=== PATIENT | male | born 1935 | race Caucasian/White ===

== ENCOUNTER 2019-11-21 13:16 | Outpatient (CLI) | payer MEDICARE, OTHER, SELFPAY ==
--- NOTE | 2019-11-21 13:23 | USCV_ITS ---
Yossi Vargas Age: 84 Gender: M : 1935 Exam Date: 11/21/2019 13:22 Ordering Phys: Jose Reza MD ([email or web address]) Technologist: Jonathan Reynoso Exam Location: [facility] [place] Indication: TIA BP: 132 / 72 HR: 56 Rhythm: Sinus Technical Quality: Fair MEASUREMENTS (Male / Female) Normal Values 2D ECHO LV Diastolic Diameter PLAX 3.4 cm 4.2 - 5.9 / 3.9 - 5.3 cm LV Systolic Diameter PLAX 2.3 cm IVS Diastolic Thickness 0.9 cm 0.6 - 1.0 / 0.6 - 0.9 cm IVS Systolic Thickness 1.2 cm LVPW Diastolic Thickness 0.8 cm 0.6 - 1.0 / 0.6 - 0.9 cm LVPW Systolic Thickness 1.4 cm LVOT Diameter 2.0 cm LV Ejection Fraction 2D Teich 65.0 % LV Ejection Fraction MOD 2C 58.7 % LV Ejection Fraction 2C AL 58.2 % LA Diameter 4.5 cm LA Width 4.7 cm LA Height 4.6 cm RA Width 4.7 cm RA Height 4.2 cm Aorta at Sinotubular Diameter 3.0 cm M-MODE LV Diastolic Diameter MM 3.6 cm 4.2 - 5.9 / 3.9 - 5.3 cm LV Systolic Diameter MM 2.0 cm LV Ejection Fraction MM Teich 76.8 % IVS Diastolic Thickness MM 0.7 cm 0.6 - 1.0 / 0.6 - 0.9 cm IVS Systolic Thickness MM 1.6 cm LVPW Diastolic Thickness MM 1.1 cm 0.6 - 1.0 / 0.6 - 0.9 cm LVPW Systolic Thickness MM 1.2 cm RV Diastolic Diameter MM 1.4 cm Aortic Annulus Diameter 3.7 cm LA Ao Ratio MM 1.2 MV E Point Septal Separation 1.1 cm DOPPLER AV Peak Velocity 227.0 cm/s LVOT Peak Velocity 84.0 cm/s AV Area Cont Eq vti 1.1 cm squared AV Area Cont Eq pk 1.2 cm squared MV Area PHT 5.0 cm squared Mitral E to A Ratio 0.9 MV E' Velocity 9.0 cm/s Mitral E to MV E' Ratio 10.6 Mitral E to LV E' Lateral Ratio 10.5 Mitral E to LV E' Septal Ratio 10.9 TR Peak Velocity 285.0 cm/s TR Peak Gradient 32.6 mmHg TV Peak E Velocity 72.0 cm/s Right Atrial Pressure 3.0 mmHg Pulmonary Artery Systolic Pressu 35.5 mmHg FINDINGS Left Ventricle Normal left ventricular size and systolic function, EF 63 %. No regional wall motion abnormalities. Grade I/IV diastolic dysfunction (abnormal relaxation filling pattern), normal to mildly elevated filling pressures.mild calcific left atrial hypertrophy . Right Ventricle Normal right ventricular size and systolic function. Right Atrium Prominent eustachian valve Mildly increased right atrial size. Left Atrium Mildly increased left atrial size. Mitral Valve Thickened mitral valve. Moderate mitral annular calcification. Mild mitral valve regurgitation. Aortic Valve Thickened aortic valve. Tricuspid Valve Thickened tricuspid valve. Mild tricuspid valve regurgitation. Pulmonic Valve Pulmonic valve not well visualized. Pericardium Normal pericardium without effusion. Aorta Normal aortic annulus size. CONCLUSIONS Normal left ventricular size and systolic function, EF 63 %. No regional wall motion abnormalities. Mild concentric left ventricular hypertrophy Grade I/IV diastolic dysfunction (abnormal relaxation filling pattern), normal to mildly elevated filling pressures. Thickened mitral valve. Prominent eustachian valve Moderate mitral annular calcification. Mild mitral valve regurgitation. Thickened aortic valve. Thickened tricuspid valve. Mild tricuspid valve regurgitation. There is no pericardial effusion. There are no intracardiac masses. No significant change from the study from 03/18/2018 Dr Jose Reza MD FAC (Electronically Signed) Final Date: 21 November 2019 19:00 S
--- NOTE | 2019-11-21 13:30 | USCV_ITS ---
Yossi Vargas Age: 84 Gender: M : 1935 Exam Date: 11/21/2019 13:37 Ordering Phys: Jose Reza MD ([email or web address]) Technologist: Jonathan Reynoso Exam Location: [facility] – [place] Indication: CCA STENOSIS Risk Factors: Previous Vascular Surgery: Right Brachial BP: / Left Brachial BP: / Right Left Velocity (cm/s) Spectral Plaque Velocity (cm/s) Spectral Plaque Syst/Diast Broadening Syst/Diast Broadening 66.70/ 14.80 Prox CCA 84.50 / 25.50 65.90/ 12.40 Mid CCA 91.40 / 27.50 67.60/ 17.30 Distal CCA 58.00 / 11.80 52.70/ 11.50 Prox ICA 94.30 / 16.70 102.20/20.90 Mid ICA 91.40 / 22.60 108.00/36.00 Distal ICA 105.10/ 28.50 80.70 ECA 114.90 1.60 ICA/CCA 1.15 Antegrade Vertebral Antegrade 38.90/ 5.70 cm/s 54.00/ 10.80 cm/s Tri Subclavian Tri 68.30 112.0 0 FINDINGS Mild to moderate heterogeneous plaques at the right bifurcation and internal carotid artery Mild to moderate heterogeneous plaquesat the left bifurcation and internal carotid artery Intimal thickening in the common carotid arteries bilaterally Antegrade flow in the vertebral arteries bilaterally Normal Doppler flow velocities in the subclavian and external carotid arteries bilaterally CONCLUSIONS Mild to moderate heterogeneous plaques at the right and left bifurcations and internal carotid arteries bilaterally, consistent with 16 to 49% gnosis Compared to the study from 04/27/2019, the stenosis on the left side appears to be less severe Dr Jose Reza MD [facility] (Electronically Signed) Final Date: 22 November 2019 08:53 S
== END 2019-11-21 13:17 | disposition home or self-care (01) ==
LOC: US 13:17
PROVIDERS: PCP Family Medicine; Visit Provider Internal Medicine Cardiovascular Disease
DX: I65.23 Occlusion and stenosis of bilateral carotid arteries (principal); I10 Essential (primary) hypertension; I08.3 Combined rheumatic disorders of mitral, aortic and tricuspid valves
CPT/HCPCS: 93306; 93880

== ENCOUNTER → 2020-01-15 08:31 | Outpatient (BNVA) | payer MEDICARE, OTHER, SELFPAY | PROVIDERS: PCP Family Medicine; Referring Provider Family Medicine; Visit Provider Specialist | DX: G20 Parkinson's disease (principal) | CPT/HCPCS: 99204 ==

== ENCOUNTER → 2020-02-18 13:12 | Outpatient (BNVA) | payer MEDICARE, OTHER, SELFPAY | PROVIDERS: PCP Family Medicine; Visit Provider Specialist | DX: G20 Parkinson's disease (principal) | CPT/HCPCS: 99213 ==

== ENCOUNTER → 2020-06-25 10:10 | Outpatient (BNVA) | payer MEDICARE, OTHER, SELFPAY | PROVIDERS: PCP Family Medicine; Visit Provider Specialist | DX: G20 Parkinson's disease (principal) | CPT/HCPCS: 99213 ==

== ENCOUNTER → 2020-07-18 13:42 | Outpatient (BNVA) | payer MEDICARE, OTHER, SELFPAY | PROVIDERS: PCP Family Medicine; Visit Provider Nurse Practitioner Family | DX: M25.512 Pain in left shoulder (principal) | CPT/HCPCS: 73030 ==

== ENCOUNTER → 2020-08-07 16:32 | Outpatient (BNVA) | payer MEDICARE, OTHER, SELFPAY | PROVIDERS: PCP Family Medicine; Visit Provider Family Medicine | DX: E78.5 Hyperlipidemia, unspecified (principal); I95.9 Hypotension, unspecified | CPT/HCPCS: 80053; 80061; 84443 ==

== ENCOUNTER 2020-08-14 11:42 | Outpatient (CLI) | payer MEDICARE, OTHER, SELFPAY ==
--- NOTE | 2020-08-14 11:45 | MR_ITS ---
WS: [id number] MRI LEFT SHOULDER NONCONTRAST TECHNIQUE: Sagittal T2, coronal T1, T2 and proton density imaging. Axial gradient PDE imaging. CLINICAL INFORMATION: M25.512 - Pain in left shoulder COMPARISON: None. FINDINGS: Moderate degenerative arthritis AC joint with mild edema and synovial thickening. Mild downsloping ac romion. Subacromial spurring. Slight impingement on the underlying supraspinatus. Normal bone marrow signal in the humerus and glenoid. No acute fractures. Normal supraspinatus and infraspinatus. Normal subscapularis. Normal biceps labral anchor. Normal teres minor. Glenoid labrum appears grossly normal. Normal biceps tendon in the bicipital groove. MR/MR shoulder LT wo con* [id number] IMPRESSION: 1. Moderate degenerative arthritis AC joint with mild edema and mild downslopi ng acromion with subacromial spurring. 2. No acute rotator cuff tears. 3. Normal bone marrow signal in the humerus and glenoid. No acute fractures. 4. Normal biceps tendon in the bicipital groove. 5. No other significant findings.
== END 2020-08-14 11:43 | disposition home or self-care (01) ==
LOC: RADSHAW 11:43
PROVIDERS: PCP Family Medicine; Visit Provider Nurse Practitioner Family
DX: M19.012 Primary osteoarthritis, left shoulder (principal); R60.0 Localized edema
CPT/HCPCS: 73221

== ENCOUNTER 2020-08-21 09:33 | Outpatient (CLI) | payer MEDICARE, OTHER, SELFPAY ==
[2020-08-21 10:36] LABS: Basophils % 0.7 %; Eosinophils # 0.2 10^3/uL (0.0-0.8); Eosinophils % 3.4 %; Hematocrit 27.4 % (42.0-52.0); Hemoglobin 8.3 g/dL (11.7-16.6); Lymphocytes # 1.3 10^3/uL (0.8-4.8); Lymphocytes % 23.3 %; Mean Corpuscular HGB Conc 30.3 g/dL (30.0-36.0); Mean Corpuscular Hemoglobin 26.4 pg (28.0-34.0); Mean Corpuscular Volume 87.3 fL (80-94); Mean Platelet Volume 8.9 fL (7.4-10.4); Monocytes # 0.5 10^3/uL (0.2-0.9); Monocytes % 8.9 %; Neutrophils # 3.54 10^3/uL (1.8-7.7); Neutrophils % 63.3 %; Nucleated Red Blood Cells % 0 %; Platelet Count 232 10^3/cmm (130-400); Red Blood Count 3.14 10^6/uL (4.1-5.3); Red Cell Distribution Width 15.5 % (12.1-15.1); White Blood Count 5.6 10^3/uL (4.0-10.0)
[2020-08-21 14:41] LABS: Ferritin 29 ng/mL (30-400); Iron 26 ug/dL (59-158); Percent Saturation 8.8 % (20-50); Total Iron Binding Capacity 293 mcg/dl; Unsaturated Iron Binding 267 ug/dL (112-347)
[2020-08-21 14:57] LABS: Vitamin B12 687 pg/mL (232-1245)
[2020-08-21 15:18] LABS: Folate Level 12.9 ng/mL (4.5-32.2)
[2020-08-21 15:28] LABS: Erythrocyte Sedimentation Rate 22 mm/hr (0-10)
--- NOTE | 2020-08-21 18:29 | ONC FU_ITS ---
Dr. William follow up note Patient: Yossi Vargas Unit #: [id number]: 1935 Dicatated By: Casi William M.D.Date of Visit:Aug 21, 2020 Onc Med Follow-up/Prog Note History of Present Illness: Mr. Yossi Vargas, is a 84-year-old gentleman with a history of anemia diagnosed 2 to 3 years prior to visit to clinic, as per patient at that time his iron was low, he was given oral iron which he took for some time but could not tolerate then stopped and his blood improved on his own until August 08, 2019 when his routine lab work-up showed white blood count 5 hemoglobin 8.2 g hematocrit 26.9 platelets 259,000, CMP was within normal range, TSH was 3.75 his repeat labs done on August 19, 2020 shows there is a further drop in his hemoglobin to 7.8 g, hematocrit 24, platelets 276,000 white blood count 6, MCV 83.5, as per patient he has been feeling weak and tired, at times dizzy, went to Dr. Reza his station master who informed him nothing to related to heart could be due to anemia. Also complaining of dyspnea on exertion and palpitation, patient is a very active person Patient denies any history of melena or hematochezia, denies any history of hemoptysis or hematemesis, denies any history of hematuria. Denies any history of jaundice. As per patient he underwent right knee replacement in 2019, at that time he received 1 unit of packed RBC during surgery. Last colonoscopy was done about 4 5 years ago, as per patient at that time EGD showed gastritis and acid reflux but colonoscopy was normal, it was done by Dr. Mckeon. Denies any night sweats denies any weight loss, denies any recurrence fever. Denies any lymphadenopathy. Medications: Apixaban 1 Tablet (of 2.5 mg) Oral b.i.d., Arnuity Ellipta 1 [place](s) (of 50 mcg/act) Aerosol Powder, Breath Activated Inhalation b.i.d., Astepro 2 [place](s) (of 0.15 %) Solution Nasal b.i.d., Carbidopa-Levodopa ER 1 Tablet (of 50-200 mg) Tablet, controlled release Oral b.i.d., Cetirizine HCl 1 Tablet (of 10 mg) Capsule Oral daily, Colace 1 Caplet (of 100 mg) Capsule Oral b.i.d., CVS Melatonin 1 Tablet (of 5 mg) Tablet, chewable Oral at bedtime, Dramamine Less Drowsy 1 Tablet (of 25 mg) Oral PRN, Dulcolax Milk of Magnesia 15 mL (of 400 mg/5mL) Suspension Oral b.i.d., Ensure Plus Liquid Oral daily, Multivitamin 1 Tablet Liquid Oral daily, Pantoprazole Sodium 1 Tablet (of 40 mg) Tablet, enteric coated Oral daily, Saw [place] (160 mg) Tablet Oral daily, Simvastatin 1 Tablet (of 20 mg) Oral daily, traZODone HCl 25 mg (of 50 mg) Tablet Oral at bedtime Allergies: Amoxicillin and Augmentin. Review of Systems: Review of Systems is not available for this patient. Vital Signs: Performed on Aug 21, 2020 11:14 Weight - 149.4 lbs (HIGH) BSA - 0.00 sq.m BMI - 0.00 Temperature - 97.6 F (LOW) Pulse - 66 /min Respiration - 18 /min BP - 106/59 mm(hg) O2 Sat - 99 % Pain - 0 Fatigue - 0 Performance Status: 2 - Ambulatory/capable of all self-care, unable to perform any work activities. Up and about more than 50% of waking hours. (ECOG) Physical Examination: ENMT - No mouth sores, no thrush, no jaundice, Respiratory - Lungs are clear to auscultation, Cardiovascular - Irregular rate and rhythm, Abdomen - Soft, bowel sounds present, Extremities - No visible edema. Lab/Imaging: Most recent lab results are not available for this patient. Impression: Normocytic normochromic anemia etiology unclear could be multifactorial including combined iron deficiency/B12 deficiency, as patient has history of iron deficiency in the past or considering his age underlying myelodysplasia cannot be ruled out. Chronic GI blood loss patient is on Eliquis, anemia of chronic disease Atrial fibrillation, on Eliquis hypertension, chronic lower back pain, sleep apnea Osteoarthritis Polymyalgia rheumatica Plan: Discussed with patient regarding his concern about symptoms like generalized weakness and fatigue, palpitation, off and on dizziness, headache progressive for the last few weeks, could be due to progressive anemia, As patient is symptomatic due to progressive anemia, will consider 1 unit of packed RBC, which might improve his symptoms In the meantime , we will proceed with anemia work-up including iron studies, B12, folate level, reticulocyte count, sed rate, SPEP And patient return to clinic in 2 weeks with CBC and above-mentioned work-up and will review and plan accordingly Signed By: Casi William M.D. <<Signature on File>>
[2020-08-22 08:40] VITALS: BP 150/84; PULSE 64; RESP 18; TEMP 36.6; O2SAT 100
[2020-08-22 08:55] VITALS: BP 157/84; PULSE 63; RESP 18; TEMP 36.5; O2SAT 100
[2020-08-22 09:08] LABS: PROTEIN, TOTAL 6.5 g/dL (6.1-8.1)
[2020-08-22 09:10] VITALS: BP 171/91; PULSE 65; RESP 18; TEMP 37; O2SAT 100
[2020-08-22 09:40] VITALS: BP 173/92; PULSE 67; RESP 18; TEMP 36.8; O2SAT 100
[2020-08-22 10:10] VITALS: BP 182/96; PULSE 65; RESP 18; TEMP 37; O2SAT 100
[2020-08-22 13:49] LABS: ALBUMIN 3.9 g/dL (3.8-4.8); ALPHA 1 GLOBULIN 0.4 g/dL (0.2-0.3); ALPHA 2 GLOBULIN 0.7 g/dL (0.5-0.9); BETA 1 GLOBULIN 0.4 g/dL (0.4-0.6); BETA 2 GLOBULIN 0.4 g/dL (0.2-0.5); GAMMA GLOBULIN 0.8 g/dL (0.8-1.7)
== END 2020-08-21 09:34 | disposition home or self-care (01) ==
LOC: ONCMED 09:36
PROVIDERS: PCP Family Medicine; Visit Provider Internal Medicine Hematology & Oncology
DX: D50.9 Iron deficiency anemia, unspecified (principal); I48.91 Unspecified atrial fibrillation; Z79.01 Long term (current) use of anticoagulants; I10 Essential (primary) hypertension; G89.29 Other chronic pain; M54.5 Low back pain; G47.33 Obstructive sleep apnea (adult) (pediatric); M47.9 Spondylosis, unspecified; M35.3 Polymyalgia rheumatica; Z79.899 Other long term (current) drug therapy
CPT/HCPCS: 36415; 82607; 82728; 82746; 83540; 83550; 84155; 84165; 85025; 85651; 86850; 86900; 86920; 99204

== ENCOUNTER 2020-08-22 08:05 | Outpatient (CLI) | payer MEDICARE, OTHER, SELFPAY ==
[2020-08-22] MEDS: diphenhydrAMINE 25 mg Capsule PO (08:40)
[2020-08-22] MEDS: sodium chloride 0.9% 250 ML 999 ML IV (08:40)
[2020-08-22] MEDS: acetaminophen 325 mg Tablet 650 MG PO (08:40)
== END 2020-08-22 08:06 | disposition home or self-care (01) ==
PROVIDERS: PCP Family Medicine; Visit Provider Internal Medicine Hematology & Oncology
DX: D50.9 Iron deficiency anemia, unspecified (principal); R53.83 Other fatigue
CPT/HCPCS: J7050; P9016

== ENCOUNTER 2020-08-22 08:09 | Outpatient (CLI) | payer MEDICARE, OTHER, SELFPAY ==
--- NOTE | 2020-08-22 11:45 | MR_ITS ---
WS: [id number] MRI CERVICAL SPINE NONCONTRAST TECHNIQUE: Sagittal T1, T2 and STIR imaging. Axial T2, gradient, and fiesta imaging. CLINICAL INFORMATION: left sided neck pain COMPARISON: None. FINDINGS: Mild cervical curve. Straightening of the normal cervical lordosis. Cord signal is normal. No high-gr shellie central canal stenosis. C2-C3: Mild facet arthropathy. Mild left foraminal narrowing. Spinal canal is patent. C3-C4: Disc osteophyte complex with endplate ridging. Moderate left foraminal narrowing. Moderate facet arthropathy. Mild right foraminal narrowing. C4-C5: Slight retrolisthesis. Moderate to severe bilateral bony foraminal narrowing left greater than right. Moderate to advanced facet arthropathy. Mild to moderate central canal stenosis. C5-C6: Mild disc osteophytic ridging. Moderate facet arthropathy. Moderate to severe left and mild ri ght bony foraminal narrowing. Central canal is patent. C6-C7: Disc osteophyte complex with endplate ridging. Mild bilateral bony foraminal narrowing. Spinal canal is patent. Mild facet arthropathy. C7-T1: Mild left and no significant right foraminal narrowing. Spinal canal is patent Overall no significant changes since 2016. MR/MR cervical spin wo con* [id number] IMPRESSION: 1. Mild cervical curve. Straightening of the normal cervical lordosis. Cord si gnal is normal. Alignment is unchanged since 2016 2. Mild to moderate central canal stenosis C5-C6 due to disc osteophyte comple x with endplate ridging. This is stable since 2016. 3. Moderate to severe bony foraminal narrowing worse at left C3-C4, bilateral C4-5 worse in the left, and left C5-C6. 4. Moderate to advanced facet arthropathy left C3-C4 and bilateral C4-5.
== END 2020-08-22 08:10 | disposition home or self-care (01) ==
LOC: RADSHAW 08:10
PROVIDERS: PCP Family Medicine; Visit Provider Family Medicine
DX: M47.812 Spondylosis without myelopathy or radiculopathy, cervical region (principal); M48.02 Spinal stenosis, cervical region; M25.78 Osteophyte, vertebrae
CPT/HCPCS: 72141

== ENCOUNTER 2020-08-25 05:56 | Outpatient (CLI) | payer MEDICARE, OTHER, SELFPAY ==
[2020-08-25 14:08] LABS: Basophils % 0.5 %; Eosinophils # 0.2 10^3/uL (0.0-0.8); Eosinophils % 2.8 %; Hematocrit 28.1 % (42.0-52.0); Hemoglobin 8.6 g/dL (11.7-16.6); Lymphocytes # 1.5 10^3/uL (0.8-4.8); Lymphocytes % 23.5 %; Mean Corpuscular HGB Conc 30.6 g/dL (30.0-36.0); Mean Corpuscular Hemoglobin 26.8 pg (28.0-34.0); Mean Corpuscular Volume 87.5 fL (80-94); Mean Platelet Volume 8.9 fL (7.4-10.4); Monocytes # 0.6 10^3/uL (0.2-0.9); Neutrophils # 4.13 10^3/uL (1.8-7.7); Neutrophils % 63.9 %; Nucleated Red Blood Cells % 0 %; Platelet Count 238 10^3/cmm (130-400); Red Blood Count 3.21 10^6/uL (4.1-5.3); Red Cell Distribution Width 15.8 % (12.1-15.1); White Blood Count 6.5 10^3/uL (4.0-10.0)
--- NOTE | 2020-08-25 23:25 | ONC FU_ITS ---
[facility]ie [facility] Patient Note Patient: Yossi Vargas Unit #: [id number]: 1935 Dictated By: Juan Francisco CurrieDate of Visit: Aug 25, 2020 Onc MED Follow-Up/Prog Note Chief Complaint: Anemia History of Present Illness: Mr. Vargas, is a 84-year-old gentleman with a history of anemia. He was diagnosed 2 to 3 years prior to visit to his first clinic visit with Dr William. Mr Vargas reports that at that time his iron was low. He was given oral iron which he took for some time but could not tolerate due to stomach upset despite trying different formulations of oral iron. He then stopped and his blood improved on his own until August 08, 2019. His routine lab work-up showed white blood count 5 hemoglobin 8.2 g hematocrit 26.9 platelets 259,000, CMP was within normal range, TSH was 3.75. Repeat labs done on August 19, 2020 shows there is a further drop in his hemoglobin to 7.8 g, hematocrit 24, platelets 276,000 white blood count 6, MCV 83.5. Mr Vargas reports that he has been feeling weak and tired, at times dizzy. He did have followup with Dr. Reza his gas leak tester who informed him nothing to related to heart but his symptoms could be due to anemia. Also complaining of dyspnea on exertion and palpitation, patient is normally a very active person. Patient denies any history of melena or hematochezia, denies any history of hemoptysis or hematemesis, denies any history of hematuria. Denies any history of jaundice. As per patient he underwent right knee replacement in 2019, at that time he received 1 unit of packed RBC during surgery. Last colonoscopy was done about 4-5 years ago, as per patient at that time EGD showed gastritis and acid reflux but colonoscopy was normal, it was done by Dr. Mckeon. Denies any night sweats denies any weight loss, denies any recurrence fever. Denies any lymphadenopathy. Mr Vargas has been following [facility] Dr William regarding the anemia. His iron studies were obtained on August 21, 2020 and reported an iron saturation of 8.8% ferritin of 29 iron level of 26 TIBC was 293. His vitamin B12 was normal at 687. Sed rate was 22. Mr. Vargas has done oral iron in the past and has tried different formulations. He states that all result in severe stomach pain and upset. He is unable to tolerate the oral iron. He did receive transfusion services on August 22, 2020 for hemoglobin of 8.3 with significant symptoms of significant weakness and shortness of breath. Mr. Vargas is here today for follow-up and reassessment of his hemoglobin following his transfusion services on August 22, 2020. His hemoglobin is 8.6 today. He states he is still tired and short of breath but somewhat better. He denies any other new concerns today. He denies any fever or chills. He has had no nausea or vomiting. He tolerated the transfusion services well without any reaction or rash. He states his appetite is fair. He denies any pain at this time. We discussed his iron levels at length and his inability to tolerate oral iron. His ECOG is 2. Past Medical History: Anxiety Arteriosclerotic vascular disease Atrial fibrillation Carotid stenosis Chronic constipation Chronic low back pain Degenerative disc disease Depression Diverticulosis Dyslipidemia Gastroesophageal reflux disease Heart murmur Hiatal hernia Hypertension Irregular heart rate Obstructive sleep apnea Osteoarthritis Paresthesis of both feet Polymyalgia rheumatica Spondylolisthesis Vitamin d deficiency Past Surgical History: Back surgery Hernia repair Penile implant Sinus surgery Total knee replacement Allergies: Amoxicillin and Augmentin. Medications: Apixaban 1 Tablet (of 2.5 mg) Oral b.i.d. Arnuity Ellipta 1 [place](s) (of 50 mcg/act) Aerosol Powder, Breath Activated Inhalation b.i.d. Astepro 2 [place](s) (of 0.15 %) Solution Nasal b.i.d. Carbidopa-Levodopa ER 1 Tablet (of 50-200 mg) Tablet, controlled release Oral b.i.d. Cetirizine HCl 1 Tablet (of 10 mg) Capsule Oral daily Colace 1 Caplet (of 100 mg) Capsule Oral b.i.d. CVS Melatonin 1 Tablet (of 5 mg) Tablet, chewable Oral at bedtime Dramamine Less Drowsy 1 Tablet (of 25 mg) Oral PRN Dulcolax Milk of Magnesia 15 mL (of 400 mg/5mL) Suspension Oral b.i.d. Ensure Plus Liquid Oral daily Multivitamin 1 Tablet Liquid Oral daily Pantoprazole Sodium 1 Tablet (of 40 mg) Tablet, enteric coated Oral daily Saw [place] (160 mg) Tablet Oral daily Simvastatin 1 Tablet (of 20 mg) Oral daily traZODone HCl 25 mg (of 50 mg) Tablet Oral at bedtime Family History: Mr. Vargas's mother at age 76: emphysema. Mr. Vargas's father at age 95: coronary artery disease. Social History: Mr. Vargas is . Mr. Vargas has never smoked. He has no history of drinking. Review Of Symptoms: Constitutional Denies fevers, chills, night sweats, excessive fatigue or weight loss. He states he is still tired after the transfusion but does feel better overall. Allergic/Immunologic No reactions. Eyes Denies significant visual changes. No diplopia. No amaurosis. ENMT Denies changes in hearing, sore throat, mouth sores, difficulty or changes in swallowing ability, and/or sinus drainage. Hematologic/Lymphatic Denies easy bruising or bleeding. The patient denies any tender or palpable lymph nodes. Respiratory Denies worsening dyspnea on exertion. He denies chest pain, cough or hemoptysis. Denies orthopnea. Cardiovascular Denies anginal chest pain, palpitations or orthopnea. Gastrointestinal Denies nausea, vomiting, diarrhea, GI bleeding, or constipation. Denies change in bowel habits and/or stool color, no heartburn or early satiety. Genitourinary (M) Denies hematuria, dysuria, increased frequency, urgency, hesitancy or incontinence. Musculoskeletal Denies joint pain, swelling or redness. No decreased range of motion. Integumentary Denies chronic rashes, inflammation, ulcerations or skin changes. Neurologic Denies headache, blurred vision, and no areas of focal weakness or numbness. Normal gait. No sensory problems. Psychiatric Denies insomnia, depression, jessy or mood swings. Vital Signs: Performed on Aug 25, 2020 15:50 Weight - 150 lbs (HIGH) BSA - sq.m BMI - 0.00 (LOW) Temperature - 97.6 F (LOW) Pulse - 70 /min Respiration - 18 /min BP - 114/64 mm(hg) O2 Sat - 98 % Pain - 0 Fatigue - 8,1 - No physically strenuous activity, but ambulatory and able to carry out light or sedentary work (e.g. office work, light house work). (ECOG) Physical Examination: Constitutional Alert, oriented, no acute distress. Skin pink, warm and dry. Head Normocephalic; atraumatic. Eyes Conjunctivae and sclerae are clear and without icterus. Pupils are reactive and equal. Respiratory Lungs are clear to auscultation without rhonchi or wheezing. Cardiovascular Regular rate and rhythm of heart without murmurs,clicks, gallops or rubs. Back/Spine Non-tender to palpation. Extremities No visible deformities, no cyanosis, clubbing or edema. Musculoskeletal No tenderness or swelling, normal range of motion without obvious weakness. Integumentary No rashes or lesions. Neurologic No sensory or motor deficits, normal cerebellar function, normal gait. Psychiatric Alert and oriented times three. Coherent speech. Verbalizes understanding of our discussions today. Laboratory:Test performed on Aug 25, 2020 13:47 WBC 6.5 10 3/uL RBC 3.21 10 6/uL HGB 8.6 g/dL HCT 28.1 % MCV 87.5 fL MCH 26.8 pg MCHC 30.6 g/dL RDW 15.8 % Platelet Count 238 10 3/cmm MPV 8.9 fL Neutrophils 4.13 10 3/uL Lymphocytes 1.5 10 3/uL Monocytes 0.6 10 3/uL Eosinophils 0.2 10 3/uL Basophils 0.0 10 3/uL Neutrophil % 63.9 % Lymphocyte % 23.5 % Monocyte % 9.0 % Eosinophil % 2.8 % Basophils % 0.5 % NRBC % 0 % Impression: Normocytic normochromic anemia etiology unclear could be multifactorial including combined iron deficiency/B12 deficiency, as patient has history of iron deficiency in the past or considering his age underlying myelodysplasia cannot be ruled out. Chronic GI blood loss patient is on Eliquis, anemia of chronic disease Atrial fibrillation, on Eliquis hypertension, chronic lower back pain, sleep apnea Osteoarthritis Polymyalgia rheumatica Plan: PROBLEMS ADDRESSED TODAY 1. Persistent anemia with recently diagnosed iron deficiency A. We will pursue prior authorization for Injectafer 750 mg x 2 doses with plans to start on Tuesday of this week. B. Today's labs were reviewed in detail discussed with . Mrs. Vargas and a copy was given to them. His white count is 6.5, hemoglobin 8.6 platelets 238,000. C. His iron saturation from 08/21/2020 is 8.8% ferritin is 29 iron level is 26 TIBC is 293. This confirms his iron deficiency anemia. D. We will plan to administer his first dose of Injectafer on Tuesday of this week. We did discuss potential side effects including allergic reaction, infusion reaction, nausea vomiting, rash, dizziness, headache taste changes and hypertension as well as flushing. A copy drug information from up-to-date was given to and Mrs. Vargas. 2. Follow-up plan A. He will continue with weekly CBC and typenex for possible transfusion services. B. He will return in 1 week for his second dose of Injectafer. C. We will plan to have him return back to see Dr. William in 5 weeks for post Injectafer follow-up and recheck of his labs to include iron studies, CBC, typenex and CMP. D. Mr. Vargas was instructed to contact us in interim should questions or problems arise. Signed By: Juan Francisco Currie-, AOCNP Casi William MD <<Signature on File>>
== END 2020-08-25 05:57 | disposition home or self-care (01) ==
LOC: ONCMED 05:59
PROVIDERS: PCP Family Medicine; Visit Provider Nurse Practitioner
DX: D50.9 Iron deficiency anemia, unspecified (principal); I48.91 Unspecified atrial fibrillation; M19.90 Unspecified osteoarthritis, unspecified site; M35.3 Polymyalgia rheumatica; Z79.01 Long term (current) use of anticoagulants; Z86.39 Personal history of other endocrine, nutritional and metabolic disease
CPT/HCPCS: 85025; 99214

== ENCOUNTER 2020-08-27 06:03 | Outpatient (CLI) | payer MEDICARE, OTHER, SELFPAY ==
[2020-08-27] MEDS: ferric carboxy (IVPB) 750 MG in sodium chloride 0.9% (100 ml) 100 ML 345 MG IV (11:15)
== END 2020-08-27 06:04 | disposition home or self-care (01) ==
LOC: ONCMED 06:10
PROVIDERS: PCP Family Medicine; Visit Provider Internal Medicine Hematology & Oncology
DX: D50.9 Iron deficiency anemia, unspecified (principal)
CPT/HCPCS: 96365; J1439

== ENCOUNTER 2020-09-03 06:30 | Outpatient (CLI) | payer MEDICARE, OTHER, SELFPAY ==
[2020-09-03] MEDS: ferric carboxy (IVPB) 750 MG in sodium chloride 0.9% (100 ml) 100 ML 460 MG IV (11:20)
== END 2020-09-03 06:31 | disposition home or self-care (01) ==
LOC: ONCMED 06:32
PROVIDERS: PCP Family Medicine; Visit Provider Nurse Practitioner
DX: D50.9 Iron deficiency anemia, unspecified (principal)
CPT/HCPCS: 96365; J1439

== ENCOUNTER 2020-09-10 06:18 | Outpatient (CLI) | payer MEDICARE, OTHER, SELFPAY ==
[2020-09-10 11:36] LABS: Basophils % 0.8 %; Eosinophils # 0.4 10^3/uL (0.0-0.8); Eosinophils % 6.8 %; Hemoglobin 9.7 g/dL (11.7-16.6); Lymphocytes # 1.4 10^3/uL (0.8-4.8); Lymphocytes % 26.3 %; Mean Corpuscular HGB Conc 31.3 g/dL (30.0-36.0); Mean Corpuscular Hemoglobin 28.9 pg (28.0-34.0); Mean Corpuscular Volume 92.3 fL (80-94); Mean Platelet Volume 9.4 fL (7.4-10.4); Monocytes # 0.5 10^3/uL (0.2-0.9); Monocytes % 9.7 %; Neutrophils # 2.88 10^3/uL (1.8-7.7); Neutrophils % 56.2 %; Nucleated Red Blood Cells % 0 %; Platelet Count 196 10^3/cmm (130-400); Red Blood Count 3.36 10^6/uL (4.1-5.3); Red Cell Distribution Width 19.8 % (12.1-15.1); White Blood Count 5.1 10^3/uL (4.0-10.0)
[2020-09-10 11:59] LABS: Alanine Aminotransferase 9 U/L (0-41); Albumin Level 4.3 g/dL (3.5-5.2); Alkaline Phosphatase 120 IU/L (40-130); Anion Gap 13.3 (5-19); Aspartate Amino Transferase 26 U/L (0-40); Blood Urea Nitrogen 18 mg/dL (8-23); Calcium 8.8 mg/dL (8.5-10.5); Carbon Dioxide 24 mmol/L (22-29); Chloride 102 mmol/L (98-107); Globulin 2.3 g/dL (1.3-4.6); Glucose 92 mg/dL (65-115); Osmolality Calculated 282 mOsm/kg (285-295); Potassium 4.3 mmol/L (3.5-5.1); Sodium 135 mmol/L (136-145); Total Bilirubin 0.5 mg/dL (0.15-1.2); Total Protein 6.6 g/dL (6.6-8.7)
== END 2020-09-10 06:19 | disposition home or self-care (01) ==
LOC: ONCMED 06:25
PROVIDERS: PCP Family Medicine; Visit Provider Internal Medicine Hematology & Oncology
DX: C50.929 Malignant neoplasm of unspecified site of unspecified male breast (principal); Z51.81 Encounter for therapeutic drug level monitoring; Z79.899 Other long term (current) drug therapy
CPT/HCPCS: 36415; 80053; 85025

== ENCOUNTER 2020-09-17 07:36 | Outpatient (CLI) | payer MEDICARE, OTHER, SELFPAY ==
[2020-09-17 11:41] LABS: Basophils % 0.9 %; Eosinophils # 0.3 10^3/uL (0.0-0.8); Eosinophils % 6.1 %; Hematocrit 33.9 % (42.0-52.0); Hemoglobin 10.7 g/dL (11.7-16.6); Lymphocytes # 1.2 10^3/uL (0.8-4.8); Lymphocytes % 25.5 %; Mean Corpuscular HGB Conc 31.6 g/dL (30.0-36.0); Mean Corpuscular Hemoglobin 29.5 pg (28.0-34.0); Mean Corpuscular Volume 93.4 fL (80-94); Mean Platelet Volume 9.3 fL (7.4-10.4); Monocytes # 0.4 10^3/uL (0.2-0.9); Monocytes % 8.5 %; Neutrophils # 2.69 10^3/uL (1.8-7.7); Neutrophils % 58.8 %; Nucleated Red Blood Cells % 0 %; Platelet Count 179 10^3/cmm (130-400); Red Blood Count 3.63 10^6/uL (4.1-5.3); Red Cell Distribution Width 19.9 % (12.1-15.1); White Blood Count 4.6 10^3/uL (4.0-10.0)
== END 2020-09-17 07:37 | disposition home or self-care (01) ==
LOC: ONCMED 07:41
PROVIDERS: PCP Family Medicine; Visit Provider Internal Medicine Hematology & Oncology
DX: D50.9 Iron deficiency anemia, unspecified (principal)
CPT/HCPCS: 85025

== ENCOUNTER → 2020-09-24 11:43 | Outpatient (BNVA) | payer MEDICARE, OTHER, SELFPAY | PROVIDERS: PCP Family Medicine; Visit Provider Nurse Practitioner | DX: D50.9 Iron deficiency anemia, unspecified (principal) | CPT/HCPCS: 85025 ==

== ENCOUNTER → 2020-10-01 10:29 | Outpatient (BNVA) | payer MEDICARE, OTHER, SELFPAY | PROVIDERS: PCP Family Medicine; Visit Provider Nurse Practitioner | DX: D64.9 Anemia, unspecified (principal) | CPT/HCPCS: 85025 ==

== ENCOUNTER 2020-10-08 10:57 | Outpatient (CLI) | payer MEDICARE, OTHER, SELFPAY ==
[2020-10-08 12:57] LABS: Alanine Aminotransferase 7 U/L (0-41); Albumin Level 3.8 g/dL (3.5-5.2); Alkaline Phosphatase 128 IU/L (40-130); Anion Gap 11.4 (5-19); Aspartate Amino Transferase 21 U/L (0-40); Blood Urea Nitrogen 13 mg/dL (8-23); Calcium 8.2 mg/dL (8.5-10.5); Carbon Dioxide 26 mmol/L (22-29); Chloride 102 mmol/L (98-107); Ferritin 215 ng/mL (30-400); Glucose 86 mg/dL (65-115); Iron 52 ug/dL (59-158); Osmolality Calculated 279 mOsm/kg (285-295); Percent Saturation 30.7 % (20-50); Potassium 4.4 mmol/L (3.5-5.1); Sodium 135 mmol/L (136-145); Total Bilirubin 0.3 mg/dL (0.15-1.2); Total Iron Binding Capacity 169 mcg/dl; Total Protein 5.8 g/dL (6.6-8.7); Unsaturated Iron Binding 117 ug/dL (112-347)
--- NOTE | 2020-10-08 13:26 | ONC FU_ITS ---
Dr. William follow up note Patient: Yossi Vargas Unit #: [id number]: 1935 Dicatated By: Casi William M.D.Date of Visit:October 08, 2020 Onc Med Follow-up/Prog Note History of Present Illness: Mr. Vargas, is a 84-year-old gentleman with a history of anemia. He was diagnosed 2 to 3 years prior to visit to his first clinic visit with us Mr Vargas reports that at that time his iron was low. He was given oral iron which he took for some time but could not tolerate due to stomach upset despite trying different formulations of oral iron. He then stopped and his blood improved on his own until August 08, 2019. His routine lab work-up showed white blood count 5 hemoglobin 8.2 g hematocrit 26.9 platelets 259,000, CMP was within normal range, TSH was 3.75. Repeat labs done on August 19, 2020 shows there is a further drop in his hemoglobin to 7.8 g, hematocrit 24, platelets 276,000 white blood count 6, MCV 83.5. Mr Vargas reports that he has been feeling weak and tired, at times dizzy. He did have followup with Dr. Reza his automotive heavy mechanic who informed him nothing to related to heart but his symptoms could be due to anemia. Also complaining of dyspnea on exertion and palpitation, patient is normally a very active person. Patient denies any history of melena or hematochezia, denies any history of hemoptysis or hematemesis, denies any history of hematuria. Denies any history of jaundice. As per patient he underwent right knee replacement in 2019, at that time he received 1 unit of packed RBC during surgery. Last colonoscopy was done about 4-5 years ago, as per patient at that time EGD showed gastritis and acid reflux but colonoscopy was normal, it was done by Dr. Mckeon. Denies any night sweats denies any weight loss, denies any recurrence fever. Denies any lymphadenopathy. . His iron studies were obtained on August 21, 2020 and reported an iron saturation of 8.8% ferritin of 29 iron level of 26 TIBC was 293. His vitamin B12 was normal at 687. Sed rate was 22. Mr. Vargas has done oral iron in the past and has tried different formulations. He states that all result in severe stomach pain and upset. He is unable to tolerate the oral iron. He did receive transfusion services on August 22, 2020 for hemoglobin of 8.3 with significant symptoms of significant weakness and shortness of breath. Because of intolerance to oral iron, patient was given Injectafer 750 mg IV weekly x2 on August 27 and September 03, 2020, tolerated well with that his hemoglobin improved to 10.7 g on September 17, 2020, compared to 8.6 g prior to the iron infusion. Came for follow-up, denies any specific complaints, no fever chills, no nausea or vomiting, no diarrhea constipation, no melena or hematochezia, no hemoptysis or hematemesis, no jaundice, no hematuria., No more lightheadedness or dizziness, No more falls since iron infusions Medications: Apixaban 1 Tablet (of 2.5 mg) Oral b.i.d., Arnuity Ellipta 1 Garrison(s) (of 50 mcg/act) Aerosol Powder, Breath Activated Inhalation b.i.d., Astepro 2 Garrison(s) (of 0.15 %) Solution Nasal b.i.d., Carbidopa-Levodopa ER 1 Tablet (of 50-200 mg) Tablet, controlled release Oral b.i.d., Cetirizine HCl 1 Tablet (of 10 mg) Capsule Oral daily, Colace 1 Caplet (of 100 mg) Capsule Oral b.i.d., CVS Melatonin 1 Tablet (of 5 mg) Tablet, chewable Oral at bedtime, Dramamine Less Drowsy 1 Tablet (of 25 mg) Oral PRN, Dulcolax Milk of Magnesia 15 mL (of 400 mg/5mL) Suspension Oral b.i.d., Ensure Plus Liquid Oral daily, Multivitamin 1 Tablet Liquid Oral daily, Pantoprazole Sodium 1 Tablet (of 40 mg) Tablet, enteric coated Oral daily, Saw [place] (160 mg) Tablet Oral daily, Simvastatin 1 Tablet (of 20 mg) Oral daily, traZODone HCl 25 mg (of 50 mg) Tablet Oral at bedtime Allergies: Amoxicillin and Augmentin. Review of Systems: Review of Systems is not available for this patient. Vital Signs: Performed on October 08, 2020 13:20 Weight - 147.8 lbs (LOW) BSA - 0.00 sq.m BMI - 0.00 Temperature - 98.1 F (LOW) Pulse - 73 /min Respiration - 18 /min BP - 106/68 mm(hg) O2 Sat - 99 % Pain - 0 Fatigue - 6 Performance Status: 1 - No physically strenuous activity, but ambulatory and able to carry out light or sedentary work (e.g. office work, light house work). (ECOG) Physical Examination: ENMT - No mouth sores, no thrush, no jaundice, Respiratory - Poor air entry otherwise clear, Cardiovascular - Regular rate and rhythm of heart, Abdomen - Soft, bowel sounds present, Extremities - No visible edema. Lab/Imaging: Test performed on Oct 01, 2020 10:29 WBC 4.2 10^9/L RBC 3.19 10^12/L HGB 9.8 g/dL HCT 29.3 % MCV 91.8 fl MCH 30.8 pg MCHC 33.6 g/dL RDW 22.4 % Platelet Count 196 10^9/L MPV 6.9 fL Neutrophils (Gran) 2.8 10^9/L Lymphocytes 1.1 10^9/L Monocytes 0.3 10^9/L Manual Lymphocytes 27.1 % Manual Monocytes 7.4 % Test performed on Aug 25, 2020 13:47 Eosinophils 0.2 10 3/uL Basophils 0.0 10 3/uL Neutrophil % 63.9 % Lymphocyte % 23.5 % Monocyte % 9.0 % Eosinophil % 2.8 % Basophils % 0.5 % NRBC % 0 % Impression: Normocytic normochromic anemia etiology unclear could be multifactorial including combined iron deficiency/B12 deficiency, as patient has history of iron deficiency in the past or considering his age underlying myelodysplasia cannot be ruled out. Chronic GI blood loss patient is on Eliquis, anemia of chronic disease Iron studies done on August 21, 2020 showed iron saturation 8.6%, ferritin 29, iron 26, B12 687, finding consistent with iron deficiency, patient has history of iron intolerance so patient was given Injectafer 750 mg weekly x2 on August 27, 2020 September 03, 2020, follow-up CBC done on September 17, 2020 showed hemoglobin improved to 10.7 g compared to 8.6 g prior to Injectafer infusion. Atrial fibrillation, on Eliquis hypertension, chronic lower back pain, sleep apnea Osteoarthritis Polymyalgia rheumatica Plan: Discussed with patient regarding his labs from October 01, 2020 which showed white blood count 4.2 hemoglobin 9.8 hematocrit 29.3 platelets 196,000 and CMP done on October 08, 2020 within normal range except sodium 135, serum protein electrophoresis was unremarkable Clinically, patient is doing well with no new signs symptoms, his follow-up CBC done last week shows persistent mild/moderate anemia, hemoglobin dropped to 9.8 g compared to 10.7 g on September 17, 2020, and his repeat iron studies done on October 08, 2020 showed iron saturation 30% iron 52, ferritin 215 otherwise CMP within normal limits , Patient has persistent mild/moderate anemia despite of normalization of iron stores, considering his age underlying myelodysplasia cannot be ruled out. At this point, we will consider bone marrow evaluation to rule out myelodysplasia or other bone marrow pathology causing persistent mild/moderate normocytic normochromic anemia And he will return to clinic 10 days after bone marrow evaluation with CBC and iron studies Signed By: Casi William M.D. <<Signature on File>>
== END 2020-10-08 10:58 | disposition home or self-care (01) ==
LOC: ONCMED 11:00
PROVIDERS: PCP Family Medicine; Visit Provider Internal Medicine Hematology & Oncology
DX: D50.0 Iron deficiency anemia secondary to blood loss (chronic) (principal); D51.9 Vitamin B12 deficiency anemia, unspecified; Z79.01 Long term (current) use of anticoagulants; I48.20 Chronic atrial fibrillation, unspecified; I10 Essential (primary) hypertension; M54.5 Low back pain; G47.33 Obstructive sleep apnea (adult) (pediatric); M19.90 Unspecified osteoarthritis, unspecified site; M35.3 Polymyalgia rheumatica; Z79.899 Other long term (current) drug therapy
CPT/HCPCS: 80053; 82728; 83540; 83550; 99214

== ENCOUNTER → 2020-10-22 16:10 | Outpatient (BNVA) | payer MEDICARE, OTHER, SELFPAY | PROVIDERS: PCP Family Medicine; Visit Provider Internal Medicine Hematology & Oncology | DX: Z01.812 Encounter for preprocedural laboratory examination (principal); Z20.822 Contact with and (suspected) exposure to COVID-19 | CPT/HCPCS: 87635 ==

== ENCOUNTER 2020-10-28 10:08 | Day surgery (SDC) | payer MEDICARE, OTHER, SELFPAY ==
[2020-10-24 13:33] VITALS: BMI 23.5
--- NOTE | 2020-10-28 10:27 | ANES.PREANE2 ---
Pre-Anesthetic Assessment Pre-Anesthetic Assessment: Height/Weight: Height 1.7 m Weight 68.039 kg Preop Diagnosis: Bone marrow Proposed Procedure: Operation Date: 10/28/20 11:30 Proposed Procedures p Bone Marrow Biospy With Aspiration(Not Applicable) - Casi William MD Familial anesthetic complications: None Was Beta Olivier taken within 24 hours: N/A Was Clonidine taken within 24 hours: N/A Last intake: > 8hrs Social: Social History: No alcohol and No tobacco Exam: Pre-Anes Outpt Exam: alert, oriented x 3, clear to auscultation bilaterally and regular rate & rhythm Airway: Cervical ROM: WNL MP: 3 Dentition: Full Pulmonary: Pulmonary: Sleep apnea CV/HEM: CV/HEM: Afib and HTN Comments: holdign blood thinner for procedure CONCLUSIONS echo 2020 Normal left ventricular size and systolic function, EF 63 %. No regional wall motion abnormalities. Mild concentric left ventricular hypertrophy Grade I/IV diastolic dysfunction (abnormal relaxation filling pattern), normal to mildly elevated filling pressures. Thickened mitral valve. Prominent eustachian valve Moderate mitral annular calcification. Mild mitral valve regurgitation. Thickened aortic valve. Thickened tricuspid valve. Mild tricuspid valve regurgitation. There is no pericardial effusion. There are no intracardiac masses. No significant change from the study from 03/18/2018 GI: GI: GERD Metabolic: Metabolic: Hyperlipidemia Neuropsych: Comments: parkinson's disease Anesthetic Plan: ASA status: 4 Anesthesia: MAC Risk of > 500 ml blood loss (7ml/kg in children): No PFSH Anesthesia PFSH: Medical History Anxiety and depression ASVD (arteriosclerotic vascular disease) Atrial fibrillation Benign essential HTN Carotid stenosis Chronic constipation Chronic GERD Chronic low back pain DDD (degenerative disc disease) Diverticulosis Drug intolerance flecainide Dyslipidemia Dyslipidemia Essential hypertension Heart murmur Hiatal hernia Hyponatremia Insomnia Irregular heart rate Neuropathy Normochromic normocytic anemia Obstructive sleep apnea Obstructive sleep apnea Has difficulty in using the CPAP Osteoarthritis of both knees Paresthesia of both feet Paroxysmal atrial fibrillation Polymyalgia rheumatica Poor compliance with medication Prostatism Small vessel disease, cerebrovascular Spondylolisthesis Squamous cell carcinoma Vitamin D deficiency Surgical History History of back surgery History of circumcision History of hernia repair History of penile implant History of sinus surgery History of total knee replacement Family History Grandmother CAD (coronary artery disease) Stroke Brother Suicide Denies family history of Diabetes Clotting disorder Dementia Chronic kidney disease (CKD) Anesthesia complication Bleeding disorder Lung disease Cancer Social History Smoking and tobacco status: never smoked Alcohol intake: never Lives independently: Yes Household members: spouse Marital status: service: Yes Current occupational status: retired History of recent travel: No Current gender identity: Male Data Anesthesia Cardiac Studies: No Data to Display
[2020-10-28 11:32] VITALS: BP 170/87; PULSE 62; RESP 18; TEMP 36.3; O2SAT 100
[2020-10-28] MEDS: sodium chloride 0.9% 1,000 ML 30 ML IV (11:40)
[2020-10-28 11:45] LABS: Basophils % 0.1 %; Eosinophils % 0.4 %; Hematocrit 34.2 % (42.0-52.0); Hemoglobin 11.4 g/dL (11.7-16.6); Lymphocytes # 0.8 10^3/uL (0.8-4.8); Lymphocytes % 11.1 %; Mean Corpuscular HGB Conc 33.3 g/dL (30.0-36.0); Mean Corpuscular Volume 96.1 fL (80-94); Mean Platelet Volume 9.3 fL (7.4-10.4); Monocytes # 0.6 10^3/uL (0.2-0.9); Monocytes % 7.7 %; Neutrophils # 6.09 10^3/uL (1.8-7.7); Neutrophils % 80.3 %; Nucleated Red Blood Cells % 0 %; Platelet Count 165 10^3/cmm (130-400); Red Blood Count 3.56 10^6/uL (4.1-5.3); Red Cell Distribution Width 17.7 % (12.1-15.1); White Blood Count 7.6 10^3/uL (4.0-10.0)
--- NOTE | 2020-10-28 16:42 | XR_ITS ---
WS: [id number] Exam: XR hip RT 2-3V wo/w pel* [id number] Date/Time of Exam: 10/28/2020 4:45 PM Reason For Exam: right hip pain There is a displaced subcapital fracture of the right hip. There is a superior displacement of the fe moral neck with coxa vera deformity. Moderate degenerative thinning of the joint compartment. Normal soft tissues. Penile prosthesis noted. XR/XR hip RT 2-3V wo/w pel* [id number] IMPRESSION: 1. Displaced subcapital fracture of the right hip.
--- NOTE | 2020-10-28 16:51 | SUR.OPER ---
CASE CANCELLED. PAtient with c/o right hip pain. x ray ordered. x ray revealed right hip fracture. bone marrow biopsy cancelled. plan of care explained to patient and family. IV pain medication given by anesthesia. fentanyl 50mcg. report given to er nurse. 16:55 pt transported to ER.
--- NOTE | 2020-10-28 17:25 | W.ED.GENADLT ---
HPI - General Adult General: Time Seen by Provider: 10/28/20 17:21 Source: patient, EMS and RN notes reviewed Limitations: no limitations History of Present Illness: HPI narrative: This patient is an 85-year-old male who presents to the emergency department complaint of right hip pain. Patient states he was walking at his home 2 days ago and just twisted and felt pain in his right hip. Patient did not fall patient had evaluation today was by his come to the ER with concerns of hip injury. X-rays were done prior to my arrival in the room with the patient appears to have a right hip fracture. Will do medical evaluation treat Onset (ago): day(s) Severity: moderate PFSH ED PFSH: Medical History Anxiety and depression ASVD (arteriosclerotic vascular disease) Atrial fibrillation Benign essential HTN Carotid stenosis Chronic constipation Chronic GERD Chronic low back pain DDD (degenerative disc disease) Diverticulosis Drug intolerance flecainide Dyslipidemia Dyslipidemia Essential hypertension Heart murmur Hiatal hernia Hyponatremia Insomnia Irregular heart rate Neuropathy Normochromic normocytic anemia Obstructive sleep apnea Obstructive sleep apnea Has difficulty in using the CPAP Osteoarthritis of both knees Paresthesia of both feet Paroxysmal atrial fibrillation Polymyalgia rheumatica Poor compliance with medication Prostatism Small vessel disease, cerebrovascular Spondylolisthesis Squamous cell carcinoma Vitamin D deficiency Surgical History History of back surgery History of circumcision History of hernia repair History of penile implant History of sinus surgery History of total knee replacement Family History Grandmother CAD (coronary artery disease) Stroke Brother Suicide Denies family history of Diabetes Clotting disorder Dementia Chronic kidney disease (CKD) Anesthesia complication Bleeding disorder Lung disease Cancer Social History Smoking and tobacco status: never smoked Alcohol intake: never Lives independently: Yes Household members: spouse Marital status: service: Yes Current occupational status: retired History of recent travel: No Current gender identity: Male Course Vital Signs: Vital signs: Vital Signs Temperature 97.4 F L 10/28/20 11:32 Pulse Rate 62 10/28/20 11:32 Respiratory Rate 18 10/28/20 11:32 Blood Pressure 170/87 05/25/21 11:32 Pulse Oximetry 100 10/28/20 11:32 [facility] - General Adult Lab Data: Labs: Lab Results 10/28/20 Range/Units 11:32 WBC 7.6 (4.0-10.0) 10^3/ uL RBC 3.56 L (4.1-5.3) 10^6/u L Hgb 11.4 L (11.7-16.6) g/dL Hct 34.2 L (42.0-52.0) % MCV 96.1 H (80-94) fL MCH 32.0 (28.0-34.0) pg MCHC 33.3 (30.0-36.0) g/dL RDW 17.7 H (12.1-15.1) % Plt Count 165 (130-400) 10^3/c mm MPV 9.3 (7.4-10.4) fL Neut % (Auto) 80.3 % Lymph % (Auto) 11.1 % Emanuel % (Auto) 7.7 % Eos % (Auto) 0.4 % Baso % (Auto) 0.1 % Neut # (Auto) 6.09 (1.8-7.7) 10^3/u L Lymph # (Auto) 0.8 (0.8-4.8) 10^3/u L Emanuel # (Auto) 0.6 (0.2-0.9) 10^3/u L Eos # (Auto) 0.0 (0.0-0.8) 10^3/u L Baso # (Auto) 0.0 (0.0-0.1) 10^3/u L Nucleated RBC % (a uto) 0 % Nucleated RBCs # 0.0 /100WBC Discharge Plan Discharge Prescriptions: No Action azelastine 0.15 % (205.5 mcg) spray,non-aerosol 2 spray INTRANASAL BID RF: 0 Ensure Plus 0.05-1.5 gram-kcal/mL liquid 1 each PO DAILY RF: 0 melatonin 5 mg capsule 5 mg PO .AT BEDTIME RF: 0 carbidopa-levodopa 50-200 mg tablet extended release 1 tab PO TID Qty: 270 RF: 1 Eliquis 2.5 mg tablet 2.5 mg PO BID Qty: 180 RF: 0 docusate sodium [Colace] 100 mg capsule 100 mg PO BID Qty: 60 RF: 5 multivitamin Tablet 1 tab PO DAILY Qty: 90 RF: 1 trazodone 50 mg tablet 25 mg PO .AT BEDTIME PRN (Reason: Sleep) RF: 0 fluticasone propionate 50 mcg/actuation spray,suspension 2 spray intranasal DAILY RF: 0 pantoprazole 40 mg tablet,delayed release (DR/EC) 40 mg PO DAILY RF: 0 simvastatin 20 mg tablet 20 mg PO DAILY RF: 0 Prostate Control 53-76-48-100 mg capsule 1 cap PO DAILY RF: 0 Coding Level of Care Code ED Sponge Diver for Lannyg Janey
== END 2020-10-28 18:00 | disposition home or self-care (01) ==
LOC: GILAB 10:14 → ER 17:21 → GILAB 17:21
PROVIDERS: PCP Family Medicine; Visit Provider Internal Medicine Hematology & Oncology
PROC: 07DT3ZX Extraction of Bone Marrow, Percutaneous Approach, Diagnostic (ICD-10-PCS; CPT 38222; principal; 2020-10-28 11:30)
DX: D50.9 Iron deficiency anemia, unspecified (principal); Z53.8 Procedure and treatment not carried out for other reasons
CPT/HCPCS: 36415; 73502; 85025; 96360; J3010; J7030

== ENCOUNTER 2020-10-28 17:23 | Inpatient (IN) | payer MEDICARE, OTHER, SELFPAY ==
[2020-10-28 17:27] VITALS: BP 197/97; PULSE 73; RESP 18; TEMP 37.1; O2SAT 97; BMI 23.5
--- NOTE | 2020-10-28 17:29 | W.ED.GENADLT ---
HPI - General Adult General: Chief complaint: Extremity Injury, Lower Stated complaint: HIP PAIN Time Seen by Provider: 10/28/20 17:29 Source: patient, EMS and RN notes reviewed Limitations: no limitations History of Present Illness: HPI narrative: This patient is an 85-year-old male who presents to the emergency department complaint of right hip pain. Patient states he was walking at his home 2 days ago and just twisted and felt pain in his right hip. Patient did not fall patient had evaluation today was by his come to the ER with concerns of hip injury. X-rays were done prior to my arrival in the room with the patient appears to have a right hip fracture. Will do medical evaluation treat Onset (ago): day(s) Location: right and lower extremity Associated symptoms: Deny chest pain, dyspnea, headache(s), nausea, rash, palpitations or vomiting Review of Systems General: Reports: 10 or more systems reviewed and unremarkable except in HPI and below Const: Denies: fever(s), chills, body aches or fatigue Eyes: Denies: change in vision or blurry vision ENMT: Denies: throat pain, hoarseness or mouth pain Card: Denies: chest pain, palpitations, irregular heart rhythm, edema, swelling of feet/ankles or lightheadedness Resp: Denies: dyspnea, productive cough, non-productive cough, wheezing or pain on inspiration GI: Denies: abdominal pain, nausea or vomiting : Denies: flank pain, dysuria, urinary frequency, urinary urgency or urinary hesitancy Musc: Reports: joint pain and limited range of motion; Denies: neck pain, back pain, extremity pain, extremity swelling, joint swelling, joint redness or joint warmth Skin/Breast: Denies: rash, pruritus, erythema or skin tenderness Neuro: Denies: headache(s), numbness in extremities or weakness in extremities Psych: Denies: anxiety or depression PFS ED PFSH: Medical History (Updated 10/28/20 @ 17:40 by Leon Chacon MD) Anxiety and depression ASVD (arteriosclerotic vascular disease) Atrial fibrillation Benign essential HTN Carotid stenosis Chronic constipation Chronic GERD Chronic low back pain DDD (degenerative disc disease) Diverticulosis Drug intolerance flecainide Dyslipidemia Dyslipidemia Essential hypertension Heart murmur Hiatal hernia Hyponatremia Insomnia Irregular heart rate Neuropathy Normochromic normocytic anemia Obstructive sleep apnea Obstructive sleep apnea Has difficulty in using the CPAP Osteoarthritis of both knees Paresthesia of both feet Paroxysmal atrial fibrillation Polymyalgia rheumatica Poor compliance with medication Prostatism Small vessel disease, cerebrovascular Spondylolisthesis Squamous cell carcinoma Vitamin D deficiency Surgical History History of back surgery History of circumcision History of hernia repair History of penile implant History of sinus surgery History of total knee replacement Family History Grandmother CAD (coronary artery disease) Stroke Brother Suicide Denies family history of Diabetes Clotting disorder Dementia Chronic kidney disease (CKD) Anesthesia complication Bleeding disorder Lung disease Cancer Social History Smoking and tobacco status: never smoked Alcohol intake: never Lives independently: Yes Household members: spouse Marital status: service: Yes Current occupational status: retired History of recent travel: No Current gender identity: Male Physical Exam Const: COMMON NORMALS: no acute distress, average body habitus, patient oriented x3, no limitations, healthy appearing, alert and well nourished HENMT: COMMON NORMALS: normocephalic, atraumatic, hearing grossly normal bilaterally, external ears normal, EAC's normal, TM's normal bilaterally, Normal external nose present, Normal nasal mucous membranes and turbinates present, moist oral mucous membranes, oropharynx normal, dentition normal and gingiva normal HEAD & SCALP: normocephalic and atraumatic NOSE: Normal external nose present and Normal nasal mucous membranes and turbinates present EXTERNAL EAR: Yes external ears normal EXTERNAL AUDITORY CANAL: EAC's normal TYMPANIC MEMBRANE: TM's normal bilaterally Neck/C-Spine: COMMON NORMALS: full ROM, no lymphadenopathy, supple, no meningeal signs, no JVD, Thyroid normal and No carotid bruits THYROID: Thyroid normal Chest: COMMONS NORMALS: normal inspection of the chest, normal palpation of entire chest wall, normal inspection of the breasts and normal palpation of the breasts Breast/axilla inspection: Yes normal inspection of the breasts BREAST/AXILLA PALPATION: Yes normal palpation of the breasts Resp: COMMON NORMALS: normal respiratory effort, No retractions, No use of accessory muscles, clear to auscultation bilaterally and percussion normal AUSCULTATION: clear to auscultation bilaterally PERCUSSION: percussion normal Cardio: COMMON NORMALS: no JVD, regular rate, regular rhythm, S1 normal heart sound present, S2 normal heart sound present, No gallops present (Cardio), No clicks present (Cardio), No murmurs present (Cardio), No rub (Cardio) and Peripheral pulses 2+ throughout RATE: regular rate RHYTHM: regular rhythm HEART SOUNDS: S1 normal heart sound present and S2 normal heart sound present PERIPHERAL PULSES: Peripheral pulses 2+ throughout GI: COMMON NORMALS: Normal to inspection, nondistended, normoactive bowel sounds present, Soft to palpation, non-tender, No hepatosplenomegaly present, no masses and no bruits PALPATION: Yes Soft to palpation and Yes No hepatosplenomegaly present : COMMON NORMALS: Yes no CVA tenderness BLADDER/KIDNEY EXAM: Yes no CVA tenderness Back/Pelvis: COMMON NORMALS: no CVA tenderness, thoracic and lumbar spine normal to inspection, no thoracic nor lumbar tenderness, thoraco-lumbar ROM normal and straight leg raise negative bilaterally Extremity: COMMON NORMALS: capillary refill normal, no joint enlargement, no clubbing, cyanosis or edema, no calf tenderness and no pedal edema RIGHT LOWER EXTREMITY: Yes hip joint (Shortened and externally rotated) Right hip: Yes inspection, Yes palpation and Yes ROM Neuro: COMMON NORMALS: patient oriented x3 SENSORIUM/ORIENTATION: Yes alert MENINGEAL SIGNS: Yes no meningeal signs Course Reevaluation(s): Reevaluation #1: I did discuss at length with patient about options. He is aware that he will be admitted to the hospital for surgical repair of right hip fracture Time: 17:32 Consultations: Consultation #1: I did discuss with Dr. Levin orthopedics and she is agreeable to see the patient as a architectural sales consultant for hip repair patient is on Eliquis Eliquis will need to be held. Patient will have hip repair surgery tomorrow. Patient readmitted to the hospitalist service Time: 17:32 Consultation #2: I discussed at length with Dr. Acosta who is accepted this patient for admission Time: 17:39 Vital Signs: Vital signs: Vital Signs Temperature 98.7 F 10/28/20 17:27 Pulse Rate 73 10/28/20 17:27 Respiratory Rate 18 10/28/20 17:27 Blood Pressure 197/97 10/28/20 17:27 Pulse Oximetry 97 10/28/20 17:27 MDM - General Adult MDM Narrative: Medical decision making narrative: This patient is an 85-year-old male who presents to the emergency department complaint of right hip pain. Patient states he was walking at his home 2 days ago and just twisted and felt pain in his right hip. Patient did not fall patient had evaluation today was by his come to the ER with concerns of hip injury. X-rays were done prior to my arrival in the room with the patient appears to have a right hip fracture. Will do medical evaluation treat Patient be admitted to the hospitalist service of Dr. Levin with consult to repair right hip tomorrow. Patient states understanding Differential Diagnosis: Differential Diagnosis: Hip fracture hip dose dislocation Medical Records: Attestation: I reviewed the patient's medical records. Lab Data: Attestation: I reviewed the patient's lab results. Imaging Data^: Right hip x-ray: Attestation: I personally reviewed and interpreted this imaging study as follows: My impression: Right hip fracture Discharge Plan Discharge Patient Disposition: Admitted As Inpatient Clinical Impression: Closed fracture of right hip, Atrial fibrillation Condition: Stable Prescriptions: No Action azelastine 0.15 % (205.5 mcg) spray,non-aerosol 2 spray INTRANASAL BID RF: 0 Ensure Plus 0.05-1.5 gram-kcal/mL liquid 1 each PO DAILY RF: 0 melatonin 5 mg capsule 5 mg PO .AT BEDTIME RF: 0 carbidopa-levodopa 50-200 mg tablet extended release 1 tab PO TID Qty: 270 RF: 1 Eliquis 2.5 mg tablet 2.5 mg PO BID Qty: 180 RF: 0 docusate sodium [Colace] 100 mg capsule 100 mg PO BID Qty: 60 RF: 5 multivitamin Tablet 1 tab PO DAILY Qty: 90 RF: 1 trazodone 50 mg tablet 25 mg PO .AT BEDTIME PRN (Reason: Sleep) RF: 0 fluticasone propionate 50 mcg/actuation spray,suspension 2 spray intranasal DAILY RF: 0 pantoprazole 40 mg tablet,delayed release (DR/EC) 40 mg PO DAILY RF: 0 simvastatin 20 mg tablet 20 mg PO DAILY RF: 0 Prostate Control 39-59-07-100 mg capsule 1 cap PO DAILY RF: 0 Referrals: Nika Parekh MD [Primary Care Provider] - Coding Level of Care Code ED Product Engineering Manager for Chg Fwd Exam Comprehensive
[2020-10-28 17:38] VITALS: BP 197/97; PULSE 71; RESP 18; TEMP 37.1; O2SAT 100
--- NOTE | 2020-10-28 17:38 | ECG_ITS ---
[facility] Test Date: 2020-10-28 Pat Name: Yossi Vargas Department: Room: Gender: Male Health Care Sanitary Technician: : 1935 Requested By: Leon Chacon Order Number: [id number] Tatum MD: Yolis Cotto M.D. Measurements Intervals [place] Rate: 70 P: 62 [place]: 182 QRS: 59 QRSD: 96 T: 58 QT: 394 QTc: 427 Interpretive Statements SINUS RHYTHM Compared to ECG 02/18/2015 11:21:49 No significant changes Electronically Signed On 10-28-2020 18:35:39 CDT by Yolis Cotto M.D. [id number]
--- NOTE | 2020-10-28 17:39 | ECG_ITS ---
[facility] Test Date: 2020-10-28 Pat Name: Yossi Vargas Department: Room: 269 Gender: Male Com Writer: : 1935 Requested By: Leon Chacon Order Number: [id number] Tatum MD: Yolis Cotto M.D. Measurements Intervals [place] Rate: 68 P: 25 [place]: 180 QRS: 6 QRSD: 94 T: 10 QT: 402 QTc: 430 Interpretive Statements SINUS RHYTHM Compared to ECG 10/28/2020 17:44:26 No significant changes Electronically Signed On 10-28-2020 22:53:50 CDT by Yolis Cotto M.D. [id number]
[2020-10-28 18:15] LABS: Basophils # 0.1 10^3/uL (0.0-0.1); Basophils % 0.7 %; Eosinophils # 0.1 10^3/uL (0.0-0.8); Eosinophils % 1.2 %; Hematocrit 36.2 % (42.0-52.0); Hemoglobin 11.6 g/dL (11.7-16.6); Lymphocytes # 1.1 10^3/uL (0.8-4.8); Lymphocytes % 14.5 %; Mean Corpuscular Hemoglobin 29.4 pg (28.0-34.0); Mean Corpuscular Volume 91.6 fL (80-94); Monocytes # 0.6 10^3/uL (0.2-0.9); Monocytes % 8.6 %; Neutrophils # 5.41 10^3/uL (1.8-7.7); Neutrophils % 74.6 %; Nucleated Red Blood Cells % 0 %; Platelet Count 205 10^3/cmm (130-400); Red Blood Count 3.95 10^6/uL (4.1-5.3); Red Cell Distribution Width 13.1 % (12.1-15.1); White Blood Count 7.3 10^3/uL (4.0-10.0)
[2020-10-28 18:26] VITALS: BP 188/71; PULSE 77; RESP 18; TEMP 37.1; O2SAT 97
[2020-10-28 18:31] LABS: INR 1.06 (0.8-1.2)
[2020-10-28 18:32] LABS: Partial Thromboplastin Time 34.8 SECONDS (23.9-36.7)
[2020-10-28 18:36] LABS: Alanine Aminotransferase 18 U/L (0-41); Albumin Level 3.9 g/dL (3.5-5.2); Alkaline Phosphatase 142 IU/L (40-130); Anion Gap 12.1 (5-19); Aspartate Amino Transferase 23 U/L (0-40); Blood Urea Nitrogen 14 mg/dL (8-23); Calcium 8.4 mg/dL (8.5-10.5); Carbon Dioxide 24 mmol/L (22-29); Chloride 101 mmol/L (98-107); Globulin 2.3 g/dL (1.3-4.6); Glucose 84 mg/dL (65-115); Osmolality Calculated 276 mOsm/kg (285-295); Potassium 4.1 mmol/L (3.5-5.1); Sodium 133 mmol/L (136-145); Total Bilirubin 0.8 mg/dL (0.15-1.2); Total Protein 6.2 g/dL (6.6-8.7)
--- NOTE | 2020-10-28 18:38 | P.HP_ITS ---
Providers/Chief Complaint Admitting Physician: Alek Acosta MD Primary Care Provider: Nika Parekh MD Chief Complaint: HIP PAIN History of Present Illness Yossi Vargas is a 85 year old male presented with right hip pain. He states that he had a fall about 2 weeks ago. He states he later twisted his hip 2 days ago. Was scheduled for a bone marrow biopsy this week. He is on Eliquis. He has held this for the last 5 days. In the ER he was diagnosed with a right hip fracture. Denies any headaches lightheadedness shortness of breath or vision changes. Review of Systems General: Reports: 10 or more systems reviewed and unremarkable except in HPI and below Const: Denies: fever(s) or chills Eyes: Denies: change in vision or blurry vision ENMT: Denies: throat pain or hoarseness Card: Denies: chest pain or palpitations Resp: Denies: dyspnea or productive cough GI: Denies: abdominal pain or nausea : Denies: flank pain Musc: Reports: extremity pain and joint pain Skin/Breast: Denies: rash or pruritus Medications/Allergies Home Medications Medication Instructions Recorded Confirmed Last Taken Type azelastine 205.5 mcg (0.15 %) 2 spray INTRANASAL BID 06/14/19 10/28/20 10/27/20 History nasal spray food supplemt, lactose-reduced 1 each PO DAILY ml 06/14/19 10/28/20 10/27/20 History 0.05 gram-1.5 kcal/mL oral liquid melatonin 5 mg capsule 5 mg PO BEDTIME cap 06/14/19 10/28/20 10/27/20 History multivitamin 1 tab PO DAILY #90 tab 06/23/20 10/28/20 10/27/20 Rx carbidopa ER 50 mg-levodopa 200 mg 1 tab PO TID #270 tab 06/25/20 10/28/20 10/28/20 Rx tablet,extended release apixaban [Eliquis] 2.5 mg PO BID 10/28/20 10/28/20 10/23/20 History diclofenac sodium 2 g TOPICAL QID PRN 10/28/20 10/28/20 Unknown History fluticasone propionate 2 spray INTRANASAL DAILY 10/28/20 10/28/20 10/27/20 History pantoprazole 40 mg PO DAILY 05/10/28/20 10/27/20 History jnt-Co-odd-ffpbg-dxfc-tf-Zn-Cu 1 cap PO DAILY 10/28/20 10/28/20 10/27/20 History [Prostate Control] simvastatin 20 mg PO DAILY 10/28/20 10/28/20 10/27/20 History trazodone 25 mg PO BEDTIME PRN 10/28/20 10/28/20 10/27/20 History Allergies Allergy/AdvReac Type Severity Reaction Status Date / Time No Known Allergies Allergy Verified 10/28/20 17:26 PFSH Acute PFSH: Medical History (Updated 10/28/20 @ 17:40 by Leon Chacon MD) Anxiety and depression ASVD (arteriosclerotic vascular disease) Atrial fibrillation Benign essential HTN Carotid stenosis Chronic constipation Chronic GERD Chronic low back pain DDD (degenerative disc disease) Diverticulosis Drug intolerance flecainide Dyslipidemia Dyslipidemia Essential hypertension Heart murmur Hiatal hernia Hyponatremia Insomnia Irregular heart rate Neuropathy Normochromic normocytic anemia Obstructive sleep apnea Obstructive sleep apnea Has difficulty in using the CPAP Osteoarthritis of both knees Paresthesia of both feet Paroxysmal atrial fibrillation Polymyalgia rheumatica Poor compliance with medication Prostatism Small vessel disease, cerebrovascular Spondylolisthesis Squamous cell carcinoma Vitamin D deficiency Surgical History History of back surgery History of circumcision History of hernia repair History of penile implant History of sinus surgery History of total knee replacement Family History Grandmother CAD (coronary artery disease) Stroke Brother Suicide Denies family history of Diabetes Clotting disorder Dementia Chronic kidney disease (CKD) Anesthesia complication Bleeding disorder Lung disease Cancer Social History Smoking and tobacco status: never smoked Alcohol intake: never Lives independently: Yes Household members: spouse Marital status: service: Yes Current occupational status: retired History of recent travel: No Current gender identity: Male Vitals/I&O/Wt Last Vital Signs Temp 98.7 F 10/28/20 18:26 Pulse 77 10/28/20 18:26 Resp 18 10/28/20 18:26 BP 188/71 10/28/20 18:26 Pulse Ox 97 10/28/20 18:26 Weight last 48 hrs Weight 150 lb Physical Exam Const: COMMON NORMALS: no acute distress Resp: COMMON NORMALS: normal respiratory effort and No retractions Cardio: COMMON NORMALS: no JVD and regular rate GI: COMMON NORMALS: Soft to palpation and non-tender INSPECTION: Yes normal to inspection and No abdominal distension Neuro: COMMON NORMALS: patient oriented x3 and CN's II-XII intact bilaterally Data : 10/28/20 18:05 10/28/20 18:05 A&P Assessment and plan (1) Closed fracture of right hip: Status: Acute (2) Parkinson disease: Status: Acute (3) Benign essential HTN: Status: Acute (4) Paroxysmal atrial fibrillation: Status: Acute (5) Atrial fibrillation: Status: Acute (6) Seasonal allergies: Status: Acute Additional A&P Information 85-year-old male with history of Parkinson's, atrial fibrillation, anticoagulation presents to ER with increased right hip pain. Diagnosed with right hip fracture. #hip fracture right #parox Afib #parkinsons #history of fall --MedSurg --n.p.o. after midnight --Hold anticoagulation --Restart home medication for chronic conditions after medication reconciliation completed including carbidopa levodopa Attestations Medical Necessity Statement*: Yossi Vargas's hospital stay will require greater than 2 midnights for hip fracture Coding Level of Care Code Acute Computer Graphic Artist for g Fwd Diagnoses Closed fracture of right hip S72.001A Parkinson disease G20 Benign essential HTN I10 Paroxysmal atrial fibrillation I48.0 Atrial fibrillation I48.91 Seasonal allergies J30.2
--- NOTE | 2020-10-28 18:42 | PC.NURSE ---
PATIENT STATED IF HE NEEDS A ESCOBAR CATHETER FOR SURGERY, IT WILL HAVE TO BE PLACED BY A UROLOGIST. PATIENT HAS HAD DIFFICULTY WITH CATHETERS IN THE PAST. THIS NURSE CONTACTED ROXI IN PACU TO PASS ALONG FOR SURGERY TOMORROW.
[2020-10-28 19:26] VITALS: BP 181/76; PULSE 78; RESP 18; TEMP 36.6; O2SAT 97
--- NOTE | 2020-10-28 19:30 | PC.NURSE ---
ADMIT NOTE Was received to floor at 1855. Is alert and oriented. c/o pain in right hip when moves but otherwise says is not too bad. Does not know how he broke the hip. Tells me it started hurting yesterday but didn't come to the hospital. Had appointment for procedure to be done today and says it took 4 hoursfor him to get in the car. Xray after here that showed fracture of right hip. Right leg is just a little shorter than the left. Doesn't look swollen. Reports significant pain with movement. PIID intact to right wrist. Is to have surgery tomorrow. Has order for Carlos. Was told with report that Dr Jauregui will have to place Carlos prior to surgery tomorrow. Pt c/o not eating all day and was given sandwich. Aware will be NPO after midnight for OR.
[2020-10-28 19:32] VITALS: BP 181/76; PULSE 78; RESP 18; TEMP 37.1; O2SAT 97
--- NOTE | 2020-10-28 20:40 | PC.NURSE ---
DT VISIT Dr Luis visited with pt and will be having surgery around tomorrow
--- NOTE | 2020-10-28 20:53 | P.CONIM_ITS ---
Providers/Reason For Consult Consulting Physican/Specialty*: Dr. Patsy Luis - Orthopedics Reason for Consult*: Right Subcapital Hip Fracture Attending Physician: Alek Acosta MD Primary Care Provider: Nika Parekh MD History of Present Illness History of Present Illness Yossi Vargas is a 85 year old male who presented today for a bone marrow biopsy. He was unable to move his leg today, and he was sent to the emergency department where he was found to have a right subcapital hip fracture which was displaced. He was admitted to the medical service for definitive treatment. The patient was seen this evening and discussion was undertaken with him regarding plans for surgical intervention tomorrow. Review of Systems General: Reports: 10 or more systems reviewed and unremarkable except in HPI and below Const: Denies: fever(s), chills, body aches or fatigue Eyes: Denies: change in vision, blurry vision or photophobia ENMT: Denies: throat pain, hoarseness or mouth pain Card: Denies: chest pain, palpitations, irregular heart rhythm, edema, swelling of feet/ankles or lightheadedness Resp: Denies: dyspnea, productive cough, non-productive cough, wheezing or pain on inspiration GI: Denies: abdominal pain, nausea or vomiting : Denies: flank pain, dysuria, urinary frequency, urinary urgency or urinary hesitancy Musc: Reports: extremity pain, joint pain and limited range of motion; Denies: neck pain, back pain, extremity swelling, joint swelling, joint redness or joint warmth Skin/Breast: Denies: rash, pruritus, erythema or skin tenderness Neuro: Denies: headache(s), numbness in extremities or weakness in extremities Psych: Denies: anxiety or depression Meds/Allergies Home Medications and Allergies Home Medications Medication Instructions Recorded Confirmed Last Taken Type azelastine 205.5 mcg (0.15 %) 2 spray INTRANASAL BID 06/14/19 10/28/20 10/27/20 History nasal spray food supplemt, lactose-reduced 1 each PO DAILY ml 06/14/19 10/28/20 10/27/20 History 0.05 gram-1.5 kcal/mL oral liquid melatonin 5 mg capsule 5 mg PO BEDTIME cap 06/14/19 10/28/20 10/27/20 History multivitamin 1 tab PO DAILY #90 tab 06/23/20 10/28/20 10/27/20 Rx carbidopa ER 50 mg-levodopa 200 mg 1 tab PO TID #270 tab 06/25/20 10/28/20 10/28/20 Rx tablet,extended release apixaban [Eliquis] 2.5 mg PO BID 10/28/20 10/28/20 10/23/20 History diclofenac sodium 2 g TOPICAL QID PRN 10/28/20 10/28/20 Unknown History fluticasone propionate 2 spray INTRANASAL DAILY 10/28/20 10/28/20 10/27/20 History pantoprazole 40 mg PO DAILY 10/28/20 10/28/20 10/27/20 History ggh-Mr-til-hrmil-fktd-kz-Zn-Cu 1 cap PO DAILY 10/28/20 10/28/20 10/27/20 History [Prostate Control] simvastatin 20 mg PO DAILY 10/28/20 10/28/20 10/27/20 History trazodone 25 mg PO BEDTIME PRN 10/28/20 10/28/20 10/27/20 History Allergies Allergy/AdvReac Type Severity Reaction Status Date / Time No Known Allergies Allergy Verified 10/28/20 17:26 PFSH Acute PFSH: Medical History (Updated 10/28/20 @ 20:57 by Patsy Luis MD) Anxiety and depression ASVD (arteriosclerotic vascular disease) Atrial fibrillation Benign essential HTN Carotid stenosis Chronic constipation Chronic GERD Chronic low back pain DDD (degenerative disc disease) Diverticulosis Drug intolerance flecainide Dyslipidemia Dyslipidemia Essential hypertension Heart murmur Hiatal hernia Hyponatremia Insomnia Irregular heart rate Neuropathy Normochromic normocytic anemia Obstructive sleep apnea Obstructive sleep apnea Has difficulty in using the CPAP Osteoarthritis of both knees Paresthesia of both feet Paroxysmal atrial fibrillation Polymyalgia rheumatica Poor compliance with medication Prostatism Small vessel disease, cerebrovascular Spondylolisthesis Squamous cell carcinoma Vitamin D deficiency Surgical History History of back surgery History of circumcision History of hernia repair History of penile implant History of sinus surgery History of total knee replacement Family History Grandmother CAD (coronary artery disease) Stroke Brother Suicide Denies family history of Diabetes Clotting disorder Dementia Chronic kidney disease (CKD) Anesthesia complication Bleeding disorder Lung disease Cancer Social History Smoking and tobacco status: never smoked Alcohol intake: never Lives independently: Yes Household members: spouse Marital status: service: Yes Current occupational status: retired History of recent travel: No Current gender identity: Male Dietary Habits: Current diet type/program: regular Caffeine: Yes During the past year weight has: remained stable Vitals/I&O/Wt Last Vital Signs Temp 98.8 F 10/28/20 19:32 Pulse 78 10/28/20 19:32 Resp 18 10/28/20 19:32 BP 181/76 10/28/20 19:32 Pulse Ox 97 10/28/20 19:32 Weight last 48 hrs Weight 150 lb Physical Exam Const: COMMON NORMALS: no acute distress, average body habitus, patient oriented x3 and alert GENERAL APPEARANCE: cooperative and comfortable ORIE NTATION/CONSCIOUSNESS: Yes awake HENMT: COMMON NORMALS: normocephalic and atraumatic HEAD & SCALP: normocephalic and atraumatic Eye: GENERAL EYE: appearance normal, both eyes and all related structures Chest: COMMONS NORMALS: normal inspection of the chest Resp: COMMON NORMALS: normal respiratory effort EFFORT & INSPECTION: Yes able to speak in complete sentences and Yes symmetric chest movement Extremity: RIGHT LOWER EXTREMITY: Yes hip joint (Leg is shortened and externally rotated) Right hip: Yes inspection (No significant ecchymosis), Yes palpation (Tender), Yes ROM (Not evaluated secondary to fracture) and Yes neurovascular exam (Intact distally) Neuro: COMMON NORMALS: patient oriented x3 SENSORIUM/ORIENTATION: Yes alert Psych: COMMON NORMALS: mental status grossly normal APPEARANCE: Yes grossly normal ATTITUDE: Yes calm and Yes engaged ATTENTION/CONCENTRATION: Yes attention grossly intact Skin: COMMON NORMALS: no rashes or lesions noted GENERAL SKIN EXAM: no rashes or lesions noted Data Imaging^: Xray Ortho: I personally reviewed and interpreted this imaging study as follows: My impression: Patient has a displaced subcapital right hip fracture. There is no evidence of other fracture or trauma in the pelvis that is visualized with AP and lateral hip imaging. A&P Assessment and plan (1) Subcapital fracture of right hip: Status: Acute Qualifiers: Encounter type: initial encounter Fracture type: closed Qualified Code(s): S72.011A - Unspecified intracapsular fracture of right femur, initial encounter for closed fracture Additional A&P Information Patient has a right subcapital hip fracture which is displaced. There is no evidence of other fracture. Discussion was undertaken with the gentleman regarding appropriate care in the form of a bipolar hip arthroplasty. This will be accomplished for him tomorrow. He has been off his Eliquis for 5 days because he was to have a bone marrow biopsy today. He also has a recent Covid test. Therefore, we will plan to proceed with operative intervention tomorrow. I have called Dr. William and we will attempt to coordinate bone marrow biopsy with the intraoperative procedure. Consult Attestations Medical Necessity Statement: Patient requires hospitalization for treatment of a closed right subcapital hip fracture. Coding Level of Care Code Acute Command Post Superintendent for [facility] Diagnoses Subcapital fracture of right hip S72.011A Encounter type: initial encounter Fracture type: closed
[2020-10-28] MEDS: carbidopa-levodopa ER 50-200mg Tablet 1 EACH PO (21:40)
[2020-10-28 23:32] LABS: Add Urine Microscopic? NO; Charge for UA Resulting for Rev
[2020-10-28 23:39] LABS: Bilirubin Urine Neg (Negative); Blood Urine Neg (Negative); Glucose Urine UA Norm (Normal); Ketones Urine 1+ (Negative); Leukocyte Esterase Urine Negative (Negative); Nitrate Urine Negative (Negative); Protein Urine Neg (Negative); Urine Appearance Clear (CLEAR); Urine Color Yellow (Yellow); Urobilinogen Urine Norm (Negative); pH Urine 5 (5-7)
[2020-10-28 23:58] VITALS: BP 154/71; PULSE 69; RESP 18; TEMP 36.8; O2SAT 98
[2020-10-29] VITALS (33 sets, daily range): BP systolic 106–190; BP diastolic 52–97; PULSE 56–87; RESP 10–21; TEMP 36.1–37; O2SAT 96–100
--- NOTE | 2020-10-29 05:13 | PC.NURSE ---
SHIFT SUMMARY Patient rested off and on throughout the night. Patient has been NPO since midnight for pending hip surgery. Patient has not complained of pain throughout the shift, stating As long as I keep my leg still it does not hurt.
[2020-10-29 06:34] LABS: Basophils % 0.3 %; Eosinophils # 0.1 10^3/uL (0.0-0.8); Eosinophils % 1.2 %; Hematocrit 33.3 % (42.0-52.0); Lymphocytes % 15.2 %; Mean Corpuscular Hemoglobin 31.5 pg (28.0-34.0); Mean Corpuscular Volume 95.4 fL (80-94); Mean Platelet Volume 9.2 fL (7.4-10.4); Monocytes # 0.5 10^3/uL (0.2-0.9); Monocytes % 7.6 %; Neutrophils # 5.07 10^3/uL (1.8-7.7); Neutrophils % 75.4 %; Nucleated Red Blood Cells % 0 %; Platelet Count 148 10^3/cmm (130-400); Red Blood Count 3.49 10^6/uL (4.1-5.3); Red Cell Distribution Width 17.8 % (12.1-15.1); White Blood Count 6.7 10^3/uL (4.0-10.0)
[2020-10-29 06:47] LABS: INR 1.15 (0.8-1.2)
[2020-10-29 06:49] LABS: Partial Thromboplastin Time 38.9 SECONDS (23.9-36.7)
[2020-10-29 06:55] LABS: Alanine Aminotransferase < 5 U/L (0-41); Albumin Level 3.6 g/dL (3.5-5.2); Alkaline Phosphatase 137 IU/L (40-130); Anion Gap 13.9 (5-19); Aspartate Amino Transferase 20 U/L (0-40); Blood Urea Nitrogen 13 mg/dL (8-23); Calcium 8.4 mg/dL (8.5-10.5); Carbon Dioxide 21 mmol/L (22-29); Chloride 103 mmol/L (98-107); Globulin 2.1 g/dL (1.3-4.6); Glucose 92 mg/dL (65-115); Osmolality Calculated 278 mOsm/kg (285-295); Potassium 3.9 mmol/L (3.5-5.1); Sodium 134 mmol/L (136-145); Total Bilirubin 0.7 mg/dL (0.15-1.2); Total Protein 5.7 g/dL (6.6-8.7)
--- NOTE | 2020-10-29 10:06 | PC.CHAP ---
Pastoral Care Encounter/Spiritual Assessment Type of Contact [] Declined casino operations supervisor visit [] Patient/Family/Request visit [] Outpatient visit [] Follow-up visit [] Physician referral [] Code/Alert [x] Routine visit [] Staff referral [] Actively dying [] Patient sleeping [] Family support [] [x] Out of room [] Palliative care [] [] Receiving care in room [] Pre-surgical visit [] Trauma [] Long length of stay [] ICU visit [] Other: Relational/Emotional Strength [] Patient feels connected with others/family/visitors/staff [] Distress [] Loneliness/isolation [] Abandonment Spirituality of Patient [] Person of Virginie [] Attends Religion of their Virginie [] Believes in Prayer [] Reads Bible or Jainism materials [] There are Spiritual issues to be addressed Entertainment Musician Interventions [] Prayer [] Active listening [] Non-anxious presence [] Spiritual/emotional support [] Crisis/trauma care [] Spiritual counseling [] Bereavement support [] Provided bereavement packet [] Provided Bible/devotional materials [] Provided toy/stuffed animal, coloring book to patient or family member [] Provided Communion [] Anointing/[place] [] Salvation [] Completed spiritual assessment [] Other: Impact on Illness or Injury [] Angry [] Fearful [] Anxious [] Often cries [] Exhaustion [] Unable to work [] Unable to attend protestant [] Unable to walk/stand [] Unable to read [] Unable to drive [] Unable to eat/drink [] Unable to sleep [] Unable to be with family [] Patient intubated [] Other: Summary Time spent with patient
[2020-10-29] MEDS: hyDRALAzine 20 mg/mL INJ 1 mL 10 MG IVP (13:36)
--- NOTE | 2020-10-29 14:16 | P.ANESUD_ITS ---
Pre-Anesthetic Update Pre-Anesthetic Assessment: Date of Surgery/Procedure: 10/29/20 Preop Lacie gnosis: Subcapital right hip fracture Proposed Procedure: Operation Date: 10/29/20 15:00 Proposed Procedures p Right Bipolar Hip Arthroplasty(Right) - Patsy Luis MD Any changes to Pre-Anesthetic Assessment?: Yes Changes from Pre-Anesthetic Assessment: Patient has trochanteric fracture Last Intake: > 8 hrs Labs Last 48hrs: Laboratory Results - last 48 hr 10/28/20 10/28/20 10/28/20 18:05 18:05 18:05 WBC 7.3 RBC 3.95 L Hgb 11.6 L Hct 36.2 L MCV 91.6 MCH 29.4 MCHC 32.0 RDW 13.1 Plt Count 205 MPV 10.0 Neut % (Auto) 74.6 Lymph % (Auto) 14.5 [place] % (Auto) 8.6 Eos % (Auto) 1.2 Baso % (Auto) 0.7 Neut # (Auto) 5.41 Lymph # (Auto) 1.1 [place] # (Auto) 0.6 Eos # (Auto) 0.1 Baso # (Auto) 0.1 Nucleated RBC % (a uto) 0 Nucleated RBCs # 0.0 PT 14.20 INR 1.06 APTT 34.8 Sodium 133 L Potassium 4.1 Chloride 101 Carbon Dioxide 24 Anion Gap 12.1 BUN 14 Creatinine 0.6 L GFR Calculation Not Reportable Glucose 84 Calculated Osmolal ity 276 L Calcium 8.4 L Total Bilirubin 0.8 AST 23 ALT 18 Alkaline Phosphata se 142 H Total Protein 6.2 L Albumin 3.9 Globulin 2.3 Urine Color Urine Appearance Urine pH Ur Specific Gravit y Urine Protein Urine Glucose (UA) Urine Ketones Urine Blood Urine Nitrate Urine Bilirubin Urine Urobilinogen Ur Leukocyte Janki ase 10/28/20 10/29/20 10/29/20 Unknown 05:34 05:34 WBC 6.7 RBC 3.49 L Hgb 11.0 L Hct 33.3 L MCV 95.4 H MCH 31.5 MCHC 33.0 RDW 17.8 H Plt Count 148 MPV 9.2 Neut % (Auto) 75.4 Lymph % (Auto) 15.2 [place] % (Auto) 7.6 Eos % (Auto) 1.2 Baso % (Auto) 0.3 Neut # (Auto) 5.07 Lymph # (Auto) 1.0 [place] # (Auto) 0.5 Eos # (Auto) 0.1 Baso # (Auto) 0.0 Nucleated RBC % (a uto) 0 Nucleated RBCs # 0.0 PT 15.00 H INR 1.15 APTT 38.9 H Sodium Potassium Chloride Carbon Dioxide Anion Gap BUN Creatinine GFR Calculation Glucose Calculated Osmolal ity Calcium Total Bilirubin AST ALT Alkaline Phosphata se Total Protein Albumin Globulin Urine Color Yellow Urine Appearance Clear Urine pH 5 Ur Specific Gravit y 1.010 Urine Protein Neg Urine Glucose (UA) Norm Urine Ketones 1+ H Urine Blood Neg Urine Nitrate Negative Urine Bilirubin Neg Urine Urobilinogen Norm Ur Leukocyte Janki ase Negative 10/29/20 05:34 WBC RBC Hgb Hct MCV MCH MCHC RDW Plt Count MPV Neut % (Auto) Lymph % (Auto) [place] % (Auto) Eos % (Auto) Baso % (Auto) Neut # (Auto) Lymph # (Auto) [place] # (Auto) Eos # (Auto) Baso # (Auto) Nucleated RBC % (a uto) Nucleated RBCs # PT INR APTT Sodium 134 L Potassium 3.9 Chloride 103 Carbon Dioxide 21 L Anion Gap 13.9 BUN 13 Creatinine 0.5 L GFR Calculation Not Reportable Glucose 92 Calculated Osmolal ity 278 L Calcium 8.4 L Total Bilirubin 0.7 AST 20 ALT < 5 Alkaline Phosphata se 137 H Total Protein 5.7 L Albumin 3.6 Globulin 2.1 Urine Color Urine Appearance Urine pH Ur Specific Gravit y Urine Protein Urine Glucose (UA) Urine Ketones Urine Blood Urine Nitrate Urine Bilirubin Urine Urobilinogen Ur Leukocyte Janki ase Vitals: Temperature 98.3 F 10/29/20 11:18 Temperature Source Temporal Artery S can 10/29/20 11:18 Pulse Rate 71 10/29/20 11:18 Pulse Rhythm 10/28/20 20:01 Pulse Strength 3+ Normal 10/28/20 20:01 Respiratory Rate 18 10/29/20 11:18 Respiratory Effort Non-Labored 10/28/20 20:01 Respiratory Depth Normal 10/28/20 20:01 Respiratory Patter n 10/28/20 20:01 Blood Pressure 187/97 10/29/20 13:41 Blood Pressure Melia n 127 10/29/20 13:41 Blood Pressure Pos ition Semi Fowlers 10/29/20 13:41 Pulse Oximetry 98 10/29/20 11:18 Oxygen Delivery Me thod 10/29/20 04:18 Sepsis Recent Feve r Within 48 Hours No 10/28/20 17:27 Exam: Pre-Anes Outpt Exam: alert, oriented x 3, clear to auscultation bilaterally and regular rate & rhythm Cardiac Studies: No Data to Display
--- NOTE | 2020-10-29 14:39 | PM.MISC ---
Miscellaneous Note Purpose of Documentation: Preop documentation Note: The patient was seen on the floor in his room with his prior to surgical intervention. They were again visited in the preoperative holding area. The patient's consent was signed and his leg was marked. Questions were answered. There are no changes since documentation from last evening.
[2020-10-29] MEDS: acetaminophen 1,000 MG/100 ML PIGGYBACK 400 MG IV ×2 (14:40→21:57)
[2020-10-29] MEDS: sodium chloride 0.9% 1,000 ML 30 ML IV (14:55)
[2020-10-29] MEDS: ceFAZolin 1,000 mg SDV 1000 MG IRRIGATION (15:56)
--- NOTE | 2020-10-29 16:01 | PM.PN ---
Subjective Subjective: Interval history: Seen with family at bedside. Pain controlled. Blood pressure elevated this morning. Wants to eat. Medications: Reviewed: Yes Vitals/I&O/Wt Last Vital Signs Temp 98 F 10/29/20 14:24 Pulse 73 10/29/20 14:24 Resp 18 10/29/20 14:24 BP 170/74 10/29/20 14:24 Pulse Ox 99 10/29/20 14:24 10/29/20 10/29/20 10/29/20 06:59 14:59 22:59 Intake Total 160 / 160 Output Total 250 / 470 Balance -250 / -230 160 / 160 Weight last 48 hrs Weight 150 lb Physical Exam Const: COMMON NORMALS: no acute distress and patient oriented x3 ORIENTATION/CONSCIOUSNESS: Yes awake, Yes oriented to person and Yes oriented to place Chest: COMMONS NORMALS: normal inspection of the chest Resp: COMMON NORMALS: normal respiratory effort and No retractions Cardio: COMMON NORMALS: regular rate and regular rhythm RATE: regular rate RHYTHM: regular rhythm GI: COMMON NORMALS: Soft to palpation and non-tender PALPATION: Yes Soft to palpation Neuro: COMMON NORMALS: patient oriented x3 and CN's II-XII intact bilaterally SENSORIUM/ORIENTATION: Yes oriented to person and Yes oriented to place Psych: COMMON NORMALS: mental status grossly normal and Normal thought process present THOUGHT PROCESS: Normal thought process present Data : 10/29/20 05:34 10/29/20 05:34 A&P Assessment and plan (1) Closed fracture of right hip: N.p.o., as needed analgesics plan for surgery later today Status: Acute (2) Parkinson disease: Will resume carbidopa levodopa after surgery Status: Acute (3) Benign essential HTN: Blood pressure elevated add as needed hydralazine Status: Acute (4) Atrial fibrillation: Rate controlled off Eliquis for now Status: Acute Attestations Medical Necessity Statement*: Yossi Vargas's hospital stay will require greater than 2 midnights for hip fracture Coding Level of Care Code Acute Director Business Development for [facility] Fwd Diagnoses Closed fracture of right hip S72.001A Parkinson disease G20 Benign essential HTN I10 Atrial fibrillation I48.91
[2020-10-29] MEDS: vancomycin 1,000 MG SDV 1000 MG XX (16:39)
--- NOTE | 2020-10-29 16:55 | XR_ITS ---
WS: [id number] Exam: XR pelvis 1-2V* [id number] Date/Time of Exam: 10/29/2020 5:15 PM Reason For Exam: Status post bipolar hip arthroplasty right AP view of the pelvis shows a right hip prosthesis in place. Postoperative changes in the adjacent so ft tissues. XR/XR pelvis 1-2V* [id number] IMPRESSION: 1. Right hip prosthesis placement.
--- NOTE | 2020-10-29 16:58 | SUR.OPER ---
[address] Jauregui via cell phone per Dr. Luis's request about buck catheter insertion. received no response and left message.
--- NOTE | 2020-10-29 17:00 | PM.OP ---
Operative Report Date of procedure: October 29, 2020 Pre-op Diagnosis: Subcapital right hip fracture Post-op diagnosis: same Post-op Findings: Subcapital right hip fracture, displaced Procedure Done: Right bipolar hip arthroplasty Implants: Vivian Accolade II 127 degree neck angle hip stem size 7 with a 37 mm neck length, 28 mm x -4 mm V40 LFIT femoral head with a universal bipolar head component size 52 mm outer diameter by 28 mm inner diameter Specimens removed/disposition: Femoral head sent to pathology Pathology: none sent Pathology: Femoral head Surgeon: Patsy Luis [employer] [employer] Anesthesia: General (Intubated, ASA 4) Estimated blood loss (mL): 200 IV fluids (mL): 1,000 Urine output: No Carlos Complications: None Findings: Very limited right hip range of motion. Condition: stable Disposition: PACU (Then return to floor.) Brief History: Yossi Vargas is a 85 year old male who presented for a bone marrow biopsy. He was unable to move his leg prior to the procedure, and he was sent to the emergency department where he was found to have a right subcapital hip fracture which was displaced. He was admitted to the medical service for definitive treatment. The patient was seen and discussion was undertaken with him regarding plans for surgical intervention. Discussion was also had preoperatively with the patient's both up in the room and in the preop holding area. Both consented to the surgical procedure. Procedure: The patient was brought to the operating theater, and after undergoing adequate general anesthesia, intubated, ASA 4, he was transferred to the operating room table. The patient was placed in the full lateral position and held in place with the pegboard. Patient's right lower extremity was draped free and was subsequently prepped and further draped free. A surgical pause was performed prior to commencement of the surgical procedure. During the surgical pause, we confirmed the site and side of surgery as well as availability of equipment. Additionally, we confirmed preoperative surgical markings as well as the ministration of preoperative prophylactic antibiotic, 2 g of Ancef. X-rays are also reviewed during this time. Following the surgical pause, an incision was made centering over the greater trochanter continuing proximally and distally as necessary to allow access to the hip joint. Dissection continued through skin and soft tissue using a scalpel. Hemostasis was obtained using electrocautery. Tensor fascia letty was identified and incised longitudinally. Sciatic nerve was identified and protected throughout the surgical procedure. A Charnley U retractor was placed with care being taken to protect the sciatic nerve during placement. The hip was internally rotated. Piriformis muscle was then identified, tagged, and subsequently incised from the posterior aspect of the hip joint. The remaining short external rotators were also incised. These were then elevated off the capsule and the capsule was entered in a T-type fashion. Each side of the capsule was then tagged. The proximal femur was brought into an appropriate position of the femoral neck osteotomy was accomplished. This was in appropriate position for placement of the prosthetic component. Femoral head was then removed from the acetabulum utilizing a corkscrew. It was subsequently measured. There was noted to be significant limitation in range of motion of the hip secondary to chronic contracture. The appropriate size trial was chosen after the head was measured. This was a size 52 mm. A 53 mm head was also trialed but seemed to large. Therefore size 52 mm universal bipolar head was the chosen size for final implantation. Femoral tank furnace operator was then placed and attention was directed to the proximal femur. Initially, the proximal femur was addressed with a box chisel, and this was followed by a canal finder and subsequently broaches. The hip was broached to a size 7. Size 7 broach was noted to fit nicely and have good fit and fill. Therefore this was to be the chosen component. It was felt that a larger component would be too long as the trial will be accomplished used a -4 mm femoral head. Trial reduction was accomplished with a 52 mm bipolar universal head component and a -4 offset femoral head. With this, at 90 degrees of flexion with 20 degrees of adduction and 60 degrees of internal rotation, the hip was noted to be stable. This was felt to be appropriate and therefore trial components were removed and the hip was irrigated. Acetabulum was evaluated for any loose bodies or other soft tissues requiring resection. We then prepared for implantation. The size 7 x 37 mm neck length and 127 degree neck angle hip femoral stem was impacted into position. This was placed without difficulty. Onto this was placed the construct of the 52 mm universal head bipolar component with a 28 mm inner diameter, and the 28 mm diameter -4 mm neck length femoral head. This was placed onto the trunnion of the femoral component. It was impacted into position and pulled upon to assure that there was no dissociation. Once again the hip was irrigated and suctioned dry and was reduced. We then irrigated the hip further with 20 mL of Betadine mixed into 500 mL of normal saline. This was allowed to remain in the wound for approximately 3 minutes. It was then suctioned dry and irrigated with normal saline. This was suctioned dry again and closure was accomplished with 0 Vicryl in the capsular tissues followed by reattachment of the piriformis with 0 Vicryl. Additionally, the tensor was closed with 0 Vicryl in an interrupted fashion. Subcutaneous tissues were closed with 2-0 Monocryl. Skin was closed with 3-0 Monocryl. This was followed by Dermabond and Steri-Strips. A sterile dressing was placed consisting of OpSite. The patient was returned the Recovery Room in satisfactory condition. There were no complications. The patient will be discharged to the floor for postoperative rehabilitation and pain management. While in the recovery room, he did require the services of Dr. Jauregui from urology to place a Carlos catheter. The patient had had a history of difficult Carlos catheter placement in the past requiring the services of urologist. Associated Problem List Diagnoses (1) Subcapital fracture of right hip: Qualifiers: Encounter type: initial encounter Fracture type: closed Qualified Code(s): S72.011A - Unspecified intracapsular fracture of right femur, initial encounter for closed fracture
[2020-10-29] MEDS: fentaNYL 50 mcg/mL INJ 2mL IVP ×2 (17:43→18:14)
[2020-10-29] MEDS: sodium chloride 0.9% 1,000 ML 100 ML IV (17:53)
[2020-10-29] MEDS: fentaNYL 50 mcg/mL INJ 2mL 100 MCG IVP (18:25)
--- NOTE | 2020-10-29 18:47 | P.CONIM_ITS ---
Providers/Reason For Consult Consulting Physician/Specialty*: Jauregui/urology Reason for Consult*: Urinary retention, inability to place Carlos catheter post hip repair Attending Physician: Alek Acosta MD Primary Care Provider: Nika Parekh MD History of Present Illness History of Present Illness Yossi Vargas is a 85 year old male who I evaluated tonight at the request of Dr. Luis. Patient was found to have a right hip fracture. It was discovered at time of a planned bone marrow biopsy for anemia. A biopsy was postponed orthopedics was consulted, and patient was scheduled for hip fracture repair today. Apparently the patient gave a history of difficult catheter placements in the past. Attempts intraoperatively to get a catheter were unsuccessful and I was consulted for further evaluation and treatment. The patient is not able to provide much in the way of history but his was present in the PACU postop with him and was able to give the required history. Apparently many years ago before they met he was in the at [facility] and had some sort of procedure requiring silver nitrate and it was passed into the urethra and caused extensive destruction of the urethra. Ultimately he required complete reconstruction of the urethra done in phases at [facility]. Apparently he is done pretty well but there is been at least one of the procedure done several years ago where he had an orthopedic procedure I believe a knee replacement and required urology intervention for catheter placement. For about the last year the patient has had incontinence. Prior to that he did not have any reported problems with leakage. His states that he struggles to void at times and his stream is at best very weak and dribbling. Further complicating issues is the fact that he had of an inflatable penile prosthesis placed remotely. I performed a bladder scan in the PACU and it showed over 600 cc in the bladder. Bladder did not feel to be distended though but the patient's position is rather awkward due to his surgical braces. PROCEDURE: URETHRAL DILATION (filiforms and followers) and DIFFICULT CATHETER PLACEMENT. He was prepped and draped in the usual sterile fashion in the PACU. 2% lidocaine jelly was used for urethral anesthesia. A 10 Burmese straight catheter was attempted to be passed but was unsuccessful. It only made it in about 4 inches before it hit impassable obstruction. Procedure was then converted to dilation with filiforms and followers. A 4 Burmese straight tipped filiform was able to be manipulated beyond the stricture in the pedunculate urethra. It passed easily beyond that point into the bladder. Sequential dilation with followers from 8 Burmese up to 18 Burmese were utilized with tight passage but easily manageable. Good return of urine with passage of each follower. After the 18 Burmese was passed and remained in place for several minutes it was removed along with the filiform and a 14 Burmese Carlos catheter was passed through the dilated area with 10 cc placed in the balloon. The catheter was placed to dependent drainage and a StatLock was applied. I reviewed the findings with the who was present during the procedure. Discussed more long-term appropriate management of recurrent urethral stricture. For now my recommendation would be to maintain the 14 Burmese catheter for least a couple weeks and then consider sequential passive dilation in the clinic and possibly train her for CIC for patency maintenance of the stricture. All of this is still up in the air pending his recovery from this event and her willingness to consider that. For now the primary task has been achieved with indwelling Carlos catheter. Review of Systems General: Reports: ROS unobtainable due to mental status (Information below was obtained from his ) Narrative: Confusion at baseline. Decreased mobility Parkinson's tremor No active chest pain or shortness of breath. Chronic bladder low obstructive type symptoms. Meds/Allergies Home Medications and Allergies Home Medications Medication Instructions Recorded Confirmed Last Taken Type azelastine 205.5 mcg (0.15 %) 2 spray INTRANASAL BID 06/14/19 10/28/20 10/27/20 History nasal spray food supplemt, lactose-reduced 1 each PO DAILY ml 06/14/19 10/28/20 10/27/20 History 0.05 gram-1.5 kcal/mL oral liquid melatonin 5 mg capsule 5 mg PO BEDTIME cap 06/14/19 10/28/20 10/27/20 History multivitamin 1 tab PO DAILY #90 tab 06/23/20 10/28/20 10/27/20 Rx carbidopa ER 50 mg-levodopa 200 mg 1 tab PO TID #270 tab 06/25/20 10/28/20 10/28/20 Rx tablet,extended release apixaban [Eliquis] 2.5 mg PO BID 10/28/20 10/28/20 10/23/20 History diclofenac sodium 2 g TOPICAL QID PRN 10/28/20 10/28/20 Unknown History fluticasone propionate 2 spray INTRANASAL DAILY 10/28/20 10/28/20 10/27/20 History pantoprazole 40 mg PO DAILY 10/28/20 10/28/20 10/27/20 History ile-Zb-jjb-ciluw-tire-cy-Zn-Cu 1 cap PO DAILY 10/28/20 10/28/20 10/27/20 History [Prostate Control] simvastatin 20 mg PO DAILY 10/28/20 10/28/20 10/27/20 History trazodone 25 mg PO BEDTIME PRN 10/28/20 10/28/20 10/27/20 History Allergies Allergy/AdvReac Type Severity Reaction Status Date / Time No Known Allergies Allergy Verified 10/28/20 17:26 Current Medications Current Medications Generic Name Dose Route Start Last Admin Trade Name Freq PRN Reason Stop Dose Admin Carbidopa/Levodopa 1 each 10/28/20 21:00 10/29/20 08:57 Carbidopa-Levodopa Er 50-200mg Tablet PO Not Given TID EVARISTO Hydralazine HCl 10 mg 10/29/20 12:51 10/29/20 13:36 Hydralazine 20 Mg/Ml Inj 1 Ml IVP 10 mg Q4H PRN Administration HOLD FOR BP <110/70 Sodium Chloride 1,000 mls @ 30 mls/hr 10/29/20 14:45 10/29/20 17:53 Sodium Chloride 0.9% IV 10/30/20 14:44 100 mls/hr .Q24H EVARISTO Administration PFSH Acute PFSH: Medical History (Updated 10/29/20 @ 19:05 by Eliceo Jauregui MD) Anxiety and depression ASVD (arteriosclerotic vascular disease) Atrial fibrillation Benign essential HTN Carotid stenosis Chronic constipation Chronic GERD Chronic low back pain DDD (degenerative disc disease) Diverticulosis Drug intolerance flecainide Dyslipidemia Dyslipidemia Essential hypertension Heart murmur Hiatal hernia Hyponatremia Insomnia Irregular heart rate Neuropathy Normochromic normocytic anemia Obstructive sleep apnea Obstructive sleep apnea Has difficulty in using the CPAP Osteoarthritis of both knees Other urethral stricture, male, 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 Complete urethral reconstruction with subsequent urethral stricture disease. As required multiple dilations over the years. Overflow incontinence Paresthesia of both feet Paroxysmal atrial fibrillation Polymyalgia rheumatica Poor compliance with medication Prostatism Small vessel disease, cerebrovascular Spondylolisthesis Squamous cell carcinoma Urinary retention Vitamin D deficiency Surgical History History of back surgery History of circumcision History of hernia repair History of penile implant Inflatable penile prosthesis History of sinus surgery History of total knee replacement Family History Grandmother CAD (coronary artery disease) Stroke Brother Suicide Denies family history of Diabetes Clotting disorder Dementia Chronic kidney disease (CKD) Anesthesia complication Bleeding disorder Lung disease Cancer Social History Smoking and tobacco status: never smoked Alcohol intake: never Lives independently: Yes Household members: spouse Marital status: service: Yes Current occupational status: retired History of recent travel: No Current gender identity: Male Vitals/I&O/Wt Last Vital Signs Temp 98 F 10/29/20 17:09 Pulse 59 L 10/29/20 17:50 Resp 18 10/29/20 18:25 BP 137/67 10/29/20 17:50 Pulse Ox 100 10/29/20 18:25 10/29/20 10/29/20 10/29/20 06:59 14:59 22:59 Intake Total 1160 / 1160 Output Total 250 / 470 200 / 200 Balance -250 / -230 960 / 960 Weight last 48 hrs Weight 150 lb Physical Exam Const: COMMON NORMALS: no acute distress, alert and well nourished GENERAL APPEARANCE: well kempt and well developed HENMT: COMMON NORMALS: normocephalic and atraumatic HEAD & SCALP: normocephalic and atraumatic Eye: COMMON NORMALS: conjunctivae normal and no scleral icterus CONJUNCTIVA: Yes conjunctivae normal Neck/C-Spine: COMMON NORMALS: full ROM GENERAL: Yes normal visual inspection Lymph: LYMPHATIC: no lymphadenopathy noted Resp: COMMON NORMALS: normal respiratory effort EFFORT & INSPECTION: No labored and No Actively coughing Cardio: COMMON NORMALS: regular rate and regular rhythm RATE: regular rate RHYTHM: regular rhythm GI: COMMON NORMALS: Normal to inspection, nondistended, normoactive bowel sounds present, Soft to palpation, non-tender and no masses PALPATION: Yes Soft to palpation : COMMON NORMALS: Yes no CVA tenderness BLADDER/KIDNEY EXAM: Yes no CVA tenderness MALE GROIN/PERINEUM EXAM: No ecchymosis and No edema PENIS: other (Status post inflatable penile prosthesis. Completely deflated. No skin le) MEATUS: meatus normal SCROTUM: Yes testes descended bilaterally Back/Pelvis: COMMON NORMALS: no CVA tenderness Extremity: NARRATIVE EXTREMITY EXAM: He has a brace between both legs securing his position post hip repair. Neuro: SENSORIUM/ORIENTATION: Yes alert Psych: APPEARANCE: Yes grossly normal and Yes well kempt ATTITUDE: Yes calm Skin: COMMON NORMALS: no rashes or lesions noted and no jaundice GENERAL SKIN EXAM: no rashes or lesions noted A&P Assessment and plan (1) Other urethral stricture, male, overlapping sites: Required filiform and follower dilation tonight with catheter placement. Status: Acute (2) Urinary retention: Greater than 600 cc in his bladder. Status: Acute (3) Overflow incontinence: Progressive over the last year. Bladder scan confirmed markedly elevated PVR today. Status: Acute Consult Attestations Medical Necessity Statement: See attending Time Spent in Patient Care: Approximately 90 minutes [id number]. Coding Level of Care Code Acute Offset Lithographic Press Setter for Chg Fwd Exam Comprehensive Diagnoses Other urethral stricture, male, overlapping sites N35.816 Urinary retention R33.9 Overflow incontinence N39.490
--- NOTE | 2020-10-29 18:56 | SUR.PHASEI ---
1813 DR IQBAL HERE, PT AT BEDSIDE PT PREPPED FOR ESCOBAR INSERTION WITH DILITATION AT BEDSIDE BY DR IQBAL FENTANYL 50MCG GIVEN AND WASTED 50 MCG WITH OPS NURSE BRENNAN.
--- NOTE | 2020-10-29 19:04 | SUR.PHASEII ---
wasted 50mcg with gato pickard rn,stated in pyxis that 25mcg to be given but 50mcg given 50mcg wasted with gato pickard rn
--- NOTE | 2020-10-29 19:06 | P.PCN_ITS ---
Other Information: See consult dictated 10/28/2020 Coding Level of Care Code Acute Print Color Operator for Ángel Toth
--- NOTE | 2020-10-29 19:06 | PM.PROC ---
Other Information: See consult dictated 10/28/2020 Coding Level of Care Code Acute Owner/Operator for Ángel Toth
--- NOTE | 2020-10-29 19:22 | SUR.PHASEI ---
1743 PT AWAKE ALERT MOVING FIRST ICE OFF HIP , PT CONFUSED TO ALL BUT NAME, X RAYS DONE, PT TO BEDSIDE TALKING WITH PT PT C/O OF BURNING TORT HIP, UNABLE TO GIVE NUMBER FACE SCALE USED SEE PAIN MED GIVEN, PT THEN RESTING MORE QUIETLY 18
--- NOTE | 2020-10-29 19:24 | SUR.PHASEI ---
1824 DR IQBAL STILL TRYING TO PLACE ESCOBAR PT CRYING OUT WITH PAIN, UROJET GIVEN BY DR IQBAL BLOCK FOR PROCEDURE AND DR IQBAL ORDERED FENTANYL TO BE GIVEN UP TO 100MCG. 75 MCG IVP GIVEN SLOWLY, PT CALMING DURING PROCEDURE, CONTINOUS O2 SAT AND VSS PT MONITOR SR NO ECTOPY, VSS 1839 14 KYRGYZ ESCOBAR WITH 10 ML BALLOON PLACED BY DR IQBAL , STATLOCK TO RT THIGH PLACED FOLEYDRAINING CLEAR YELLOW URINE APPROX 100ML NOTED PT AT BEDSIDE DURING PROCEDURE PT IS CONFUSED , SHE TALKED WITH DR IQBAL AND THE NEEDED TO RETURN HOME, ESCORTED TO ER DOORS BY OPS RN. 1849 REPORT CALLED TO FLOOR. PT TO FLOOR PER BED AWAKE ALERT AND TALKATIVE APPROX 200ML YELLOW URINE NOW IN ESCOBAR BAG , NOT EMPTIED.
[2020-10-29] MEDS: sennosides-docusate Tablet 2 TAB PO (21:55)
[2020-10-29] MEDS: carbidopa-levodopa ER 50-200mg Tablet 1 EACH PO (21:56)
[2020-10-29] MEDS: chlorhexidine gluconate 0.12% Btl 473 mL 30 ML MUCOUS MEM (21:56)
[2020-10-29] MEDS: calcium carbonate 500 mg Chew Tablet 1000 MG PO (21:56)
[2020-10-29] MEDS: iron polysaccharide complex 150 mg Capsule PO (21:56)
--- NOTE | 2020-10-29 22:26 | PC.NURSE ---
BUCK CATHETER Patient's buck catheter was placed in surgery, by Dr Jauregui. See Dr. Uribe note.
[2020-10-29] MEDS: mupirocin oint 22 gm 1 APPLIC NASAL (22:27)
[2020-10-30] VITALS (11 sets, daily range): BP systolic 92–165; BP diastolic 51–81; PULSE 62–72; RESP 16–17; TEMP 35.6–36.7; O2SAT 97–100
[2020-10-30 02:48] LABS: Basophils % 0.1 %; Hematocrit 31.8 % (42.0-52.0); Hemoglobin 10.6 g/dL (11.7-16.6); Lymphocytes # 0.6 10^3/uL (0.8-4.8); Lymphocytes % 8.9 %; Mean Corpuscular HGB Conc 33.3 g/dL (30.0-36.0); Mean Corpuscular Hemoglobin 31.5 pg (28.0-34.0); Mean Corpuscular Volume 94.6 fL (80-94); Mean Platelet Volume 9.6 fL (7.4-10.4); Monocytes # 0.6 10^3/uL (0.2-0.9); Monocytes % 8.3 %; Neutrophils # 5.63 10^3/uL (1.8-7.7); Neutrophils % 82.3 %; Nucleated Red Blood Cells % 0 %; Platelet Count 174 10^3/cmm (130-400); Red Blood Count 3.36 10^6/uL (4.1-5.3); Red Cell Distribution Width 17.1 % (12.1-15.1); White Blood Count 6.9 10^3/uL (4.0-10.0)
[2020-10-30 03:12] LABS: Blood Urea Nitrogen 17 mg/dL (8-23); Calcium 8.3 mg/dL (8.5-10.5); Carbon Dioxide 22 mmol/L (22-29); Chloride 102 mmol/L (98-107); Glucose 149 mg/dL (65-115); Osmolality Calculated 280 mOsm/kg (285-295); Sodium 133 mmol/L (136-145)
[2020-10-30] MEDS: acetaminophen 1,000 MG/100 ML PIGGYBACK 400 MG IV ×2 (04:01→11:05)
--- NOTE | 2020-10-30 05:03 | PC.NURSE ---
SHIFT SUMMARY Patient was confused and disoriented when he return to [facility] floor from PACU after surgery. As the night went on patient became alert and oriented. Patient denied any pain throughout the night and did not require any pain medications. Patient rested well for most of the night.
[2020-10-30] MEDS: cholecalciferol (vitamin D3) 1,000 unit Tablet 1000 UNIT PO (08:48)
[2020-10-30] MEDS: multivitamin therapeutic Tablet 1 TAB PO (08:48)
[2020-10-30] MEDS: calcium carbonate 500 mg Chew Tablet 1000 MG PO ×2 (08:48→18:29)
[2020-10-30] MEDS: aspirin 325 mg EC Tablet PO (08:49)
[2020-10-30] MEDS: sennosides-docusate Tablet 2 TAB PO ×2 (08:49→18:29)
[2020-10-30] MEDS: iron polysaccharide complex 150 mg Capsule PO ×2 (08:49→18:29)
[2020-10-30] MEDS: carbidopa-levodopa ER 50-200mg Tablet 1 EACH PO ×3 (08:49→22:15)
[2020-10-30] MEDS: CELEcoxib 200 mg Capsule PO (08:49)
[2020-10-30] MEDS: chlorhexidine gluconate 0.12% Btl 473 mL 30 ML MUCOUS MEM ×3 (08:51→22:15)
[2020-10-30] MEDS: mupirocin oint 22 gm 1 APPLIC NASAL ×2 (08:51→18:30)
[2020-10-30] MEDS: oxyCODONE 5 mg IR Tab/Cap PO (09:06)
--- NOTE | 2020-10-30 10:08 | PM.PN ---
Subjective Subjective: Interval history: Patient is seen in his room. He is doing well. He has minimal to no complaints of pain. He is postop day 1 following right bipolar hip arthroplasty. He is to be weightbearing as tolerated and working with physical therapy. Medications: Reviewed: Yes Vitals/I&O/Wt Last Vital Signs Temp 96.7 F L 10/30/20 08:00 Pulse 62 10/30/20 09:17 Resp 17 10/30/20 09:11 BP 165/76 10/30/20 08:00 Pulse Ox 97 10/30/20 09:11 10/29/20 10/30/20 10/30/20 22:59 06:59 14:59 Intake Total 2660 / 2660 400 / 3060 520 / 520 Output Total 200 / 200 400 / 600 200 / 200 Balance 2460 / 2460 0 / 2460 320 / 320 Weight last 48 hrs Weight 150 lb Physical Exam Const: COMMON NORMALS: no acute distress, average body habitus, patient oriented x3 and alert GENERAL APPEARANCE: cooperative and comfortable ORIENTATION/CONSCIOUSNESS: Yes awake HENMT: COMMON NORMALS: normocephalic and atraumatic HEAD & SCALP: normocephalic and atraumatic Eye: GENERAL EYE: appearance normal, both eyes and all related structures Chest: COMMONS NORMALS: normal inspection of the chest Resp: COMMON NORMALS: normal respiratory effort EFFORT & INSPECTION: Yes able to speak in complete sentences and Yes symmetric chest movement Extremity: RIGHT LOWER EXTREMITY: Yes hip joint (Incision is benign. There is minimal to no swelling.) Right hip: Yes inspection (No ecchymosis.), Yes palpation (Minimal tenderness.), Yes ROM (Not evaluated.) and Yes neurovascular exam (Intact distal to the fracture site) Neuro: COMMON NORMALS: patient oriented x3 SENSORIUM/ORIENTATION: Yes alert Psych: COMMON NORMALS: mental status grossly normal APPEARANCE: Yes grossly normal ATTITUDE: Yes calm and Yes engaged ATTENTION/CONCENTRATION: Yes attention grossly intact Skin: COMMON NORMALS: no rashes or lesions noted GENERAL SKIN EXAM: no rashes or lesions noted Urinary Catheter Management^: Carlos: Cath Placed During This Visit: yes Reason for Continuing Indwelling Catheter: Perioperative Use in Selected Surgeries Urinary Catheter Date of Insertion: 10/29/20 Urinary Catheter Time of Insertion: 18:40 Data : 10/30/20 02:20 10/30/20 02:20 A&P Assessment and plan (1) Subcapital fracture of right hip: Patient had a right subcapital hip fracture which is displaced. He underwent bipolar hip arthroplasty, and femoral head was sent to pathology. The patient is doing well today. He is working with physical therapy, but he is seen in his room early. He is neurologically intact distally with no evidence of DVT. He will require long-term at the time of discharge and plans are being made for this. Status: Acute Qualifiers: Encounter type: initial encounter Fracture type: closed Qualified Code(s): S72.011A - Unspecified intracapsular fracture of right femur, initial encounter for closed fracture Attestations Medical Necessity Statement*: Patient requires ongoing medical care following bipolar hip arthroplasty for displaced subcapital hip fracture. Coding Level of Care Code Acute Patient Scheduling Coordinator for [facility] Janey Diagnoses Subcapital fracture of right hip S72.011A Encounter type: initial encounter Fracture type: closed
[2020-10-30] MEDS: apixaban 5 mg Tablet 2.5 MG PO ×2 (11:06→22:12)
[2020-10-30] MEDS: amlodipine 10 mg Tablet PO (11:06)
--- NOTE | 2020-10-30 13:22 | P.PN_ITS ---
Subjective Subjective: Interval history: Patient was seen this morning, he sitting up in a chair, patient's family is at bedside, he tells me that he is doing well, physical therapy is working well with him, his Carlos catheter is still in place, has has not had a bowel movement, he is a bit disappointed that his bone marrow biopsy could not be performed yesterday during the surgery, but overall is doing well, he is excited to go to [facility], he tells me that they have a good physical therapy department there, when he broke his knee they worked him well Vitals/I&O/Wt Last Vital Signs Temp 97.5 F L 10/30/20 13:00 Pulse 64 10/30/20 13:00 Resp 17 10/30/20 13:00 BP 108/68 10/30/20 13:00 Pulse Ox 100 10/30/20 13:00 10/29/20 10/30/20 10/30/20 22:59 06:59 14:59 Intake Total 2660 / 2660 400 / 3060 910 / 910 Output Total 200 / 200 400 / 600 200 / 200 Balance 2460 / 2460 0 / 2460 710 / 710 Weight last 48 hrs Weight 68.039 kg Physical Exam Const: COMMON NORMALS: no acute distress and patient oriented x3 Neck/C-Spine: COMMON NORMALS: no JVD Resp: COMMON NORMALS: normal respiratory effort, No retractions, No use of accessory muscles and clear to auscultation bilaterally AUSCULTATION: clear to auscultation bilaterally Cardio: COMMON NORMALS: no JVD, regular rate, regular rhythm, S1 normal heart sound present and S2 normal heart sound present RATE: regular rate RHYTHM: regular rhythm HEART SOUNDS: S1 normal heart sound present and S2 normal heart sound present GI: COMMON NORMALS: Normal to inspection, nondistended, normoactive bowel soun ds present, Soft to palpation and non-tender PALPATION: Yes Soft to palpation Neuro: COMMON NORMALS: patient oriented x3 Psych: COMMON NORMALS: mental status grossly normal Urinary Catheter Management^: Carlos: Cath Placed During This Visit: yes Reason for Continuing Indwelling Catheter: Perioperative Use in Selected Surgeries Urinary Catheter Date of Insertion: 10/29/20 Urinary Catheter Time of Insertion: 18:40 Data : 10/30/20 02:20 10/30/20 02:20 A&P Assessment and plan (1) Closed fracture of right hip: -Status post fall -Status post surgical invtervention by Dr. Luis -Pain control as per orthopedic team -Dr. Janelle villa with resuming Eliquis -Initially there was plans on performing patient's bone marrow biopsy during hip surgery, however this was canceled, bone marrow biopsy will be done as outpatient in 2 weeks, Eliquis has to be held 5 days before -PT OT -Full code -Eliquis for DVT prophylaxis -Anticipate discharge to [facility] custodial Status: Acute (2) Parkinson disease: Will resume carbidopa levodopa after surgery Status: Acute (3) Benign essential HTN: Add Norvasc 10 mg daily, hydralazine as needed Status: Acute (4) Atrial fibrillation: Rate, continue Eliquis 2.5 mg twice daily Status: Acute Additional A&P Information 85-year-old male with history of Parkinson's, atrial fibrillation, anticoagulation presents to ER with increased right hip pain. Diagnosed with right hip fracture. Attestations Medical Necessity Statement*: Patient requires hospitalization for closed right hip fracture, status post surgical intervention, atrial fibrillation, hy pertension, requires inpatient admission for PT OT, blood pressure monitoring, anemia monitoring, Coding Level of Care Code Acute First Aid Officer for [facility] Fwd Diagnoses Closed fracture of right hip S72.001A Parkinson disease G20 Benign essential HTN I10 Atrial fibrillation I48.91
[2020-10-30] MEDS: TRAMadol 50 mg Tablet PO (22:10)
[2020-10-31] MEDS: trazodone 50 mg Tablet PO (01:54)
[2020-10-31] MEDS: acetaminophen 500 mg Tablet 1000 MG PO ×2 (01:54→08:58)
[2020-10-31 02:42] LABS: Basophils % 0.2 %; Eosinophils % 0.5 %; Hematocrit 31.5 % (42.0-52.0); Hemoglobin 10.5 g/dL (11.7-16.6); Lymphocytes # 1.4 10^3/uL (0.8-4.8); Lymphocytes % 21.2 %; Mean Corpuscular HGB Conc 33.3 g/dL (30.0-36.0); Mean Corpuscular Hemoglobin 31.9 pg (28.0-34.0); Mean Corpuscular Volume 95.7 fL (80-94); Mean Platelet Volume 9.8 fL (7.4-10.4); Monocytes # 0.5 10^3/uL (0.2-0.9); Monocytes % 7.2 %; Neutrophils # 4.61 10^3/uL (1.8-7.7); Neutrophils % 70.6 %; Nucleated Red Blood Cells % 0 %; Platelet Count 174 10^3/cmm (130-400); Red Blood Count 3.29 10^6/uL (4.1-5.3); Red Cell Distribution Width 17.3 % (12.1-15.1); White Blood Count 6.5 10^3/uL (4.0-10.0)
[2020-10-31 03:00] LABS: Alanine Aminotransferase < 5 U/L (0-41); Albumin Level 3.4 g/dL (3.5-5.2); Alkaline Phosphatase 124 IU/L (40-130); Anion Gap 12.9 (5-19); Aspartate Amino Transferase 23 U/L (0-40); Blood Urea Nitrogen 18 mg/dL (8-23); Calcium 8.6 mg/dL (8.5-10.5); Carbon Dioxide 24 mmol/L (22-29); Chloride 101 mmol/L (98-107); Globulin 2.3 g/dL (1.3-4.6); Glucose 95 mg/dL (65-115); Osmolality Calculated 280 mOsm/kg (285-295); Phosphorus 1.6 mg/dL (2.5-4.5); Potassium 3.9 mmol/L (3.5-5.1); Sodium 134 mmol/L (136-145); Total Bilirubin 0.3 mg/dL (0.15-1.2); Total Protein 5.7 g/dL (6.6-8.7)
[2020-10-31 04:00] VITALS: BP 111/69; PULSE 93; RESP 14; TEMP 36.1; O2SAT 96
[2020-10-31] MEDS: TRAMadol 50 mg Tablet PO (07:00)
[2020-10-31 08:00] VITALS: BP 103/74; PULSE 93; RESP 18; TEMP 36.6; O2SAT 98
[2020-10-31] MEDS: sennosides-docusate Tablet 2 TAB PO (08:57)
[2020-10-31] MEDS: calcium carbonate 500 mg Chew Tablet 1000 MG PO (08:57)
[2020-10-31] MEDS: cholecalciferol (vitamin D3) 1,000 unit Tablet 1000 UNIT PO (08:58)
[2020-10-31] MEDS: multivitamin therapeutic Tablet 1 TAB PO (08:58)
[2020-10-31] MEDS: amlodipine 10 mg Tablet PO (08:58)
[2020-10-31] MEDS: chlorhexidine gluconate 0.12% Btl 473 mL 30 ML MUCOUS MEM (08:58)
[2020-10-31] MEDS: CELEcoxib 200 mg Capsule PO (08:58)
[2020-10-31] MEDS: iron polysaccharide complex 150 mg Capsule PO (08:58)
[2020-10-31] MEDS: carbidopa-levodopa ER 50-200mg Tablet 1 EACH PO (08:58)
[2020-10-31] MEDS: mupirocin oint 22 gm 1 APPLIC NASAL (08:59)
[2020-10-31] MEDS: apixaban 5 mg Tablet 2.5 MG PO (09:30)
--- NOTE | 2020-10-31 10:08 | PC.SOCIAL ---
*IMM UPDATE* Gave patient IMM update, provided him copy of page 2 of IMM. Verbalized understanding. 10/31/20 @ 0910 Initialed, dated, timed and placed in chart.
--- NOTE | 2020-10-31 10:12 | P.DS_ITS ---
Discharge Providers Date of Admission: 10/28/20 18:23 Date of Discharge: October 31, 2020 Attending Provider at Admission: Alek Acosta MD Attending Provider at Discharge: Jason Granados MD Primary Care Provider: Nika Parekh MD Diagnoses at Discharge Discharge Diagnosis (1) Subcapital fracture of right hip: Status: Acute Qualifiers: Encounter type: initial encounter Fracture type: closed Qualified Code(s): S72.011A - Unspecified intracapsular fracture of right femur, initial encounter for closed fracture Reason for Visit Reason for Visit: HIP PAIN Hospital Course Hospital Course This is a 85-year-old male with a past medical history of atrial fibrillation on Eliquis, not on any rate control or rhythm control medications, Parkinson's disease, who presents to [facility] for a fall and a right hip fracture. Patient sustained a subcapital fracture of the right hip, underwent a bipolar hip arthroplasty, tolerated procedure well. Femoral head was sent to pathology, pathology pending. Discharge [facility] for PT OT. Discharged on Eliquis for DVT prophylaxis, oxycodone for pain control, follow up with Dr. Luis. There was concerns for hypertension initially during his hospitalization, blood pressures improved, but still required antihypertensive medications, he unfortunately is unable to tolerate blood pressure medications due to concerns for hypotension, Norvasc was tried as inpatient, but his blood pressures got as low as 99/50. Blood pressure medications were stopped on discharge, [facility] was advised to monitor blood pressure as outpatient. Patient also developed acute urinary retention during his hospitalization, requiring Buck catheter placement by Dr. Jauregui, he will be discharged with Buck catheter, with close follow-up with Dr. Jauregui as outpatient He will also follow-up with Dr. William as outpatient for consideration for bone marrow biopsy. Physical Exam Const: COMMON NORMALS: no acute distress and patient oriented x3 Resp: COMMON NORMALS: normal respiratory effort, No retractions, No use of accessory muscles and clear to auscultation bilaterally AUSCULTATION: clear to auscultation bilaterally Cardio: COMMON NORMALS: regular rate, regular rhythm, S1 normal heart sound present and S2 normal heart sound present RATE: regular rate RHYTHM: regular rhythm HEART SOUNDS: S1 normal heart sound present and S2 normal heart sound present GI: COMMON NORMALS: Normal to inspection, nondistended, normoactive bowel sounds present, Soft to palpation and non-tender PALPATION: Yes Soft to palpation Extremity: COMMON NORMALS: no pedal edema Neuro: COMMON NORMALS: patient oriented x3 Psych: COMMON NORMALS: mental status grossly normal Urinary Catheter Management^: Buck: Cath Placed During This Visit: yes Reason for Continuing Indwelling Catheter: Acute Urinary Retention or Obstruction Urinary Catheter Date of Insertion: 10/29/20 Urinary Catheter Time of Insertion: 18:40 Discharge Data Data Completed and Pending: Completed Studies During Hospitalization Category Date Time Status XR pelvis 1-2V* 7 2170 Routine Exams 10/29/20 16:55 Completed Pending at discharge Category Date Time Status Complete Blood Co unt w/Auto AM LABS Lab 11/01/20 04:00 Ordered Complete Blood Co unt w/Auto AM LABS Lab 11/01/20 04:00 Ordered Complete Blood Co unt w/Auto AM LABS Lab 11/02/20 04:00 Ordered Comprehensive Met abolic Panel AM LA BS Lab 11/01/20 04:00 Ordered Comprehensive Met abolic Panel AM LA BS Lab 11/02/20 04:00 Ordered Magnesium AM LABS Lab 11/01/20 04:00 Ordered Magnesium AM LABS Lab 11/02/20 04:00 Ordered Phosphorus AM LAB S Lab 11/01/20 04:00 Ordered Phosphorus AM LAB S Lab 11/02/20 04:00 Ordered Pathology: Surgic al [PTH] Routine Pth 10/29/20 17:14 Received Labs from last 24 hours 10/31/20 10/31/20 02:12 02:12 WBC 6.5 RBC 3.29 L Hgb 10.5 L Hct 31.5 L MCV 95.7 H MCH 31.9 MCHC 33.3 RDW 17.3 H Plt Count 174 MPV 9.8 Neut % (Auto) 70.6 Lymph % (Auto) 21.2 [place] % (Auto) 7.2 Eos % (Auto) 0.5 Baso % (Auto) 0.2 Neut # (Auto) 4.61 Lymph # (Auto) 1.4 [place] # (Auto) 0.5 Eos # (Auto) 0.0 Baso # (Auto) 0.0 Nucleated RBC % (a uto) 0 Nucleated RBCs # 0.0 Sodium 134 L Potassium 3.9 Chloride 101 Carbon Dioxide 24 Anion Gap 12.9 BUN 18 Creatinine 0.8 GFR Calculation Not Reportable Glucose 95 Calculated Osmolal ity 280 L Calcium 8.6 Phosphorus 1.6 L Magnesium 2.0 Total Bilirubin 0.3 AST 23 ALT < 5 Alkaline Phosphata se 124 Total Protein 5.7 L Albumin 3.4 L Globulin 2.3 Vitals: Last Vital Signs Temp 97.8 F 10/31/20 08:00 Pulse 93 10/31/20 08:00 Resp 18 10/31/20 08:00 BP 103/74 10/31/20 08:00 Pulse Ox 98 10/31/20 08:00 Discharge Plan Discharge Patient Disposition: Xfer SNF Condition: Stable Prescriptions: New oxycodone 5 mg Tablet 5 mg PO Q4H PRN (Reason: Moderate Pain) 7 Days Qty: 30 RF: 0 celecoxib 200 mg Capsule 200 mg PO DAILY 30 Days Qty: 30 RF: 0 acetaminophen 500 mg Tablet 1,000 mg PO Q8H PRN (Reason: pain) 15 Days Qty: 0 RF: 0 Ferrex 150 150 mg iron Capsule 150 mg PO BIDWM 30 Days Qty: 30 RF: 0 cholecalciferol (vitamin D3) 25 mcg (1,000 unit) Tablet 1,000 unit PO DAILY 30 Days Qty: 30 RF: 0 Continued azelastine 0.15 % (205.5 mcg) spray,non-aerosol 2 spray INTRANASAL BID RF: 0 Ensure Plus 0.05-1.5 gram-kcal/mL liquid 1 each PO DAILY RF: 0 melatonin 5 mg capsule 5 mg PO BEDTIME RF: 0 carbidopa-levodopa 50-200 mg tablet extended release 1 tab PO TID Qty: 270 RF: 1 multivitamin Tablet 1 tab PO DAILY Qty: 90 RF: 1 diclofenac sodium 1 % gel 2 g TOPICAL QID PRN (Reason: Pain) RF: 0 Eliquis 2.5 mg tablet 2.5 mg PO BID RF: 0 trazodone 50 mg tablet 25 mg PO BEDTIME PRN (Reason: Sleep) RF: 0 fluticasone propionate 50 mcg/actuation spray,suspension 2 spray intranasal DAILY RF: 0 pantoprazole 40 mg tablet,delayed release (DR/EC) 40 mg PO DAILY RF: 0 simvastatin 20 mg tablet 20 mg PO DAILY RF: 0 Prostate Control 47-80-62-100 mg capsule 1 cap PO DAILY RF: 0 Discharge Orders: Discharge Order (Routine); Ordered 05/28/21 Ordered By: Jason Granados Referrals: [facility] [Outside] Eliceo Jauregui MD [Physician] - 2 weeks (buck, urinary retention ) Patsy Luis MD [Physician] - 2 weeks (Patient to follow-up in 2 to 3 weeks.) Casi William MD [Staff Physician] - 1 month Nika Parekh MD [Primary Care Provider] - Discharge Diet: Usual diet Discharge Activity: Increase activity as tolerated, Limit activity as instructed, Use walker/crutches as instructed and As per PT/OT instructions Patient Instructions: Opioid Safety Activity Restrictions/Additional Instructions: Weightbearing as tolerated with posterior hip precautions. Ice and elevation to right hip as needed. Dressing may be removed and/or changed as needed. Discharge Attestations Time Spent in Discharge Care*: less than 30 min Quality Metrics Clinical Quality Measures During this hospital stay, did patient experience: None Coding Level of Care Code Acute [facility] FW DC note Diagnoses Subcapital fracture of right hip S72.011A Encounter type: initial encounter Fracture type: closed
[2020-10-31] MEDS: phosphorus 250 mg Tablet 500 MG PO (10:57)
[2020-10-31 11:03] VITALS: BP 100/62
[2020-10-31 11:23] VITALS: BP 107/67; PULSE 66; RESP 18; TEMP 35.6; O2SAT 99
--- NOTE | 2020-10-31 12:50 | P.PN_ITS ---
Subjective Subjective: Interval history: Patient is seen in his room with his . He is doing well. He has minimal to no complaints of pain. Today, he is postop day 2 and ready for discharge to long-term. He is to be weightbearing as tolerated and working with physical therapy. Medications: Reviewed: Yes Vitals/I&O/Wt Last Vital Signs Temp 96.0 F L 10/31/20 11:23 Pulse 66 10/31/20 11:23 Resp 18 10/31/20 11:23 BP 107/67 10/31/20 11:23 Pulse Ox 99 10/31/20 11:23 10/30/20 10/31/20 10/31/20 22:59 06:59 14:59 Intake Total 700 / 1610 600 / 600 Output Total 1875 / 2075 1350 / 3425 Balance -1175 / -465 -1350 / -1815 600 / 600 Physical Exam Const: COMMON NORMALS: no acute distress, average body habitus, patient oriented x3 and alert GENERAL APPEARANCE: cooperative and comfortable ORIENTATION/CONSCIOUSNESS: Yes awake HENMT: COMMON NORMALS: normocephalic and atraumatic HEAD & SCALP: normocephalic and atraumatic Eye: GENERAL EYE: appearance normal, both eyes and all related structures Chest: COMMONS NORMALS: normal inspection of the chest Resp: COMMON NORMALS: normal respiratory effort EFFORT & INSPECTION: Yes able to speak in complete sentences and Yes symmetric chest movement Extremity: RIGHT LOWER EXTREMITY: Yes hip joint (Dressing is removed. There is no drainage. Wound is benign.) Right hip: Yes inspection (No swelling.), Yes palpation (Minimal to no tenderness.), Yes ROM (Not evaluated.) and Yes neurovascular exam (Intact.) Neuro: COMMON NORMALS: patient oriented x3 SENSORIUM/ORIENTATION: Yes alert Psych: COMMON NORMALS: mental status grossly normal APPEARANCE: Yes grossly normal ATTITUDE: Yes calm and Yes engaged ATTENTION/CONCENTRATION: Yes attention grossly intact Skin: COMMON NORMALS: no rashes or lesions noted GENERAL SKIN EXAM: no barak hes or lesions noted Urinary Catheter Management^: Carlos: Cath Placed During This Visit: yes Reason for Continuing Indwelling Catheter: Acute Urinary Retention or Obstruction Urinary Catheter Date of Insertion: 10/29/20 Urinary Catheter Time of Insertion: 18:40 Data : 10/31/20 02:12 05/28/21 02:12 A&P Assessment and plan (1) Subcapital fracture of right hip: The patient had a displaced right subcapital hip fracture. He underwent right bipolar hip arthroplasty uneventfully. This is the second postoperative day, and he is doing well. He has been working with physical therapy, and he is weightbearing as tolerated. He is in the room with his , and all agree that he would benefit from long-term. Therefore, he will be discharged to long-term today. He will retain his Carlos catheter which was placed by Dr. Jauregui. Status: Acute Qualifiers: Encounter type: initial encounter Fracture type: closed Qualified Code(s): S72.011A - Unspecified intracapsular fracture of right femur, initial encounter for closed fracture Attestations Medical Necessity Statement*: Patient is ready for discharge to long-term. Coding Level of Care Code Acute [employer] Mechanical Specialist for [facility] Diagnoses Subcapital fracture of right hip S72.011A Encounter type: initial encounter Fracture type: closed
--- NOTE | 2020-10-31 13:05 | PC.CHAP ---
Pastoral Care Encounter/Spiritual Assessment Type of Contact [] Declined pool coordinator visit [] Patient/Family/Request visit [] Outpatient visit [xx] Follow-up visit [] Physician referral [] Code/Alert [] Routine visit [] Staff referral [] Actively dying [] Patient sleeping [] Family support [] [] Out of room [] Palliative care [] [] Receiving care in room [] Pre-surgical visit [] Trauma [xx] Long length of stay [] ICU visit [] Other: Relational/Emotional Strength [] Patient feels connected with others/family/visitors/staff [] Distress [] Loneliness/isolation [] Abandonment Spirituality of Patient [] Person of Virginie [] Attends Faith of their Virginie [] Believes in Prayer [] Reads Bible or Congregational materials [] There are Spiritual issues to be addressed Paperboard Machine Operator Interventions [] Prayer [] Active listening [] Non-anxious presence [] Spiritual/emotional support [] Crisis/trauma care [] Spiritual counseling [] Bereavement support [] Provided bereavement packet [] Provided Bible/devotional materials [] Provided toy/stuffed animal, coloring book to patient or family member [] Provided Communion [] Anointing/[place] [] Salvation [] Completed spiritual assessment [] Other: Impact on Illness or Injury [] Angry [] Fearful [] Anxious [] Often cries [] Exhaustion [] Unable to work [] Unable to attend methodist [] Unable to walk/stand [] Unable to read [] Unable to drive [] Unable to eat/drink [] Unable to sleep [] Unable to be with family [] Patient intubated [] Other: Summary Patient stated he is being discharged and is awaiting ride. No further visit wanted. Time spent with patient 2 minutes
[2020-10-31 13:18] VITALS: BP 107/67; PULSE 66; RESP 18; TEMP 35.6; O2SAT 99
== END 2020-10-31 13:00 | disposition skilled nursing facility (03) | DRG 522 ==
LOC: ER 17:47 → MEDSURG 18:47
PROVIDERS: Specialist; Admitting Provider Internal Medicine; Emergency Provider Emergency Medicine; PCP Family Medicine; Visit Provider Family Medicine
PROC: 0SRR0JZ Replacement of Right Hip Joint, Femoral Surface with Synthetic Substitute, Open Approach (ICD-10-PCS; CPT 27125; principal; 2020-10-29 15:00)
DX: S72.011A Unspecified intracapsular fracture of right femur, initial encounter for closed fracture (principal); E87.1 Hypo-osmolality and hyponatremia; W19.XXXA Unspecified fall, initial encounter; F41.8 Other specified anxiety disorders; I48.0 Paroxysmal atrial fibrillation; I10 Essential (primary) hypertension; I65.29 Occlusion and stenosis of unspecified carotid artery; K59.09 Other constipation; K21.9 Gastro-esophageal reflux disease without esophagitis; G89.29 Other chronic pain; M54.5 Low back pain; K57.90 Diverticulosis of intestine, part unspecified, without perforation or abscess without bleeding; E78.5 Hyperlipidemia, unspecified; K44.9 Diaphragmatic hernia without obstruction or gangrene; G47.00 Insomnia, unspecified; G62.9 Polyneuropathy, unspecified; D64.9 Anemia, unspecified; G47.33 Obstructive sleep apnea (adult) (pediatric); M17.0 Bilateral primary osteoarthritis of knee; R33.9 Retention of urine, unspecified; N35.916 Unspecified urethral stricture, male, overlapping sites; N39.490 Overflow incontinence; G20 Parkinson's disease; Z96.659 Presence of unspecified artificial knee joint; E55.9 Vitamin D deficiency, unspecified; Z91.14 Patient's other noncompliance with medication regimen; M35.3 Polymyalgia rheumatica
CPT/HCPCS: 36415; 72170; 73502; 80048; 80053; 81003; 83735; 84100; 85025; 85610; 85730; 88305; 93005; 96360; 97110; 97116; 97161; 97166; 97530; 99285; C1713; C1776; J0360; J0690; J1100; J2250; J2405; J2704; J2710; J3010; J3370; J3490; J7030

== ENCOUNTER → 2020-11-17 11:46 | Outpatient (BNVA) | payer MEDICARE, OTHER, SELFPAY | PROVIDERS: PCP Family Medicine; Visit Provider Specialist | DX: Z47.89 Encounter for other orthopedic aftercare (principal) | CPT/HCPCS: 73502 ==

== ENCOUNTER 2020-12-01 10:34 | Outpatient (CLI) | payer MEDICARE, OTHER, SELFPAY ==
--- NOTE | 2020-12-01 11:56 | XRR_ITS ---
PROCEDURE INFORMATION: Exam: XR Thoracic Spine Exam date and time: 12/01/2020 11:56 AM Age: 85 years old Clinical indication: Pain in thoracic spine; Additional info: Back pain/ivds/djd/ddd TECHNIQUE: Imaging protocol: XR of the thoracic spine. Views: 3 views. COMPARISON: No relevant prior studies available. FINDINGS: Bones/joints: The vertebral bodies maintain alignment. Multilevel disc degeneration is present, basically affecting all levels in the thoracic spine. No acute fracture identified. Soft tissues: No acute soft tissue abnormality. XR/XR thoracic spine 2V [id number] IMPRESSION: Extensive multilevel disc degeneration.
--- NOTE | 2020-12-01 11:56 | XRR_ITS ---
PROCEDURE INFORMATION: Exam: XR Thoracolumbar Spine Exam date and time: 12/01/2020 11:56 AM Age: 85 years old Clinical indication: Low back pain; Prior surgery; Additional info: Back pain/djd/ddd/ivds TECHNIQUE: Imaging protocol: XR of the thoracolumbar spine. Views: 2 views. COMPARISON: CR XR thoracic spine 2V [id number] 12/01/2020 12:11 PM FINDINGS: Bones/joints: The vertebral bodies maintain alignment. Multilevel disc degeneration is present, basically affecting all levels in the imaged area of the thoracolumbar junction. No acute fracture identified. Prior posterior richardson fusion in the lower lumbar spine. Soft tissues: No acute soft tissue abnormality. XR/XR thoracolumbar junct [id number] IMPRESSION: Extensive multilevel disc degeneration.
== END 2020-12-01 10:35 | disposition home or self-care (01) ==
PROVIDERS: PCP Family Medicine; Visit Provider Nurse Practitioner Family
DX: M54.9 Dorsalgia, unspecified (principal); M51.34 Other intervertebral disc degeneration, thoracic region
CPT/HCPCS: 72070; 72080

== ENCOUNTER → 2020-12-15 09:41 | Outpatient (BNVA) | payer MEDICARE, OTHER, SELFPAY | PROVIDERS: PCP Family Medicine; Visit Provider Specialist | DX: S72.011A Unspecified intracapsular fracture of right femur, initial encounter for closed fracture (principal); Z48.89 Encounter for other specified surgical aftercare; Z96.641 Presence of right artificial hip joint; X58.XXXA Exposure to other specified factors, initial encounter | CPT/HCPCS: 73502 ==

== ENCOUNTER 2020-12-16 06:00 | Outpatient (RCR) | payer MEDICARE, OTHER, SELFPAY | END 2021-01-03 23:59 | disposition home or self-care (01) | LOC: TPT 06:00 | PROVIDERS: PCP Family Medicine; Referring Provider Specialist; Visit Provider Specialist | DX: S72.001D Fracture of unspecified part of neck of right femur, subsequent encounter for closed fracture with routine healing (principal); X58.XXXD Exposure to other specified factors, subsequent encounter; F31.9 Bipolar disorder, unspecified | CPT/HCPCS: 97110; 97162 ==

== ENCOUNTER → 2020-12-31 10:50 | Outpatient (BNVA) | payer MEDICARE, OTHER, SELFPAY | PROVIDERS: PCP Family Medicine; Visit Provider Specialist | DX: G20 Parkinson's disease (principal); G31.84 Mild cognitive impairment of uncertain or unknown etiology; Z87.891 Personal history of nicotine dependence | CPT/HCPCS: 99215 ==

== ENCOUNTER 2021-01-04 06:00 | Outpatient (RCR) | payer MEDICARE, OTHER, SELFPAY | END 2021-02-03 23:59 | disposition home or self-care (01) | LOC: TPT 06:00 | PROVIDERS: PCP Family Medicine; Referring Provider Specialist; Visit Provider Specialist | DX: S72.001D Fracture of unspecified part of neck of right femur, subsequent encounter for closed fracture with routine healing (principal); X58.XXXD Exposure to other specified factors, subsequent encounter; F31.9 Bipolar disorder, unspecified | CPT/HCPCS: 97110; 97164 ==

== ENCOUNTER 2021-01-05 12:06 | Outpatient (CLI) | payer MEDICARE, OTHER, SELFPAY ==
[2021-01-05 13:22] LABS: Basophils % 0.6 %; Eosinophils # 0.1 10^3/uL (0.0-0.8); Eosinophils % 1.6 %; Hematocrit 34.9 % (42.0-52.0); Hemoglobin 11.5 g/dL (11.7-16.6); Lymphocytes # 1.2 10^3/uL (0.8-4.8); Lymphocytes % 24.7 %; Mean Corpuscular Volume 97.2 fL (80-94); Mean Platelet Volume 9.6 fL (7.4-10.4); Monocytes # 0.3 10^3/uL (0.2-0.9); Monocytes % 6.9 %; Neutrophils # 3.25 10^3/uL (1.8-7.7); Nucleated Red Blood Cells % 0 %; Platelet Count 193 10^3/cmm (130-400); Red Blood Count 3.59 10^6/uL (4.1-5.3); Red Cell Distribution Width 13.1 % (12.1-15.1); White Blood Count 4.9 10^3/uL (4.0-10.0)
--- NOTE | 2021-01-05 16:42 | ONC FU_ITS ---
Dr. William follow up note Patient: Yossi Vargas Unit #: [id number]: 1935 Dicatated By: Casi William M.D.Date of Visit:Jan 05, 2021 Onc Med Follow-up/Prog Note History of Present Illness: Mr. Vargas, is a 85-year-old gentleman with a history of anemia. He was diagnosed 2 to 3 years prior to visit to his first clinic visit with us Mr Vargas reports that at that time his iron was low. He was given oral iron which he took for some time but could not tolerate due to stomach upset despite trying different formulations of oral iron. He then stopped and his blood improved on his own until August 08, 2019. His routine lab work-up showed white blood count 5 hemoglobin 8.2 g hematocrit 26.9 platelets 259,000, CMP was within normal range, TSH was 3.75. Repeat labs done on August 19, 2020 shows there is a further drop in his hemoglobin to 7.8 g, hematocrit 24, platelets 276,000 white blood count 6, MCV 83.5. Mr Vargas reports that he has been feeling weak and tired, at times dizzy. 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 Also complaining of dyspnea on exertion and palpitation, patient is normally a very active person. Patient denies any history of melena or hematochezia, denies any history of hemoptysis or hematemesis, denies any history of hematuria. Denies any history of jaundice. As per patient he underwent right knee replacement in 2019, at that time he received 1 unit of packed RBC during surgery. Last colonoscopy was done about 4-5 years ago, as per patient at that time EGD showed gastritis and acid reflux but colonoscopy was normal, it was done by Dr. Mckeon. Denies any night sweats denies any weight loss, denies any recurrence fever. Denies any lymphadenopathy. . His iron studies were obtained on August 21, 2020 and reported an iron saturation of 8.8% ferritin of 29 iron level of 26 TIBC was 293. His vitamin B12 was normal at 687. Sed rate was 22. Mr. Vargas has done oral iron in the past and has tried different formulations. He states that all result in severe stomach pain and upset. He is unable to tolerate the oral iron. He did receive transfusion services on August 22, 2020 for hemoglobin of 8.3 with significant symptoms of significant weakness and shortness of breath. Because of intolerance to oral iron, patient was given Injectafer 750 mg IV weekly x2 on August 27 and September 03, 2020, tolerated well with that his hemoglobin improved to 10.7 g on September 17, 2020, compared to 8.6 g prior to the iron infusion.Because of persistent anemia despite of normalization of her iron stores, considering his age he was decided to proceed with bone marrow to rule out underlying myelodysplasia which was scheduled but canceled because patient was found to have acute lower extremity fracture for which he underwent internal fixation Came for follow-up, denies any specific complaints except some time feeling dizzy after eating but no melena or hematochezia, no hemoptysis or hematemesis, no diarrhea or constipation, no shortness of breath, patient has well-controlled A. fib and for which he is on Eliquis and he is also taking oral iron. Medications: Apixaban 1 Tablet (of 2.5 mg) Oral b.i.d., Arnuity Ellipta 1 Angwin(s) (of 50 mcg/act) Aerosol Powder, Breath Activated Inhalation b.i.d., Astepro 2 Angwin(s) (of 0.15 %) Solution Nasal b.i.d., Carbidopa-Levodopa ER 1 Tablet (of 50-200 mg) Tablet, controlled release Oral b.i.d., Cetirizine HCl 1 Tablet (of 10 mg) Capsule Oral daily, Colace 1 Caplet (of 100 mg) Capsule Oral b.i.d., [facility] Melatonin 1 Tablet (of 5 mg) Tablet, chewable Oral at bedtime, Dramamine Less Drowsy 1 Tablet (of 25 mg) Oral PRN, Dulcolax Milk of Magnesia 15 mL (of 400 mg/5mL) Suspension Oral b.i.d., Ensure Plus Liquid Oral daily, Multivitamin 1 Tablet Liquid Oral daily, Pantoprazole Sodium 1 Tablet (of 40 mg) Tablet, enteric coated Oral daily, [place] (160 mg) Tablet Oral daily, Simvastatin 1 Tablet (of 20 mg) Oral daily, traZODone HCl 25 mg (of 50 mg) Tablet Oral at bedtime Allergies: Amoxicillin and Augmentin. Review of Systems: Review of Systems is not available for this patient. Vital Signs: Performed on Jan 05, 2021 16:31 Temperature - 97.5 F (LOW) Pulse - 79 /min Respiration - 18 /min BP - 128/84 mm(hg) O2 Sat - 99 % Pain - 0 Fatigue - 8 Performance Status: 1 - No physically strenuous activity, but ambulatory and able to carry out light or sedentary work (e.g. office work, light house work). (ECOG) Physical Examination: ENMT - No mouth sores, no thrush, no jaundice, Respiratory - Lungs are clear to auscultation, Cardiovascular - Irregular rate and rhythm, Abdomen - Soft, bowel sounds present, Extremities - No visible edema or rash. Lab/Imaging: Test performed on Oct 01, 2020 10:29 WBC 4.2 10^9/L RBC 3.19 10^12/L HGB 9.8 g/dL HCT 29.3 % MCV 91.8 fl MCH 30.8 pg MCHC 33.6 g/dL RDW 22.4 % Platelet Count 196 10^9/L MPV 6.9 fL Neutrophils (Gran) 2.8 10^9/L Lymphocytes 1.1 10^9/L Monocytes 0.3 10^9/L Manual Lymphocytes 27.1 % Manual Monocytes 7.4 % Test performed on Aug 25, 2020 13:47 Eosinophils 0.2 10 3/uL Basophils 0.0 10 3/uL Neutrophil % 63.9 % Lymphocyte % 23.5 % Monocyte % 9.0 % Eosinophil % 2.8 % Basophils % 0.5 % NRBC % 0 % Impression: Normocytic normochromic anemia etiology unclear could be multifactorial including combined iron deficiency/B12 deficiency, as patient has history of iron deficiency in the past or considering his age underlying myelodysplasia cannot be ruled out. Chronic GI blood loss patient is on Eliquis, anemia of chronic disease Iron studies done on August 21, 2020 showed iron saturation 8.6%, ferritin 29, iron 26, B12 687, finding consistent with iron deficiency, patient has history of iron intolerance so patient was given Injectafer 750 mg weekly x2 on August 27, 2020 September 03, 2020, follow-up CBC done on September 17, 2020 showed hemoglobin improved to 10.7 g compared to 8.6 g prior to Injectafer infusion. Atrial fibrillation, on Eliquis hypertension, chronic lower back pain, sleep apnea Osteoarthritis Polymyalgia rheumatica Plan: Discussed with patient regarding his labs white blood count 4.9 hemoglobin 11.5 g compared to 9.8 g on October 01, 2020 hematocrit 34.9, platelets 193,000 Clinically, patient is doing well with no new signs symptom, his follow-up lab work-up shows significant improvement in his hemoglobin, patient is on oral iron, will continue same and Also on Eliquis for chronic A. fib, as far as feeling dizzy after eating etiology is unclear could be due to dumping syndrome but less likely other possibility could be postprandial hypotension, patient was advised to eat small amounts and if symptoms persist, need to contact PMD or cardiology for further evaluation.then return to clinic in 2 months with CBC and iron studies Signed By: Casi William M.D. <<Signature on File>>
== END 2021-01-05 12:07 | disposition home or self-care (01) ==
LOC: ONCMED 12:10
PROVIDERS: PCP Family Medicine; Visit Provider Internal Medicine Hematology & Oncology
DX: D50.9 Iron deficiency anemia, unspecified (principal); D51.9 Vitamin B12 deficiency anemia, unspecified; I48.91 Unspecified atrial fibrillation; Z79.01 Long term (current) use of anticoagulants; M54.5 Low back pain; G89.29 Other chronic pain; G47.30 Sleep apnea, unspecified; M19.90 Unspecified osteoarthritis, unspecified site; M35.3 Polymyalgia rheumatica; Z79.899 Other long term (current) drug therapy
CPT/HCPCS: 36415; 85025; 99214

== ENCOUNTER → 2021-02-03 10:53 | Outpatient (BNVA) | payer MEDICARE, OTHER, SELFPAY | PROVIDERS: PCP Family Medicine; Visit Provider Urology | DX: R33.9 Retention of urine, unspecified (principal); N35.816 Other urethral stricture, male, overlapping sites; T83.490A Other mechanical complication of implanted penile prosthesis, initial encounter | CPT/HCPCS: 81003 ==

== ENCOUNTER → 2021-02-18 11:40 | Outpatient (BNVA) | payer MEDICARE, OTHER, SELFPAY | PROVIDERS: PCP Family Medicine; Visit Provider Nurse Practitioner Family | DX: R35.0 Frequency of micturition (principal); N39.0 Urinary tract infection, site not specified; R30.0 Dysuria; Z11.52 Encounter for screening for COVID-19 | CPT/HCPCS: 81000; 87635 ==

== ENCOUNTER 2021-02-20 11:20 | Outpatient (CLI) | payer MEDICARE, OTHER, SELFPAY ==
--- NOTE | 2021-02-20 11:32 | XR_ITS ---
WS: [id number] XR thoracic spine 3V* [id number] REASON FOR EXAM: M54.9 - Dorsalgia, unspecified FINDINGS: Dorsal kyphosis with elongation of the vertebral bodies in the mid and lower spine. There is a mild s coliotic curve in the midthoracic spine convex right. There is no significant compression deformity in the thoracic spine. There is moderate narrowing of t he intervertebral disc spaces in the mid and lower thoracic spine. Vacuum disc phenomenon at T11-T12 and T12-L1. XR/XR thoracic spine 3V* [id number] IMPRESSION: Thoracic spine alignment and degenerative change as above.
--- NOTE | 2021-02-20 11:32 | XR_ITS ---
WS: [id number] XR lumbar spine 2-3V* [id number] REASON FOR EXAM: M54.9 - Dorsalgia, unspecified FINDINGS: Mild to moderately decreased bone density. No significant vertebral body compression deformity or focal vertebral body lesion. Moderate narrowing of the intervertebral disc spaces L1-L5. Severe narrowing of the disc space at L5- S1 with large bridging osteophyte anteriorly. Pedicle screws at L4 and L5. There is 17 mm of anterolisthesis of L4 on L5. This listhesis is essentially the same as noted in 12/04. XR/XR lumbar spine 2-3V* [id number] IMPRESSION: Degenerative spondylosis and postoperative lumbar spine as above.
== END 2021-02-20 11:21 | disposition home or self-care (01) ==
LOC: RAD 11:27
PROVIDERS: PCP Family Medicine; Visit Provider Nurse Practitioner Family
DX: M54.5 Low back pain (principal); M54.6 Pain in thoracic spine
CPT/HCPCS: 72072; 72100

== ENCOUNTER 2021-02-25 10:09 | Day surgery (SDC) | payer MEDICARE, OTHER, SELFPAY ==
[2021-02-24 12:32] VITALS: BMI 21.6
[2021-02-25] VITALS (13 sets, daily range): BP systolic 126–179; BP diastolic 84–126; PULSE 87–104; RESP 10–18; TEMP 36.1–36.6; O2SAT 95–100
--- NOTE | 2021-02-25 10:44 | W.PM.OPSFHP ---
Same Day Surgery H&P Indication for Procedure/HPI DATE OF PROCEDURE: February 25, 2021 CHIEF COMPLAINT/INDICATIONFOR SURGICAL PROCEDURE: right inguinal hernia repair PREOP DIAGNOSIS: Right inguinal hernia PLANNED PROCEDRUE: Operation Date: 02/25/21 11:30 Proposed Procedures p Inguinal Hernia Repair [id number] R40.90(Right) - Tobias Cherry MD Medications/Allergies* Home Medications Medication Instructions Recorded Confirmed Type azelastine 205.5 mcg (0.15 %) 2 spray INTRANASAL BID 06/14/19 02/24/21 History nasal spray food supplemt, lactose-reduced 1 each PO DAILY ml 06/14/19 02/24/21 History 0.05 gram-1.5 kcal/mL oral liquid melatonin 5 mg capsule 5 mg PO BEDTIME cap 06/14/19 02/24/21 History Prostate Control 1 cap PO DAILY 10/28/20 02/24/21 History fluticasone propionate 2 spray INTRANASAL DAILY 10/28/20 02/24/21 History simvastatin 20 mg PO DAILY 10/28/20 02/24/21 History trazodone 25 mg PO BEDTIME PRN 10/28/20 02/24/21 History iron-vitamin B complex with C 1 tab PO DAILY 11/18/20 02/24/21 History tablet Allergies/Adverse Reactions Allergy/AdvReac Type Severity Reaction Status Date / Time No Known Allergies Allergy Verified 02/18/21 11:28 Pertinent History/Comorbid Conditions* Medical History (Updated 02/19/21 @ 13:55 by Esha Alvarez NP) Anxiety and depression ASVD (arteriosclerotic vascular disease) Atrial fibrillation Benign essential HTN Carotid stenosis Chronic constipation Chronic GERD Chronic low back pain DDD (degenerative disc disease) Diverticulosis Drug intolerance flecainide Dyslipidemia Essential hypertension Hiatal hernia Hyponatremia Insomnia Neuropathy Normochromic normocytic anemia Obstructive sleep apnea Has difficulty in using the CPAP Osteoarthritis of both knees Other urethral stricture, male, 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 Complete urethral reconstruction with subsequent urethral stricture disease. As required multiple dilations over the years. Overflow incontinence Polymyalgia rheumatica Prostatism Small vessel disease, cerebrovascular Spondylolisthesis Squamous cell carcinoma Vitamin D deficiency Surgical History (Updated 01/23/21 @ 11:23 by Tobias Cherry MD) History of back surgery History of circumcision History of hernia repair History of penile implant Inflatable penile prosthesis History of right hip replacement History of sinus surgery History of total knee replacement Family History (Updated 07/31/20 @ 13:34 by Macey Singer RN) CAD (coronary artery disease) Grandmother Suicide Brother Stroke Grandmother Social History Second hand smoke exposure: No Alcohol intake: never Caregiver/support person: Yes Lives independently: Yes Household members: spouse Marital status: service: Yes Current occupational status: retired History of recent travel: No Current gender identity: Male Special massimo needs: No Agree to transfusion: Yes Pertinent Exam Findings alert, oriented x 3 and regular rate & rhythm Recommendations Surgery/Procedure today Coding Level of Care Code Acute 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
[2021-02-25] MEDS: sodium chloride 0.9% 1,000 ML 30 ML IV (10:50)
--- NOTE | 2021-02-25 10:57 | ANES.PREANE2 ---
Pre-Anesthetic Assessment Pre-Anesthetic Assessment: Height/Weight: Height 1.7 m Weight 62.596 kg Temp Pulse Resp BP Pulse Ox 97.8 F 102 H 16 126/84 99 02/25/21 10:44 02/25/21 10:44 02/25/21 10:44 02/25/21 10:44 02/25/21 10:44 Preop Diagnosis: Right inguinal hernia Proposed Procedure: Operation Date: 02/25/21 11:30 Proposed Procedures p Inguinal Hernia Repair [id number] R40.90(Right) - Tobias Cherry MD Was Beta Olivier taken within 24 hours: N/A Was Clonidine taken within 24 hours: N/A Last intake: Intake Last Liquid Date 02/24/21 Last Solid Date 02/24/21 Social: Social History: No alcohol and No tobacco Exam: Pre-Anes Outpt Exam: alert, oriented x 3 and clear to auscultation bilaterally Airway: Submandibular: WNL Cervical ROM: WNL MP: 2 Pulmonary: Pulmonary: Sleep apnea CV/HEM: CV/HEM: Afib, Anemia, CAD, HTN and PVD Comments: anticoagulated GI: GI: GERD Metabolic: Metabolic: Hyperlipidemia Musc/skel: Musc/skel: Lower Back Pain and OA/DJD Comments: Parkinson's Anesthetic Plan: ASA status: 3 Anesthesia: Choice Risk of > 500 ml blood loss (7ml/kg in children): No PFSH Anesthesia PFSH: Medical History Anxiety and depression ASVD (arteriosclerotic vascular disease) Atrial fibrillation Benign essential HTN Carotid stenosis Chronic constipation Chronic GERD Chronic low back pain DDD (degenerative disc disease) Diverticulosis Drug intolerance flecainide Dyslipidemia Essential hypertension Hiatal hernia Hyponatremia Insomnia Neuropathy Normochromic normocytic anemia Obstructive sleep apnea Has difficulty in using the CPAP Osteoarthritis of both knees Other urethral stricture, male, 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 Complete urethral reconstruction with subsequent urethral stricture disease. As required multiple dilations over the years. Overflow incontinence Polymyalgia rheumatica Prostatism Small vessel disease, cerebrovascular Spondylolisthesis Squamous cell carcinoma Vitamin D deficiency Surgical History History of back surgery History of circumcision History of hernia repair History of penile implant Inflatable penile prosthesis History of right hip replacement History of sinus surgery History of total knee replacement Family History Grandmother CAD (coronary artery disease) Stroke Brother Suicide Social History Second hand smoke exposure: No Alcohol intake: never Caregiver/support person: Yes Lives independently: Yes Household members: spouse Marital status: service: Yes Current occupational status: retired History of recent travel: No Current gender identity: Male Special massimo needs: No Agree to transfusion: Yes Data Anesthesia Cardiac Studies: No Data to Display
[2021-02-25] MEDS: lidocaine 1% INJ 20 mL INJECTION (12:08)
--- NOTE | 2021-02-25 13:09 | P.OP_ITS ---
Operative Report Date of procedure: February 25, 2021 Pre-op Diagnosis: Right inguinal hernia Post-op Findings: Direct hernia from migration of the penile implant reservoir into the inguinal canal through the posterior wall Procedure Done: Open repair of direct right inguinal hernia with Bard plug and mesh Explantation of penile implant reservoir Surgeon: Tobias Cherry Communication Specialist: Eliceo Jauregui Anesthesia: General Condition: stable Disposition: PACU Procedure: A 5 cm incision was made over the right inguinal canal using 15 blade, the subcutaneous tissue, Sarah's fascia divided using electrocautery until the external oblique aponeurosis was identified. Using a 15 blade, a small opening was made in the external oblique aponeurosis along the length of the fibers, this was grasped with hemostats and opened using Metzenbaum scissors medially to the external ring and laterally beyond the internal ring. The contents of inguinal canal were dissected free from the wall revealing spermatic cord which was adherent to the wall as well this there is aware of the penile implant within the canal. It appeared that the implant reservoir which had been placed retroperitoneally had slowly moved into the inguinal canal floor defect in the posterior wall. Dr. Jauregui joined dc and the reservoir was dissected free as far as possible into the scrotum, cut and tied off with 2-0 Prolene suture. The sac around the reservoir was excised. A small plug was placed in the internal ring and sutured using 2-0 Prolene [id number] suture. A Proloop mesh was introduced and using 2-0 Prolene suture the medial edge of the mesh were sutured to the fascia overlying the pubic tubercle, and the suture was run to approximate the inferior edge of the mesh to the shelving edge of inguinal ligament to a point beyond the internal ring. Interrupted 2-0 Prolene suture was used to approximate the superior edge of the mesh to the internal oblique muscles and the 2 limbs of the mesh was sutured lateral to the internal ring and approximated to the internal oblique muscle. The wound was copiously irrigated with saline, good hemostasis noted and the external oblique aponeurosis was closed with running 2-0 Vicryl suture, Sarah's fascia approxima beth using running 3-0 Vicryl suture, and skin was closed using running subcuticular 4-0 Monocryl suture and Dermabond. 20 mL of 0.5% Marcaine was infiltrated around the incision. The patient was extubated and transferred recovery room in stable condition.
[2021-02-25] MEDS: fentaNYL 50 mcg/mL INJ 2mL IVP ×2 (13:28→14:06)
[2021-02-25] MEDS: hyDRALAzine 20 mg/mL INJ 1 mL 10 MG IVP (13:47)
[2021-02-25] MEDS: metoprolol tartrate 1 mg/1 mL SDV 5 mL 5 MG IVP (13:54)
--- NOTE | 2021-02-25 14:02 | ANE.PACU2 ---
Inpatient post-anesthesia follow up: Airway intact: Yes Vital signs: Temperature 97.6 F Pulse Rate 104 Respiratory Rate 14 Blood Pressure 163/105 Pulse Oximetry 98 Oxygen Delivery Me thod Room Air Oxygen Flow Rate 10 Fraction of Inspir ed Oxygen Hydration adequate: Yes Nausea and vomiting: No Pain level: 2 Mental status: Baseline
--- NOTE | 2021-02-25 14:17 | PC.NURSE ---
pt arrived with pressure dressing in place no drainage evident pt had prior issues with post anesthesia hypertension. anesthesia was notified verbal order for 5mg lopressor and 10mg hydralazine were given after monitoring pt bp went to a more manageable level.
[2021-02-25] MEDS: HYDROcodone-acetaminophen 5-325 mg Tablet 1 TAB PO (14:53)
== END 2021-02-25 15:22 | disposition home or self-care (01) ==
PROVIDERS: PCP Family Medicine; Visit Provider Surgery
PROC: (CPT 49505; principal; 2021-02-25 11:30)
DX: K40.90 Unilateral inguinal hernia, without obstruction or gangrene, not specified as recurrent (principal); T83.420A Displacement of implanted penile prosthesis, initial encounter; X58.XXXA Exposure to other specified factors, initial encounter; G47.30 Sleep apnea, unspecified; I48.91 Unspecified atrial fibrillation; I25.10 Atherosclerotic heart disease of native coronary artery without angina pectoris; I10 Essential (primary) hypertension; E78.5 Hyperlipidemia, unspecified; M19.90 Unspecified osteoarthritis, unspecified site; G20 Parkinson's disease; Z82.49 Family history of ischemic heart disease and other diseases of the circulatory system; Z82.3 Family history of stroke
CPT/HCPCS: 49505; 54115; J0360; J0690; J1100; J2405; J2704; J2710; J3010; J3490; J7030

== ENCOUNTER 2021-03-03 15:04 | Outpatient (CLI) | payer MEDICARE, OTHER, SELFPAY ==
--- NOTE | 2021-03-03 15:14 | XR_ITS ---
WS: [id number] ABDOMEN SERIES ACUTE Supine and upright views of the abdomen with AP or PA chest CLINICAL INFORMATION: K59.00 - Constipation, unspecified COMPARISON: None. FINDINGS: Heart: Cardiomegaly. Lungs: Lungs are clear. No consolidation or pleural fluid. Hyperinflation. Advanced chronic emphysema tous changes. Bowel gas pattern: Air distended loops of large and small bowel suspicious for small bowel obstructio n. This can be further evaluated with CT abdomen pelvis. Right colon constipation. Free air: None. Abnormal calcifications: None. Bones: Pedicle screw fixation L5-S1. Right SUSHILA. XR/XR acute abdomen series [id number] IMPRESSION: 1. Hyperinflation with advanced chronic emphysematous changes. No acute pulmon [place] infiltrates. 2. Air distended loops of large and small bowel suspicious for small bowel obs truction. This can be further evaluated with CT abdomen pelvis. 3. Right colon constipation.
== END 2021-03-03 15:05 | disposition home or self-care (01) ==
PROVIDERS: PCP Family Medicine; Visit Provider Surgery
DX: K59.00 Constipation, unspecified (principal)
CPT/HCPCS: 74022

== ENCOUNTER 2021-03-13 08:33 | Outpatient (CLI) | payer MEDICARE, OTHER, SELFPAY ==
[2021-03-13 09:20] LABS: Basophils % 0.3 %; Eosinophils # 0.1 10^3/uL (0.0-0.8); Eosinophils % 1.8 %; Hematocrit 35.7 % (42.0-52.0); Hemoglobin 11.7 g/dL (11.7-16.6); Lymphocytes # 1.1 10^3/uL (0.8-4.8); Lymphocytes % 18.8 %; Mean Corpuscular HGB Conc 32.8 g/dL (30.0-36.0); Mean Corpuscular Hemoglobin 32.8 pg (28.0-34.0); Mean Platelet Volume 9.3 fL (7.4-10.4); Monocytes # 0.6 10^3/uL (0.2-0.9); Monocytes % 9.6 %; Neutrophils # 4.16 10^3/uL (1.8-7.7); Neutrophils % 69.2 %; Nucleated Red Blood Cells % 0 %; Platelet Count 209 10^3/cmm (130-400); Red Blood Count 3.57 10^6/uL (4.1-5.3); Red Cell Distribution Width 14.3 % (12.1-15.1)
[2021-03-13 09:46] LABS: Ferritin 90 ng/mL (30-400); Iron 62 ug/dL (59-158); Percent Saturation 31.9 % (20-50); Total Iron Binding Capacity 194 mcg/dl; Unsaturated Iron Binding 132 ug/dL (112-347)
--- NOTE | 2021-03-13 12:35 | ONC FU_ITS ---
Dr. William follow up note Patient: Yossi Vargas Unit #: [id number]: 1935 Dicatated By: Casi William M.D.Date of Visit:Mar 13, 2021 Onc Med Follow-up/Prog Note History of Present Illness: Mr. Vargas, is a 85-year-old gentleman with a history of anemia. He was diagnosed 2 to 3 years prior to visit to his first clinic visit with us Mr Vargas reports that at that time his iron was low. He was given oral iron which he took for some time but could not tolerate due to stomach upset despite trying different formulations of oral iron. He then stopped and his blood improved on his own until August 08, 2019. His routine lab work-up showed white blood count 5 hemoglobin 8.2 g hematocrit 26.9 platelets 259,000, CMP was within normal range, TSH was 3.75. Repeat labs done on August 19, 2020 shows there is a further drop in his hemoglobin to 7.8 g, hematocrit 24, platelets 276,000 white blood count 6, MCV 83.5. Mr Vargas reports that he has been feeling weak and tired, at times dizzy. He did have followup with Dr. Reza his butt maker who informed him nothing to related to heart but his symptoms could be due to anemia. Also complaining of dyspnea on exertion and palpitation, patient is normally a very active person. Patient denies any history of melena or hematochezia, denies any history of hemoptysis or hematemesis, denies any history of hematuria. Denies any history of jaundice. As per patient he underwent right knee replacement in 2019, at that time he received 1 unit of packed RBC during surgery. Last colonoscopy was done about 4-5 years ago, as per patient at that time EGD showed gastritis and acid reflux but colonoscopy was normal, it was done by Dr. Mckeon. Denies any night sweats denies any weight loss, denies any recurrence fever. Denies any lymphadenopathy. . His iron studies were obtained on August 21, 2020 and reported an iron saturation of 8.8% ferritin of 29 iron level of 26 TIBC was 293. His vitamin B12 was normal at 687. Sed rate was 22. Mr. Vargas has done oral iron in the past and has tried different formulations. He states that all result in severe stomach pain and upset. He is unable to tolerate the oral iron. He did receive transfusion services on August 22, 2020 for hemoglobin of 8.3 with significant symptoms of significant weakness and shortness of breath. Because of intolerance to oral iron, patient was given Injectafer 750 mg IV weekly x2 on August 27 and September 03, 2020, tolerated well with that his hemoglobin improved to 10.7 g on September 17, 2020, compared to 8.6 g prior to the iron infusion.Because of persistent anemia despite of normalization of her iron stores, considering his age he was decided to proceed with bone marrow to rule out underlying myelodysplasia which was scheduled but canceled because patient was found to have acute lower extremity fracture for which he underwent internal fixation Came for follow-up, denies any specific complaint except recent episode of chronic constipation which eventually resolved, as per patient prior to that he underwent hernia repair, now being followed by Dr. Cherry. Patient said he also sometimes feel dizzy lightheaded after meals and as per his discussion with Dr. Reza, he was advised to take small meals and more often. Patient was on oral iron which he discontinued couple of weeks ago because of concern but oral iron causing constipation. He is on Eliquis for atrial fibrillation. But denies any melena hematochezia, hemoptysis or hematemesis, denies any nosebleed or gum bleed denies any dysuria or hematuria. Medications: Apixaban 1 Tablet (of 2.5 mg) Oral b.i.d., Arnuity Ellipta 1 [place](s) (of 50 mcg/act) Aerosol Powder, Breath Activated Inhalation b.i.d., Astepro 2 [place](s) (of 0.15 %) Solution Nasal b.i.d., Carbidopa-Levodopa ER 1 Tablet (of 50-200 mg) Tablet, controlled release Oral b.i.d., Cetirizine HCl 1 Tablet (of 10 mg) Capsule Oral daily, Colace 1 Caplet (of 100 mg) Capsule Oral b.i.d., CVS Melatonin 1 Tablet (of 5 mg) Tablet, chewable Oral at bedtime, Dramamine Less Drowsy 1 Tablet (of 25 mg) Oral PRN, Dulcolax Milk of Magnesia 15 mL (of 400 mg/5mL) Suspension Oral b.i.d., Ensure Plus Liquid Oral daily, Multivitamin 1 Tablet Liquid Oral daily, Pantoprazole Sodium 1 Tablet (of 40 mg) Tablet, enteric coated Oral daily, Saw [place] (160 mg) Tablet Oral daily, Simvastatin 1 Tablet (of 20 mg) Oral daily, traZODone HCl 25 mg (of 50 mg) Tablet Oral at bedtime Allergies: Amoxicillin and Augmentin. Review of Systems: Review of Systems is not available for this patient. Vital Signs: Performed on Mar 13, 2021 09:01 Weight - 138.4 lbs (LOW) BSA - sq.m BMI - 0.00 (LOW) Temperature - 97.3 F (LOW) Pulse - 92 /min Respiration - 20 /min BP - 101/67 mm(hg) O2 Sat - 99 % Pain - 0 Fatigue - 8 Performance Status: 2 - Ambulatory/capable of all self-care, unable to perform any work activities. Up and about more than 50% of waking hours. (ECOG) Physical Examination: ENMT - No mouth sores, no thrush, no jaundice, Respiratory - Lungs are clear to auscultation, Cardiovascular - Irregular rate and rhythm, Abdomen - Soft, bowel sounds present, Extremities - Trace edema bilaterally. Lab/Imaging: Test performed on Oct 01, 2020 10:29 WBC 4.2 10^9/L RBC 3.19 10^12/L HGB 9.8 g/dL HCT 29.3 % MCV 91.8 fl MCH 30.8 pg MCHC 33.6 g/dL RDW 22.4 % Platelet Count 196 10^9/L MPV 6.9 fL Neutrophils (Gran) 2.8 10^9/L Lymphocytes 1.1 10^9/L Monocytes 0.3 10^9/L Manual Lymphocytes 27.1 % Manual Monocytes 7.4 % Impression: Normocytic normochromic anemia etiology unclear could be multifactorial including combined iron deficiency/B12 deficiency, as patient has history of iron deficiency in the past or considering his age underlying myelodysplasia cannot be ruled out. Chronic GI blood loss patient is on Eliquis, anemia of chronic disease Iron studies done on August 21, 2020 showed iron saturation 8.6%, ferritin 29, iron 26, B12 687, finding consistent with iron deficiency, patient has history of iron intolerance so patient was given Injectafer 750 mg weekly x2 on August 27, 2020 September 03, 2020, follow-up CBC done on September 17, 2020 showed hemoglobin improved to 10.7 g compared to 8.6 g prior to Injectafer infusion. Atrial fibrillation, on Eliquis hypertension, chronic lower back pain, sleep apnea Osteoarthritis Polymyalgia rheumatica Plan: Discussed with patient regarding his labs white blood count 6 hemoglobin 11.7 hematocrit 35.7 platelets 209,000 iron studies shows iron saturation 31.9%, ferritin 90 compared to 215 previously and iron 62 compared to 52 previously, Clinically, patient doing decently well with no signs symptom suggestive of gross bleeding, his lab work-up shows hemoglobin normal range and iron studies shows drop in ferritin but still in normal range, will continue to monitor, patient was advised to take oral iron every other day and return to clinic in 3 months with CBC and iron studies. Signed By: Casi William M.D. <<Signature on File>>
== END 2021-03-13 08:34 | disposition home or self-care (01) ==
LOC: ONCMED 08:36
PROVIDERS: PCP Family Medicine; Visit Provider Internal Medicine Hematology & Oncology
DX: D50.9 Iron deficiency anemia, unspecified (principal); I10 Essential (primary) hypertension; I48.91 Unspecified atrial fibrillation; M35.3 Polymyalgia rheumatica; M19.90 Unspecified osteoarthritis, unspecified site; Z79.01 Long term (current) use of anticoagulants; Z79.899 Other long term (current) drug therapy
CPT/HCPCS: 36415; 82728; 83540; 83550; 85025; 99214

== ENCOUNTER → 2021-04-29 10:15 | Outpatient (BNVA) | payer MEDICARE, OTHER, SELFPAY | PROVIDERS: PCP Family Medicine; Visit Provider Nurse Practitioner Family | DX: R07.81 Pleurodynia (principal) | CPT/HCPCS: 71046 ==

== ENCOUNTER → 2021-05-05 09:52 | Outpatient (BNVA) | payer MEDICARE, OTHER, SELFPAY | PROVIDERS: PCP Family Medicine; Visit Provider Family Medicine | DX: E78.5 Hyperlipidemia, unspecified (principal); I48.0 Paroxysmal atrial fibrillation; I10 Essential (primary) hypertension; Z01.812 Encounter for preprocedural laboratory examination; Z20.822 Contact with and (suspected) exposure to COVID-19 | CPT/HCPCS: 80053; 80061; 85025; 87635 ==

== ENCOUNTER → 2021-06-18 14:01 | Outpatient (BNVA) | payer MEDICARE, OTHER, SELFPAY | PROVIDERS: PCP Family Medicine; Visit Provider Nurse Practitioner Family | DX: N39.0 Urinary tract infection, site not specified (principal) | CPT/HCPCS: 81003; 87077; 87086; 87184 ==

== ENCOUNTER → 2021-07-06 11:13 | Outpatient (BNVA) | payer MEDICARE, OTHER, SELFPAY | PROVIDERS: PCP Family Medicine | DX: N39.0 Urinary tract infection, site not specified (principal) | CPT/HCPCS: 81003 ==

== ENCOUNTER → 2021-07-16 14:32 | Outpatient (BNVA) | payer MEDICARE, OTHER, SELFPAY | PROVIDERS: PCP Family Medicine; Visit Provider Family Medicine | DX: N39.0 Urinary tract infection, site not specified (principal) | CPT/HCPCS: 81003; 87077; 87086; 87184 ==

== ENCOUNTER → 2021-08-05 15:04 | Outpatient (BNVA) | payer MEDICARE, OTHER, SELFPAY | PROVIDERS: PCP Family Medicine; Visit Provider Family Medicine | DX: R30.0 Dysuria (principal) | CPT/HCPCS: 81000 ==

== ENCOUNTER → 2021-09-07 09:54 | Outpatient (BNVA) | payer MEDICARE, OTHER, SELFPAY | PROVIDERS: PCP Family Medicine; Visit Provider Internal Medicine Cardiovascular Disease | DX: I48.0 Paroxysmal atrial fibrillation (principal); I95.1 Orthostatic hypotension; G47.33 Obstructive sleep apnea (adult) (pediatric); E78.5 Hyperlipidemia, unspecified; I65.22 Occlusion and stenosis of left carotid artery; I10 Essential (primary) hypertension; I77.9 Disorder of arteries and arterioles, unspecified | CPT/HCPCS: 99214 ==

== ENCOUNTER 2021-09-30 09:06 | Outpatient (CLI) | payer MEDICARE, OTHER, SELFPAY ==
--- NOTE | 2021-09-30 09:15 | USCV_ITS ---
Yossi Vargas Age: 86 Gender: M : 1935 Exam Date: 09/30/2021 09:53 Ordering Phys: Jose Reza MD ([email or web address] [place]) Technologist: DIPAK [place] [facility] [place]: Risk Factors: Previous Vascular Surgery: Right Brachial BP: / Left Brachial BP: / Right Left Velocity (cm/s) Spectral Plaque Velocity (cm/s) Spectral Plaque Syst/Diast Broadening Syst/Diast Broadening 80.50/ 22.10 Prox CCA 92.60 / 26.50 56.70/ 16.30 Mid CCA 58.40 / 15.40 45.10/ 11.70 Distal CCA 43.80 / 11.70 67.60/ 24.10 Prox ICA 73.00 / 28.00 69.90/ 17.10 Mid ICA 45.80 / 12.40 45.10/ 21.80 Distal ICA 50.50 / 23.30 61.40 ECA 57.70 0.87 ICA/CCA 0.79 Antegrade Vertebral Antegrade / cm/s / cm/s Tri Subclavian Tri FINDINGS Mild to moderate heterogeneous plaques at the bifurcations and proximal internal carotid arteries bilaterally Antegrade flow in the vertebral arteries bilaterally. Normal Doppler flow velocities in the external carotid, vertebral and subclavian arteries bilaterally CONCLUSIONS Mild to moderate heterogeneous plaques at the bifurcations and proximal internal carotid arteries bilaterally, suggesting less than 50% stenosis. No significant stenosis in the external carotid, vertebral or subclavian arteries. Compared to the study from 11/21/2019, there may not be a significant change Dr Jose Reza MD [facility] (Electronically Signed) Final Date: 05 Oct 2021 09:40 S
--- NOTE | 2021-09-30 09:34 | USCV_ITS ---
Yossi Vargas Age: 86 Gender: M : 1935 Exam Date: 09/30/2021 10:34 Ordering Phys: Jose Reza MD ([email or web address]) Technologist: DIPAK Exam [facility]: [facility] [place] Indication: history of atrial fibrillation. r/o aortic stenosis BP: / HR: 95 Rhythm: Atrial fibrillation Technical Quality: Adequate MEASUREMENTS (Male / Female) Normal Values 2D ECHO LV Diastolic Diameter PLAX 3.0 cm 4.2 - 5.9 / 3.9 - 5.3 cm LV Systolic Diameter PLAX 1.8 cm IVS Diastolic Thickness 1.7 cm 0.6 - 1.0 / 0.6 - 0.9 cm IVS Systolic Thickness 2.0 cm LVPW Diastolic Thickness 1.5 cm 0.6 - 1.0 / 0.6 - 0.9 cm LVPW Systolic Thickness 2.0 cm LVOT Diameter 2.0 cm LV Ejection Fraction 2D Teich 72.3 % LV Ejection Fraction MOD 2C 68.4 % LV Ejection Fraction 2C AL 67.4 % LA Diameter 4.7 cm LA Width 5.4 cm LA Height 5.9 cm RA Width 5.1 cm RA Height 4.9 cm Aorta at Sinotubular Diameter 2.8 cm M-MODE Aortic Annulus Diameter 3.1 cm LA Ao Ratio MM 1.6 MV E Point Septal Separation 0.4 cm DOPPLER AV Peak Velocity 151.0 cm/s LVOT Peak Velocity 68.0 cm/s AV Area Cont Eq vti 1.7 cm squared AV Area Cont Eq pk 1.4 cm squared MV Peak Velocity 156.0 cm/s MV Area PHT 3.6 cm squared Mitral E to A Ratio 201.0 MV E' Velocity 73.0 cm/s Mitral E to MV E' Ratio 28.7 Mitral E to LV E' Lateral Ratio 30.6 Mitral E to LV E' Septal Ratio 27.1 TR Peak Velocity 310.5 cm/s TR Peak Gradient 38.6 mmHg TV Peak E Velocity 76.0 cm/s PV Peak Velocity 103.0 cm/s FINDINGS Left Ventricle Normal left ventricular size. LV systolic function is normal with EF of 55 to 60%. No regional wall motion abnormalities. Diastolic function is indeterminate because of atrial fibrillation. Right Ventricle The right ventricle is normal in size and function. Right Atrium The right atrium is dilated Left Atrium The left atrium is severely enlarged Mitral Valve Mitral valve is thickened. There is moderate mitral regurgitation. Aortic Valve Aortic valve is thickened and calcified. No significant aortic stenosis noted. There is mild to moderate aortic regurgitation. Tricuspid Valve Tricuspid valve is thickened. Moderate tricuspid regurgitation. RVSP is 40 to 45 mmHg. This is consistent with mild to moderate pulmonary hypertension. Pulmonic Valve Not well-visualized Pericardium Normal pericardium without effusion. Aorta Normal ascending aorta dimension. CONCLUSIONS LV systolic function is normal with EF of 55 to 60%. Diastolic function is indeterminate because of atrial fibrillation. Biatrial enlargement is noted. Mitral valve is thickened. Moderate mitral regurgitation is seen. Aortic valve is thickened and calcified. Mild to moderate aortic regurgitation is seen. Moderate tricuspid regurgitation. Mild to moderate pulmonary hypertension. Compared to prior echocardiogram from 11/21/2019, patient has progression of mitral regurgitation to moderate and also has mild to moderate pulmonary hypertension now. Otherwise no significant changes Roland Thrasher MD (Electronically Signed) Final Date: 07 Oct 2021 11:37 S
== END 2021-09-30 09:07 | disposition home or self-care (01) ==
LOC: RAD 09:16
PROVIDERS: PCP Family Medicine; Visit Provider Internal Medicine Cardiovascular Disease
DX: I35.0 Nonrheumatic aortic (valve) stenosis (principal); I10 Essential (primary) hypertension
CPT/HCPCS: 93306; 93880

== ENCOUNTER → 2021-10-27 13:27 | Outpatient (BNVA) | payer MEDICARE, OTHER, SELFPAY | PROVIDERS: PCP Family Medicine; Visit Provider Family Medicine | DX: N39.0 Urinary tract infection, site not specified (principal) | CPT/HCPCS: 81000 ==

== ENCOUNTER → 2021-10-28 08:04 | Outpatient (BNVA) | payer MEDICARE, OTHER, SELFPAY | PROVIDERS: PCP Family Medicine; Referring Provider Family Medicine; Visit Provider Podiatrist Foot & Ankle Surgery | DX: I73.9 Peripheral vascular disease, unspecified (principal); L84 Corns and callosities; L60.3 Nail dystrophy | CPT/HCPCS: 11056; 11721 ==

== ENCOUNTER 2021-11-08 15:57 | Emergency (ER) | payer MEDICARE, OTHER, SELFPAY ==
--- NOTE | 2021-11-08 15:59 | XRR_ITS ---
PROCEDURE INFORMATION: Exam: XR Left Ribs with PA Chest Exam date and time: 11/08/2021 4:38 PM Age: 86 years old Clinical indication: Injury or trauma; Fall; Rib area, left side; Blunt trauma TECHNIQUE: Imaging protocol: XR Left ribs with PA chest. Views: 3 views COMPARISON: CR XR chest 2V* [id number] 04/29/2021 10:23 AM FINDINGS: Lungs: Unremarkable. No consolidation. Pleural spaces: Unremarkable. No pleural effusion. No pneumothorax. Heart/Mediastinum: Unremarkable. No cardiomegaly. Bones/joints: Mildly displaced posterolateral left 3rd rib fracture. Mildly displaced left lateral 7th, 8th, and 9th rib fractures. Mildly displaced anterior left 10th rib fracture. Soft tissues: Small amount of soft tissue gas along the lower left lateral ribs. XR/XR ribs LT mn 3V w CXR1V [id number] IMPRESSION: 1. Multiple acute appearing left rib fractures. 2. No pneumothorax visualized. 3. Small amount of soft tissue gas in the lower left chest wall.
[2021-11-08 16:24] VITALS: PULSE 78; RESP 18; TEMP 36.9; O2SAT 99; BMI 22.0
--- NOTE | 2021-11-08 16:44 | W.ED.GENADLT ---
HPI - General Adult General: Chief complaint: Fall Stated complaint: Fall, L side pain, Hurts to breath Time Seen by Provider: 11/08/21 16:31 History of Present Illness: Patient is a 86-year-old male with history of atrial fibrillation on Eliquis presenting to the emergency room after an episode of fall and complaints of left upper back pain. Patient was sitting next to a table when she he felt and hit his left back against a table. Patient denies injuring his head. Patient fell onto a soft basket. Denies any back pain or other pain. Patient reports that left upper back pain is worse when takes a deep breath. Patient denies any other injuries or pain. Onset:1 hr ago Duration:1 hr Location:ongoing Severity:home Associated symptoms: Deny chest pain, dyspnea, nausea, rash, palpitations or vomiting Review of Systems Const: Denies: fever(s) or chills Eyes: Denies: change in vision ENMT: Denies: mouth pain Card: Denies: chest pain or palpitations Resp: Denies: dyspnea or non-productive cough GI: Denies: abdominal pain, nausea, vomiting or diarrhea : Denies: dysuria Musc: Reports: other (+L upper back pain); Denies: extremity pain Skin/Breast: Denies: rash or new lesions Neuro: Denies: weakness in extremities Psych: Reports: other (Normal mood) Usama/Lymph: Denies: easy bruising PFSH ED PFSH: Medical History Anxiety and depression ASVD (arteriosclerotic vascular disease) Atrial fibrillation Benign essential HTN Carotid stenosis Chronic constipation Chronic GERD Chronic low back pain DDD (degenerative disc disease) Diverticulosis Drug intolerance flecainide Dyslipidemia Essential hypertension Hiatal hernia Hyponatremia Insomnia Neuropathy Normochromic normocytic anemia Obstructive sleep apnea Has difficulty in using the CPAP Osteoarthritis of both knees Other urethral stricture, male, 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 Complete urethral reconstruction with subsequent urethral stricture disease. As required multiple dilations over the years. Overflow incontinence Polymyalgia rheumatica Prostatism Small vessel disease, cerebrovascular Spondylolisthesis Squamous cell carcinoma Vitamin D deficiency Surgical History History of back surgery History of circumcision History of hernia repair History of penile implant Inflatable penile prosthesis History of right hip replacement History of sinus surgery History of total knee replacement Status post right inguinal hernia repair (02/25/21) Family History Grandmother CAD (coronary artery disease) Stroke Brother Suicide Mother Lung disease Denies family history of Diabetes Clotting disorder Dementia Chronic kidney disease (CKD) Anesthesia complication Bleeding disorder Cancer Social History Smoking and tobacco status: never smoked Second hand smoke exposure: No Alcohol intake: never Caregiver/support person: Yes Lives independently: Yes Household members: spouse Marital status: service: Yes Current occupational status: retired History of recent travel: No Current gender identity: Male Special massimo needs: No Agree to transfusion: Yes Physical Exam Const: COMMON NORMALS: alert HENMT: COMMON NORMALS: atraumatic HEAD & SCALP: atraumatic MOUTH: moist mucous membranes not abnormal Eye: COMMON NORMALS: EOMs intact bilaterally and conjunctivae normal CONJUNCTIVA: Yes conjunctivae normal Neck/C-Spine: COMMON NORMALS: full ROM and supple Resp: COMMON NORMALS: normal respiratory effort and clear to auscultation bilaterally AUSCULTATION: clear to auscultation bilaterally Cardio: COMMON NORMALS: regular rate RATE: regular rate GI: COMMON NORMALS: Soft to palpation and non-tender PALPATION: Yes Soft to palpation Back/Pelvis: OTHER: +L thoracic paraspinal tendernes to palpation, no midline bony prominence tenderness to palpation Extremity: COMMON NORMALS: full ROM Neuro: SENSORIUM/ORIENTATION: Yes alert MOTOR EXAM: No Abnormal motor strength present and Other motor observations present (no focal motor deficits) Psych: COMMON NORMALS: speech normal SPEECH: Yes normal speech MOOD & AFFECT: Yes euthymic mood Course Vital Signs: Vital signs: Vital Signs Temperature 98.4 F 11/08/21 16:24 Pulse Rate 84 11/08/21 18:06 Respiratory Rate 18 11/08/21 18:06 Blood Pressure 127/98 11/08/21 18:06 Pulse Oximetry 96 11/08/21 18:06 [facility] - General Adult Medical Decision Making 86-year-old male with history of Eliquis use for atrial fibrillation presenting to the emergency room with upper back pain. X-ray showed ribs 7/8/9 posterior fracture and rib 10 anterior fracture. No increased work of breathing or respiratory distress. Satting well. No signs of other injuries in thoracic cavity. S/p T3 reports pain is improved. I have given patient follow up with our case repairer to be seen by our outpatient by Dr. Luis for rib fractures per patient erquest. Patient aware of a call from our case repairer to schedule for appointment(s) and verbalizes understanding of the importance of following up. Rx: Percocet, lidocaine patch, and menthol PRN pain Disposition: Discharge. Patient counseled regarding diagnostic impression, treatment plan. Patient given ED strict return precautions to return for continuation, worsening, or development of new symptoms. Instructed to f/u w/ PCP regarding symptoms today. Patient verbalized understanding. Lab Data Radiology Impressions Ribs X-Ray 11/08/21 15:59 IMPRESSION: 1. Multiple acute appearing left rib fractures. 2. No pneumothorax visualized. 3. Small amount of soft tissue gas in the lower left chest wall. Imaging Data Other Imaging: Radiologist's impression: [address] [place] [address] XRay Report Signed Patient: Yossi Vargas Unit #: [id number] : 1935 Age/Sex: 86 / M ADM Date: 11/08/21 Loc: ER Room/Bed: Attending Dr: Ordering Provider/Ordering MD: Nancy Arellano MD Date of Service: 11/08/21 Procedure(s): XR ribs LT mn 3V w [id number] Accession Number(s): [id number] Report Number: [id number] PROCEDURE INFORMATION: Exam: XR Left Ribs with PA Chest Exam date and time: 11/08/2021 4:38 PM Age: 86 years old Clinical indication: Injury or trauma; Fall; Rib area, left side; Blunt trauma TECHNIQUE: Imaging protocol: XR Left ribs with PA chest. Views: 3 views COMPARISON: CR XR chest 2V* [id number] 04/29/2021 10:23 AM FINDINGS: Lungs: Unremarkable. No consolidation. Pleural spaces: Unremarkable. No pleural effusion. No pneumothorax. Heart/Mediastinum: Unremarkable. No cardiomegaly. Bones/joints: Mildly displaced posterolateral left 3rd rib fracture. Mildly displaced left lateral 7th, 8th, and 9th rib fractures. Mildly displaced anterior left 10th rib fracture. Soft tissues: Small amount of soft tissue gas along the lower left lateral ribs. XR/XR ribs LT mn 3V w CXR1V [id number] IMPRESSION: 1. Multiple acute appearing left rib fractures. 2. No pneumothorax visualized. 3. Small amount of soft tissue gas in the lower left chest wall. ? Dictated By: Andrew Tucker Signed By: Andrew Tucker Signed Date/Time: 11/08/211801 DD/ 163 Discharge Plan Discharge Patient Disposition: Home Clinical Impression: Closed rib fracture Condition: Stable Prescriptions: New Percocet 5-325 mg tablet 1 tab PO Q8H PRN (Reason: pain) Qty: 9 0RF lidocaine 5 % adhesive patch,medicated 1 patch topical DAILY PRN (Reason: pain) 30 Days Qty: 30 0RF Rx Instructions: leave on most painful area for up to 12 hrs Biofreeze (menthol) 5 % gel 1 ea topical BID PRN (Reason: pain) 10 Days Qty: 1 0RF No Action azelastine 0.15 % (205.5 mcg) spray,non-aerosol 2 spray INTRANASAL BID 0RF Ensure Plus 0.05-1.5 gram-kcal/mL liquid 1 each PO DAILY 0RF melatonin 5 mg capsule 5 mg PO BEDTIME 0RF iron-vitamin B complex with C Tablet 1 tab PO DAILY 0RF phenazopyridine [Pyridium] 200 mg tablet 200 mg PO TID PRN (Reason: pain) Qty: 6 0RF trazodone 50 mg tablet 50 mg PO DAILY Qty: 90 1RF mupirocin 2 % ointment 1 applic topical BID Qty: 22 5RF multivitamin Tablet 1 tab PO DAILY Qty: 90 1RF carbidopa-levodopa 50-200 mg tablet extended release See Rx Instructions .ROUTE .COMPLEX Qty: 270 0RF Dose Instruction: TAKE 1 TABLET THREE TIMES A DAY. TAKE 1 AT 0700, 1 AT 1100 AND 1 AT 1600 Rx Instructions: TAKE 1 TABLET THREE TIMES A DAY. TAKE 1 AT 0700, 1 AT 1100 AND 1 AT 1600 nitrofurantoin monohyd/m-cryst [Macrobid] 100 mg capsule 100 mg PO BID Qty: 20 0RF Rx Instructions: must administer with a meal/food. Discontinue Cipro Eliquis 2.5 mg tablet See Rx Instructions .ROUTE .COMPLEX Qty: 180 3RF Hold Instructions: Resume on 02/28/21. Dose Instruction: TAKE 1 TABLET TWICE A DAY Rx Instructions: TAKE 1 TABLET TWICE A DAY pantoprazole 40 mg tablet,delayed release (DR/EC) See Rx Instructions .ROUTE .COMPLEX Qty: 90 3RF Dose Instruction: TAKE 1 TABLET DAILY Rx Instructions: TAKE 1 TABLET DAILY Colace 100 mg capsule 100 mg PO BID Qty: 30 0RF fluticasone propionate 50 mcg/actuation spray,suspension 2 spray intranasal DAILY 0RF Rx Instructions: USE 2 SPRAYS TO EACH NOSTRIL DAILY simvastatin 20 mg tablet 20 mg PO DAILY 0RF Discharge Orders: Discharge ED (Routine); Ordered 11/08/21 Ordered By: Marcia Addison Referrals: Nika Parekh MD [Primary Care Provider] - Discharge Diet: Advance as tolerated Discharge Activity: Increase activity as tolerated Patient Instructions: Rib Fracture (ED) Activity Restrictions/Additional Instructions: Come back if you have any new or concerning issues. Our case repairer will have you follow-up with Dr. Luis in the next few days for broken ribs. You would be expected to have a phone call with our case repairer who will put you on the schedule. You can expect a call from us in the next 2-3 days. If you don't hear from us, call us back in the emergency room at [phone]. Please use your incentive inspirometer and practice breathing for 5 minutes 5 times a day Please follow up with your primary care provider to refill your medications for pain. Coding Level of Care Code ED Assistant Elementary Teacher for Ángel Fwd Exam Comprehensive
[2021-11-08] MEDS: lidocaine 5% Patch 1 PATCH TOPICAL (17:43)
[2021-11-08] MEDS: acetaminophen-codeine 300-30mg Tablet 1 TAB PO (17:43)
[2021-11-08 18:06] VITALS: BP 127/98; PULSE 84; RESP 18; O2SAT 96
[2021-11-08 18:19] VITALS: BP 110/71; PULSE 81; RESP 18; TEMP 36.3; O2SAT 99
[2021-11-08 18:29] VITALS: RESP 18
[2021-11-08] MEDS: oxyCODONE-APAP 5-325 mg Tablet 1 TAB PO (18:29)
[2021-11-08 18:48] VITALS: PULSE 95; RESP 15; O2SAT 98
--- NOTE | 2021-11-08 19:40 | PC.NURSE ---
abdominal binder placed on chest to stabilize posterior rib fractures. patient tolerated well.
--- NOTE | 2021-11-09 13:58 | DCPLANNER ---
Addendum entered by Magdalena Samayoa 11/13/21 13:32: aviation manager was told that ortho does not see rib fractures - continuous pillowcase cutter called patient and informed patient that he would need to follow up with primary care physician. Original Note: aviation manager had message to schedule a follow up appointment for patient with ortho. aviation manager sent patients information to the front office staff at ortho. Patients information will be printed and reviewed. Clinic will call patient with appointment information.
== END 2021-11-08 19:41 | disposition home or self-care (01) ==
PROVIDERS: Emergency Provider Emergency Medicine; PCP Family Medicine
DX: S22.42XA Multiple fractures of ribs, left side, initial encounter for closed fracture (principal); W19.XXXA Unspecified fall, initial encounter; I48.91 Unspecified atrial fibrillation; Z79.01 Long term (current) use of anticoagulants
CPT/HCPCS: 71101; 99283

== ENCOUNTER 2021-11-30 04:24 | Inpatient (IN) | payer MEDICARE, OTHER, SELFPAY ==
[2021-11-30] VITALS (9 sets, daily range): BP systolic 136–179; BP diastolic 76–125; PULSE 78–114; RESP 15–18; TEMP 36.4–36.8; O2SAT 95–98; BMI 21.2
--- NOTE | 2021-11-30 04:37 | CTR_ITS ---
PROCEDURE INFORMATION: Exam: CT Abdomen And Pelvis Without Contrast Exam date and time: 11/30/2021 5:00 AM Age: 86 years old Clinical indication: Constipation; Abdominal pain; Localized; Prior surgery; Surgery type: RT inguinal hernia repair. RT hip. Penile implant; Patient HX: C/O lower abd pain with no bm x 3 days. TECHNIQUE: Imaging protocol: Computed tomography of the abdomen and pelvis without contrast. Radiation optimization: All CT scans at this facility use at least one of these dose optimization techniques: automated exposure control; mA and/or kV adjustment per patient size (includes targeted exams where dose is matched to clinical indication); or iterative reconstruction. COMPARISON: CR XR acute abdomen series [id number] 03/03/2021 3:26 PM RADIATION DOSE METRICS: Total DLP (mGy-cm): 1259.92 FINDINGS: Pleural spaces: There are bilateral pleural effusions, left much larger than right. Heart: Calcifications are present within coronary arteries. Liver: Calcifications are seen within the liver compatible with calcified granulomas. Gallbladder and bile ducts: Normal. No calcified stones. No ductal dilation. Pancreas: Normal. No ductal dilation. Spleen: Calcifications are seen within the spleen compatible with calcified granulomas. Adrenal glands: Normal. No mass. Kidneys and ureters: There are bilateral benign appearing renal cysts present the largest cysts seen on the lower pole of the right kidney measuring 8 cm. Stomach and bowel: Transverse, descending and sigmoid colon containing moderate stool. There is bowel wall thickening seen within the ascending colon measuring up to 10 mm in thickness. Appendix: No evidence of appendicitis. Intraperitoneal space: Unremarkable. No free air. No significant fluid collection. Vasculature: Calcifications are seen in the thoracic and abdominal aorta, iliac arteries and femoral arteries bilaterally and branches of the celiac and superior mesenteric arteries. Lymph nodes: Unremarkable. No enlarged lymph nodes. Urinary bladder: Unremarkable as visualized. Reproductive: Unremarkable as visualized. Bones/joints: Status post bipolar right hip replacement. There is a 14.4 mm anterior spondylolisthesis of L4-L5 transfixed by posterior pedicle screws and rods. Soft tissues: Unremarkable. CT/CT abdomen pelvis wo con [id number] IMPRESSION: 1. Transverse, descending and sigmoid colon are moderately filled with particulate stool. 2. The proximal colon is decompressed. There is bowel wall thickening seen within the ascending colon. 3. Bilateral benign renal cysts, the largest is seen in the lower pole of the right kidney measuring 8 cm. 4. Bilateral pleural effusions, left much larger than right. COMMENTS: Consistent with the [employer]'s Incidental Findings Committee white paper (J Am Yadira Radiol 2018): Any incidental renal lesion less than 1 cm or classified as too small to characterize, or any incidental cystic renal lesion characterized as simple-appearing, is likely benign. No follow-up imaging is recommended for these lesions per consensus recommendations based on imaging criteria.
[2021-11-30 04:44] LABS: Basophils % 0.4 %; Eosinophils # 0.1 10^3/uL (0.0-0.8); Eosinophils % 0.9 %; Hematocrit 32.6 % (42.0-52.0); Hemoglobin 11.4 g/dL (11.7-16.6); Lymphocytes # 0.8 10^3/uL (0.8-4.8); Lymphocytes % 7.4 %; Mean Corpuscular Hemoglobin 31.2 pg (28.0-34.0); Mean Corpuscular Volume 89.3 fl (80-94); Mean Platelet Volume 9.1 fL (7.4-10.4); Monocytes # 0.8 10^3/uL (0.2-0.9); Monocytes % 7.9 %; Neutrophils # 8.77 10^3/uL (1.8-7.7); Neutrophils % 83.1 %; Nucleated Red Blood Cells % 0 %; Platelet Count 274 10^3/cmm (130-400); Red Blood Count 3.65 10^6/uL (4.1-5.3); Red Cell Distribution Width 13.7 % (12.1-15.1); White Blood Count 10.6 10^3/uL (4.0-10.0)
--- NOTE | 2021-11-30 04:54 | ED_ITS ---
Documented by User: Juan David Marlow DO 12/02/21 01:37 HPI - Abdominal Pain General: Chief Complaint: Abdominal Pain Stated Complaint: ABD PAIN Time Seen by Provider: 11/30/21 04:28 Source: patient History of Present Illness: 86-year-old gentleman presenting by ambulance for lower abdominal pain. He notes that he had fell a couple of weeks ago and was placed on pain medication after rib fractures. Since that time he has had a bit of trouble going to the bathroom. His pain worsens this morning. No vomiting. No diarrhea, no blood in the stool. He took stool softeners at home without relief. MD elicited complaint: abdominal pain Pertinent past history: other Onset (ago): hour(s) Pain Consistency: constant Location: Suprapubic Severity: severe Quality: cramping and stabbing Radiation: back Migration to: no migration Relieving factors: nothing Associated Symptoms: Reports bloating, change in stool character, chills and nausea; Denies coffee ground emesis, fever(s), hematochezia and vomiting Review of Systems Const: Reports: chills; Denies: fever(s) Card: Denies: chest pain Resp: Denies: dyspnea, productive cough or non-productive cough GI: Reports: nausea, bloating and change in stool character; Denies: vomiting, coffee ground emesis or hematochezia : Denies: flank pain PFSH ED PFSH: Medical History Anxiety and depression ASVD (arteriosclerotic vascular disease) Atrial fibrillation Benign essential HTN Carotid stenosis Chronic constipation Chronic GERD Chronic low back pain DDD (degenerative disc disease) Diverticulosis Drug intolerance flecainide Dyslipidemia Essential hypertension Hiatal hernia Hyponatremia Insomnia Neuropathy Normochromic normocytic anemia Obstructive sleep apnea Has difficulty in using the CPAP Osteoarthritis of both knees Other urethral stricture, male, 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 Complete urethral reconstruction with subsequent urethral stricture disease. As required multiple dilations over the years. Overflow incontinence Polymyalgia rheumatica Prostatism Rib fracture Small vessel disease, cerebrovascular Spondylolisthesis Squamous cell carcinoma Vitamin D deficiency Surgical History History of back surgery History of circumcision History of hernia repair History of penile implant Inflatable penile prosthesis History of right hip replacement History of sinus surgery History of total knee replacement Status post right inguinal hernia repair (02/25/21) Family History Grandmother CAD (coronary artery disease) Stroke Brother Suicide Mother Lung disease Denies family history of Diabetes Clotting disorder Dementia Chronic kidney disease (CKD) Anesthesia complication Bleeding disorder Cancer Social History Smoking and tobacco status: never smoked Second hand smoke exposure: No Alcohol intake: never Caregiver/support person: Yes Lives independently: Yes Household members: spouse Marital status: service: Yes Current occupational status: retired History of recent travel: No Current gender identity: Male Special massimo needs: No Agree to transfusion: Yes Physical Exam Const: COMMON NORMALS: patient oriented x3 and alert GENERAL APPEARANCE: cooperative and frail appearing HENMT: COMMON NORMALS: normocephalic and atraumatic HEAD & SCALP: normoc ephalic and atraumatic FACE & SINUS: normal facial exam Eye: COMMON NORMALS: Equal, round and reactive pupils present and EOMs intact bilaterally PUPIL: Yes Equal, round and reactive pupils present Neck/C-Spine: GENERAL: Yes trachea midline Chest: CHEST: Yes Symmetrical chest wall rise Resp: COMMON NORMALS: normal respiratory effort, No use of accessory muscles and clear to auscultation bilaterally AUSCULTATION: clear to auscultation bilaterally Cardio: COMMON NORMALS: regular rate and regular rhythm RATE: regular rate RHYTHM: regular rhythm GI: INSPECTION: Yes abdominal distension PALPATION: Yes Tenderness to palpation present (GI) (lower) Neuro: COMMON NORMALS: patient oriented x3 SENSORIUM/ORIENTATION: Yes alert Course Vital Signs: Vital signs: Vital Signs Temperature 98.0 F 12/01/21 20:00 Pulse Rate 74 12/01/21 20:00 Respiratory Rate 16 12/01/21 20:00 Blood Pressure 100/61 12/01/21 20:00 Pulse Oximetry 94 12/01/21 20:00 MDM - Abdominal Pain Medical Decision Making Patient has a very distended bladder on CT scan. On repeat interview, he notes that he sometimes self caths. He has not been as diligent lately about this. He also has fecal impaction by CT. Attempted to place urinary catheter without success. We will try different cudet catheter. Milk and molasses enema for fecal impaction following catheter placement. The patient has a stage II decubitus ulcer as well which is treated. Will admit for enema for fecal impaction, urinary catheter placement for urinary retention by urology, and managmeent of pleural effusion. CT reviewed care assumed at change of shift patient has a pleural effusion and multiple rib fractures small pneumothorax however he is tolerated well is been present for about 3 weeks. Said problems with urinating and passed because of previous urethral reconstruction. Organ to admit him discussed with Kervin to Dr. Horan and Dr. Jaureugi. While waiting for room he had a brief episode of A. fib with RVR his blood pressure is elevated 150/102 and he gets from the discomfort from urinary retention discussed Dr. Galeana. We will give him a single dose of metoprolol Dr. Galeana will address this further on the floor as needed. Lab Data : 12/01/21 04:40 12/01/21 04:40 Labs/Radiology: Radiology Impressions Abdomen/Pelvis CT 11/30/21 04:37 IMPRESSION: 1. Transverse, descending and sigmoid colon are moderately filled with particulate stool. 2. The proximal colon is decompressed. There is bowel wall thickening seen within the ascending colon. 3. Bilateral benign renal cysts, the largest is seen in the lower pole of the right kidney measuring 8 cm. 4. Bilateral pleural effusions, left much larger than right. COMMENTS: Consistent with the [employer]'s Incidental Findings Committee white paper (J Am Yadira Radiol 2018): Any incidental renal lesion less than 1 cm or classified as too small to characterize, or any incidental cystic renal lesion characterized as simple-appearing, is likely benign. No follow-up imaging is recommended for these lesions per consensus recommendations based on imaging criteria. Chest CT 11/30/21 07:27 IMPRESSION: 1. Small LEFT pneumothorax. 2. Small to moderate LEFT and small RIGHT pleural effusions. Hounsfield units are low suggesting these are simple effusions or a very dilute hemothorax. 3. Numerous left-sided rib fractures. Some of these rib fractures are in 2 separate locations and comminuted consistent with flail chest. 4. Bilateral upper lobe groundglass attenuations. Pulmonary contusions versus pneumonitis or aspiration pneumonia. 5. Diffuse fluid distention of the esophagus. 6. Extensive atherosclerosis aorta, coronary arteries and mesenteric arteries. Chest X-Ray 12/01/21 09:35 IMPRESSION: Post left thoracentesis as above. Laboratory Results WBC 10.6 10^3/uL (4.0-10.0) H 11/30/21 04:33 RBC 3.65 10^6/uL (4.1-5.3) L 11/30/21 04:33 Hgb 11.4 g/dL (11.7-16.6) L 11/30/21 04:33 Hct 32.6 % (42.0-52.0) L 11/30/21 04:33 MCV 89.3 fl (80-94) 11/30/21 04:33 MCH 31.2 pg (28.0-34.0) 11/30/21 04:33 MCHC 35.0 g/dL (30.0-36.0) 11/30/21 04:33 RDW 13.7 % (12.1-15.1) 11/30/21 04:33 Plt Count 274 10^3/cmm (130-400) 11/30/21 04:33 MPV 9.1 fL (7.4-10.4) 11/30/21 04:33 Neut % (Auto) 83.1 % 11/30/21 04:33 Lymph % (Auto) 7.4 % 11/30/21 04:33 [place] % (Auto) 7.9 % 11/30/21 04:33 Eos % (Auto) 0.9 % 11/30/21 04:33 Baso % (Auto) 0.4 % 11/30/21 04:33 Neut # (Auto) 8.77 10^3/uL (1.8-7.7) H 11/30/21 04:33 Lymph # (Auto) 0.8 10^3/uL (0.8-4.8) 11/30/21 04:33 [place] # (Auto) 0.8 10^3/uL (0.2-0.9) 11/30/21 04:33 Eos # (Auto) 0.1 10^3/uL (0.0-0.8) 11/30/21 04:33 Baso # (Auto) 0.0 10^3/uL (0.0-0.1) 11/30/21 04:33 Nucleated RBC % (auto) 0 % 11/30/21 04:33 Nucleated RBCs # 0.0 /100WBC 11/30/21 04:33 Sodium 127 mmol/L (136-145) L 11/30/21 04:33 Potassium 3.9 mmol/L (3.5-5.1) 11/30/21 04:33 Chloride 93 mmol/L (98-107) L 11/30/21 04:33 Carbon Dioxide 21 mmol/L (22-29) L 11/30/21 04:33 Anion Gap 16.9 (5-19) 11/30/21 04:33 BUN 16 mg/dL (8-23) 11/30/21 04:33 Creatinine 0.7 mg/dL (0.7-1.2) 11/30/21 04:33 GFR Calculation Not Reportable 11/30/21 04:33 Glucose 106 mg/dL (65-115) 11/30/21 04:33 Calculated Osmolality 266 mOsm/kg (285-295) L 11/30/21 04:33 Calcium 9.1 mg/dL (8.5-10.5) 11/30/21 04:33 Total Bilirubin 1.1 mg/dL (0.15-1.2) 11/30/21 04:33 AST 20 U/L (0-40) 11/30/21 04:33 ALT < 5 U/L (0-41) 11/30/21 04:33 Alkaline Phosphatase 180 IU/L (40-130) H 11/30/21 04:33 C-Reactive Protein 62.5 mg/L (0.0-4.9) H 11/30/21 04:33 Total Protein 6.9 g/dL (6.6-8.7) 11/30/21 04:33 Albumin 3.8 g/dL (3.5-5.2) 11/30/21 04:33 Globulin 3.1 g/dL (1.3-4.6) 11/30/21 04:33 Lipase 13 U/L (13-60) 11/30/21 04:33 Urine Color Hannah (Yellow) 11/30/21 05:44 Urine Appearance Clear (CLEAR) 11/30/21 05:44 Urine pH 6 (5-7) 11/30/21 05:44 Ur Specific [place] 1.010 (1.005-1.030) 11/30/21 05:44 Urine Protein Neg (Negative) 11/30/21 05:44 Urine Glucose (UA) Norm (Normal) 11/30/21 05:44 Urine Ketones Negative (Negative) 11/30/21 05:44 Urine Blood Neg (Negative) 11/30/21 05:44 Urine Nitrate Negative (Negative) 11/30/21 05:44 Urine Bilirubin Neg (Negative) 11/30/21 05:44 Urine Urobilinogen 1 mg/dL (Negative) H 11/30/21 05:44 Ur Leukocyte Esterase Negative (Negative) 11/30/21 05:44 Discharge Plan Discharge Patient Disposition: Admitted As Inpatient Admit Provider: Percy Galeana Clinical Impression: Fecal impaction, Acute on chronic urinary retention, Pleural effusion on left, Fracture of rib Condition: Stable Sign Out Sign Out Data: Patient Sign Out occurred on 11/30/21 at 08:25. Patient's care was discussed, and care was transferred from to Manuel Mandel DO. Coding Level of Care Code ED Supervisor [employer] for Chg Fwd Exam Comprehensive Documented by User: Manuel Mandel DO 11/30/21 11:47 HPI - Abdominal Pain General: Chief Complaint: Abdominal Pain Stated Complaint: ABD PAIN Time Seen by Provider: 11/30/21 04:28 PFS ED PFSH: Medical History Anxiety and depression ASVD (arteriosclerotic vascular disease) Atrial fibrillation Benign essential HTN Carotid stenosis Chronic constipation Chronic GERD Chronic low back pain DDD (degenerative disc disease) Diverticulosis Drug intolerance flecainide Dyslipidemia Essential hypertension Hiatal hernia Hyponatremia Insomnia Neuropathy Normochromic normocytic anemia Obstructive sleep apnea Has difficulty in using the CPAP Osteoarthritis of both knees Other urethral stricture, male, 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 Complete urethral reconstruction with subsequent urethral stricture disease. As required multiple dilations over the years. Overflow incontinence Polymyalgia rheumatica Prostatism Rib fracture Small vessel disease, cerebrovascular Spondylolisthesis Squamous cell carcinoma Vitamin D deficiency Surgical History History of back surgery History of circumcision History of hernia repair History of penile implant Inflatable penile prosthesis History of right hip replacement History of sinus surgery History of total knee replacement Status post right inguinal hernia repair (02/25/21) Family History Grandmother CAD (coronary artery disease) Stroke Brother Suicide Mother Lung disease Denies family history of Diabetes Clotting disorder Dementia Chronic kidney disease (CKD) Anesthesia complication Bleeding disorder Cancer Social History Smoking and tobacco status: never smoked Second hand smoke exposure: No Alcohol intake: never Caregiver/support person: Yes Lives independently: Yes Household members: spouse Marital status: service: Yes Current occupational status: retired History of recent travel: No Current gender identity: Male Special massimo needs: No Agree to transfusion: Yes Course Vital Signs: Vital signs: Vital Signs Temperature 98.0 F 12/01/21 20:00 Pulse Rate 74 12/01/21 20:00 Respiratory Rate 16 12/01/21 20:00 Blood Pressure 100/61 12/01/21 20:00 Pulse Oximetry 94 12/01/21 20:00 MDM - Abdominal Pain Medical Decision Making Patient has a very distended bladder on CT scan. On repeat interview, he notes that he sometimes self caths. He has not been as diligent lately about this. He also has fecal impaction by CT. Attempted to place urinary catheter without success. We will try different cudet catheter. Milk and molasses enema for fecal impaction following catheter placement. The patient has a stage II decubitus ulcer as well which is treated no follow-up with his primary care doctor. He will also follow-up with urology later in the week for catheter removal. CT reviewed care assumed at change of shift patient has a pleural effusion and multiple rib fractures small pneumothorax however he is tolerated well is been p resent for about 3 weeks. Said problems with urinating and passed because of previous urethral reconstruction. Organ to admit him discussed with Kervin to Dr. Horan and Dr. Jauregui. While waiting for room he had a brief episode of A. fib with RVR his blood pressure is elevated 150/102 and he gets from the discomfort from urinary retention discussed Dr. Galeana. We will give him a single dose of metoprolol Dr. Galeana will address this further on the floor as needed. Lab Data : 12/01/21 04:40 12/01/21 04:40 Labs/Radiology: Radiology Impressions Abdomen/Pelvis CT 11/30/21 04:37 IMPRESSION: 1. Transverse, descending and sigmoid colon are moderately filled with particulate stool. 2. The proximal colon is decompressed. There is bowel wall thickening seen within the ascending colon. 3. Bilateral benign renal cysts, the largest is seen in the lower pole of the right kidney measuring 8 cm. 4. Bilateral pleural effusions, left much larger than right. COMMENTS: Consistent with the [employer]'s Incidental Findings Committee white paper (J Am Yadira Radiol 2018): Any incidental renal lesion less than 1 cm or classified as too small to characterize, or any incidental cystic renal lesion characterized as simple-appearing, is likely benign. No follow-up imaging is recommended for these lesions per consensus recommendations based on imaging criteria. Chest CT 11/30/21 07:27 IMPRESSION: 1. Small LEFT pneumothorax. 2. Small to moderate LEFT and small RIGHT pleural effusions. Hounsfield units are low suggesting these are simple effusions or a very dilute hemothorax. 3. Numerous left-sided rib fractures. Some of these rib fractures are in 2 separate locations and comminuted consistent with flail chest. 4. Bilateral upper lobe groundglass attenuations. Pulmonary contusions versus pneumonitis or aspiration pneumonia. 5. Diffuse fluid distention of the esophagus. 6. Extensive atherosclerosis aorta, coronary arteries and mesenteric arteries. Chest X-Ray 12/01/21 09:35 IMPRESSION: Post left thoracentesis as above. Laboratory Results WBC 10.6 10^3/uL (4.0-10.0) H 11/30/21 04:33 RBC 3.65 10^6/uL (4.1-5.3) L 11/30/21 04:33 Hgb 11.4 g/dL (11.7-16.6) L 11/30/21 04:33 Hct 32.6 % (42.0-52.0) L 11/30/21 04:33 MCV 89.3 fl (80-94) 11/30/21 04:33 MCH 31.2 pg (28.0-34.0) 11/30/21 04:33 MCHC 35.0 g/dL (30.0-36.0) 11/30/21 04:33 RDW 13.7 % (12.1-15.1) 11/30/21 04:33 Plt Count 274 10^3/cmm (130-400) 11/30/21 04:33 MPV 9.1 fL (7.4-10.4) 11/30/21 04:33 Neut % (Auto) 83.1 % 11/30/21 04:33 Lymph % (Auto) 7.4 % 11/30/21 04:33 [place] % (Auto) 7.9 % 11/30/21 04:33 Eos % (Auto) 0.9 % 11/30/21 04:33 Baso % (Auto) 0.4 % 11/30/21 04:33 Neut # (Auto) 8.77 10^3/uL (1.8-7.7) H 11/30/21 04:33 Lymph # (Auto) 0.8 10^3/uL (0.8-4.8) 11/30/21 04:33 [place] # (Auto) 0.8 10^3/uL (0.2-0.9) 11/30/21 04:33 Eos # (Auto) 0.1 10^3/uL (0.0-0.8) 11/30/21 04:33 Baso # (Auto) 0.0 10^3/uL (0.0-0.1) 11/30/21 04:33 Nucleated RBC % (auto) 0 % 11/30/21 04:33 Nucleated RBCs # 0.0 /100WBC 11/30/21 04:33 Sodium 127 mmol/L (136-145) L 11/30/21 04:33 Potassium 3.9 mmol/L (3.5-5.1) 11/30/21 04:33 Chloride 93 mmol/L (98-107) L 11/30/21 04:33 Carbon Dioxide 21 mmol/L (22-29) L 11/30/21 04:33 Anion Gap 16.9 (5-19) 11/30/21 04:33 BUN 16 mg/dL (8-23) 11/30/21 04:33 Creatinine 0.7 mg/dL (0.7-1.2) 11/30/21 04:33 GFR Calculation Not Reportable 11/30/21 04:33 Glucose 106 mg/dL (65-115) 11/30/21 04:33 Calculated Osmolality 266 mOsm/kg (285-295) L 11/30/21 04:33 Calcium 9.1 mg/dL (8.5-10.5) 11/30/21 04:33 Total Bilirubin 1.1 mg/dL (0.15-1.2) 11/30/21 04:33 AST 20 U/L (0-40) 11/30/21 04:33 ALT < 5 U/L (0-41) 11/30/21 04:33 Alkaline Phosphatase 180 IU/L (40-130) H 11/30/21 04:33 C-Reactive Protein 62.5 mg/L (0.0-4.9) H 11/30/21 04:33 Total Protein 6.9 g/dL (6.6-8.7) 11/30/21 04:33 Albumin 3.8 g/dL (3.5-5.2) 11/30/21 04:33 Globulin 3.1 g/dL (1.3-4.6) 11/30/21 04:33 Lipase 13 U/L (13-60) 11/30/21 04:33 Urine Color [place] (Yellow) 11/30/21 05:44 Urine Appearance Clear (CLEAR) 11/30/21 05:44 Urine pH 6 (5-7) 11/30/21 05:44 Ur Specific [place] 1.010 (1.005-1.030) 11/30/21 05:44 Urine Protein Neg (Negative) 11/30/21 05:44 Urine Glucose (UA) Norm (Normal) 11/30/21 05:44 Urine Ketones Negative (Negative) 11/30/21 05:44 Urine Blood Neg (Negative) 11/30/21 05:44 Urine Nitrate Negative (Negative) 11/30/21 05:44 Urine Bilirubin Neg (Negative) 11/30/21 05:44 Urine Urobilinogen 1 mg/dL (Negative) H 06/27/22 05:44 Ur Leukocyte Esterase Negative (Negative) 11/30/21 05:44 Discharge Plan Discharge Patient Disposition: Admitted As Inpatient Admit Provider: Percy Galeana Clinical Impression: Fecal impaction, Acute on chronic urinary retention, Pleural effusion on left, Fracture of rib Condition: Stable Sign Out Sign Out Data: Patient Sign Out occurred on 11/30/21 at 08:25. Patient's care was discussed, and care was transferred from to Manuel Mandel DO. Coding Level of Care Code ED Supervisor [employer] for Chg Fwd Exam Comprehensive
[2021-11-30 04:57] LABS: Alanine Aminotransferase < 5 U/L (0-41); Albumin Level 3.8 g/dL (3.5-5.2); Alkaline Phosphatase 180 IU/L (40-130); Anion Gap 16.9 (5-19); Aspartate Amino Transferase 20 U/L (0-40); Blood Urea Nitrogen 16 mg/dL (8-23); C Reactive Protein 62.5 mg/L (0.0-4.9); Calcium 9.1 mg/dL (8.5-10.5); Carbon Dioxide 21 mmol/L (22-29); Chloride 93 mmol/L (98-107); Globulin 3.1 g/dL (1.3-4.6); Glucose 106 mg/dL (65-115); Lipase 13 U/L (13-60); Osmolality Calculated 266 mOsm/kg (285-295); Potassium 3.9 mmol/L (3.5-5.1); Sodium 127 mmol/L (136-145); Total Bilirubin 1.1 mg/dL (0.15-1.2); Total Protein 6.9 g/dL (6.6-8.7)
[2021-11-30] MEDS: morphine 4 mg/mL SDV 1 mL IVP (05:03)
[2021-11-30] MEDS: sodium chloride 0.9% 1,000 ML 999 ML IV (05:03)
[2021-11-30] MEDS: ondansetron 2 mg/ML SDV 2 mL 4 MG IVP (05:04)
--- NOTE | 2021-11-30 06:37 | XRR_ITS ---
PROCEDURE INFORMATION: Exam: XR Chest Exam date and time: 11/30/2021 6:41 AM Age: 86 years old Clinical indication: Other: No chest compolaints; Patient HX: No chest complaints; Additional info: Pleural effusion TECHNIQUE: Imaging protocol: Radiologic exam of the chest. Views: 1 view. COMPARISON: CR (CHEST, ) 11/08/2021 4:38 PM FINDINGS: Lungs: See Pleural spaces finding. Pleural spaces: There is a moderate left pleural effusion. Hazy opacities are seen superimposed over the pleural effusion likely representing atelectasis although left basilar pneumonia cannot be excluded. Heart/Mediastinum: Unremarkable. No cardiomegaly. Bones/joints: Unremarkable. XR/XR chest 1V portable [id number] IMPRESSION: 1. Moderate left pleural effusion 2. Hazy opacities superimposed over the pleural effusion likely representing atelectasis although left basilar pneumonia cannot be excluded.
[2021-11-30 07:01] LABS: Add Urine Microscopic? NO; Charge for UA Resulting for Rev
--- NOTE | 2021-11-30 07:04 | PC.NURSE ---
Multiple attempts made to place buck catheter. Physician at bedside. Unable to attain at this time.
[2021-11-30 07:07] LABS: Bilirubin Urine Neg (Negative); Blood Urine Neg (Negative); Glucose Urine UA Norm (Normal); Ketones Urine Negative (Negative); Leukocyte Esterase Urine Negative (Negative); Nitrate Urine Negative (Negative); Protein Urine Neg (Negative); Urine Appearance Clear (CLEAR); Urine Color Amber (Yellow); Urobilinogen Urine 1 mg/dL (Negative); pH Urine 6 (5-7)
--- NOTE | 2021-11-30 07:27 | CT_ITS ---
WS: [id number] CT CHEST WITHOUT INTRAVENOUS CONTRAST HISTORY: L pleural effusion. blood? TECHNIQUE: Contiguous 5 mm axial imaging performed on the thorax. Coronal and sagittal reformats are submitted. All CT scans at [facility] use at least one of these dose optimization techniques: automated exposure control; mA and/or kV adjustment per patient size (includes targeted exams where dose is matched to clinical indication); or iterative reconstruction. CONTRAST: None DLP: 583.58 mGy.cm COMPARISON: None available. Lungs and central airway: Bilateral upper lobe areas of groundglass attenuation. Slightly greater RIG HT upper lobe. Compressive atelectasis LEFT lower lobe and atelectasis along the lingula from the eff usion. No mass. Small pneumothorax on the LEFT. Pleura: Small layering RIGHT pleural effusion. Small to moderate LEFT pleural effusion. Hounsfield un its are in the 10-14 range. Heart and pericardium: Mild cardiomegaly. Calcification along the mitral annular valve plane. Extensi ve coronary artery atherosclerosis. Mediastinum and richard: No adenopathy appreciated. There is mild motion artifact in a few small lymph n odes. Marked fluid distention of nearly the entire esophagus. Large hiatal hernia. Vessels: Moderate atherosclerosis aorta. No aneurysm. No pulmonary enlargement. Chest wall and lower neck: No soft tissue masses. Upper abdomen: Hepatic granulomata. Spleen is normal size with granulomata. No laceration is identifi ed on this unenhanced study. Bilateral upper pole low-attenuation renal masses. No adrenal mass. Heav y calcification in the splenic artery and suprarenal aorta involving the mesenteric arteries. Osseous structures: Increase in thoracic kyphosis. No thoracic vertebral body fracture. T4, T5, T6, T7, T8, T9, T10, T11 and T12 rib fractures are identified. Several of these ribs are frac tured in multiple places including, T6, T7, T8, T9, T10, T11. Comminuted mildly displaced fractures. Consistent with flail chest. CT/CT chest wo con [id number] IMPRESSION: 1. Small LEFT pneumothorax. 2. Small to moderate LEFT and small RIGHT pleural effusions. Hounsfield units are low suggesting these are simple effusions or a very dilute hemothorax. 3. Numerous left-sided rib fractures. Some of these rib fractures are in 2 sep arate locations and comminuted consistent with flail chest. 4. Bilateral upper lobe groundglass attenuations. Pulmonary contusions versus pneumonitis or aspiration pneumonia. 5. Diffuse fluid distention of the esophagus. 6. Extensive atherosclerosis aorta, coronary arteries and mesenteric arteries.
--- NOTE | 2021-11-30 08:32 | PC.NURSE ---
Attempting to perform an enema on the patient. Only mildly successful.
--- NOTE | 2021-11-30 09:55 | PM.HP ---
Providers/Chief Complaint Admitting Physician: Percy Galeana MD Primary Care Provider: Nika Parekh MD Chief Complaint: ABD PAIN History of Present Illness Yossi Vargas is a 86 year old male presenting to the ED this morning with abdominal pain. He states he has had intermittent lower quadrant abdominal pain for approximately 2 weeks, however, yesterday it was unbearable and he decided to come to the hospital. He states it is a 10/10, sharp/squeezing pain, that does not radiate. Patient states normally his abdominal pain is relative to constipation and drinking prune juice or taking OTC laxatives and stool softener resolves the condition. Patient states changing position helps slightly. Patient also complains of urinary retention onset 1 day ago with pain as described above. In the emergency department, he relates that he cannot urinate. He reports that he stopped self cathing, which he usually does for urinary retention approximately 1 month ago. He had been having some urine output despite doing this. Today he relates no significant chest discomfort or shortness of breath. He states his suprapubic discomfort is the most severe. Secondary to his Parkinson's disease he has had multiple falls in the past. He last presented for a fall on November 08, where he was found to have multiple rib fractures on the left, and some air in his left chest. No pneumothorax was identified at that time. Since that time he had quite a bit of left chest discomfort, and had escalating doses of narcotics in the interim. In the emergency department he received some pain medicine, they tried to place a urinary catheter but were unsuccessful and have called urology. Pulmonary has been consulted as a pleural effusion had been found that may be related to lung contusion, rib fractures, hemothorax. Review of Systems General: Reports: 10 or more systems reviewed and unremarkable except in HPI and below Narrative: Constitutional: Patient denies headache, fever, chills HEENT/NEURO: Patient denies headache, dizziness or lightheadedness related to this event, patient does report chronic loss of balance relative to his Parkinsons. Patient denies any loss of consciousness/syncope, blurry vision. Patient reports chronic diplopia. CV: Denies chest pain Pulm: Denies shortness of breath or discomfort breathing GI: Intermittent, sharp/squeezing abdominal pain, 10/10 on pain scale. - Acute on chronic constipation, denies nausea or vomitting : Reports urinary retention onset 1 day ago with lower abdominal pain. Const: Denies: fever(s) or chills Eyes: Reports: other (reports chronic diplopia); Denies: change in vision, blurry vision or eye discomfort ENMT: Denies: throat pain or odynophagia Card: Denies: chest pain, palpitations, edema, swelling of feet/ankles, lightheadedness or syncope Resp: Denies: dyspnea, productive cough or pain on inspiration GI: Reports: abdominal pain, heartburn, constipation and GI cramping; Denies: nausea or vomiting : Reports: difficulty urinating and difficulty starting urination Musc: Denies: neck pain, back pain, extremity pain or joint swelling Skin/Breast: Denies: rash, pruritus or erythema Neuro: Reports: lack of coordination, difficulty walking, frequent falls and involuntary movements; Denies: headache(s), numbness in extremities or dizziness Psych: Reports: sleeping less; Denies: anxiety or depression Endo: Denies: polyuria Usama/Lymph: Denies: easy bruising All/Imm: Reports: urticaria Medications/Allergies Home Medications Medication Instructions Recorded Confirmed Last Taken Type azelastine 205.5 mcg (0.15 %) 2 spray INTRANASAL BID 06/14/19 11/30/21 10/27/20 History nasal spray food supplemt, lactose-reduced 1 each PO DAILY ml 06/14/19 11/30/21 11/29/21 History 0.05 gram-1.5 kcal/mL oral liquid (Ensure Plus) melatonin 5 mg capsule 5 mg PO BEDTIME cap 06/14/19 11/30/21 11/29/21 History multivitamin 1 tab PO DAILY #90 tab 06/23/20 11/30/21 11/29/21 Rx fluticasone propionate 50 2 spray INTRANASAL DAILY 10/28/20 11/30/21 02/24/21 History mcg/actuation nasal spray,suspension simvastatin 20 mg tablet 20 mg PO DAILY 10/28/20 11/30/21 11/29/21 History iron-vitamin B complex with C 1 tab PO DAILY 11/18/20 11/30/21 11/29/21 History tablet docusate sodium 100 mg capsule 100 mg PO BID #30 cap 02/25/21 11/30/21 11/29/21 Rx (Colace) carbidopa ER 50 mg-levodopa 200 mg See Rx Instructions .ROUTE 06/08/21 11/30/21 11/29/21 Rx tablet,extended release .COMPLEX #270 tab trazodone 50 mg tablet 50 mg PO DAILY #90 tab 10/19/21 11/30/21 11/29/21 Rx mupirocin 2 % topical ointment 1 applic TOPICAL BID #22 g 10/28/21 11/30/21 Unknown Rx lidocaine 5 % topical patch 1 patch TOPICAL DAILY PRN 30 Days 11/08/21 11/30/21 11/29/21 Rx #30 ea oxycodone-acetaminophen 7.5 mg-325 1 tab PO Q8H PRN 14 Days #42 tab 11/25/21 11/30/21 11/29/21 Rx mg tablet apixaban 2.5 mg tablet (Eliquis) 2.5 mg PO BID 11/30/21 11/30/21 11/29/21 History pantoprazole 40 mg tablet,delayed 40 mg PO DAILY 11/30/21 11/30/21 11/29/21 History release Allergies Allergy/AdvReac Type Severity Reaction Status Date / Time No Known Allergies Allergy Verified 11/30/21 10:25 Additional Medication Information Patient reports taking OTC laxative, stool softener, and gas relief medication. Patient report taking daily multivitamin. PFSH Acute PFSH: Medical History Anxiety and depression ASVD (arteriosclerotic vascular disease) Atrial fibrillation Benign essential HTN Carotid stenosis Chronic constipation Chronic GERD Chronic low back pain DDD (degenerative disc disease) Diverticulosis Drug intolerance flecainide Dyslipidemia Essential hypertension Hiatal hernia Hyponatremia Insomnia Neuropathy Normochromic normocytic anemia Obstructive sleep apnea Has difficulty in using the CPAP Osteoarthritis of both knees Other urethral stricture, male, 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 Complete urethral reconstruction with subsequent urethral stricture disease. As required multiple dilations over the years. Overflow incontinence Polymyalgia rheumatica Prostatism Rib fracture Small vessel disease, cerebrovascular Spondylolisthesis Squamous cell carcinoma Vitamin D deficiency Surgical History History of back surgery History of circumcision History of hernia repair History of penile implant Inflatable penile prosthesis History of right hip replacement History of sinus surgery History of total knee replacement Status post right inguinal hernia repair (02/25/21) Family History Grandmother CAD (coronary artery disease) Stroke Brother Suicide Mother Lung disease Denies family history of Diabetes Clotting disorder Dementia Chronic kidney disease (CKD) Anesthesia complication Bleeding disorder Cancer Social History Smoking and tobacco status: never smoked Second hand smoke exposure: No Alcohol intake: never Caregiver/support person: Yes Lives independently: Yes Household members: spouse Marital status: service: Yes Current occupational status: retired History of recent travel: No Current gender identity: Male Special massimo needs: No Agree to transfusion: Yes Vitals/I&O/Wt Last Vital Signs Temp 97.6 F 11/30/21 04:25 Pulse 105 H 11/30/21 06:35 Resp 18 11/30/21 06:35 BP 154/104 11/30/21 06:35 Pulse Ox 95 11/30/21 06:35 11/29/21 11/30/21 11/30/21 22:59 06:59 14:59 Intake Total 1000 / 1000 Balance 1000 / 1000 Weight last 48 hrs Weight 63.503 kg Physical Exam Narrative: 86 year old, white male, lying uncomfortably in bed. HEENT: Head atraumatic, normocephalic, normal conjunctiva, no scleral icterus or injection. Neck supple, no thyromegaly noted. NEURO: Alert and oriented, conversing appropriately CV: irregular, irregular without murmur PULM/RESP: symmetric chest rise, no shortness of breath, right lung clear to auscultation, left upper lobe clear, lower lobe no sounds. GI: Suprapubic discomfort to palpation with distention. Bowel sounds noted. No obvious organomegaly. : Penile implant noted. Catheter not yet placed. Extremities: No trauma or edema noted. No cyanosis or clubbing Skin: Warm, dry, pink, oral mucosa intact, no wounds or trauma noted. Const: COMMON NORMALS: patient oriented x3 and alert; apparent distress GENERAL APPEARANCE: cooperative and in distress; not comfortable HENMT: COMMON NORMALS: normocephalic, atraumatic, external ears normal, Normal external nose present and moist oral mucous membranes Eye: COMMON NORMALS: conjunctivae normal and no scleral icterus CONJUNCTIVA: Yes conjunctivae normal Neck/C-Spine: COMMON NORMALS: supple and Thyroid normal Chest: COMMONS NORMALS: normal inspection of the chest Resp: COMMON NORMALS: normal respiratory effort and No use of accessory muscles Cardio: COMMON NORMALS: negative for regular rate and negative for regular rhythm GI: AUSCULTATION: Yes Hypoactive bowel sounds present PALPATION: Yes Guarding due to palpation present (GI) : OTHER: Urinary retention with pain Back/Pelvis: OTHER: Back normal to inspection Extremity: COMMON NORMALS: normal to inspection and no clubbing, cyanosis or edema Neuro: COMMON NORMALS: patient oriented x3 Psych: COMMON NORMALS: mental status grossly normal, cooperative, normal affect and speech normal Skin: COMMON NORMALS: no rashes or lesions noted, no wounds, no jaundice, no petechiae and no mottling Data : 11/30/21 04:33 11/30/21 04:33 Other Labs: Elevated Alk Phos: 180 Normal LFT and T-Bili Elecated CRP: 62.5 Urinalysis negative CXR: My impression: Moderate left pleural effusion with possible lung trapping. Mild/Moderate right plerual effusion. CT Chest: My impression: Small left pneumothroax Mild/Moderate right pleural effusion Moderate left pleural effusion - mild/dilute hemothorax Left costal angle not visible Left sided rib fractures in 2 separate locations - possible flail chest A&P Assessment and plan (1) Fecal impaction: Patient reports chronic constipation for which he self treated with prune juice and OTC mediation at home. Patient reports recent fall with rib fractures. He was given pain medication which I suspect has worsened his constipation. CT shows significant stool in his rectum and descending colon. Molasses enema was attempted in the ER with little to no output. Will continue stool softeners and laxatives inpatient and will reattempt molasses enema. Constipation could have partially contributed to his urinary retention. Status: Acute (2) Acute on chronic urinary retention: Patient reports chronic urinary retention. Recent rib fractures with narcotic medication may have exacerbated his urinary retention. Patient reports stopping self-catheterization at home approximately 1 month ago. Patient reports having trouble with urination for approximately 1 day. Currently the patient has urinary retention with severe bladder pain and spasms. Urinary catheterization was attempted in the ER but was not successful. Urology has been consulted to place urinary catheter. Plan to initiate Flomax. Likely will leave catheter in upon discharge, and have follow-up with urology as an outpatient. Await their formal recommendations. Status: Acute (3) Pleural effusion on left: Patient has had a recent fall leading to left-sided chest trauma and multiple rib fractures. Patient is also been on Eliquis for atrial fibrillation. Combined trauma with Eliquis may have led to a possible hemothorax on the left side with possible lung trapping. Will discontinue Eliquis. Depending upon any procedures planned by pulmonary will initiate Lovenox for DVT prophylaxis Await pulmonary consultation with Dr. Horan who was called by the emergency department. Status: Acute (4) Insomnia: Patient reports chronic insomnia that he takes trazodone and melatonin at home for. Continue patient trazodone 50 mg p.o. daily. Status: Acute (5) Chronic anemia: Patient shows history of chronic anemia, but is asymptomatic at this time. We will continue to monitor in hospital with daily CBCs. Status: Acute (6) Parkinson disease: Patient has previous diagnosis of Parkinson disease. Patient reports mild memory loss and gait change, but is able to ambulate. Continue patient Carbidopa-Levodopa 50mg/200mg extended release tablet. Status: Acute (7) Atrial fibrillation: Patient has previous diagnosed atrial fibrillation. Telemetry shows atrial fibrillation. Continue telemetry monitoring. Discontinue eliquis in hospital, in case thoracentesis is performed Status: Acute (8) Hyponatremia: Patient with significant hyponatremia. Initiate normal saline at 50 cc an hour. I suspect this will self-correct, after urethral obstruction resolved with Carlos. Status: Acute (9) Sacral decubitus ulcer: Reported stage II decubitus. Keep pressure off area Will visualize as soon as possible, when convenient for nursing. Status: Acute Plan Other medical problems as noted in past medical history Full code currently Will initiate Lovenox for DVT prophylaxis when appropriate. SCDs currently. Attestations Medical Necessity Statement*: Patient will need to be admitted for pleural effusion, urinary retention, and constipation. Will need greater than 2 midnight stay to address concerns. 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
--- NOTE | 2021-11-30 11:06 | PM.CONSULT ---
Providers/Reason For Consult Consulting Physician/Specialty*: Urology/[place] Reason for Consult*: Urethral stricture, inability to pass catheter Requesting Physician: Dr. Ceja Primary Care Provider: Nika Parekh MD History of Present Illness History of Present Illness Yossi Vargas is a 86 year old male well-known to me for history of chronic urethral stricture following major urethral reconstruction many many years ago when he was in the service. I have seen him at least twice historically with inability to pass a catheter during other procedures and have had to do dilations. Last was with filiforms and followers and was effective in being able to get a reasonable sized catheter in for the purposes of bladder drainage short-term. He was then followed up in clinic in November 2020 and the catheter was removed and he was scoped which showed good healing of the urethra, easily patent for the cystoscope and no other gross abnormality including no evidence of urethral erosion etc. He is known to have significant decreased cognitive function but even with that he had been trained to do self-catheterization and actually had done pretty well. At follow-up visit in January 2020 when he was cathing about 2-3 times per week without increasing difficulty getting a 14 [place] catheter in. This whole situation is complicated by the fact that he has a penile prosthesis. So far there has not been any issues related to the prosthesis or erosion or infection etc. Has been known to have chronic urinary incontinence. He was in the emergency today for abdominal pain and a CT scan demonstrated a large pleural effusion with multiple rib fractures following a fall. From a urologic perspective he was complaining of constant dribbling of urine and attempts at passing a catheter unsuccessful and I was consulted for further evaluation and treatment. Apparently there will be some plans for drainage of his pleural effusion while hospitalized as well. Has not been able to empty his bladder. Attempts at catheterization by the nursing staff were unsuccessful. PROCEDURE: CYSTOSCOPY, URETHRAL DILATION Prepped and draped in usual sterile fashion. 2% lidocaine jelly used in the urethra. 3 [place] filiform was advanced but could not be advanced all the way into the bladder easily. Same location of obstruction with a 4 [place] filiform. A flexible cystoscopy was then performed. The scope was passed into the mid urethra and a flexible tip guidewire was then easily advanced into the bladder without difficulty. Amplatz renal dilator set was then utilized from 8 [place] to 10 [place] but I could not get a 12 [place] in. A 10 [place] straight catheter converted to a [place] tip catheter was then well lubricated and passed over the guidewire into the bladder. There was no balloon to inflate and for that reason it was secured with tape with wings and mesentery. A cystoscopy tubing was the only connector that would fit into the straight catheter drainage port and the irrigation system was converted to drainage by reversal. Flow was good. Additional supplies are being pursued to find more conventional drainage system. PLANS: Maintain 10 [place] Carlos catheter for least a couple days. At that point I think enough passive dilation will recurred to try a slightly larger 12 or 14 [place] which may allow a Carlos catheter with retaining balloon. Review of Systems Const: Denies: fever(s) or chills Eyes: Denies: eye discharge ENMT: Denies: hoarseness Card: Denies: chest pain or palpitations Resp: Denies: dyspnea or wheezing : Reports: difficulty urinating and change in urine stream Skin/Breast: Denies: rash Neuro: Reports: difficulty communicating thoughts; Denies: Slurred speech present or seizure-like activity Psych: Reports: memory loss Endo: Reports: flushing Usama/Lymph: Denies: easy bruising All/Imm: Denies: acute wheezing Medications/Allergies Home Medications Medication Instructions Recorded Confirmed Last Taken Type azelastine 205.5 mcg (0.15 %) 2 spray INTRANASAL BID 06/14/19 11/30/21 10/27/20 History nasal spray food supplemt, lactose-reduced 1 each PO DAILY ml 06/14/19 11/30/21 11/29/21 History 0.05 gram-1.5 kcal/mL oral liquid (Ensure Plus) melatonin 5 mg capsule 5 mg PO BEDTIME cap 06/14/19 11/30/21 11/29/21 History multivitamin 1 tab PO DAILY #90 tab 06/23/20 11/30/21 11/29/21 Rx fluticasone propionate 50 2 spray INTRANASAL DAILY 10/28/20 11/30/21 02/24/21 History mcg/actuation nasal spray,suspension simvastatin 20 mg tablet 20 mg PO DAILY 10/28/20 11/30/21 11/29/21 History iron-vitamin B complex with C 1 tab PO DAILY 11/18/20 11/30/21 11/29/21 History tablet docusate sodium 100 mg capsule 100 mg PO BID #30 cap 02/25/21 11/30/21 11/29/21 Rx (Colace) trazodone 50 mg tablet 50 mg PO DAILY #90 tab 10/19/21 11/30/21 11/29/21 Rx mupirocin 2 % topical ointment 1 applic TOPICAL BID #22 g 10/28/21 11/30/21 Unknown Rx lidocaine 5 % topical patch 1 patch TOPICAL DAILY PRN 30 Days 11/08/21 11/30/21 11/29/21 Rx #30 ea oxycodone-acetaminophen 7.5 mg-325 1 tab PO Q8H PRN 14 Days #42 tab 11/25/21 11/30/21 11/29/21 Rx mg tablet apixaban 2.5 mg tablet (Eliquis) 2.5 mg PO BID 11/30/21 11/30/21 11/29/21 History carbidopa ER 50 mg-levodopa 200 mg See Rx Instructions .ROUTE 11/30/21 Unknown Rx tablet,extended release .COMPLEX #270 tab pantoprazole 40 mg tablet,delayed 40 mg PO DAILY 11/30/21 11/30/21 11/29/21 History release Allergies Allergy/AdvReac Type Severity Reaction Status Date / Time No Known Allergies Allergy Verified 11/30/21 10:25 PFSH Acute PFSH: Medical History Anxiety and depression ASVD (arteriosclerotic vascular disease) Atrial fibrillation Benign essential HTN Carotid stenosis Chronic constipation Chronic GERD Chronic low back pain DDD (degenerative disc disease) Diverticulosis Drug intolerance flecainide Dyslipidemia Essential hypertension Hiatal hernia Hyponatremia Insomnia Neuropathy Normochromic normocytic anemia Obstructive sleep apnea Has difficulty in using the CPAP Osteoarthritis of both knees Other urethral stricture, male, 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 Complete urethral reconstruction with subsequent urethral stricture disease. As required multiple dilations over the years. Overflow incontinence Polymyalgia rheumatica Prostatism Rib fracture Small vessel disease, cerebrovascular Spondylolisthesis Squamous cell carcinoma Vitamin D deficiency Surgical History History of back surgery History of circumcision History of hernia repair History of penile implant Inflatable penile prosthesis History of right hip replacement History of sinus surgery History of total knee replacement Status post right inguinal hernia repair (02/25/21) Family History Grandmother CAD (coronary artery disease) Stroke Brother Suicide Mother Lung disease Denies family history of Diabetes Clotting disorder Dementia Chronic kidney disease (CKD) Anesthesia complication Bleeding disorder Cancer Social History Smoking and tobacco status: never smoked Second hand smoke exposure: No Alcohol intake: never Caregiver/support person: Yes Lives independently: Yes Household members: spouse Marital status: service: Yes Current occupational status: retired History of recent travel: No Current gender identity: Male Special massimo needs: No Agree to transfusion: Yes Dietary Habits: Current diet type/program: regular Caffeine: Yes Vitals/I&O/Wt Last Vital Signs Temp 97.6 F 11/30/21 04:25 Pulse 105 H 11/30/21 06:35 Resp 18 11/30/21 06:35 BP 154/104 11/30/21 06:35 Pulse Ox 95 11/30/21 06:35 11/29/21 11/30/21 11/30/21 22:59 06:59 14:59 Intake Total 1000 / 1000 Balance 1000 / 1000 Weight last 48 hrs Weight 140 lb Physical Exam Const: COMMON NORMALS: no acute distress, alert and well nourished GENERAL APPEARANCE: well kempt and well developed HENMT: COMMON NORMALS: normocephalic and atraumatic HEAD & SCALP: normocephalic and atraumatic Eye: COMMON NORMALS: conjunctivae normal and no scleral icterus CONJUNCTIVA: Yes conjunctivae normal Neck/C-Spine: COMMON NORMALS: full ROM Lymph: LYMPHATIC: No no lymphadenopathy noted Resp: COMMON NORMALS: normal respiratory effort EFFORT & INSPECTION: No labored and No Actively coughing Cardio: OTHER: Intermittent tachycardia with irregular rhythm : OTHER: Circumcised phallus with normal meatus. Has a deflated IPP. No scrotal mass. No blood at the meatus. Back/Pelvis: OTHER: No CVA tenderness Extremity: COMMON NORMALS: no clubbing, cyanosis or edema Neuro: SENSORIUM/ORIENTATION: Yes alert Psych: APPEARANCE: Yes grossly normal and Yes well kempt ATTITUDE: Yes calm Skin: COMMON NORMALS: no rashes or lesions noted and no jaundice GENERAL SKIN EXAM: no rashes or lesions noted Data : 12/01/21 04:40 12/01/21 04:40 A&P Assessment and plan (1) Other urethral stricture, male, overlapping sites: Status: Acute (2) Urinary tract infection: Status: Acute (3) Acute on chronic urinary retention: Status: Acute (4) Atrial fibrillation: Status: Acute Plan 1. Maintain indwelling straight catheter via taping until passive dilation has allowed him placement of a larger catheter hopefully 12 or 14 [place] to continue passive dilation 2. Adapt drainage system to allow containment of urine production 3. Reviewed with his who had been doing the self-catheterization importance of maintaining it. Seems obvious now but they were doing well enough before quitting it seemed like it was no longer necessary. He is demonstrated propensity for recurrent stricturing to the point of inability to pass catheter and even acute urinary retention. Long-term strategy to manage this is good to be very important. He is not a good candidate for long-term indwelling Carlos catheter. Coding Level of Care Code Acute Service Agent for [facility] Fwd Exam Comprehensive Diagnoses Urinary tract infection N39.0 Other urethral stricture, male, overlapping sites N35.816 Acute on chronic urinary retention R33.9 Atrial fibrillation I48.91
--- NOTE | 2021-11-30 11:16 | ECG_ITS ---
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 Measurements Intervals [place] Rate: 114 P: RI: QRS: 60 QRSD: 77 T: 19 QT: 303 QTc: 417 Interpretive Statements ATRIAL FIBRILLATION WITH RAPID VENTRICULAR RESPONSE SEPTAL MYOCARDIAL INFARCTION , PROBABLY OLD [40+ ms Q WAVE IN V1/V2] Compared to ECG 10/28/2020 20:33:52 Myocardial infarct finding now present Sinus rhythm no longer present Electronically Signed On 11-30-2021 17:32:17 CDT by Roland Thrasher M.D. [id number]
[2021-11-30] MEDS: morphine 4 mg/mL SDV 1 mL 2 MG IVP (11:31)
[2021-11-30] MEDS: sodium chloride 0.9% 1,000 ML 50 ML IV (11:54)
[2021-11-30] MEDS: metoprolol tartrate 1 mg/1 mL SDV 5 mL 5 MG IVP (11:55)
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
[2021-11-30] MEDS: docusate sodium 100 mg Capsule PO (17:15)
[2021-11-30] MEDS: sennosides 8.6 mg Tablet 17.2 MG PO (17:15)
[2021-11-30] MEDS: carbidopa-levodopa ER 50-200mg Tablet 1 EACH PO (17:15)
[2021-11-30] MEDS: metoprolol tartrate 25 mg Tablet 12.5 MG PO (21:43)
[2021-12-01] VITALS (8 sets, daily range): BP systolic 98–156; BP diastolic 59–95; PULSE 71–101; RESP 16–18; TEMP 36.6–37; O2SAT 93–98
[2021-12-01 04:53] LABS: Basophils % 0.3 %; Eosinophils # 0.3 10^3/uL (0.0-0.8); Hematocrit 31.1 % (42.0-52.0); Hemoglobin 10.7 g/dL (11.7-16.6); Lymphocytes # 1.4 10^3/uL (0.8-4.8); Lymphocytes % 13.7 %; Mean Corpuscular HGB Conc 34.4 g/dL (30.0-36.0); Mean Corpuscular Hemoglobin 31.5 pg (28.0-34.0); Mean Corpuscular Volume 91.5 fl (80-94); Monocytes # 0.7 10^3/uL (0.2-0.9); Neutrophils # 7.49 10^3/uL (1.8-7.7); Neutrophils % 75.5 %; Nucleated Red Blood Cells % 0 %; Platelet Count 236 10^3/cmm (130-400); White Blood Count 9.9 10^3/uL (4.0-10.0)
[2021-12-01 05:17] LABS: Anion Gap 12.6 (5-19); Blood Urea Nitrogen 17 mg/dL (8-23); Calcium 8.7 mg/dL (8.5-10.5); Carbon Dioxide 25 mmol/L (22-29); Chloride 99 mmol/L (98-107); Glucose 91 mg/dL (65-115); Osmolality Calculated 275 mOsm/kg (285-295); Potassium 4.6 mmol/L (3.5-5.1); Sodium 132 mmol/L (136-145)
--- NOTE | 2021-12-01 06:56 | PM.PN ---
Subjective Subjective: Hospital day #2 Status post urethral dilation and cystoscopy with difficult catheter placement in the emergency department. Only catheter that I could get in was a 10 [place] straight catheter converted to [place] pass tip catheter over wire. Catheter secured by taping. Double Khadra tree connection utilized to drain into Carlos bag. Urine has remained clear overnight. Seems to be tolerating the catheter well without trying to pull it out. Plan has been to leave the small catheter in and convert to slightly larger catheter after some passive dilation and hopefully get to a Carlos catheter that can be maintained for further passive dilation. Ultimately will require SCIC for stricture patency maintenance again. That has been going well until it was stopped because of other medical problems. This morning patient denies any significant urologic complaints. He is confused. Does have baseline dementia. Does not really remember any of the events of yesterday Denies chest pain or shortness of breath. He is scheduled for a thoracentesis today. Medications: Reviewed: Yes Vitals/I&O/Wt Last Vital Signs Temp 98.6 F 12/01/21 04:00 Pulse 86 12/01/21 04:00 Resp 18 12/01/21 04:00 BP 132/95 12/01/21 04:00 Pulse Ox 95 12/01/21 04:00 11/30/21 11/30/21 12/01/21 14:59 22:59 06:59 Intake Total 1000 / 1000 595 / 1595 Output Total 400 / 400 550 / 950 Balance 1000 / 1000 195 / 1195 -550 / 645 Weight last 48 hrs Weight 140 lb Physical Exam Const: COMMON NORMALS: no acute distress and alert; negative for patient oriented x3 and limitations HENMT: COMMON NORMALS: atraumatic HEAD & SCALP: atraumatic Neck/C-Spine: OTHER: Good range of motion Chest: OTHER: Normal respiratory movements Resp: OTHER: No audible wheezing GI: OTHER: Soft, non tender, no palpable masses : OTHER: Catheter securely taped. Apparatus for drainage into the Carlos bag is working well. Extremity: NARRATIVE EXTREMITY EXAM: Good range of motion Neuro: COMMON NORMALS: negative for patient oriented x3 SENSORIUM/ORIENTATION: Yes alert Psych: MEMORY/COGNITION: Yes memory grossly impaired and Yes cognition grossly impaired Urinary Catheter Management: Straight: Cath Placed During This Visit: yes Reason for Continuing Indwelling Catheter: Acute Urinary Retention or Obstruction Urinary Catheter Date of Insertion: 11/30/21 Urinary Catheter Time of Insertion: 14:04 Data : 12/01/21 04:40 12/01/21 04:40 A&P Assessment and plan (1) Other urethral stricture, male, overlapping sites: We will maintain his 10 [place]ger catheter and then try to switch out to a 12 or 14 Luxembourger after a day or 2 While not ideal the current apparatus seems to be working well. Status: Acute (2) Acute on chronic urinary retention: Maintain currentcatheter Status: Acute Attestations Medical Necessity Statement*: See attending Coding Level of Care Code Acute Process Controls Technician for Ángel Toth Diagnoses Other urethral stricture, male, overlapping sites N35.816 Acute on chronic urinary retention R33.9
[2021-12-01] MEDS: carbidopa-levodopa ER 50-200mg Tablet 1 EACH PO ×3 (07:02→16:37)
--- NOTE | 2021-12-01 07:40 | P.PN_ITS ---
Subjective Subjective: Patient awake and lying comfortably in the bed. He states he feels better this morning, however, he didn't recall he was in the hospital or why he was here. He states he feels like he was in a comatose state and is confused. He doesn't recall why he was in the hospital. He does not complain of any abdominal pain this morning and his urinary urge has resolved. He denies any dizziness or headache, chest pain or discomfort, any difficulty breathing or shortness of breath, and denies having nausea. He wanted to get up and walk around and felt comfortable enough to eat something. He does recall his fall with broken ribs at the beginning of November, and upon reorientation he began to recall his visit in the ED. Medications: Reviewed: Yes Vitals/I&O/Wt Last Vital Signs Temp 98.6 F 12/01/21 04:00 Pulse 86 12/01/21 04:00 Resp 18 12/01/21 04:00 BP 132/95 12/01/21 04:00 Pulse Ox 95 12/01/21 04:00 11/30/21 12/01/21 12/01/21 22:59 06:59 14:59 Intake Total 595 / 1595 Output Total 400 / 400 550 / 950 Balance 195 / 1195 -550 / 645 Weight last 48 hrs Weight 63.503 kg Physical Exam Narrative: Mr. Vargas was lying comfortably in the bed this morning. No apparent distress. HEENT: Head atraumatic, normocephalic, normal conjunctiva, no sclera icterus or injection. Neck supple, no thyromegaly noted. NEURO: awake and alert, with mild confusion/delirium. Speech appropriate, no slurring noted. PERRL CV: irregular, irregular, no murmur noted. PULM/RESP: Right lung clear to auscultation, left upper lobe clear, left lobe sound absent. Symmetric chest rise, no accessory muscle use, O2 saturation >90% RA. GI: Abdomen soft, nontender, with normal bowel sounds. : Straight catheter in place with Extremities no cyanosis clubbing. No edema. Skin no rash. Sacral decub noted. Urinary Catheter Management: Straight: Cath Placed During This Visit: yes Reason for Continuing Indwelling Catheter: Acute Urinary Retention or Obstruction Urinary Catheter Date of Insertion: 11/30/21 Urinary Catheter Time of Insertion: 14:04 Data : 12/01/21 04:40 12/01/21 04:40 A&P Assessment and plan (1) Fecal impaction: Patient reports chronic constipation for which he self treated with prune juice and OTC mediation at home. Patient reports recent fall with rib fractures. He was given pain medication which I suspect has worsened his constipation. CT shows significant stool in his rectum and descending colon. Molasses enema was attempted in the ER. He has since had a significant amount of stool output and this is resolved. Continue bowel regimen. Impaction has resolved. Status: Acute (2) Acute on chronic urinary retention: Patient reports chronic urinary retention. Recent rib fractures with narcotic medication may have exacerbated his urinary retention. Patient reports stopping self-catheterization at home approximately 1 month ago. Patient reports having trouble with urination for approximately 1 day. Currently the patient has urinary retention with severe bladder pain and spasms. Urinary catheterization was attempted in the ER but was not successful. Urology has been consulted to place urinary catheter, Plan to initiate Flomax. Likely will leave catheter in upon discharge, and have follow-up with urology as an outpatient. Await their formal recommendations. Current catheter and is a straight catheter without balloon. This will need to be changed out when appropriate. Hopefully this can be done tomorrow. It is too early today to attempt. Discussed with urology. Status: Acute (3) Pleural effusion on left: Patient has had a recent fall leading to left-sided chest trauma and multiple rib fractures. Patient is also been on Eliquis for atrial fibrillation. Combined trauma with Eliquis may have led to a possible hemothorax on the left side with possible lung trapping. Holding Eliquis currently. Appreciate pulmonary consultation. Thoracentesis planned today. Status: Acute (4) Insomnia: Patient reports chronic insomnia that he takes trazodone and melatonin at home for. Continue patient trazodone 50 mg p.o. daily. Status: Acute (5) Chronic anemia: Patient shows history of chronic anemia, but is asymptomatic at this time. Continue to follow Status: Acute (6) Parkinson disease: Patient has previous diagnosis of Parkinson disease. Patient reports mild memory loss and gait change, but is able to ambulate. Continue patient Carbidopa-Levodopa 50mg/200mg extended release tablet. Status: Acute (7) Atrial fibrillation: Patient has previous diagnosed atrial fibrillation. Telemetry shows atrial fibrillation. Telemetry. Metoprolol 12.5 mg twice daily Reinitiate anticoagulation following procedures Status: Acute (8) Hyponatremia: Patient with significant hyponatremia. This is improving Status: Acute (9) Sacral decubitus ulcer: Reported stage II decubitus. Keep pressure off area Status: Acute Plan Weakness. Initiate physical therapy Delirium. Patient may have underlying dementia as well. Reorient. Hold sedating medication. Full code currently Will initiate Lovenox for DVT prophylaxis when appropriate. SCDs currently. Attestations Medical Necessity Statement*: Needs continued hospitalization for thoracentesis. We will also need urinary catheter with balloon placed prior to discharge. Hopefully can be lie dilated tomorrow by urology. Also needs close follow-up of sodium, initiation of physical therapy to determine no home evaluations are needed. Coding Level of Care Code Acute Bell Spinner Sousaphones for Chg Fwd Diagnoses Fecal impaction K56.41 Acute on chronic urinary retention R33.9 Pleural effusion on left J90 Insomnia G47.00 Chronic anemia D64.9 Parkinson disease G20 Atrial fibrillation I48.91 Hyponatremia E87.1 Sacral decubitus ulcer L89.159
--- NOTE | 2021-12-01 08:11 | PC.NURSE ---
reported penile implant
[2021-12-01] MEDS: lidocaine 1% INJ 50 mL INJECTION (09:18)
[2021-12-01] MEDS: lidocaine 1% INJ 20 mL 8 ML INJECTION (09:20)
--- NOTE | 2021-12-01 09:35 | XR_ITS ---
WS: [id number] XR chest 1V portable [id number] REASON FOR EXAM: post thoracentesis FINDINGS: Compared to the examination of 11/30/2021. There is a reduction in the opacity in the left lower chest presumably representing the removal of pleural fluid. Residual fluid persists. There is atelectasis in the left lower lobe. There is no left pneumothorax. There is a right pleural effusion as previously noted. No other interval change or new finding. XR/XR chest 1V portable [id number] IMPRESSION: Post left thoracentesis as above.
--- NOTE | 2021-12-01 09:42 | PM.ACPR ---
Procedure/Consent Consent: Consent for Procedure: Consent obtained from patient Procedure Narrative: Name of the procedure: Left thoracentesis under ultrasound guidance Indication: Suspicion for hemothorax Anesthetics: Local anesthesia with 1% lidocaine, 10 mL IV pain medication: None. Description of the procedure: The procedure was explained to the patient in detail including the risks and a consent was obtained. The left hemithorax was scanned with ultrasound to find a safe fluid pocket. Moderate free-flowing fluid was noted. There was positive plankton sign. Following identification of the fluid pocket the site was marked. The site was cleaned using sterile technique. Lidocaine 1% was injected into the skin and the subcutaneous tissue. Subsequently, the periosteum in the parietal pleural was also anesthetized using lidocaine. The pleural space was entered in the posterior axillary line in the left seventh intercostal space. Serosanguineous fluid was aspirated. About 850 cc of fluid was aspirated. Sample: The pleural fluid was sent for cell count and differential, pH, protein, LDH, albumin, Gram stain and culture, creatinine and cytology. Postprocedure chest x-ray is pending.
[2021-12-01 09:57] LABS: Body Fluid Polynuclear #Cells 1.278; Body Fluid WBC 2773 /uL; Monocytes # Body Fluid 1.495
[2021-12-01 10:00] LABS: Apprearance, Body Fluid BLOODY; Color, Body Fluid RED
[2021-12-01] MEDS: docusate sodium 100 mg Capsule PO (10:02)
[2021-12-01] MEDS: atorvastatin 40 mg Tablet 20 MG PO (10:02)
[2021-12-01] MEDS: tamsulosin 0.4 mg Capsule PO (10:04)
[2021-12-01] MEDS: metoprolol tartrate 25 mg Tablet 12.5 MG PO ×2 (10:04→20:39)
[2021-12-01] MEDS: sennosides 8.6 mg Tablet 17.2 MG PO ×2 (10:05→17:38)
[2021-12-01] MEDS: trazodone 50 mg Tablet PO (10:05)
[2021-12-01] MEDS: pantoprazole DR 40 mg Tablet PO (10:05)
--- NOTE | 2021-12-01 10:10 | PC.NURSE ---
0930- Pt tolerated the thoracentesis well. O2 sats remained in the upper 90s throughout the procedure and no distress was noted.
[2021-12-01 10:31] LABS: Creatinine Body Fluid 0.67 (0.7-1.2); LDH Pleural Fluid 225 U/L; Total Protein Pleural Fluid 3.7 g/dL
[2021-12-01 11:26] LABS: Cyto Order Verification Order Verified
--- NOTE | 2021-12-01 11:53 | PC.CHAP ---
Pastoral Care Encounter/Spiritual Assessment Type of Contact [] Declined manufacturing plant technician visit [] Patient/Family/Request visit [] Outpatient visit [] Follow-up visit [] Physician referral [] Code/Alert [] Routine visit [] Staff referral [] Actively dying [] Patient sleeping [] Family support [] [] Out of room x Palliative care [] [] Receiving care in room [] Pre-surgical visit [] Trauma [] Long length of stay [] ICU visit [] Other: Relational/Emotional Strength [x] Patient feels connected with others/family/visitors/staff [] Distress [] Loneliness/isolation [] Abandonment Spirituality of Patient [x] Person of Virginie [x] Attends Latter-Day of their Virginie [x] Believes in Prayer [x] Reads Bible or Gnosticist materials [] There are Spiritual issues to be addressed Partition Assembler Interventions [x] Prayer x[] Active listening [x] Non-anxious presence [x] Spiritual/emotional support [] Crisis/trauma care [] Spiritual counseling [] Bereavement support [] Provided bereavement packet [] Provided Bible/devotional materials [] Provided toy/stuffed animal, coloring book to patient or family member [] Provided Communion [] Anointing/[place] [] Salvation [x]x Completed spiritual assessment [] Other: Impact on Illness or Injury [] Angry [] Fearful [] Anxious [] Often cries [] Exhaustion [] Unable to work [] Unable to attend jain [] Unable to walk/stand [] Unable to read [] Unable to drive [] Unable to eat/drink [] Unable to sleep [] Unable to be with family [] Patient intubated [] Other: Summary Time spent with patient 10 min
[2021-12-01] MEDS: glycerin adult supp 1 EACH PR (13:05)
--- NOTE | 2021-12-01 17:11 | PC.NURSE ---
Dr. Jauregui at bedside. Catheter unable to be advanced by physician or replaced. No new orders given at this time. Physician discussed taking patient to OR in the morning to try and place a catheter. Physician encouraged patient to pass what urine he is able to until OR procedure.
--- NOTE | 2021-12-01 17:23 | PC.NURSE ---
Dr. Jauregui removed cath at bedside.
[2021-12-01] MEDS: lidocaine 2% Urojet 20 mL TOPICAL (17:37)
--- NOTE | 2021-12-01 17:54 | P.PN_ITS ---
Subjective Subjective: Since this morning the patient while trying to have a bowel movement was pushing and the catheter dislodged. Reattempt by nursing staff to advance it back into the bladder unsuccessful. I tried with a well-lubricated 10 and 12 Hong Konger catheter but unsuccessfully. No excessive pressure was applied. Patient has been having some drainage and bladder scan showed that he was not full. Less than 65 cc in his bladder. Given the findings seen on flexible bedside cystoscopy yesterday I have recommen ded cystoscopy under anesthesia with dilation. Given the status of the urethra we will also be prepared for suprapubic tube placement. Vitals/I&O/Wt Last Vital Signs Temp 97.9 F 12/01/21 16:00 Pulse 78 12/01/21 16:00 Resp 16 12/01/21 16:00 BP 99/59 12/01/21 16:00 Pulse Ox 93 12/01/21 16:00 12/01/21 12/01/21 12/01/21 06:59 14:59 22:59 Output Total 550 / 950 800 / 800 Balance -550 / 645 -800 / -800 Weight last 48 hrs Weight 140 lb Physical Exam Urinary Catheter Management: Straight: Cath Placed During This Visit: yes, but has since been removed by the nurse Reason for Continuing Indwelling Catheter: Not indwelling catheter Urinary Catheter Date of Insertion: 11/30/21 Urinary Catheter Time of Insertion: 14:04 Date Urinary Catheter Removed: 12/01/21 Time Urinary Catheter Discontinued: 17:22 Data : 12/01/21 04:40 12/01/21 04:40 Micro: Microbiology 12/01/21 09:25 Gram Stain - Final Pleural Fluid A&P Assessment and plan (1) Other urethral stricture, male, overlapping sites: Complex panurethral stricture with difficult intubation. Was able to get a 10 Hong [place]er catheter in yesterday with flexible bedside cystoscopy, wire advancement but could not get anything larger than that. That catheter did not have a balloon. It was aggressively taped to the penis but he pushed it out today. Recommend attempt at reestablishing access through the urethra into the bladder tomorrow morning. He is not fully in retention. He has been able to get some urine out. Status: Acute (2) Urinary tract infection: Status: Acute (3) Acute on chronic urinary retention: Status: Acute Plan 1. I have recommended cystoscopy under anesthesia tomorrow morning. We will put him at the beginning of the schedule. 2. Anticipate difficult access. We will have opportunity to use smaller scopes like ureteroscope was which hopefully will improve success rate. 3. We will make plans for open suprapubic tube placement if necessary. 4. I tried to reach his jun but so far have not been successful. We will continue trying Attestations Medical Necessity Statement*: Requiring ongoing intervention for continuous urethral access. Coding Level of Care Code Acute Gas Combustion Engineer for Chg Fwd Diagnoses Other urethral stricture, male, overlapping sites N35.816 Urinary tract infection N39.0 Acute on chronic urinary retention R33.9
[2021-12-02] VITALS (19 sets, daily range): BP systolic 92–144; BP diastolic 59–93; PULSE 69–97; RESP 14–21; TEMP 36.2–36.7; O2SAT 90–100
--- NOTE | 2021-12-02 | SCC_ITS ---
Procedure done: 1. Cystoscopy with urethral dilation 38.9 seconds of fluoroscopic guidance, for a cumulative dose of 6.39 mGy, was provided to Dr. Jauregui by the radiology department. C-arm images of the abdomen were saved for the patient's permanent record. [facility]
[2021-12-02 04:28] LABS: Basophils % 0.2 %; Eosinophils # 0.5 10^3/uL (0.0-0.8); Eosinophils % 4.4 %; Hematocrit 30.1 % (42.0-52.0); Hemoglobin 10.5 g/dL (11.7-16.6); Lymphocytes # 1.5 10^3/uL (0.8-4.8); Mean Corpuscular HGB Conc 34.9 g/dL (30.0-36.0); Mean Corpuscular Hemoglobin 31.4 pg (28.0-34.0); Mean Corpuscular Volume 90.1 fl (80-94); Mean Platelet Volume 9.2 fL (7.4-10.4); Monocytes # 0.8 10^3/uL (0.2-0.9); Monocytes % 7.1 %; Neutrophils # 8.35 10^3/uL (1.8-7.7); Neutrophils % 74.9 %; Nucleated Red Blood Cells % 0 %; Platelet Count 227 10^3/cmm (130-400); Red Blood Count 3.34 10^6/uL (4.1-5.3); Red Cell Distribution Width 13.7 % (12.1-15.1); White Blood Count 11.1 10^3/uL (4.0-10.0)
--- NOTE | 2021-12-02 04:28 | PC.NURSE ---
This RN attempted to contact pt , Makeda, by phone three times this shift to make aware of scheduled procedure and to get consent. Unable to leave voice mail. Pt [id number] with confusion noted. Stating he is not sure about this procedure.
[2021-12-02 04:53] LABS: Anion Gap 13.8 (5-19); Blood Urea Nitrogen 18 mg/dL (8-23); Calcium 8.3 mg/dL (8.5-10.5); Carbon Dioxide 22 mmol/L (22-29); Chloride 92 mmol/L (98-107); Glucose 103 mg/dL (65-115); Magnesium 1.9 mg/dL (1.7-2.3); Osmolality Calculated 260 mOsm/kg (285-295); Potassium 3.8 mmol/L (3.5-5.1); Sodium 124 mmol/L (136-145)
--- NOTE | 2021-12-02 06:08 | PC.NURSE ---
Call placed to Makeda, spouse, and received consent over the phone for cystoscopy, urethral dilation, possible suprapubic tube. JUSTIN Pena witnessed Makdea giving telephone consent for procedures. Pt adamant that he is not going to have procedure until he speaks with his . Call transferred into pt room. Makeda stated she would be in as soon as she could this morning.
[2021-12-02] MEDS: carbidopa-levodopa ER 50-200mg Tablet 1 EACH PO ×2 (06:16→15:17)
--- NOTE | 2021-12-02 07:07 | PC.NURSE ---
Pt agreeable to OR this am but stating he will not go until his is present.
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
[2021-12-02] MEDS: tamsulosin 0.4 mg Capsule PO (08:29)
[2021-12-02] MEDS: pantoprazole DR 40 mg Tablet PO (08:29)
[2021-12-02] MEDS: atorvastatin 40 mg Tablet 20 MG PO (08:29)
[2021-12-02] MEDS: docusate sodium 100 mg Capsule PO ×2 (08:30→17:18)
[2021-12-02] MEDS: sennosides 8.6 mg Tablet 17.2 MG PO ×2 (08:30→17:18)
[2021-12-02] MEDS: sodium chloride 0.9% 250 ML IV (08:30)
[2021-12-02] MEDS: metoprolol tartrate 25 mg Tablet 12.5 MG PO ×2 (08:30→21:41)
--- NOTE | 2021-12-02 10:18 | PM.PN ---
Subjective Subjective: Urology follow-up: Had an opportunity this morning to talk to his about the findings. Explained the catheter falling out and her inability to replace the catheter based on the stricture disease. We discussed options which would include approach under anesthesia via cystoscopy possibly with very small scopes to try to bridge into the bladder and then dilate in a more tolerable way than what was provided in the ED. I explained the procedure in detail. Also discussed the possibility of a suprapubic tube although that would not be our first choice. She has good questions and was content with my answers and gave informed consent to proceed. It was also explained to the patient and he seemed to understand as best as he could. DECISION FOR SURGERY today Vitals/I&O/Wt Last Vital Signs Temp 97.6 F 12/02/21 04:00 Pulse 96 12/02/21 07:58 Resp 18 12/02/21 07:58 BP 132/73 12/02/21 07:58 Pulse Ox 92 12/02/21 07:58 12/01/21 12/02/21 12/02/21 22:59 06:59 14:59 Intake Total 60 / 60 Output Total 160 / 960 Balance 60 / -740 -160 / -900 Physical Exam Narrative: Alert, appropriate, confused, at baseline Atraumatic normocephalic Neck good range of motion Respiration: No wheezing or labored Abdomen soft. Nontender. Genitourinary exam unchanged. Phallus with deflated penile implant. Normal meatus. Scrotum normal. No new rash or lesion. Urinary Catheter Management: Straight: Cath Placed During This Visit: yes, but has since been removed by the nurse Reason for Continuing Indwelling Catheter: Not indwelling catheter Urinary Catheter Date of Insertion: 11/30/21 Urinary Catheter Time of Insertion: 14:04 Date Urinary Catheter Removed: 12/01/21 Time Urinary Catheter Discontinued: 17:22 Data : 12/02/21 03:44 12/02/21 03:44 Micro: Microbiology 12/01/21 09:25 Gram Stain - Final Pleural Fluid A&P Assessment and plan (1) Other urethral stricture, male, overlapping sites: Status: Acute (2) Acute on chronic urinary retention: Status: Acute Attestations Medical Necessity Statement*: Requiring surgery today Coding Level of Care Code Acute Power Cleaner Operator for [facility] Diagnoses Other urethral stricture, male, overlapping sites N35.816 Acute on chronic urinary retention R33.9
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
[2021-12-02] MEDS: sodium chloride 0.9% 1,000 ML 30 ML IV (11:13)
--- NOTE | 2021-12-02 11:17 | P.OP_ITS ---
Operative Report Date of procedure: December 02, 2021 Pre-op diagnosis: Panurethral stricture, urinary retention Post-op diagnosis: Panurethral stricture, urinary retention Procedure done: 1. Cystoscopy with urethral dilation Specimens removed/disposition: None Pathology: None Surgeon: Juventino Anesthesia: General Estimated blood loss: Minimal Urine output: Not measured Complications: None Findings: Panurethral stricture disease with the narrowest portion being in the bulbar urethra membranous urethra area. Small false passage on the posterior floor the prostate with a distinct posterior lip of the prostate that I think was making it difficult to get the catheter all the way and even over a guidewire previously. Brief History: Mr. Vargas is a very pleasant 86-year-old white male with a complex history of urethral stricture disease secondary to urethral loss from caustic agent. Has had a urethral reconstruction and penile implant placed years ago. Has had problems intermittently with urethral stricture for decades. Previously had to place a catheter after dilation when a catheter could not be placed at time of surgery. He was then converted to self-catheterization for stricture patency maintenance and did very well with that but once he stopped doing so became impossible to recatheterized. This hospitalization occurred because of multiple reasons but he was found to be impacted with a distended bladder and inability get a cath eter in place. I performed a flexible cystoscopy in the emergency department found valadez urethral stricture disease. Could not dilate with filiforms and followers but was able to get a guidewire in and over the guidewire the largest catheter I could get in place was a 10 [place]ese straight catheter without a balloon. It had been converted to a [place] tip catheter. Unfortunately catheter only stayed in for a day before he pushed it out while trying to have a bowel movement. Reattempt at passing the catheter were unsuccessful. Based on the initial difficulty it was decided to perform reevaluation under anesthesia and if access to the bladder could be obtained urethral dilation larger catheter placement for passive dilation and later conversion to SCIC as before. If not then suprapubic tube placement. Procedure: After routine preoperative evaluation examination and obtaining of informed consent he was taken to the operating suite on 12/02/2021 where general anesthesia was administered without difficulty after appropriate timeout was performed, SCDs confirmed to be functioning, preoperative antibiotics administered, beta-yessenia protocol confirmed. Prepped and draped in the usual sterile fashion in dorsolithotomy position paying careful attention to avoiding pressure points. A 7 Marshallese offset semirigid ureteroscope was then advanced into the urethra and then into the bladder under videoscopic monitoring. There appeared to be a small false passage on the posterior floor the prostate with a anteriorly extending lip of tissue which probably was what was creating difficulty repassing the catheter. A guidewire was passed through the ureteroscope and curled into the bladder. The urethra was then dilated with a 15 Marshallese 10 cm balloon across the bladder neck and the bulbar urethra. A 21 Marshallese by 10 cm balloon was then utilized for further dilation. The scope was repassed this time next to the guidewire and it was felt that there was enough dilation to go ahead and pass a catheter. A 16 Marshallese coud? catheter was converted to a [place] tip catheter. It was then well lubricated and 2% lidocaine jelly was instilled into the urethra. With some difficulty the catheter was able to be manipulated through the distal urethra and then in the more proximal urethra with a primary balloon dilation had been conducted it went easily over the guidewire into the bladder. The balloon was inflated. Catheter was confirmed to be functioning well and then the wire was removed. Catheter was placed to dependent drainage and the procedure was completed. Tolerated the procedure well without complications and was awakened in the operating room and returned to the recovery room in stable condition. PLANS: 1. Return to the floor 2. Maintain Carlos catheter for least a week and then conduct voiding trial and SCIC instruction again in my office
--- NOTE | 2021-12-02 11:31 | SC_ITS ---
WS: [id number] INTRAOPERATIVE TECHNIQUE: 3 Spot fluoroscopic images for intraoperative purposes. FLUOROSCOPY TIME: 38.9 seconds CLINICAL INFORMATION: intra-op COMPARISON: None. FINDINGS: Glidewire projected along the midline urethra and RIGHT lower pelvis likely within the bladder with a ssociated balloon angioplasty. Penile prosthesis. SC/C-arm FL for Urology IMPRESSION: Images obtained for intraoperative purposes.
[2021-12-02] MEDS: levofloxacin-dextrose 5 % 500 MG/100 ML PREMIX 100 MG IV (11:35)
[2021-12-02] MEDS: iohexol 300 mg/mL 50 mL Btl (OR ONLY) XX (12:20)
[2021-12-02] MEDS: lidocaine 2% Urojet 20 mL TOPICAL (12:40)
--- NOTE | 2021-12-02 16:06 | PC.NURSE ---
Pt got up to commode and was sitting when the automatic vital machine went off for a post op vital and it was low, placed patient back in bed and BP yvon to 116/72. Nurse was notified of the BP drop.
--- NOTE | 2021-12-02 16:18 | ANE.PACU2 ---
Inpatient post-anesthesia follow up: Airway intact: Yes Vital signs: Temperature 97.9 F Pulse Rate 83 Respiratory Rate 16 Blood Pressure 116/72 Pulse Oximetry 97 Oxygen Delivery Me thod [ Room Air Current Rate & Del dash] Oxygen Delivery Me thod Room Air Oxygen Flow Rate 6 Fraction of Inspir ed Oxygen Hydration adequate: Yes Nausea and vomiting: No Pain level: 1 Mental status: Baseline
[2021-12-02 17:55] LABS: Anion Gap 14.3 (5-19); Blood Urea Nitrogen 14 mg/dL (8-23); Carbon Dioxide 22 mmol/L (22-29); Chloride 92 mmol/L (98-107); Glucose 90 mg/dL (65-115); Osmolality Calculated 258 mOsm/kg (285-295); Potassium 4.3 mmol/L (3.5-5.1); Sodium 124 mmol/L (136-145)
[2021-12-02] MEDS: sodium chloride 1 gm Tablet PO (19:27)
[2021-12-03] VITALS: BP 122/76; PULSE 86; RESP 17; TEMP 36.6; O2SAT 96
[2021-12-03 03:42] LABS: Basophils % 0.3 %; Eosinophils # 0.3 10^3/uL (0.0-0.8); Eosinophils % 4.3 %; Hematocrit 28.3 % (42.0-52.0); Hemoglobin 10.1 g/dL (11.7-16.6); Lymphocytes % 14.9 %; Mean Corpuscular HGB Conc 35.7 g/dL (30.0-36.0); Mean Corpuscular Hemoglobin 31.8 pg (28.0-34.0); Mean Platelet Volume 9.1 fL (7.4-10.4); Monocytes # 0.5 10^3/uL (0.2-0.9); Monocytes % 7.1 %; Neutrophils # 5.06 10^3/uL (1.8-7.7); Nucleated Red Blood Cells % 0 %; Platelet Count 223 10^3/cmm (130-400); Red Blood Count 3.18 10^6/uL (4.1-5.3); Red Cell Distribution Width 13.6 % (12.1-15.1); White Blood Count 6.9 10^3/uL (4.0-10.0)
[2021-12-03 03:59] LABS: Anion Gap 13.6 (5-19); Blood Urea Nitrogen 14 mg/dL (8-23); Calcium 8.1 mg/dL (8.5-10.5); Carbon Dioxide 21 mmol/L (22-29); Chloride 97 mmol/L (98-107); Glucose 88 mg/dL (65-115); Magnesium 1.7 mg/dL (1.7-2.3); Osmolality Calculated 266 mOsm/kg (285-295); Potassium 3.6 mmol/L (3.5-5.1); Sodium 128 mmol/L (136-145)
[2021-12-03] MEDS: sodium chloride 0.9% 1,000 ML 100 ML IV (05:17)
[2021-12-03] MEDS: carbidopa-levodopa ER 50-200mg Tablet 1 EACH PO (06:25)
[2021-12-03 07:46] VITALS: BP 156/99; PULSE 95; RESP 17; TEMP 36.8; O2SAT 94
--- NOTE | 2021-12-03 08:52 | PM.DCS ---
Discharge Providers Date of Admission: 11/30/21 10:14 Date of Discharge: December 03, 2021 Attending Provider at Admission: Percy Galeana MD Attending Provider at Discharge: Percy Galeana MD Primary Care Provider: Nika Parekh MD Diagnoses at Discharge Discharge Diagnosis (1) Other urethral stricture, male, overlapping sites: Status: Acute Permanent problem details: 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 Complete urethral reconstruction with subsequent urethral stricture disease. As required multiple dilations over the years. (2) Acute on chronic urinary retention: Status: Acute Reason for Visit Reason for Visit: ABD PAIN Hospital Course Hospital Course Yossi is an 86-year-old white male who presented to the emergency department with abdominal pain. He was significantly constipated, and unable to urinate. He was also found to have a left pleural effusion, which has been identified previously and was likely the result of a fall with pulmonary contusion, rib fracture on November 08. Fecal impaction was addressed with treatment of constipation with medications as well as enema and resolved. There was significant difficulty in placing a catheter, and finally a straight cath was placed by urology only to fall out in the subsequent day. He eventually went to the OR and with dilation of his urethra had successful placement of Carlos catheter. In regards to the pleural effusion on the left pulmonary was consulted, and performed thoracentesis. This yielded an exudate, bloody, consistent with bleeding from rib fractures/hemothorax/pulmonary contusion approximately 4 weeks prior. In regards to his pleural effusion at time of admission he did not have shortness of breath or chest discomfort. Sodium was also low during his hospitalization, and he was treated with IV fluids, isotonic, as he appeared to have hypovolemic hyponatremia. He was monitored in the hospital for improvement and by the time of December 03 with all of these problems addressed it was thought he could be discharged home. Sodium on discharge was 128. This will be rechecked in 3 to 4 days with his primary care provider. He will discharge with his Carlos catheter to be followed up with urology in a week. Pulmonary will see him in approximately 2 weeks for recheck, and likely repeat x-ray. We will resume his Eliquis. Fall prevention, counseling regarding Eliquis, home physical therapy was ordered at discharge. Physical Exam Narrative: General exam no distress Neck is supple no lymphadenopathy or thyromegaly Cardiovascular irregular, irregular rhythm without murmur Lungs clear to auscultation bilaterally Abdomen is soft with positive bowel sounds demonstrates Carlos Extremities no cyanosis clubbing or edema Urinary Catheter Management: Straight: Cath Placed During This Visit: yes, but has since been removed by the nurse Reason for Continuing Indwelling Catheter: Acute Urinary Retention or Obstruction Urinary Catheter Date of Insertion: 11/30/21 Urinary Catheter Time of Insertion: 14:04 Date Urinary Catheter Removed: 12/01/21 Time Urinary Catheter Discontinued: 17:22 Coude Latex: Cath Placed During This Visit: yes Reason for Continuing Indwelling Catheter: Acute Urinary Retention or Obstruction Urinary Catheter Date of Insertion: 12/02/21 Urinary Catheter Time of Insertion: 12:38 Discharge Data Studies Completed and Pending Completed Studies During Hospitalization Category Date Time Status CT abdomen pelvis wo con [id number] Urgent Cat Scan 11/30/21 04:[address] chest wo con [id number] Urgent Cat Scan 11/30/21 07:27 Completed CXRP [XR chest 1V portable [id number]] Routine Exams 12/01/21 09:35 Completed XR chest 1V portable [id number] Stat Exams 11/30/21 06:37 Completed Pending at discharge Category Date Time Status Body Fluid Culture & GS Routine Lab 12/01/21 09:25 Results Cytology [PTH] Routine Pth 12/01/21 09:41 Received Radiology Impressions Abdomen/Pelvis CT 11/30/21 04:37 IMPRESSION: 1. Transverse, descending and sigmoid colon are moderately filled with particulate stool. 2. The proximal colon is decompressed. There is bowel wall thickening seen within the ascending colon. 3. Bilateral benign renal cysts, the largest is seen in the lower pole of the right kidney measuring 8 cm. 4. Bilateral pleural effusions, left much larger than right. COMMENTS: Consistent with the [employer]'s Incidental Findings Committee white paper (J Am Yadira Radiol 2018): Any incidental renal lesion less than 1 cm or classified as too small to characterize, or any incidental cystic renal lesion characterized as simple-appearing, is likely benign. No follow-up imaging is recommended for these lesions per consensus recommendations based on imaging criteria. Chest CT 11/30/21 07:27 IMPRESSION: 1. Small LEFT pneumothorax. 2. Small to moderate LEFT and small RIGHT pleural effusions. Hounsfield units are low suggesting these are simple effusions or a very dilute hemothorax. 3. Numerous left-sided rib fractures. Some of these rib fractures are in 2 separate locations and comminuted consistent with flail chest. 4. Bilateral upper lobe groundglass attenuations. Pulmonary contusions versus pneumonitis or aspiration pneumonia. 5. Diffuse fluid distention of the esophagus. 6. Extensive atherosclerosis aorta, coronary arteries and mesenteric arteries. Chest X-Ray 12/01/21 09:35 IMPRESSION: Post left thoracentesis as above. C-Arm Fluoroscopy 12/02/21 11:31 IMPRESSION: Images obtained for intraoperative purposes. Laboratory Results WBC 6.9 10^3/uL (4.0-10.0) 12/03/21 03:03 RBC 3.18 10^6/uL (4.1-5.3) L 12/03/21 03:03 Hgb 10.1 g/dL (11.7-16.6) L 12/03/21 03:03 Hct 28.3 % (42.0-52.0) L 12/03/21 03:03 MCV 89.0 fl (80-94) 12/03/21 03:03 MCH 31.8 pg (28.0-34.0) 12/03/21 03:03 MCHC 35.7 g/dL (30.0-36.0) 12/03/21 03:03 RDW 13.6 % (12.1-15.1) 12/03/21 03:03 Plt Count 223 10^3/cmm (130-400) 12/03/21 03:03 MPV 9.1 fL (7.4-10.4) 12/03/21 03:03 Neut % (Auto) 73.0 % 12/03/21 03:03 Lymph % (Auto) 14.9 % 12/03/21 03:03 Long % (Auto) 7.1 % 12/03/21 03:03 Eos % (Auto) 4.3 % 12/03/21 03:03 Baso % (Auto) 0.3 % 12/03/21 03:03 Neut # (Auto) 5.06 10^3/uL (1.8-7.7) 12/03/21 03:03 Lymph # (Auto) 1.0 10^3/uL (0.8-4.8) 12/03/21 03:03 Long # (Auto) 0.5 10^3/uL (0.2-0.9) 12/03/21 03:03 Eos # (Auto) 0.3 10^3/uL (0.0-0.8) 12/03/21 03:03 Baso # (Auto) 0.0 10^3/uL (0.0-0.1) 12/03/21 03:03 Nucleated RBC % (auto) 0 % 12/03/21 03:03 Nucleated RBCs # 0.0 /100WBC 12/03/21 03:03 Sodium 128 mmol/L (136-145) L 12/03/21 03:03 Potassium 3.6 mmol/L (3.5-5.1) 12/03/21 03:03 Chloride 97 mmol/L (98-107) L 12/03/21 03:03 Carbon Dioxide 21 mmol/L (22-29) L 12/03/21 03:03 Anion Gap 13.6 (5-19) 12/03/21 03:03 BUN 14 mg/dL (8-23) 12/03/21 03:03 Creatinine 0.6 mg/dL (0.7-1.2) L 12/03/21 03:03 GFR Calculation Not Reportable 12/03/21 03:03 Glucose 88 mg/dL (65-115) 12/03/21 03:03 Calculated Osmolality 266 mOsm/kg (285-295) L 12/03/21 03:03 Calcium 8.1 mg/dL (8.5-10.5) L 12/03/21 03:03 Magnesium 1.7 mg/dL (1.7-2.3) 12/03/21 03:03 Total Bilirubin 1.1 mg/dL (0.15-1.2) 11/30/21 04:33 AST 20 U/L (0-40) 11/30/21 04:33 ALT < 5 U/L (0-41) 11/30/21 04:33 Alkaline Phosphatase 180 IU/L (40-130) H 11/30/21 04:33 C-Reactive Protein 62.5 mg/L (0.0-4.9) H 11/30/21 04:33 Total Protein 6.9 g/dL (6.6-8.7) 11/30/21 04:33 Albumin 3.8 g/dL (3.5-5.2) 11/30/21 04:33 Globulin 3.1 g/dL (1.3-4.6) 11/30/21 04:33 Lipase 13 U/L (13-60) 11/30/21 04:33 Urine Color Hannah (Yellow) 11/30/21 05:44 Urine Appearance Clear (CLEAR) 11/30/21 05:44 Urine pH 6 (5-7) 11/30/21 05:44 Ur Specific [place] 1.010 (1.005-1.030) 11/30/21 05:44 Urine Protein Neg (Negative) 11/30/21 05:44 Urine Glucose (UA) Norm (Normal) 11/30/21 05:44 Urine Ketones Negative (Negative) 11/30/21 05:44 Urine Blood Neg (Negative) 11/30/21 05:44 Urine Nitrate Negative (Negative) 11/30/21 05:44 Urine Bilirubin Neg (Negative) 11/30/21 05:44 Urine Urobilinogen 1 mg/dL (Negative) H 11/30/21 05:44 Ur Leukocyte Esterase Negative (Negative) 11/30/21 05:44 Fluid Color Red 12/01/21 09:25 Fluid Appearance Bloody 12/01/21 09:25 Fluid WBC 2773 /uL 12/01/21 09:25 Fluid RBC 145.000 10^3/uL 12/01/21 09:25 Fld Polynuclear WBCs # 1.278 12/01/21 09:25 Fld Polynuclear WBCs % 46.100 % 12/01/21 09:25 Fl Mononucl WBCs #(Auto) 1.495 12/01/21 09:25 Fl Mononuclear % Auto 53.900 % 12/01/21 09:25 Fluid Creatinine 0.67 (0.7-1.2) L 12/01/21 09:25 Pleural pH 8.00 (6.5-7.5) H 12/01/21 09:25 Pleural Total Protein 3.7 g/dL 12/01/21 09:25 Pleural LDH 225 U/L 12/01/21 09:25 Pleural Glucose 86.0 mg/dL 12/01/21 09:25 Vitals Last Vital Signs Temp 98.3 F 12/03/21 07:46 Pulse 95 12/03/21 07:46 Resp 17 12/03/21 07:46 BP 156/99 12/03/21 07:46 Pulse Ox 94 12/03/21 07:46 Discharge Plan Discharge Patient Disposition: Home Condition: Stable Prescriptions: New Senna Lax 8.6 mg Tablet 17.2 mg PO BID Qty: 60 0RF tamsulosin 0.4 mg Capsule 0.4 mg PO DAILY Qty: 30 0RF docusate sodium 100 mg Capsule 100 mg PO BID Qty: 60 0RF metoprolol tartrate 25 mg Tablet 12.5 mg PO BID@0900,2100 Qty: 30 0RF Miralax 17 gram powder in packet 17 g PO BID Qty: 60 0RF Continued azelastine 0.15 % (205.5 mcg) spray,non-aerosol 2 spray INTRANASAL BID 0RF Ensure Plus 0.05-1.5 gram-kcal/mL liquid 1 each PO DAILY 0RF melatonin 5 mg capsule 5 mg PO BEDTIME 0RF iron-vitamin B complex with C Tablet 1 tab PO DAILY 0RF trazodone 50 mg tablet 50 mg PO DAILY Qty: 90 1RF mupirocin 2 % ointment 1 applic topical BID Qty: 22 5RF multivitamin Tablet 1 tab PO DAILY Qty: 90 1RF oxycodone-acetaminophen 7.5-325 mg tablet 1 tab PO Q8H PRN (Reason: pain) 14 Days Qty: 42 0RF carbidopa-levodopa 50-200 mg tablet extended release 1 tab PO DAILY Qty: 270 3RF Rx Instructions: TAKE 1 TABLET THREE TIMES A DAY. TAKE 1 AT 0700, 1 AT 1100 AND 1 AT 1600 docusate sodium [Colace] 100 mg capsule 100 mg PO BID Qty: 30 0RF fluticasone propionate 50 mcg/actuation spray,suspension 2 spray intranasal DAILY 0RF simvastatin 20 mg tablet 20 mg PO DAILY 0RF lidocaine 5 % adhesive patch,medicated 1 patch topical DAILY PRN (Reason: pain) 30 Days Qty: 30 0RF Rx Instructions: leave on most painful area for up to 12 hrs pantoprazole 40 mg tablet,delayed release (DR/EC) 40 mg PO DAILY 0RF Eliquis 2.5 mg tablet 2.5 mg PO BID 0RF Discharge Orders: Discharge Order (Routine); Ordered 12/03/21 Ordered By: Percy Galeana Other Ambulatory Orders: Physical Therapy Eval and Treat Outpatient (Order) Timeframe: 3 Days Facility: [facility] - Location: Physical Therapy Ordered By: Percy Galeana Referrals: Eliceo Jauregui MD [Physician] - 7-10 days Lynn Horan MD [Physician] - 2 weeks (follow up pleural effusion) Nika Parekh MD [Primary Care Provider] - 1-3 days (BMP on follow up) Discharge Diet: Cardiac Discharge Activity: Increase activity as tolerated Patient Instructions: Urinary Retention in Men (ED), Fecal Impaction (ED), Opioid Safety Activity Restrictions/Additional Instructions: Keep catheter in at discharge. Continue to take stool softeners. Take the medication you were dispensed in the ER for constipation when you get home. Return for fever, vomiting, blood in the stool, any other concerning symptoms. Fall prevention Have ongoing evaluation by primary care provider of your sacral decub. Consider wound care referral if advised by your primary. Discharge Attestations Time Spent in Discharge Care*: greater than 30 min Quality Metrics Clinical Quality Measures [ No reported AMI, CVA or VTE this stay] Coding Level of Care Code Acute Chg [facility] note Diagnoses Other urethral stricture, male, overlapping sites N35.816 Acute on chronic urinary retention R33.9
[2021-12-03] MEDS: atorvastatin 40 mg Tablet 20 MG PO (09:30)
[2021-12-03] MEDS: metoprolol tartrate 25 mg Tablet 12.5 MG PO (09:30)
[2021-12-03] MEDS: tamsulosin 0.4 mg Capsule PO (09:34)
[2021-12-03] MEDS: sodium chloride 1 gm Tablet PO (09:34)
[2021-12-03] MEDS: pantoprazole DR 40 mg Tablet PO (09:34)
[2021-12-03 11:41] VITALS: BP 98/60; PULSE 93; RESP 18; TEMP 36.6; O2SAT 95
[2021-12-03 14:01] VITALS: BP 98/60; PULSE 93; RESP 18; TEMP 36.6; O2SAT 95
== END 2021-12-03 13:26 | disposition home or self-care (01) | DRG 187 ==
LOC: ER 09:21 → MEDSURG 11:31
PROVIDERS: Emergency Medicine; Internal Medicine Critical Care Medicine; Urology; Admitting Provider Internal Medicine; Emergency Provider Family Medicine; PCP Family Medicine; Visit Provider Internal Medicine
PROC: 0W9B3ZX Drainage of Left Pleural Cavity, Percutaneous Approach, Diagnostic (ICD-10-PCS; CPT 32554; principal; 2021-12-01 08:50)
PROC: 0TJB8ZZ Inspection of Bladder, Via Natural or Artificial Opening Endoscopic (ICD-10-PCS; CPT 52000; principal; 2021-12-02 11:50)
PROC: 0T7D8ZZ Dilation of Urethra, Via Natural or Artificial Opening Endoscopic (ICD-10-PCS; 2021-12-02 11:50)
DX: J94.2 Hemothorax (principal); E87.1 Hypo-osmolality and hyponatremia; F41.8 Other specified anxiety disorders; I25.10 Atherosclerotic heart disease of native coronary artery without angina pectoris; I48.91 Unspecified atrial fibrillation; I10 Essential (primary) hypertension; K59.09 Other constipation; K21.9 Gastro-esophageal reflux disease without esophagitis; G89.29 Other chronic pain; M54.50 Low back pain, unspecified; E78.5 Hyperlipidemia, unspecified; G62.9 Polyneuropathy, unspecified; G47.33 Obstructive sleep apnea (adult) (pediatric); M35.3 Polymyalgia rheumatica; L89.152 Pressure ulcer of sacral region, stage 2; N35.016 Post-traumatic urethral stricture, male, overlapping sites; R33.8 Other retention of urine; J90 Pleural effusion, not elsewhere classified; Z79.891 Long term (current) use of opiate analgesic; Z79.01 Long term (current) use of anticoagulants; T83.021A Displacement of indwelling urethral catheter, initial encounter; Y73.8 Miscellaneous gastroenterology and urology devices associated with adverse incidents, not elsewhere classified; S22.42XD Multiple fractures of ribs, left side, subsequent encounter for fracture with routine healing; W19.XXXD Unspecified fall, subsequent encounter; Z96.0 Presence of urogenital implants; D64.9 Anemia, unspecified; F51.04 Psychophysiologic insomnia; G20 Parkinson's disease; F02.80 Dementia in other diseases classified elsewhere, unspecified severity, without behavioral disturbance, psychotic disturbance, mood disturbance, and anxiety
CPT/HCPCS: 32554; 36415; 45915; 51702; 51798; 71045; 71250; 74176; 76000; 80048; 80053; 80503; 81003; 82570; 82945; 83615; 83690; 83735; 83986; 84157; 85025; 86140; 87070; 87075; 87205; 88108; 88305; 89050; 93005; 96361; 96374; 96375; 97110; 97116; 97161; 99285; J1956; J2270; J2405; J2704; J3010; J3490; J7030; J7050

== ENCOUNTER → 2021-12-10 15:22 | Outpatient (BNVA) | payer MEDICARE, OTHER, SELFPAY | PROVIDERS: PCP Family Medicine; Visit Provider Urology | DX: N35.816 Other urethral stricture, male, overlapping sites (principal) | CPT/HCPCS: 52000; 99213 ==

== ENCOUNTER → 2021-12-15 18:24 | Outpatient (BNVA) | payer MEDICARE, OTHER, SELFPAY | PROVIDERS: PCP Family Medicine; Visit Provider Family Medicine | DX: R29.6 Repeated falls (principal); S22.49XA Multiple fractures of ribs, unspecified side, initial encounter for closed fracture; D64.9 Anemia, unspecified; E87.1 Hypo-osmolality and hyponatremia; Z09 Encounter for follow-up examination after completed treatment for conditions other than malignant neoplasm | CPT/HCPCS: 80053; 85025 ==

== ENCOUNTER 2021-12-21 06:00 | Outpatient (CLI) | payer MEDICARE, OTHER, SELFPAY | END 2021-12-21 06:01 | disposition home or self-care (01) | LOC: LAB 01-01 08:19 | PROVIDERS: PCP Family Medicine; Visit Provider Internal Medicine Critical Care Medicine | DX: J90 Pleural effusion, not elsewhere classified (principal); E87.1 Hypo-osmolality and hyponatremia | CPT/HCPCS: 36415; 80048; 85025 ==

== ENCOUNTER → 2021-12-21 11:09 | Outpatient (BNVA) | payer MEDICARE, OTHER, SELFPAY | PROVIDERS: PCP Family Medicine; Visit Provider Internal Medicine Critical Care Medicine | DX: G31.83 Neurocognitive disorder with Lewy bodies (principal); F02.80 Dementia in other diseases classified elsewhere, unspecified severity, without behavioral disturbance, psychotic disturbance, mood disturbance, and anxiety; E87.1 Hypo-osmolality and hyponatremia; I48.91 Unspecified atrial fibrillation; I50.30 Unspecified diastolic (congestive) heart failure; J90 Pleural effusion, not elsewhere classified; S22.42XA Multiple fractures of ribs, left side, initial encounter for closed fracture; Z09 Encounter for follow-up examination after completed treatment for conditions other than malignant neoplasm; X58.XXXA Exposure to other specified factors, initial encounter | CPT/HCPCS: 71046; 99214 ==

== ENCOUNTER 2021-12-29 06:00 | Outpatient (RCR) | payer MEDICARE, OTHER, SELFPAY ==
[2021-12-21 13:03] LABS: Basophils % 0.8 %; Eosinophils # 0.1 10^3/uL (0.0-0.8); Eosinophils % 2.8 %; Hematocrit 30.3 % (42.0-52.0); Hemoglobin 10.2 g/dL (11.7-16.6); Lymphocytes # 1.4 10^3/uL (0.8-4.8); Lymphocytes % 26.8 %; Mean Corpuscular HGB Conc 33.7 g/dL (30.0-36.0); Mean Corpuscular Hemoglobin 30.8 pg (28.0-34.0); Mean Corpuscular Volume 91.5 fl (80-94); Mean Platelet Volume 9.5 fL (7.4-10.4); Monocytes # 0.4 10^3/uL (0.2-0.9); Neutrophils # 3.09 10^3/uL (1.8-7.7); Neutrophils % 61.4 %; Nucleated Red Blood Cells % 0 %; Platelet Count 202 10^3/cmm (130-400); Red Blood Count 3.31 10^6/uL (4.1-5.3); Red Cell Distribution Width 14.4 % (12.1-15.1)
[2021-12-21 13:28] LABS: Anion Gap 11.7 (5-19); Blood Urea Nitrogen 16 mg/dL (8-23); Calcium 8.9 mg/dL (8.5-10.5); Carbon Dioxide 26 mmol/L (22-29); Chloride 96 mmol/L (98-107); Glucose 124 mg/dL (65-115); Osmolality Calculated 271 mOsm/kg (285-295); Potassium 4.7 mmol/L (3.5-5.1); Sodium 129 mmol/L (136-145)
== END 2022-01-03 23:59 | disposition home or self-care (01) ==
LOC: TPT 06:00
PROVIDERS: Internal Medicine Critical Care Medicine; PCP Family Medicine; Referring Provider Family Medicine; Visit Provider Family Medicine
DX: R29.6 Repeated falls (principal); S22.49XD Multiple fractures of ribs, unspecified side, subsequent encounter for fracture with routine healing; X58.XXXD Exposure to other specified factors, subsequent encounter
CPT/HCPCS: 84439; 84443; 84481; 97110; 97163

== ENCOUNTER → 2021-12-29 13:36 | Outpatient (BNVA) | payer MEDICARE, OTHER, SELFPAY | PROVIDERS: PCP Family Medicine; Visit Provider Family Medicine | DX: R79.89 Other specified abnormal findings of blood chemistry (principal) | CPT/HCPCS: 84439; 84443; 84481; 97163 ==

== ENCOUNTER 2022-01-04 06:00 | Outpatient (RCR) | payer MEDICARE, OTHER, SELFPAY | END 2022-02-03 23:59 | disposition home or self-care (01) | LOC: TPT 06:00 | PROVIDERS: PCP Family Medicine; Referring Provider Family Medicine; Visit Provider Family Medicine | DX: R29.6 Repeated falls (principal); S22.49XD Multiple fractures of ribs, unspecified side, subsequent encounter for fracture with routine healing; X58.XXXD Exposure to other specified factors, subsequent encounter | CPT/HCPCS: 97110 ==

== ENCOUNTER → 2022-01-26 13:50 | Outpatient (BNVA) | payer MEDICARE, OTHER, SELFPAY | PROVIDERS: PCP Family Medicine; Visit Provider Nurse Practitioner Family | DX: I48.91 Unspecified atrial fibrillation (principal); I11.0 Hypertensive heart disease with heart failure; I50.30 Unspecified diastolic (congestive) heart failure | CPT/HCPCS: 99214 ==

== ENCOUNTER → 2022-02-03 10:20 | Outpatient (BNVA) | payer MEDICARE, OTHER, SELFPAY | PROVIDERS: PCP Family Medicine; Visit Provider Podiatrist Foot & Ankle Surgery | DX: I73.9 Peripheral vascular disease, unspecified (principal); L84 Corns and callosities; L60.3 Nail dystrophy | CPT/HCPCS: 11056; 11721 ==

== ENCOUNTER 2022-02-04 06:00 | Outpatient (RCR) | payer MEDICARE, OTHER, SELFPAY | END 2022-02-05 23:59 | disposition home or self-care (01) | LOC: TPT 06:00 | PROVIDERS: PCP Family Medicine; Visit Provider Family Medicine | DX: E87.1 Hypo-osmolality and hyponatremia (principal); J90 Pleural effusion, not elsewhere classified | CPT/HCPCS: 51798; 81003; 97110; 99213 ==

== ENCOUNTER → 2022-02-04 09:15 | Outpatient (BNVA) | payer MEDICARE, OTHER, SELFPAY | PROVIDERS: PCP Family Medicine; Visit Provider Urology | DX: N35.816 Other urethral stricture, male, overlapping sites (principal) | CPT/HCPCS: 51798; 99213 ==

== ENCOUNTER → 2022-03-05 14:30 | Outpatient (BNVA) | payer MEDICARE, OTHER, SELFPAY | PROVIDERS: PCP Family Medicine; Visit Provider Nurse Practitioner Family | DX: R30.0 Dysuria (principal); N39.0 Urinary tract infection, site not specified | CPT/HCPCS: 81000 ==

== ENCOUNTER 2022-03-16 10:39 | Inpatient (IN) | payer MEDICARE, OTHER, SELFPAY ==
[2022-03-16] VITALS (10 sets, daily range): BP systolic 109–138; BP diastolic 71–88; PULSE 99–124; RESP 16–31; TEMP 36.6–37.1; O2SAT 73–97; BMI 21.2
--- NOTE | 2022-03-16 10:53 | W.ED.WEAKNES ---
HPI - Weakness General: Chief complaint: Weakness Stated complaint: Can't walk, had a UTI recently Time Seen by Provider: 03/16/22 10:43 Source: patient History of Present Illness: 86-year-old male presents emergency room complaining of weakness generally not feeling well. He has a history of Parkinson's Sinemet was last adjusted over a month ago. Couple weeks ago he had a UTI and was on amoxicillin for a time. He has a known, history of afib was on eliquis, Is not on anything for rate control. MD Complaint: generalized weakness Onset (ago): day(s) Duration: constant Location: generalized Severity: moderate Relieving factors: none Exacerbating factors: none Associated symptoms: Denies chest pain, chills, confusion, melena, decreased appetite, diaphoresis, dysuria, easy bruising, fever(s), headache(s), myalgias, nausea, rash, short of breath, syncope or vomiting Review of Systems Const: Denies: fever(s), chills, fatigue, malaise or diaphoresis Card: Reports: palpitations and irregular heart rhythm; Denies: chest pain, edema or syncope Resp: Denies: dyspnea, productive cough or non-productive cough GI: Denies: abdominal pain, nausea, vomiting or melena : Denies: flank pain, difficulty urinating, dysuria, urinary frequency or urinary urgency Neuro: Denies: headache(s) or confusion Usama/Lymph: Denies: easy bruising PFS ED PFSH: Medical History Anxiety and depression ASVD (arteriosclerotic vascular disease) Atrial fibrillation Benign essential HTN Carotid stenosis Chronic constipation Chronic GERD Chronic low back pain DDD (degenerative disc disease) Diverticulosis Drug intolerance flecainide Dyslipidemia Essential hypertension Hiatal hernia Hyponatremia Insomnia Neuropathy Normochromic normocytic anemia Obstructive sleep apnea Has difficulty in using the CPAP Osteoarthritis of both knees Other urethral stricture, male, 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 Complete urethral reconstruction with subsequent urethral stricture disease. As required multiple dilations over the years. Overflow incontinence Polymyalgia rheumatica Prostatism Rib fracture Small vessel disease, cerebrovascular Spondylolisthesis Squamous cell carcinoma Vitamin D deficiency Surgical History History of back surgery History of circumcision History of hernia repair History of penile implant Inflatable penile prosthesis History of right hip replacement History of sinus surgery History of total knee replacement Status post right inguinal hernia repair (02/25/21) Family History Grandmother CAD (coronary artery disease) Stroke Brother Suicide Mother Lung disease Denies family history of Diabetes Clotting disorder Dementia Chronic kidney disease (CKD) Anesthesia complication Bleeding disorder Cancer Social History Smoking and tobacco status: never smoked Second hand smoke exposure: No Alcohol intake: never Caregiver/support person: Yes Lives independently: Yes Household members: spouse Marital status: service: Yes Current occupational status: retired History of recent travel: No Current gender identity: Male Special massimo needs: No Agree to transfusion: Yes Physical Exam Const: GENERAL APPEARANCE: cooperative and comfortable ORIENTATION/CONSCIOUSNESS: Yes awake, Yes oriented to person, Yes oriented to place and Yes oriented to time HENMT: COMMON NORMALS: normocephalic, atraumatic and hearing grossly normal bilaterally HEAD & SCALP: normocephalic and atraumatic Resp: COMMON NORMALS: normal respiratory effort, No retractions and No use of accessory muscles AUSCULTATION: rales on the left at the base Cardio: RATE: tachycardic RHYTHM: abnormal rhythm irregularly irregular GI: COMMON NORMALS: Soft to palpation and No hepatosplenomegaly present AUSCULTATION: Yes normoactive bowel sounds PALPATION: Yes Soft to palpation, No Tenderness to palpation present (GI), No Guarding due to palpation present (GI) and Yes No hepatosplenomegaly present Extremity: COMMON NORMALS: normal to inspection, capillary refill normal, no clubbing, cyanosis or edema, no calf tenderness and no pedal edema Neuro: SENSORIUM/ORIENTATION: Yes oriented to person, Yes oriented to place and Yes oriented to time Skin: COMMON NORMALS: no rashes or lesions noted GENERAL SKIN EXAM: no rashes or lesions noted Course Vital Signs: Vital signs: Vital Signs Temperature 98.7 F 03/16/22 10:46 Pulse Rate 124 H 03/16/22 10:46 Respiratory Rate 18 03/16/22 10:46 Blood Pressure 138/88 03/16/22 10:46 Pulse Oximetry 97 03/16/22 10:46 Oxygen Delivery Me thod 03/16/22 10:46 MDM - Weakness Medical Decision Making Patient has A. fib with RVR. He was previously on Eliquis. Presumably due to fall risk. Additionally looks like an old x-rays he had a chronic left pleural effusion he now has a new pneumonia overlying this. He has a new acute kidney injury which is moderate. His anemia is chronic and actually slightly better probably due to hemoconcentration. Start him on Levaquin. Discussed with hospitalist orders written. Urine is still pending. He is on esmolol for rate control his rate is improved at this point. Medical Records I reviewed the patient's medical records. Lab Data I reviewed the patient's lab results. : 03/16/22 11:13 03/16/22 11:13 Laboratory Results WBC 28.0 10^3/uL (4.0-10.0) H 03/16/22 11:13 RBC 3.30 10^6/uL (4.1-5.3) L 03/16/22 11:13 Hgb 10.9 g/dL (11.7-16.6) L 03/16/22 11:13 Hct 31.5 % (42.0-52.0) L 03/16/22 11:13 MCV 95.5 fl (80-94) H 03/16/22 11:13 MCH 33.0 pg (28.0-34.0) 03/16/22 11:13 MCHC 34.6 g/dL (30.0-36.0) 03/16/22 11:13 RDW 14.2 % (12.1-15.1) 03/16/22 11:13 Plt Count 225 10^3/cmm (130-400) 03/16/22 11:13 MPV 9.4 fL (7.4-10.4) 03/16/22 11:13 Neut % (Auto) 91.7 % 03/16/22 11:13 Lymph % (Auto) 2.7 % 03/16/22 11:13 [place] % (Auto) 3.2 % 03/16/22 11:13 Eos % (Auto) 0.1 % 03/16/22 11:13 Baso % (Auto) 0.4 % 03/16/22 11:13 Neut # (Auto) 25.66 10^3/uL (1.8-7.7) H 03/16/22 11:13 Lymph # (Auto) 0.8 10^3/uL (0.8-4.8) 03/16/22 11:13 [place] # (Auto) 0.9 10^3/uL (0.2-0.9) 03/16/22 11:13 Eos # (Auto) 0.0 10^3/uL (0.0-0.8) 03/16/22 11:13 Baso # (Auto) 0.1 10^3/uL (0.0-0.1) 03/16/22 11:13 Nucleated RBC % (auto) 0 % 03/16/22 11:13 Nucleated RBCs # 0.0 /100WBC 03/16/22 11:13 Sodium 130 mmol/L (136-145) L 03/16/22 11:13 Potassium 4.0 mmol/L (3.5-5.1) 03/16/22 11:13 Chloride 96 mmol/L (98-107) L 03/16/22 11:13 Carbon Dioxide 20 mmol/L (22-29) L 03/16/22 11:13 Anion Gap 18.0 (5-19) 03/16/22 11:13 BUN 49 mg/dL (8-23) H 03/16/22 11:13 Creatinine 1.8 mg/dL (0.7-1.2) H 03/16/22 11:13 GFR Calculation Not Reportable 03/16/22 11:13 Glucose 99 mg/dL (65-115) 03/16/22 11:13 Calculated Osmolality 283 mOsm/kg (285-295) L 03/16/22 11:13 Calcium 8.9 mg/dL (8.5-10.5) 03/16/22 11:13 Total Bilirubin 0.8 mg/dL (0.15-1.2) 03/16/22 11:13 AST 95 U/L (0-40) H 03/16/22 11:13 ALT 17 U/L (0-41) 03/16/22 11:13 Alkaline Phosphatase 122 U/L (40-130) 03/16/22 11:13 Total Protein 6.2 g/dL (6.6-8.7) L 03/16/22 11:13 Albumin 2.9 g/dL (3.5-5.2) L 03/16/22 11:13 Globulin 3.3 g/dL (1.3-4.6) 03/16/22 11:13 Discharge Plan Discharge Patient Disposition: Admitted As Inpatient Clinical Impression: Atrial fibrillation with RVR, Pneumonia, Parkinson disease, Lewy body dementia, TINO (acute kidney injury) Condition: Stable Prescriptions: No Action melatonin 5 mg capsule 10 mg PO BEDTIME PRN (Reason: Sleep) mupirocin 2 % ointment 1 applic topical BID PRN (Reason: unknown) multivitamin Tablet 1 tab PO DAILY Qty: 90 1RF fluticasone propionate 50 mcg/actuation spray,suspension 2 spray intranasal DAILY PRN (Reason: Allergy Symptoms) pantoprazole 40 mg tablet,delayed release (DR/EC) 40 mg PO DAILY Senna-S 8.6-50 mg Tablet 1 tab-cap PO DAILY Aspir-81 81 mg Tablet,Delayed Release (Dr/Ec) 81 mg PO QAM Iron with C 200 mg (66 mg iron)-125 mg Tablet 1 tab PO DAILY Boost Plus Liquid 1 ea PO DAILY Systane (propylene glycol) 0.4-0.3 % Drops 1 drp OPHTHALMIC (EYE) DAILY PRN (Reason: Dry Eye(S)) Miralax 17 gram powder in packet 17 g PO QAM citalopram 10 mg tablet 10 mg PO DAILY PRN (Reason: Anxiety) carbidopa-levodopa 50-200 mg tablet extended release 1 tab PO TID@,,16 amoxicillin 500 mg tablet 500 mg PO DAILY trazodone 100 mg tablet 100 mg PO BEDTIME PRN (Reason: Sleep) docusate sodium 100 mg capsule 100 mg PO BID PRN (Reason: Constipation) Referrals: Nika Parekh MD [Primary Care Provider] - Coding Level of Care Code ED Intellectual Property Counsel for Chg Fwd Exam Detailed
[2022-03-16 11:24] LABS: Basophils # 0.1 10^3/uL (0.0-0.1); Basophils % 0.4 %; Eosinophils % 0.1 %; Hematocrit 31.5 % (42.0-52.0); Hemoglobin 10.9 g/dL (11.7-16.6); Lymphocytes # 0.8 10^3/uL (0.8-4.8); Lymphocytes % 2.7 %; Mean Corpuscular HGB Conc 34.6 g/dL (30.0-36.0); Mean Corpuscular Volume 95.5 fl (80-94); Mean Platelet Volume 9.4 fL (7.4-10.4); Monocytes # 0.9 10^3/uL (0.2-0.9); Monocytes % 3.2 %; Neutrophils # 25.66 10^3/uL (1.8-7.7); Neutrophils % 91.7 %; Nucleated Red Blood Cells % 0 %; Platelet Count 225 10^3/cmm (130-400); Red Cell Distribution Width 14.2 % (12.1-15.1)
--- NOTE | 2022-03-16 11:31 | XRR_ITS ---
PROCEDURE INFORMATION: Exam: XR Chest Exam date and time: 03/16/2022 11:37 AM Age: 86 years old Clinical indication: Dyspnea TECHNIQUE: Imaging protocol: Radiologic exam of the chest. Views: 1 view. COMPARISON: CR XR chest 2V* [id number] 12/21/2021 1:05 PM FINDINGS: Lungs: The lungs are somewhat hyperinflated with increased interstitial markings, likely representing COPD. Pleural spaces: Interval increase in size of small left pleural effusion with adjacent atelectasis. Pneumonia should be excluded clinically. No pneumothorax. Heart/Mediastinum: Stable cardiomediastinal silhouette. Bones/joints: Unfused fractures are re-identified in the left lateral ribcage. XR/XR chest 1V portable [id number] IMPRESSION: Interval increase in size of small left pleural effusion with adjacent atelectasis. Pneumonia should be excluded clinically. Pulmonary congestion is suspected. COPD changes.
--- NOTE | 2022-03-16 11:42 | PC.PHAR ---
pts verified pts medications-rx filled 03/09/22 for amoxicillin 500mg tid pts states since fri the pt has just been taking one cap daily-pts states the pt hasnt been on eliquis 2.5mg bid last filled 10/01/21 90d/s for a month states the dr changed to 81mg aspirin daily for now- states the pt is no longer taking zocor 20mg daily last filled 05/03/21 90d/s states pt not taken in months-pts states the pt is no longer taking flomax or metoprolol tartrate 25mg -notes are made in the pharmacy comments
[2022-03-16] MEDS: dilTIAZem 5 mg/mL SDV 5 mL 10 MG IVP (11:43)
[2022-03-16] MEDS: sodium chloride 0.9% 500 ML 999 ML IV (11:47)
[2022-03-16 11:48] LABS: Alanine Aminotransferase 17 U/L (0-41); Albumin Level 2.9 g/dL (3.5-5.2); Alkaline Phosphatase 122 U/L (40-130); Aspartate Amino Transferase 95 U/L (0-40); Blood Urea Nitrogen 49 mg/dL (8-23); Calcium 8.9 mg/dL (8.5-10.5); Carbon Dioxide 20 mmol/L (22-29); Chloride 96 mmol/L (98-107); Globulin 3.3 g/dL (1.3-4.6); Glucose 99 mg/dL (65-115); Osmolality Calculated 283 mOsm/kg (285-295); Sodium 130 mmol/L (136-145); Total Bilirubin 0.8 mg/dL (0.15-1.2); Total Protein 6.2 g/dL (6.6-8.7)
[2022-03-16] MEDS: piperacillin-tazobactam 3.375 GM in sodium chloride 0.9% (plus) 50 ML IV (12:25)
--- NOTE | 2022-03-16 12:54 | ECG_ITS ---
[facility] Test Date: 2022-03-16 Pat Name: Yossi Varags Department: Room: Gender: Male Health Program Analyst: : 1935 Requested By: Manuel Cole Order Number: [id number] Tatum MD: Roland Thrasher M.D. Measurements Intervals [place] Rate: 108 P: ID: QRS: 19 QRSD: 97 T: 29 QT: 343 QTc: 461 Interpretive Statements ATRIAL FIBRILLATION WITH RAPID VENTRICULAR RESPONSE Compared to ECG 11/30/2021 11:36:58 Myocardial infarct finding no longer present Electronically Signed On 03-17-2022 8:26:40 CDT by Roland Thrasher M.D. [id number]
[2022-03-16] MEDS: levofloxacin-dextrose 5 % 750 MG/150 ML PREMIX 100 MG IV (12:58)
[2022-03-16 13:43] LABS: Add Urine Microscopic? YES; Bilirubin Urine Neg (Negative); Blood Urine 2+ (Negative); Glucose Urine UA Norm (Normal); Ketones Urine 1+ (Negative); Leukocyte Esterase Urine 2+ (Negative); Nitrate Urine Negative (Negative); Protein Urine 1+ (Negative); Urine Appearance Turbid (CLEAR); Urine Color Yellow (Yellow); Urobilinogen Urine 1 mg/dL (Negative); pH Urine 7 (5-7)
[2022-03-16 13:44] LABS: Add Urine Culture? Yes; Bacteria Urine 4+ /hpf; RBC Urine 0-4 /hpf (0-2); Squamous Epithelial Cell Urine 0-4 /hpf (0-5); WBC Urine TOO NUMEROUS TO CNT /hpf (0-5)
--- NOTE | 2022-03-16 13:55 | PM.HP ---
Providers/Chief Complaint Admitting Physician: Marian Giron MD Primary Care Provider: Nika Parekh MD Chief Complaint: Can't walk, had a UTI recently History of Present Illness Yossi Vargas is a 86 year old male who presented to the emergency room with progressive weakness and loss of appetite. Symptoms have been progressing over the last few days to a week or so. He began having urinary symptoms about a week and a half ago. He was initially treated with Macrobid. He was not getting any better and this was changed to amoxicillin 500 mg p.o. 3 times a day. He has been very tired, at times almost lethargic according to his . She cut his amoxicillin down to 500 mg once a day. He has been trying to get boost a couple of times a day and been drinking some water and Gatorade. He has had no solid intake for several days. He denies any nausea. There have been no episodes of vomiting. He has had some chills or been cold at times according to his but he does not really recall this. He has had a little bit of a runny nose. Denies any sore throat. He has had a little bit more dyspnea on exertion lately which his is noticed when he goes from the living room to the bedroom. Work of breathing is increased during this distance. No report of any cough. He is weak enough that he cannot really get around well. He does use a walker. Subjective weight loss with his close being looser than usual. He has had a regular bowel movement the last 2 days. He had bivalent COVID booster and flu shot 2 weeks ago. No known sick contacts. In the emergency room, he was afebrile but noted to have heart rate into the 120s. Blood pressure and pulse ox were normal. He has a history of atrial fibrillation, paroxysmal. Not on any rate controlling medications due to postural hypotension of longstanding duration. He is not on any anticoagulation secondary to history of falls associated with his parkinsonism. He had a fall with multiple rib fractures this past summer. He was found to have increased left-sided pleural effusion at that time. It was exudative in nature and felt to be combination of blood from that and heart failure with preserved ejection fraction. Imaging studies showed increasing left-sided pleural effusion and adjacent atelectasis concerning for possibility of pneumonia. White count was 28,000. Clinically patient was felt to possibly have pneumonia and was given Levaquin and Zosyn. Request was made for admission. Urinalysis is also abnormal. Patient does do self-catheterization weekly on Wednesdays usually. His urinary symptoms began a couple of days after self-catheterization 2 weeks ago. Review of Systems Const: Reports: chills, change in appetite (Absolutely no appetite), change in weight (Loss), fatigue, malaise and daytime sleepiness; Denies: fever(s) Eyes: Reports: other (Essentially blind) ENMT: Denies: throat pain or nasal congestion Card: Denies: chest pain, palpitations or edema Resp: Denies: dyspnea, productive cough or non-productive cough GI: Denies: abdominal pain, nausea, vomiting, diarrhea, constipation, hematochezia or melena : Denies: hematuria Musc: Reports: other Skin/Breast: Denies: rash, pruritus or sores Neuro: Denies: headache(s), numbness in extremities, weakness in extremities or difficulty walking Psych: Reports: sleeping more and memory loss (Short term memory loss slowly worsening); Denies: mood swings Usama/Lymph: Denies: easy bruising or easy bleeding Medications/Allergies Home Medications Medication Instructions Recorded Confirmed Last Taken Type multivitamin 1 tab PO DAILY #90 tabs 06/23/20 03/16/22 11/29/21 Rx fluticasone propionate 50 2 spray intranasal DAILY PRN 10/28/20 03/16/22 02/24/21 History mcg/actuation nasal Allergy Symptoms spray,suspension pantoprazole 40 mg tablet,delayed 40 mg PO DAILY 11/30/21 03/16/22 11/29/21 History release melatonin 5 mg capsule 10 mg PO BEDTIME PRN Sleep 01/26/22 03/16/22 Unknown History mupirocin 2 % topical ointment 1 applic topical BID PRN unknown 01/26/22 03/16/22 Unknown History amoxicillin 500 mg tablet 500 mg PO DAILY 03/16/22 03/16/22 03/15/22 History aspirin 81 mg tablet,delayed 81 mg PO QAM 03/16/22 03/16/22 03/16/22 History release carbidopa ER 50 mg-levodopa 200 mg 1 tab PO TID@07,11,16 03/16/22 03/16/22 03/16/22 History tablet,extended release citalopram 10 mg tablet 10 mg PO DAILY PRN Anxiety 03/16/22 03/16/22 Unknown History docusate sodium 100 mg capsule 100 mg PO BID PRN Constipation 03/16/22 03/16/22 Unknown History ferrous fumarate-vitamin C 200 mg 1 tab PO DAILY 03/16/22 03/16/22 Unknown History (66 mg iron)-125 mg tablet food supplemt, lactose-reduced 1 ea PO DAILY 03/16/22 03/16/22 Unknown History peg 400-propylene glycol 0.4 %-0.3 1 drp ophthalmic (eye) DAILY PRN 03/16/22 03/16/22 Unknown History % eye drops (Systane (propylene Dry Eye(S) glycol)) polyethylene glycol 3350 17 gram 17 g PO QAM 03/16/22 03/16/22 03/15/22 History oral powder packet (Miralax) sennosides 8.6 mg-docusate sodium 1 tab-cap PO DAILY 03/16/22 03/16/22 Unknown History 50 mg tablet (Senna-S) trazodone 100 mg tablet 100 mg PO BEDTIME PRN Sleep 03/16/22 03/16/22 Unknown History Allergies Allergy/AdvReac Type Severity Reaction Status Date / Time No Known Allergies Allergy Verified 03/16/22 11:31 PFSH Acute PFSH: Medical History (Updated 03/16/22 @ 19:58 by Marian Giron MD) Anxiety and depression ASVD (arteriosclerotic vascular disease) Carotid stenosis Chronic constipation Chronic GERD Chronic low back pain DDD (degenerative disc disease) Diverticulosis Drug intolerance flecainide Dyslipidemia Essential hypertension Heart failure with preserved ejection fraction Hiatal hernia Hyponatremia Insomnia Lewy body dementia Neuropathy Normochromic normocytic anemia Obstructive sleep apnea Has difficulty in using the CPAP Osteoarthritis of both knees Other urethral stricture, male, 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 Complete urethral reconstruction with subsequent urethral stricture disease. As required multiple dilations over the years. Overflow incontinence Parkinson disease Paroxysmal atrial fibrillation Polymyalgia rheumatica Prostatism Rib fracture History of multiple left sided fractures 11/2021 after fall with associated left sided exudative effusion; also with right 6th rib fracture Small vessel disease, cerebrovascular Spondylolisthesis Squamous cell carcinoma Vitamin D deficiency Surgical History (Updated 03/16/22 @ 14:26 by Marian Giron MD) History of back surgery History of circumcision History of dilation of urethra History of hemiarthroplasty of right hip History of hernia repair History of penile implant Inflatable penile prosthesis History of sinus surgery History of total knee replacement Status post cystourethroscopy with dilation of urethral stricture Status post right inguinal hernia repair (02/25/21) Family History (Updated 03/16/22 @ 14:50 by Marian Giron MD) Grandmother CAD (coronary artery disease) Stroke Brother Suicide Mother Lung disease Father , age 94, only took Tylenol Old age Denies family history of Diabetes Clotting disorder Dementia Chronic kidney disease (CKD) Anesthesia complication Bleeding disorder Cancer Social History Smoking and tobacco status: never smoked Second hand smoke exposure: No Alcohol intake: never Caregiver/support person: Yes Lives independently: Yes Household members: spouse Marital status: service: Yes Current occupational status: retired History of recent travel: No Current gender identity: Male Special massimo needs: No Agree to transfusion: Yes Vitals/I&O/Wt Last Vital Signs Temp 98.7 F 03/16/22 10:46 Pulse 99 03/16/22 13:34 Resp 16 03/16/22 13:34 BP 122/78 03/16/22 13:34 Pulse Ox 97 03/16/22 13:34 O2 Del Method 03/16/22 13:34 03/15/22 03/16/22 03/16/22 22:59 06:59 14:59 Intake Total 553.5 / 553.5 Balance 553.5 / 553.5 Weight last 48 hrs Weight 63.503 kg Physical Exam Narrative: Constitutional: Awake and alert, rigid posture, answers questions himself though speaks softly, cooperative HEENT: Bitemporal wasting noted otherwise normal cephalic, pupils are equally reactive, extraocular movements are grossly intact, patient can see my face and tell that I have a mask on but is not able to tell me what color the mask is or provide other definition about my appearance. Oropharynx with dry mucous membranes. Lips are dry. Teeth are his own with evidence of bruxism. Neck: Supple Respiratory: Decreased breath sounds on the left mid lung, no rales or rhonchi, no wheezes. Good aeration on the right comparatively. No accessory muscle use at rest. Able to talk in full sentences with occasional pauses without worsening respiratory status. Cardiovascular: Irregularly irregular tachycardic rhythm Abdomen: Soft, no flank tenderness, no other abdominal tenderness, slightly scaphoid, no masses, positive bowel sounds : Normal-appearing externally, no catheter currently Extremities: Muscle wasting is noted, no calf tenderness, no pitting edema Skin: Not able to safely visualize sacral area at the time of my evaluation, skin is dry with some tenting, chronic changes, no acute bruises or sores noted Neuro: Speech is clear but halting at times and soft, face is symmetric without expression, movements are slightly rigid along with posture. Handgrip is equal, moves both feet. No involuntary movements noted during my examination Psych: Flat affect, answered all but a few questions in a way that concurred with Data : 03/16/22 11:13 03/16/22 11:13 Other Labs: Radiology Impressions Chest X-Ray 03/16/22 11:31 IMPRESSION: Interval increase in size of small left pleural effusion with adjacent atelectasis. Pneumonia should be excluded clinically. Pulmonary congestion is suspected. COPD changes. Laboratory Results WBC 28.0 10^3/uL (4.0-10.0) H 03/16/22 11:13 RBC 3.30 10^6/uL (4.1-5.3) L 03/16/22 11:13 Hgb 10.9 g/dL (11.7-16.6) L 03/16/22 11:13 Hct 31.5 % (42.0-52.0) L 03/16/22 11:13 MCV 95.5 fl (80-94) H 03/16/22 11:13 MCH 33.0 pg (28.0-34.0) 03/16/22 11:13 MCHC 34.6 g/dL (30.0-36.0) 03/16/22 11:13 RDW 14.2 % (12.1-15.1) 03/16/22 11:13 Plt Count 225 10^3/cmm (130-400) 03/16/22 11:13 MPV 9.4 fL (7.4-10.4) 03/16/22 11:13 Neut % (Auto) 91.7 % 03/16/22 11:13 Lymph % (Auto) 2.7 % 03/16/22 11:13 [place] % (Auto) 3.2 % 03/16/22 11:13 Eos % (Auto) 0.1 % 03/16/22 11:13 Baso % (Auto) 0.4 % 03/16/22 11:13 Neut # (Auto) 25.66 10^3/uL (1.8-7.7) H 03/16/22 11:13 Lymph # (Auto) 0.8 10^3/uL (0.8-4.8) 03/16/22 11:13 [place] # (Auto) 0.9 10^3/uL (0.2-0.9) 03/16/22 11:13 Eos # (Auto) 0.0 10^3/uL (0.0-0.8) 03/16/22 11:13 Baso # (Auto) 0.1 10^3/uL (0.0-0.1) 03/16/22 11:13 Nucleated RBC % (auto) 0 % 03/16/22 11:13 Nucleated RBCs # 0.0 /100WBC 03/16/22 11:13 Sodium 130 mmol/L (136-145) L 03/16/22 11:13 Potassium 4.0 mmol/L (3.5-5.1) 03/16/22 11:13 Chloride 96 mmol/L (98-107) L 03/16/22 11:13 Carbon Dioxide 20 mmol/L (22-29) L 03/16/22 11:13 Anion Gap 18.0 (5-19) 03/16/22 11:13 BUN 49 mg/dL (8-23) H 03/16/22 11:13 Creatinine 1.8 mg/dL (0.7-1.2) H 03/16/22 11:13 GFR Calculation Not Reportable 03/16/22 11:13 Glucose 99 mg/dL (65-115) 03/16/22 11:13 Calculated Osmolality 283 mOsm/kg (285-295) L 03/16/22 11:13 Calcium 8.9 mg/dL (8.5-10.5) 03/16/22 11:13 Total Bilirubin 0.8 mg/dL (0.15-1.2) 03/16/22 11:13 AST 95 U/L (0-40) H 03/16/22 11:13 ALT 17 U/L (0-41) 03/16/22 11:13 Alkaline Phosphatase 122 U/L (40-130) 03/16/22 11:13 Total Protein 6.2 g/dL (6.6-8.7) L 03/16/22 11:13 Albumin 2.9 g/dL (3.5-5.2) L 03/16/22 11:13 Globulin 3.3 g/dL (1.3-4.6) 03/16/22 11:13 Urine Color Yellow (Yellow) 03/16/22 12:50 Urine Appearance Turbid (CLEAR) A 03/16/22 12:50 Urine pH 7 (5-7) 03/16/22 12:50 Ur Specific [place] 1.000 (1.005-1.030) L 03/16/22 12:50 Urine Protein 1+ (Negative) H 03/16/22 12:50 Urine Glucose (UA) Norm (Normal) 03/16/22 12:50 Urine Ketones 1+ (Negative) H 03/16/22 12:50 Urine Blood 2+ (Negative) H 03/16/22 12:50 Urine Nitrate Negative (Negative) 03/16/22 12:50 Urine Bilirubin Neg (Negative) 03/16/22 12:50 Urine Urobilinogen 1 mg/dL (Negative) H 03/16/22 12:50 Ur Leukocyte Esterase 2+ (Negative) H 03/16/22 12:50 Urine RBC 0-4 /hpf (0-2) H 03/16/22 12:50 Urine WBC Too numerous to cnt /hpf (0-5) H 03/16/22 12:50 Ur Squamous Epith Cells 0-4 /hpf (0-5) H 03/16/22 12:50 Amorphous Sediment Not Reportable 03/16/22 12:50 Urine Bacteria 4+ /hpf (NONE) H 03/16/22 12:50 Micro: Microbiology 03/16/22 12:18 Blood Culture - Preliminary Blood SPECIMEN COLLECTED 03/16/22 12:25 Blood Culture - Preliminary Blood SPECIMEN COLLECTED A&P Assessment and plan (1) Atrial fibrillation with RVR: In a patient known to have paroxysmal atrial fibrillation. Not on any rate controlling medications chronically due to postural hypotension and maintenance of sinus rhythm. Not on any chronic oral anticoagulation secondary to bleeding risk from falls. Does take daily aspirin for antiplatelet coverage. Clinically appears to be from dehydration, pulmonary status. (2) UTI (urinary tract infection): Present on admission, associated with intermittent self-catheterization, partially treated potentially after oral Macrobid and subtherapeutic dosing of oral amoxicillin Qualifiers: Urinary tract infection type: catheter-associated UTI Indwelling urinary catheter type: unspecified Encounter type: initial encounter Qualified Code(s): T83.511A - Infection and inflammatory reaction due to indwelling urethral catheter, initial encounter; N39.0 - Urinary tract infection, site not specified (3) Pneumonia: Clinically present on admission, organism unknown, left lower lobe versus atelectasis/effusion (4) TINO (acute kidney injury): Present on admission, baseline BUN and creatinine from 3 months ago was 16/0.8. Clinically prerenal secondary to lack of oral intake lately. Has not had large postvoid residuals on intermittent self-catheterization. Denies flank pain. No history of stones. (5) Pleural effusion: First noted to have bilateral pleural effusions left greater than right in November of this year after a fall. Effusion was noted to be exudative in nature and felt to be combination of blood remnants plus heart failure preserved ejection fraction. CT imaging of the chest at the time showed compressive left lower lobe atelectasis. Follow-up chest x-rays in December showed continued but smaller left pleural effusion. (6) Heart failure with preserved ejection fraction: Echocardiogram in October of this year showed ejection fraction 55 to 60% with indeterminate diastolic function secondary to atrial fibrillation. Biatrial enlargement was noted with moderate mitral regurgitation, mild to moderate aortic regurgitation, moderate tricuspid regurgitation, mild to moderate pulmonary hypertension. Pulmonary hypertension at that time appeared new. Clinically appears volume depleted whole body but does have left pleural effusion identified Qualifiers: Heart failure chronicity: chronic Qualified Code(s): I50.32 - Chronic diastolic (congestive) heart failure (7) Parkinson disease: With associated early Lewy body dementia, on Sinemet 50/203 times a day. Suspect some of his symptoms related to continued dosing in the setting of developing acute kidney injury. (8) Chronic anemia: Currently stable (9) Obstructive sleep apnea: Generally intolerant of CPAP/BiPAP (10) Self-catheterizes urinary bladder: Weekly intermittent self-catheterization secondary to history of urethral stricture that occurred after significant trauma and reconstruction years ago. Self-catheterization helps maintain patency. Utilizes coud? catheter. Follows with Dr. Jauregui and has required Carlos placement under cystoscopy/anesthesia previously when stricture has recurred. Plan History of sacral decubiti present earlier this year; unable to adequately assess presently AST twice normal limits Hypoalbuminemia Chronic hypochloremic, hyponatremia currently hypovolemic Inpatient admission IV fluids Diltiazem as needed for rate control currently Given known postural hypotension, do not anticipate continuation of rate controlling agents that impact blood pressure upon discharge currently Depending on response to treatment, consider cardiology consultation if rapid ventricular response is persistent Broad-spectrum antibiotics for both pulmonary and urinary coverage Blood cultures collected in the emergency room Check procalcitonin, BNP Repeat chemistries tomorrow Urine cultures collected in the emergency room Pulmonary toilet CT of the chest, currently without contrast unless renal function improves IV fluids, monitoring I's and O's closely May benefit from consideration of administering Lasix and albumin but want to see how he does with fluids overnight Oxygen therapy as needed May benefit from consideration of BiPAP or CPAP but has historically not tolerated well Decrease dose of Sinemet currently in the setting of acute kidney injury Check TSH, had sick euthyroid parameters earlier this year Check iron level Dietitian consultation Will continue nutritional supplements 3 times daily; and encouraged to eat what he can otherwise Decrease dosing of home trazodone; will allow continuation of melatonin Continue home aspirin, citalopram, Protonix, stool softeners and artificial tears Self-catheterization as needed with daily catheter, Wednesdays are usual days Need to evaluate sacral area once on floor and in a more amendable bed PPI provides GI prophylaxis SCDs and subcutaneous heparin for DVT prophylaxis Case management for assistance with discharge planning; may benefit from services depending on clinical course Currently anticipate discharge back home possibly with home health Findings, concerns and plans were discussed with patient as well as his and both were given an opportunity to ask questions Reviewed CODE STATUS with patient in the presence of his . Described chest compressions, including potential to break ribs again particularly with him having been broken already this year after a fall, intubation and mechanical ventilation and other life-saving measures. Reviewed potential likelihood of survival should he require measures. Currently they wish for Mr. Vargas to be FULL CODE though would not want prolonged life support. Attestations Medical Necessity Statement*: Anticipated stay greater than two midnights in this 86-year-old gentleman with comorbid medical conditions as described. He has evidence of atrial fibrillation with rapid ventricular response, urinary tract infection, known self-catheterization, acute kidney injury and increased left pleural effusion, pneumonia, atelectasis on the left side based on clinical presentation. Requiring IV fluids, IV antibiotics, telemetry monitoring and other care as described. High risk of rapid clinical decline up to and including the possibility of . Coding Level of Care Code Acute [place] [employer] for g Fwd Diagnoses Atrial fibrillation with RVR I48.91 UTI (urinary tract infection) T83.511A; N39.0 Urinary tract infection type: catheter-associated UTI Indwelling urinary catheter type: unspecified Encounter type: initial encounter Pneumonia J18.9 TINO (acute kidney injury) N17.9 Pleural effusion J90 Heart failure with preserved ejection fraction I50.32 Heart failure chronicity: chronic Parkinson disease G20 Chronic anemia D64.9 Obstructive sleep apnea G47.33 Self-catheterizes urinary bladder Z78.9
[2022-03-16] MEDS: dilTIAZem 30 mg Tablet PO (16:29)
[2022-03-16 16:41] LABS: NT Pro B Type Natriuretic Pept 8267 pg/mL (0-450); Procalcitonin 1.95 ng/mL (0-0.5)
[2022-03-16] MEDS: carbidopa-levodopa 25-100mg Tablet 1 EACH PO (18:40)
[2022-03-16] MEDS: lactobacillus 1 Tablet 1 TAB PO (18:40)
[2022-03-16] MEDS: sodium chloride 0.9% 1,000 ML 75 ML IV (18:40)
--- NOTE | 2022-03-16 19:42 | PC.NURSE ---
Noted SpO2 to be documented low. These 2 documentations are inaccurate. Corrected numbers are 93% and 95%. Dr Giron present and is aware of this.
[2022-03-16] MEDS: heparin 5,000 unit/mL INJ 1 mL 5000 UNIT SUBCUT (20:14)
[2022-03-16] MEDS: trazodone 100 mg Tablet 25 MG PO (20:14)
[2022-03-16] MEDS: vancomycin 1,000 MG in sodium chloride 0.9% 250 ML 250 MG IV (21:24)
[2022-03-16] MEDS: piperacillin-tazobactam 2.25 GM in sodium chloride 0.9% (plus) 50 ML IV (22:39)
[2022-03-17] VITALS (11 sets, daily range): BP systolic 102–137; BP diastolic 75–86; PULSE 94–112; RESP 20–28; TEMP 36.2–36.9; O2SAT 93–98
[2022-03-17 02:42] LABS: Basophils % 0.2 %; Eosinophils % 0.1 %; Hematocrit 29.3 % (42.0-52.0); Hemoglobin 9.8 g/dL (11.7-16.6); Lymphocytes # 0.6 10^3/uL (0.8-4.8); Lymphocytes % 2.8 %; Mean Corpuscular HGB Conc 33.4 g/dL (30.0-36.0); Mean Corpuscular Hemoglobin 33.8 pg (28.0-34.0); Mean Platelet Volume 9.4 fL (7.4-10.4); Monocytes # 0.7 10^3/uL (0.2-0.9); Monocytes % 3.1 %; Neutrophils # 19.97 10^3/uL (1.8-7.7); Neutrophils % 90.8 %; Nucleated Red Blood Cells % 0 %; Platelet Count 206 10^3/cmm (130-400); Red Cell Distribution Width 14.5 % (12.1-15.1)
[2022-03-17 03:50] LABS: Alanine Aminotransferase 11 U/L (0-41); Albumin Level 2.4 g/dL (3.5-5.2); Alkaline Phosphatase 111 U/L (40-130); Anion Gap 16.4 (5-19); Aspartate Amino Transferase 90 U/L (0-40); Blood Urea Nitrogen 44 mg/dL (8-23); Calcium 8.3 mg/dL (8.5-10.5); Carbon Dioxide 18 mmol/L (22-29); Chloride 97 mmol/L (98-107); Globulin 2.9 g/dL (1.3-4.6); Glucose 94 mg/dL (65-115); Iron 13 ug/dL (59-158); Osmolality Calculated 277 mOsm/kg (285-295); Phosphorus 3.1 mg/dL (2.5-4.5); Potassium 3.4 mmol/L (3.5-5.1); Sodium 128 mmol/L (136-145); Thyroid Stimulating Hormone 3.48 uIU/mL (0.27-4.20); Total Bilirubin 0.9 mg/dL (0.15-1.2); Total Iron Binding Capacity 108 mcg/dl; Total Protein 5.3 g/dL (6.6-8.7); Unsaturated Iron Binding 95 ug/dL (112-347); Uric Acid 4.6 mg/dL (3.4-7.0)
[2022-03-17] MEDS: carbidopa-levodopa 25-100mg Tablet 1 EACH PO ×3 (05:50→18:57)
[2022-03-17] MEDS: aspirin 81 mg EC Tablet PO (05:50)
[2022-03-17] MEDS: heparin 5,000 unit/mL INJ 1 mL 5000 UNIT SUBCUT ×2 (05:50→18:58)
[2022-03-17] MEDS: sodium chloride 0.9% 1,000 ML 75 ML IV (05:50)
--- NOTE | 2022-03-17 10:00 | CTR_ITS ---
PROCEDURE INFORMATION: Exam: CT Chest Without Contrast; Diagnostic Exam date and time: 03/17/2022 6:37 PM Age: 86 years old Clinical indication: Dyspnea and shortness of breath; Additional info: Recurrent increase pleural effusion left, anorexia, moore, CR 1.8 so contrast not ordered TECHNIQUE: Imaging protocol: Diagnostic computed tomography of the chest without contrast. Radiation optimization: All CT scans at this facility use at least one of these dose optimization techniques: automated exposure control; mA and/or kV adjustment per patient size (includes targeted exams where dose is matched to clinical indication); or iterative reconstruction. COMPARISON: CT chest [facility] [id number] 11/30/2021 7:44 AM RADIATION DOSE METRICS: Total DLP (mGy-cm): 389.67 FINDINGS: Trachea: The trachea is unremarkable in appearance. Lungs: Compressive atelectasis noted of a large portion of the left lower lobe. Mild compressive atelectasis of the posterior portion of the lingula noted. Mild subpleural fibrosis noted in both lungs. Mild bronchial wall thickening bilaterally. Mild atelectasis in the posterior right lower lobe. No consolidative infiltrates in the right lung. Pleural spaces: Moderate-sized left pleural effusion. Trace right pleural effusion. Heart: No cardiomegaly demonstrated. The coronary arteries demonstrate atherosclerotic calcifications. Mediastinal space: The esophagus is mildly dilated, demonstrates retained fluid throughout. Lymph nodes: No pathologically enlarged lymph nodes are demonstrated. Vasculature: Unremarkable. No aortic aneurysm. Diaphragm: There is a large hiatal hernia present. Soft tissue structure within the hernia likely represents a compressed gastric fundus. Bones/joints: Advanced degenerative spine changes. No acute osseous abnormality. Soft tissues: Unremarkable. CT/CT chest [facility] [id number] IMPRESSION: 1. There is a large hiatal hernia present, unchanged from 11/30/2021. Soft tissue structure within the hernia likely represents a compressed gastric fundus. 2. The esophagus is mildly dilated, demonstrates retained fluid throughout. This may be related to gastroesophageal reflux from the visualized hiatal hernia. This is unchanged from 11/30/2021. 3. Moderate-sized left pleural effusion. This is associated with compressive atelectasis of a large portion of the left lower lobe. This is unchanged from 11/30/2021. 4. Mild atelectasis in the posterior right lower lobe. No consolidative infiltrates in the right lung.
[2022-03-17] MEDS: pantoprazole DR 40 mg Tablet PO (10:07)
[2022-03-17] MEDS: dilTIAZem 30 mg Tablet PO (10:07)
[2022-03-17] MEDS: lactobacillus 1 Tablet 1 TAB PO ×2 (10:07→18:56)
[2022-03-17] MEDS: sennosides-docusate Tablet 1 TAB PO (10:07)
[2022-03-17] MEDS: piperacillin-tazobactam 3.375 GM in sodium chloride 0.9% (plus) 50 ML IV ×2 (10:10→18:57)
--- NOTE | 2022-03-17 14:07 | PM.PN ---
Subjective Subjective: pt feels slightly better than yesterday he states he is finally able to eat he ate 70% of his breakfast as noted in room at bedside denies cp, sob, abdominal pain Vitals/I&O/Wt Last Vital Signs Temp 98.5 F 03/17/22 07:59 Pulse 106 H 03/17/22 08:44 Resp 20 H 03/17/22 08:44 BP 136/75 03/17/22 07:59 Pulse Ox 95 03/17/22 08:44 O2 Del Method 03/17/22 08:44 03/16/22 03/17/22 03/17/22 22:59 06:59 14:59 Intake Total 866.5 / 1420.0 1050 / 2470.0 240 / 240 Output Total 200 / 200 150 / 350 200 / 200 Balance 666.5 / 1220.0 900 / 2120.0 40 / 40 Weight last 48 hrs Weight 65.227 kg Weight 63.503 kg Physical Exam Narrative: general: elderly male laying in bed eating breakfast, at bedside, aox3 nc/at, eomi lungs cta b/l overall with crackles at left base abdomen soft,nontender, no guarding extremities: no LE edema. has scds in place neuro: non focal, moves all 4 extremities Data : 03/17/22 02:25 03/17/22 02:25 Micro: Microbiology 03/16/22 12:18 Blood Culture - Preliminary Blood NEGATIVE TO DATE 03/16/22 12:25 Blood Culture - Preliminary Blood NEGATIVE TO DATE 03/16/22 12:50 Urine Culture - Preliminary Urine,Clean Catch A&P Assessment and plan (1) Atrial fibrillation: (2) Dyslipidemia: (3) Obstructive sleep apnea: (4) Benign essential HTN: (5) Parkinson disease: (6) Chronic anemia: (7) Postural hypotension: (8) Frequent falls: (9) Pleural effusion: (10) Lung cancer: (11) Heart failure with preserved ejection fraction: Qualifiers: Heart failure chronicity: chronic Qualified Code(s): I50.32 - Chronic diastolic (congestive) heart failure (12) Lewy body dementia: (13) UTI (urinary tract infection): Qualifiers: Urinary tract infection type: catheter-associated UTI Indwelling urinary catheter type: unspecified Encounter type: initial encounter Qualified Code(s): T83.511A - Infection and inflammatory reaction due to indwelling urethral catheter, initial encounter; N39.0 - Urinary tract infection, site not specified (14) Atrial fibrillation with RVR: (15) TINO (acute kidney injury): Plan #Pneumonia #Left pleural effusion #Failure to thrive, loss of appetite #Parkinson's disease #UTI #Anxiety/Depression #HFpEF #Lewy Body Dementia #A.fib #DLD #HTN #OA #Chronic constipation #Iron deficiency anemia #Protein calorie malnutrition #Chronic hyponatremia #Hypokalemia - Last echo: Echocardiogram in October of this year showed ejection fraction 55 to 60% with indeterminate diastolic function secondary to atrial fibrillation.? Biatrial enlargement was noted with moderate mitral regurgitation, mild to moderate aortic regurgitation, moderate tricuspid regurgitation, mild to moderate pulmonary hypertension.? Pulmonary hypertension at that time appeared new. - COntinue on vancomycin, zosyn, levaquin - Check urine culture - Not on AV jerry blockers. Start on cardizem 30 q6H. Not on AC due to high fall risk - Does have postural hypotension - Sinemet dose adjusted at admission - Continue to encourage oral intake - Trazodone at night - Order IV iron. Iron panel reviewed - check B12, folate - PT/OT - Order nutrition consult - COntinue gentle hydration - Recheck CXR today. Pt may need thoracentesis Full Code DVT PPX: heparin Attestations Medical Necessity Statement*: needs continued hospital stay for management of uti, tino, pleural effusion, pneumonia. expect 48-72 hour stay pending clinical course Coding Level of Care Code Acute Assignment Officer for g Fwd Diagnoses Atrial fibrillation I48.91 Dyslipidemia E78.5 Obstructive sleep apnea G47.33 Benign essential HTN I10 Parkinson disease G20 Chronic anemia D64.9 Postural hypotension I95.1 Frequent falls R29.6 Pleural effusion J90 Lung cancer C34.90 Heart failure with preserved ejection fraction I50.32 Heart failure chronicity: chronic Lewy body dementia G31.83; F02.80 UTI (urinary tract infection) T83.511A; N39.0 Urinary tract infection type: catheter-associated UTI Indwelling urinary catheter type: unspecified Encounter type: initial encounter Atrial fibrillation with RVR I48.91 TINO (acute kidney injury) N17.9
[2022-03-17] MEDS: ipratropium-albuterol 3 mL Neb INHALATION (16:24)
[2022-03-17] MEDS: trazodone 100 mg Tablet 25 MG PO (20:26)
[2022-03-17] MEDS: vancomycin 750 MG in sodium chloride 0.9% 250 ML 250 MG IV (21:23)
[2022-03-18] VITALS (11 sets, daily range): BP systolic 101–127; BP diastolic 59–83; PULSE 94–114; RESP 16–29; TEMP 36.5–38; O2SAT 82–97
[2022-03-18] MEDS: piperacillin-tazobactam 3.375 GM in sodium chloride 0.9% (plus) 50 ML IV ×3 (00:23→17:46)
--- NOTE | 2022-03-18 04:00 | XRR_ITS ---
PROCEDURE INFORMATION: Exam: XR Chest Exam date and time: 03/18/2022 4:45 AM Age: 86 years old Clinical indication: Condition or disease; Lung condition and disease; Pleural effusion; Other: Not specified; Additional info: Lomas, pleural effusion TECHNIQUE: Imaging protocol: Radiologic exam of the chest. Views: 1 view. COMPARISON: CT chest con [id number] 03/17/2022 6:37 PM FINDINGS: Lungs: There is redistribution and indistinctness of the pulmonary vasculature, in association with haziness of the lungs and bilateral pleural effusions, which in the setting of cardiomegaly is consistent with pulmonary edema. Pneumonia should be excluded clinically. No pneumothorax. Pleural spaces: See Lungs finding. Heart/Mediastinum: Stable cardiomediastinal silhouette. Bones/joints: Old rib fracture deformities noted on the left. XR/XR chest 1V portable [id number] IMPRESSION: Imaging findings of pulmonary edema with moderate left and small right pleural effusions. Pneumonia should be excluded clinically.
[2022-03-18] MEDS: aspirin 81 mg EC Tablet PO (05:50)
[2022-03-18] MEDS: heparin 5,000 unit/mL INJ 1 mL 5000 UNIT SUBCUT ×2 (05:50→17:49)
[2022-03-18] MEDS: carbidopa-levodopa 25-100mg Tablet 1 EACH PO ×3 (05:50→15:15)
--- NOTE | 2022-03-18 08:44 | P.PN_ITS ---
Subjective Subjective: Seen this morning. Discussed patient's CAT scan results with pulmonology. They have suggested to do a thoracentesis and patient would not be candidate for chest tube at this time. Patient states that he is starting to feel a little bit better compared to before. Vitals/I&O/Wt Last Vital Signs Temp 98.1 F 03/18/22 11:31 Pulse 106 H 03/18/22 11:31 Resp 26 H 03/18/22 11:31 BP 101/59 03/18/22 11:31 Pulse Ox 82 L 03/18/22 11:31 O2 Del Method 03/18/22 11:31 O2 Flow Rate 1.5 03/18/22 07:50 03/18/22 03/18/22 03/18/22 06:59 14:59 22:59 Intake Total 270 / 2580 410 / 410 Output Total 1000 / 1550 Balance -730 / 1030 410 / 410 Weight last 48 hrs Weight 68.583 kg Weight 65.227 kg Physical Exam Narrative: general: elderly male laying in bed eating breakfast, at bedside, aox3 nc/at, eomi lungs cta b/l overall with crackles at left base abdomen soft,nontender, no guarding extremities: no LE edema. has scds in place neuro: non focal, moves all 4 extremities Urinary Catheter Management: Carlos: Cath Placed During This Visit: yes Reason for Continuing Indwelling Catheter: Acute Urinary Retention or Obstruction Urinary Catheter Date of Insertion: 03/17/22 Urinary Catheter Time of Insertion: 11:45 Data : 03/18/22 15:49 03/18/22 15:49 Micro: Microbiology 03/16/22 12:50 Urine Culture - Final Urine,Clean Catch 03/16/22 12:18 Blood Culture - Preliminary Blood NEGATIVE TO DATE 03/16/22 12:25 Blood Culture - Preliminary Blood NEGATIVE TO DATE A&P Assessment and plan (1) Atrial fibrillation: (2) Dyslipidemia: (3) Obstructive sleep apnea: (4) Benign essential HTN: (5) Parkinson disease: (6) Chronic anemia: (7) Postural hypotension: (8) Frequent falls: (9) Pleural effusion: (10) Lung cancer: (11) Heart failure with preserved ejection fraction: Qualifiers: Heart failure chronicity: chronic Qualified Code(s): I50.32 - Chronic diastolic (congestive) heart failure (12) Lewy body dementia: (13) UTI (urinary tract infection): Qualifiers: Encounter type: initial encounter Indwelling urinary catheter type: unspecified Urinary tract infection type: catheter-associated UTI Qualified Code(s): T83.511A - Infection and inflammatory reaction due to indwelling urethral catheter, initial encounter; N39.0 - Urinary tract infection, site not specified (14) Atrial fibrillation with RVR: (15) TINO (acute kidney injury): Plan #Pneumonia #Left pleural effusion #Failure to thrive, loss of appetite #Large hiatal hernia with retained fluid in esophagus. Unchanged from prior studies #Parkinson's disease #UTI #Anxiety/Depression #HFpEF #Lewy Body Dementia #A.fib #DLD #HTN #OA #Chronic constipation #Iron deficiency anemia #Protein calorie malnutrition #Chronic hyponatremia #Hypokalemia - Last echo: Echocardiogram in October of this year showed ejection fraction 55 to 60% with indeterminate diastolic function secondary to atrial fibrillation.? Biatrial enlargement was noted with moderate mitral regurgitation, mild to moderate aortic regurgitation, moderate tricuspid regurgitation, mild to moderate pulmonary hypertension.? Pulmonary hypertension at that time appeared new. - COntinue on vancomycin, zosyn,. Stop Levaquin. -Urine culture positive for mixed superficial siva greater than 100,000 col onies. I will repeat urine culture at this time. -Discontinue Cardizem. Patient's blood pressure is low. -We will start Lopressor 25 twice daily once blood pressure permits. If he does go back into A. fib with RVR we may resort to amiodarone. - Does have postural hypotension - Sinemet dose adjusted at admission - Continue to encourage oral intake - Trazodone at night -Start ferrous sulfate orally - check B12, folate - PT/OT - Order nutrition consult -Stop IV fluids. ? Discussed with pulmonology. Patient not candidate for chest tube at this time. Will attempt to thoracentesis. Check fluid for cytology and culture Family interested in correction. Case management working on placement PT/OT ordered. Pt is a max assist at this time He also has large hiatal hernia. DIscussed with patient. He would like me to talk to his regarding it Will consider mirtazapine after discussion with family. Full Code DVT PPX: heparin Attestations Medical Necessity Statement*: needs continued hospital stay for management of uti, tino, pleural effusion, pneumonia. expect 48-72 hour stay pending clinical course Coding Level of Care Code Acute Security Public Safety Officer for Chg Fwd Diagnoses Atrial fibrillation I48.91 Dyslipidemia E78.5 Obstructive sleep apnea G47.33 Benign essential HTN I10 Parkinson disease G20 Chronic anemia D64.9 Postural hypotension I95.1 Frequent falls R29.6 Pleural effusion J90 Lung cancer C34.90 Heart failure with preserved ejection fraction I50.32 Heart failure chronicity: chronic Lewy body dementia G31.83; F02.80 UTI (urinary tract infection) T83.511A; N39.0 Encounter type: initial encounter Indwelling urinary catheter type: unspecified Urinary tract infection type: catheter-associated UTI Atrial fibrillation with RVR I48.91 TINO (acute kidney injury) N17.9
[2022-03-18] MEDS: pantoprazole DR 40 mg Tablet PO (08:54)
[2022-03-18] MEDS: lactobacillus 1 Tablet 1 TAB PO ×2 (08:54→17:52)
[2022-03-18] MEDS: sennosides-docusate Tablet 1 TAB PO (08:54)
--- NOTE | 2022-03-18 10:43 | US_ITS ---
WS: [id number] ULTRASOUND-GUIDED THORACENTESIS CLINICAL INFORMATION: pleural effusion left side COMPARISON: None. PROCEDURE: Informed consent: The risks, benefits, and alternatives of the procedure were discussed with the alessia ent. Verbal and written consent was obtained. Timeout: A timeout was performed to confirm the correct patient, procedure, and site. Site: LEFT chest Preparation: A suitable skin site was identified. The patient was prepped and draped in usual sterile fashion. Lidocaine 1% was used for local anesthesia. Catheter: 4 Fijian One-Step catheter. Fluid Volume: 800 ml Color: Clear yellow Fluid sent for requested diagnostic tests. Complications: None. / thoracentesis [id number] IMPRESSION: Uncomplicated ultrasound-guided LEFT thoracentesis.
--- NOTE | 2022-03-18 15:04 | XRR_ITS ---
PROCEDURE INFORMATION: Exam: XR Chest Exam date and time: 03/18/2022 3:17 PM Age: 86 years old Clinical indication: Device placement; Other: Post thoracentesis TECHNIQUE: Imaging protocol: Radiologic exam of the chest. Views: 1 view. COMPARISON: CR XR chest 1V portable [id number] 03/18/2022 4:45 AM FINDINGS: Lungs: Atelectasis at the left lung base adjacent to the pleural effusion. Pleural spaces: Improved now small volume left pleural effusion post thoracentesis. Small volume right pleural effusion again present. No pneumothorax. Heart/Mediastinum: Stable heart size. Bones/joints: Visualized osseous structures are intact. XR/XR chest 1V portable [id number] IMPRESSION: Improved now small volume left pleural effusion post thoracentesis.
[2022-03-18 15:25] LABS: Mononuclear %, Pleural Fluid 11 %; Mononuclear, Pleural Fluid # 0.837 10^3/uL; Polynuclear Cells, Pleural # 6.692 10^3/uL; Polynuclear Cells, Pleural % 89 %
[2022-03-18 15:28] LABS: Appearance, Pleural Fluid CLOUDY (CLEAR); Color, Pleural Fluid Yellow (Pale Yellow); Pleural Fluid Specific Gravity 1.005
[2022-03-18 15:54] LABS: Pleural Fluid Albumin 1.2 g/dL; Pleural Fluid Triglycerides 11 mg/dL
[2022-03-18 15:55] LABS: LDH Pleural Fluid 488 U/L; Total Protein Pleural Fluid 2.5 g/dL
[2022-03-18 16:01] LABS: Left Pleural Fluid Analysis Left Lung
[2022-03-18 16:02] LABS: Basophils # 0.1 10^3/uL (0.0-0.1); Basophils % 0.4 %; Eosinophils # 0.1 10^3/uL (0.0-0.8); Eosinophils % 0.2 %; Hematocrit 31.8 % (42.0-52.0); Hemoglobin 10.5 g/dL (11.7-16.6); Lymphocytes # 1.2 10^3/uL (0.8-4.8); Lymphocytes % 4.9 %; Mean Corpuscular Hemoglobin 32.9 pg (28.0-34.0); Mean Corpuscular Volume 99.7 fl (80-94); Mean Platelet Volume 9.6 fL (7.4-10.4); Monocytes # 1.1 10^3/uL (0.2-0.9); Monocytes % 4.4 %; Neutrophils # 22.27 10^3/uL (1.8-7.7); Neutrophils % 87.3 %; Nucleated Red Blood Cells % 0 %; Platelet Count 250 10^3/cmm (130-400); Red Blood Count 3.19 10^6/uL (4.1-5.3); Red Cell Distribution Width 14.4 % (12.1-15.1); White Blood Count 25.5 10^3/uL (4.0-10.0)
[2022-03-18] MEDS: levofloxacin-dextrose 5 % 750 MG/150 ML PREMIX 100 MG IV (16:03)
[2022-03-18 16:34] LABS: Alanine Aminotransferase 36 U/L (0-41); Albumin Level 2.5 g/dL (3.5-5.2); Alkaline Phosphatase 142 U/L (40-130); Anion Gap 14.6 (5-19); Aspartate Amino Transferase 202 U/L (0-40); Blood Urea Nitrogen 34 mg/dL (8-23); Calcium 8.1 mg/dL (8.5-10.5); Carbon Dioxide 21 mmol/L (22-29); Chloride 92 mmol/L (98-107); Globulin 3.3 g/dL (1.3-4.6); Glucose 102 mg/dL (65-115); Osmolality Calculated 266 mOsm/kg (285-295); Potassium 3.6 mmol/L (3.5-5.1); Sodium 124 mmol/L (136-145); Total Bilirubin 0.7 mg/dL (0.15-1.2); Total Protein 5.8 g/dL (6.6-8.7)
[2022-03-18 17:58] LABS: Cyto Order Verification Order Verified
[2022-03-18 18:49] LABS: PATH Referal YES
[2022-03-18 20:45] LABS: Add Urine Microscopic? NO; Charge for UA Resulting for Rev
[2022-03-18 20:58] LABS: Glucose Urine UA Norm (Normal); Ketones Urine Negative (Negative); Protein Urine Neg (Negative); Urine Appearance Clear (CLEAR); Urine Color Yellow (Yellow); pH Urine 5 (5-7)
[2022-03-18 20:59] LABS: Bilirubin Urine Neg (Negative); Blood Urine Neg (Negative); Leukocyte Esterase Urine Negative (Negative); Nitrate Urine Negative (Negative); Urobilinogen Urine Norm (Negative)
[2022-03-18 21:05] LABS: Urine Random Sodium 15 mmol/L
--- NOTE | 2022-03-18 21:24 | PM.CONSULT ---
Providers/Reason For Consult Consulting Physician/Specialty*: Noé Rodriguez MD/Pulmonary Critical Care Reason for Consult*: left pleural effusion Requesting Physician: Clau Wei MD Attending Physician: Clau Wei MD Primary Care Provider: Nika Parekh MD History of Present Illness History of Present Illness Yossi Vargas is a 86 year old male With past medical history of atrial fibrillation, parkinsonism, hypertension, carotid stenosis, GERD, dyslipidemia, KIERRA, urethral stricture requiring self-catheterization admitted to hospital on 03/16/2022 for progressive weakness, loss of appetite. Patient reported the symptoms have been worsening over last several weeks, started having urinary symptoms about a week and half ago-given his history of urethral stricture requiring [id number] was started on amoxicillin for Lemli p.o. 3 times daily as outpatient. Admitted having chills. His shortness of breath has been worsening especially on exertion as per . During admission in ER his heart rate was noted to be in 120s. He has history of atrial fibrillation but is not on any rate control medications due to postural hypotension as well as not on anticoagulation due to history of falls associated with parkinsonism. He has multiple history of falls which have caused multiple rib fractures last summer. During his last admission in November last 2021-imaging during admission showed increasing left pleural effusion-thoracentesis yielded 850 cc fluid which was exudative in nature-cytology negative for malignancy. Patient also has chronic diastolic heart failure. Echocardiogram in October 2021 showed EF 55 to 60% with indeterminate diastolic function secondary to atrial fibrillation. Biatrial enlargement with moderate mitral regurgitation, mild to moderate aortic regurgitation, moderate tricuspid regurgitation, mild to moderate pulmonary hypertension. This admission his white count noted to be 28,000 and imaging showed increasing left pleural effusion. He was started on the Levaquin and Zosyn, urine analysis showed leukoesterase positive nitrate negative. He had mild fevers. He had a CT chest 03/17/2022 which showed compressive atelectasis on large portion of left lower lobe with mild compressive atelectasis of posterior portion of the lingula. Mild subpleural fibrosis noted in both lungs. Mild bronchial wall thickening bilaterally. Mild atelectasis in posterior right lower lobe. Moderate size left pleural effusion with trace right pleural effusion. Esophagus mildly dilated, states retained fluid throughout. Large hiatal hernia present. Patient underwent left-sided thoracentesis today-yielded 800 cc slightly cloudy, straw-colored fluid with some sediments. Postprocedure chest x-ray showed significantly improved left pleural effusion. Fluid analysis showed 7000 WBC with 89% neutrophils, LDH 488, pleural protein 2.5, pleural glucose 118, pH 7. Due to concerns for empyema given the pH 7-pulmonary consult requested I have seen patient at bedside-currently requiring 3 L oxygen -Reported that he has experienced loss of appetite and significant weakness and fatigue over the last few months which she never has known -However currently stated that he started to feel better since starting antibiotics and after today's thoracentesis -Other labs and imaging reviewed Medications/Allergies Home Medications Medication Instructions Recorded Confirmed Last Taken Type multivitamin 1 tab PO DAILY #90 tabs 06/23/20 03/16/22 11/29/21 Rx fluticasone propionate 50 2 spray intranasal DAILY PRN 10/28/20 03/16/22 02/24/21 History mcg/actuation nasal Allergy Symptoms spray,suspension pantoprazole 40 mg tablet,delayed 40 mg PO DAILY 11/30/21 03/16/22 11/29/21 History release melatonin 5 mg capsule 10 mg PO BEDTIME PRN Sleep 01/26/22 03/16/22 Unknown History mupirocin 2 % topical ointment 1 applic topical BID PRN unknown 01/26/22 03/16/22 Unknown History amoxicillin 500 mg tablet 500 mg PO DAILY 03/16/22 03/16/22 03/15/22 History aspirin 81 mg tablet,delayed 81 mg PO QAM 03/16/22 03/16/22 03/16/22 History release carbidopa ER 50 mg-levodopa 200 mg 1 tab PO TID@07,11,16 03/16/22 03/16/22 03/16/22 History tablet,extended release citalopram 10 mg tablet 10 mg PO DAILY PRN Anxiety 03/16/22 03/16/22 Unknown History docusate sodium 100 mg capsule 100 mg PO BID PRN Constipation 03/16/22 03/16/22 Unknown History ferrous fumarate-vitamin C 200 mg 1 tab PO DAILY 03/16/22 03/16/22 Unknown History (66 mg iron)-125 mg tablet food supplemt, lactose-reduced 1 ea PO DAILY 03/16/22 03/16/22 Unknown History peg 400-propylene glycol 0.4 %-0.3 1 p ophthalmic (eye) DAILY PRN 03/16/22 03/16/22 Unknown History % eye drops (Systane (propylene Dry Eye(S) glycol)) polyethylene glycol 3350 17 gram 17 g PO QAM 03/16/22 03/16/22 03/15/22 History oral powder packet (Miralax) sennosides 8.6 mg-docusate sodium 1 tab-cap PO DAILY 03/16/22 03/16/22 Unknown History 50 mg tablet (Senna-S) trazodone 100 mg tablet 100 mg PO BEDTIME PRN Sleep 03/16/22 03/16/22 Unknown History Allergies Allergy/AdvReac Type Severity Reaction Status Date / Time No Known Allergies Allergy Verified 03/16/22 11:31 Current Medications Generic Name Dose Route Start Last Admin Trade Name Freq PRN Reason Stop Dose Admin Albuterol/Ipratropium 3 ml 03/16/22 20:07 03/17/22 16:24 Ipratropium-Albuterol 3 Ml Neb INHALATION 3 ml Q6H PRN Administration SHORTNESS OF BREATH Aspirin 81 mg 03/17/22 06:00 03/18/22 05:50 Aspirin 81 Mg Ec Tablet PO 81 mg QAM EVARISTO Administration Carbidopa/Levodopa 1 each 03/17/22 07:00 03/18/22 15:15 Carbidopa-Levodopa 25-100mg Tablet PO 1 each TID@07,11,16 EVARISTO Administration Citalopram Hydrobromide 10 mg 03/17/22 09:00 03/18/22 08:55 Citalopram 20 Mg Tablet PO Not Given DAILY EVARISTO Heparin Sodium (Porcine) 5,000 unit 03/16/22 19:00 03/18/22 17:49 Heparin 5,000 Unit/Ml Inj 1 Ml SUBCUT 5,000 unit Q12H EVARISTO Administration Piperacillin Sod/Tazobactam 50 mls @ 12.5 mls/hr 03/17/22 09:00 03/18/22 17:46 Sod 3.375 gm/ Sodium Chloride IV 12.5 mls/hr Q8H EVARISTO Administration Protocol As Directed Vancomycin HCl 750 mg/ Sodium 250 mls @ 250 mls/hr 03/17/22 21:30 03/17/22 22:19 Chloride IV Infused Q24H EVARISTO Infusion Levofloxacin/Dextrose 750 mg in 150 mls @ 100 mls/hr 03/18/22 15:45 03/18/22 17:37 Levaquin-D5w IV Infused Q24H EVARISTO Infusion Protocol Lactobacillus Acidophilus 1 tab 03/16/22 18:01 03/18/22 17:52 Lactobacillus 1 Tablet PO 1 tab BID EVARISTO Administration Pantoprazole Sodium 40 mg 03/17/22 09:00 03/18/22 08:[address] 40 Mg Tablet PO 40 mg DAILY EVARISTO Administration Polyethylene Glycol 17 gm 03/17/22 06:00 03/18/22 04:14 Polyethylene Glycol 3350 Pkt 17 Gm PO Not Given QAM EVARISTO Senna/Docusate Sodium 1 tab 03/17/22 09:00 03/18/22 08:54 Sennosides-Docusate Tablet PO 1 tab DAILY EVARISTO Administration Trazodone HCl 25 mg 03/16/22 18:01 03/17/22 20:26 Trazodone 100 Mg Tablet PO 25 mg BEDTIME PRN Administration Sleep PFSH Acute PFSH: Medical History (Updated 03/18/22 @ 23:03 by Noé Rodriguez MD) Anxiety and depression ASVD (arteriosclerotic vascular disease) Carotid stenosis Chronic constipation Chronic GERD Chronic low back pain DDD (degenerative disc disease) Diverticulosis Drug intolerance flecainide Dyslipidemia Essential hypertension Heart failure with preserved ejection fraction Hiatal hernia Hyponatremia Insomnia Lewy body dementia Neuropathy Normochromic normocytic anemia Obstructive sleep apnea Has difficulty in using the CPAP Osteoarthritis of both knees Other urethral stricture, male, 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 Complete urethral reconstruction with subsequent urethral stricture disease. As required multiple dilations over the years. Overflow incontinence Parkinson disease Paroxysmal atrial fibrillation Polymyalgia rheumatica Prostatism Rib fracture History of multiple left sided fractures 11/2021 after fall with associated left sided exudative effusion; also with right 6th rib fracture Small vessel disease, cerebrovascular Spondylolisthesis Squamous cell carcinoma Vitamin D deficiency Surgical History History of back surgery History of circumcision History of dilation of urethra History of hemiarthroplasty of right hip History of hernia repair History of penile implant Inflatable penile prosthesis History of sinus surgery History of total knee replacement Status post cystourethroscopy with dilation of urethral stricture Status post right inguinal hernia repair (02/25/21) Family History Grandmother CAD (coronary artery disease) Stroke Brother Suicide Mother Lung disease Father , age 94, only took Tylenol Old age Denies family history of Diabetes Clotting disorder Dementia Chronic kidney disease (CKD) Anesthesia complication Bleeding disorder Cancer Social History Smoking and tobacco status: never smoked Second hand smoke exposure: No Alcohol intake: never Caregiver/support person: Yes Lives independently: Yes Household members: spouse Marital status: service: Yes Current occupational status: retired History of recent travel: No Current gender identity: Male Special massimo needs: No Agree to transfusion: Yes Vitals/I&O/Wt Last Vital Signs Temp 98.1 F 03/18/22 11:31 Pulse 101 H 03/18/22 21:00 Resp 16 03/18/22 21:00 BP 113/80 03/18/22 15:29 Pulse Ox 96 03/18/22 21:00 O2 Del Method 03/18/22 21:00 O2 Flow Rate 1.5 03/18/22 21:00 03/18/22 03/18/22 03/18/22 06:59 14:59 22:59 Intake Total 270 / 2580 410 / 410 150 / 560 Output Total 1000 / 1550 935 / 935 Balance -730 / 1030 410 / 410 -785 / -375 Weight last 48 hrs Weight 151 lb 3.2 oz Weight 143 lb 12.8 oz Physical Exam Narrative: General: alert, NAD, cachectic elderly male HEENT: conj clear, EOMI, PERRL, mmm, Neck: supple, no meningismus Heme: no cervical LAP Pulmonary: Slightly reduced breath sounds in left lower lung zone Cardiovascular: rrr, nl s1s2, no mrg Abdomen: soft, nt, nd, no r/g, bs+ Extremities: pulses +, no edema, no c/c : no CVA tenderness Skin: intact, no rash MSK: no back or neck pain Neurologic: grossly intact Urinary Catheter Management: Carlos: Cath Placed During This Visit: yes Reason for Continuing Indwelling Catheter: Acute Urinary Retention or Obstruction Urinary Catheter Date of Insertion: 03/17/22 Urinary Catheter Time of Insertion: 11:45 Data : 03/18/22 15:49 03/18/22 15:49 Other Labs: Radiology Impressions Chest CT 03/17/22 10:00 IMPRESSION: 1. There is a large hiatal hernia present, unchanged from 11/30/2021. Soft tissue structure within the hernia likely represents a compressed gastric fundus. 2. The esophagus is mildly dilated, demonstrates retained fluid throughout. This may be related to gastroesophageal reflux from the visualized hiatal hernia. This is unchanged from 11/30/2021. 3. Moderate-sized left pleural effusion. This is associated with compressive atelectasis of a large portion of the left lower lobe. This is unchanged from 11/30/2021. 4. Mild atelectasis in the posterior right lower lobe. No consolidative infiltrates in the right lung. Thoracentesis Ultrasound 03/18/22 10:43 IMPRESSION: Uncomplicated ultrasound-guided LEFT thoracentesis. Chest X-Ray 03/18/22 15:04 IMPRESSION: Improved now small volume left pleural effusion post thoracentesis. Laboratory Results WBC 25.5 10^3/uL (4.0-10.0) H 03/18/22 15:49 RBC 3.19 10^6/uL (4.1-5.3) L 03/18/22 15:49 Hgb 10.5 g/dL (11.7-16.6) L 03/18/22 15:49 Hct 31.8 % (42.0-52.0) L 03/18/22 15:49 MCV 99.7 fl (80-94) H 03/18/22 15:49 MCH 32.9 pg (28.0-34.0) 03/18/22 15:49 MCHC 33.0 g/dL (30.0-36.0) 03/18/22 15:49 RDW 14.4 % (12.1-15.1) 03/18/22 15:49 Plt Count 250 10^3/cmm (130-400) 03/18/22 15:49 MPV 9.6 fL (7.4-10.4) 03/18/22 15:49 Neut % (Auto) 87.3 % 03/18/22 15:49 Lymph % (Auto) 4.9 % 03/18/22 15:49 [place] % (Auto) 4.4 % 03/18/22 15:49 Eos % (Auto) 0.2 % 03/18/22 15:49 Baso % (Auto) 0.4 % 03/18/22 15:49 Neut # (Auto) 22.27 10^3/uL (1.8-7.7) H 03/18/22 15:49 Lymph # (Auto) 1.2 10^3/uL (0.8-4.8) 03/18/22 15:49 [place] # (Auto) 1.1 10^3/uL (0.2-0.9) H 03/18/22 15:49 Eos # (Auto) 0.1 10^3/uL (0.0-0.8) 03/18/22 15:49 Baso # (Auto) 0.1 10^3/uL (0.0-0.1) 03/18/22 15:49 Nucleated RBC % (auto) 0 % 03/18/22 15:49 Total Counted Not Reportable 03/18/22 14:40 Nucleated RBCs # 0.0 /100WBC 03/18/22 15:49 Sodium 124 mmol/L (136-145) L 03/18/22 15:49 Potassium 3.6 mmol/L (3.5-5.1) 03/18/22 15:49 Chloride 92 mmol/L (98-107) L 03/18/22 15:49 Carbon Dioxide 21 mmol/L (22-29) L 03/18/22 15:49 Anion Gap 14.6 (5-19) 03/18/22 15:49 BUN 34 mg/dL (8-23) H 03/18/22 15:49 Creatinine 1.6 mg/dL (0.7-1.2) H 03/18/22 15:49 GFR Calculation Not Reportable 03/18/22 15:49 Glucose 102 mg/dL (65-115) 03/18/22 15:49 Calculated Osmolality 266 mOsm/kg (285-295) L 03/18/22 15:49 Uric Acid 4.6 mg/dL (3.4-7.0) 03/17/22 02:25 Calcium 8.1 mg/dL (8.5-10.5) L 03/18/22 15:49 Phosphorus 3.1 mg/dL (2.5-4.5) 03/17/22 02:25 Magnesium 2.0 mg/dL (1.7-2.3) 03/17/22 02:25 Iron 13 ug/dL (59-158) L 03/17/22 02:25 TIBC 108 mcg/dl 03/17/22 02:25 % Saturation 12.0 % (20-50) L 03/17/22 02:25 Unsat Iron Binding 95 ug/dL (112-347) L 03/17/22 02:25 Total Bilirubin 0.7 mg/dL (0.15-1.2) 03/18/22 15:49 AST 202 U/L (0-40) H 03/18/22 15:49 ALT 36 U/L (0-41) 03/18/22 15:49 Alkaline Phosphatase 142 U/L (40-130) H 03/18/22 15:49 NT-Pro-B Natriuret Pep 8267 pg/mL (0-450) H 03/16/22 11:13 Total Protein 5.8 g/dL (6.6-8.7) L 03/18/22 15:49 Albumin 2.5 g/dL (3.5-5.2) L 03/18/22 15:49 Globulin 3.3 g/dL (1.3-4.6) 03/18/22 15:49 Procalcitonin 1.95 ng/mL (0-0.5) H 03/16/22 11:13 TSH 3.48 uIU/mL (0.27-4.20) 03/17/22 02:25 Urine Color Yellow (Yellow) 03/18/22 20:30 Urine Appearance Clear (CLEAR) 03/18/22 20:30 Urine pH 5 (5-7) 03/18/22 20:30 Ur Specific [place] 1.010 (1.005-1.030) 03/18/22 20:30 Urine Protein Neg (Negative) 03/18/22 20:30 Urine Glucose (UA) Norm (Normal) 03/18/22 20:30 Urine Ketones Negative (Negative) 03/18/22 20:30 Urine Blood Neg (Negative) 03/18/22 20:30 Urine Nitrate Negative (Negative) 03/18/22 20:30 Urine Bilirubin Neg (Negative) 03/18/22 20:30 Urine Urobilinogen Norm mg/dL (Negative) 03/18/22 20:30 Ur Leukocyte Esterase Negative (Negative) 03/18/22 20:30 Urine RBC 0-4 /hpf (0-2) H 03/16/22 12:50 Urine WBC Too numerous to cnt /hpf (0-5) H 03/16/22 12:50 Ur Squamous Epith Cells 0-4 /hpf (0-5) H 03/16/22 12:50 Amorphous Sediment Not Reportable 03/16/22 12:50 Urine Bacteria 4+ /hpf (NONE) H 03/16/22 12:50 Ur Random Sodium 15 mmol/L 03/18/22 20:30 Pleural Color Yellow (Pale Yellow) H 03/18/22 14:40 Pleural Appearance Cloudy (CLEAR) 03/18/22 14:40 Pleural pH 7.00 (6.5-7.5) 03/18/22 14:40 Pleural Spec [place] 1.005 03/18/22 14:40 Pleural WBC 7529.000 /uL (0-1000) H 03/18/22 14:40 Pleural RBC 2.000 10^3/uL 03/18/22 14:40 Pleural Mononuc # Auto 0.837 10^3/uL 03/18/22 14:40 Pleural Other Cells Not Reportable 03/18/22 14:40 Pleural Polynuclear % 89 % 03/18/22 14:40 Pleural Polynuclear # 6.692 10^3/uL 03/18/22 14:40 Pleural Mononuclear % 11 % 03/18/22 14:40 Pleural Other Cells Lt Left lung 03/18/22 14:40 Pleural Total Protein 2.5 g/dL 03/18/22 14:40 Pleural Albumin 1.2 g/dL 03/18/22 14:40 Pleural LDH 488 U/L 03/18/22 14:40 Pleural Glucose 118.0 mg/dL 03/18/22 14:40 Pleural Triglycerides 11 mg/dL 03/18/22 14:40 Path Cons w/Slide Yes 03/18/22 14:40 Micro: Microbiology 03/16/22 12:50 Urine Culture - Final Urine,Clean Catch A&P Assessment and plan (1) Pleural effusion: (2) Heart failure with preserved ejection fraction: Qualifiers: Heart failure chronicity: chronic Qualified Code(s): I50.32 - Chronic diastolic (congestive) heart failure (3) Lewy body dementia: (4) UTI (urinary tract infection): Qualifiers: Urinary tract infection type: catheter-associated UTI Indwelling urinary catheter type: unspecified Encounter type: initial encounter Qualified Code(s): T83.511A - Infection and inflammatory reaction due to indwelling urethral catheter, initial encounter; N39.0 - Urinary tract infection, site not specified (5) Other urethral stricture, male, overlapping sites: (6) Hiatal hernia: (7) At risk for aspiration: Plan #Recurrent left pleural effusion patient with chronic diastolic heart failure- uncomplicated parapneumonic effusion at this time #Hiatal hernia-high risk for aspiration and aspiration pneumonia -S/p thoracentesis 12/01/2021-drained 850 cc serosanguineous fluid aspirated-exudative in nature -Again this admission patient has moderate left pleural effusion on CT chest 03/17/2022-today morning underwent thoracentesis by IR-drained 800 cc slightly cloudy, straw-colored fluid with some sediments. Postprocedure chest x-ray showed significantly improved left pleural effusion. Fluid analysis showed 7000 WBC with 89% neutrophils, LDH 488, pleural protein 2.5, pleural glucose 118, pH 7. -Based on color of the fluid and the pleural fluid analysis-looks like uncomplicated parapneumonic effusion (pleural fluid glucose is > 40 so less likely empyema as pH can be falsely low due to lidocaine); fluid is neutrophilic predominant. Cultures are pending -Given esophageal dilation with fluid as well as hiatal hernia-patient is at high risk for aspiration -Postthoracentesis by IR-chest x-ray did not show any significant effusion and I also confirmed with bedside ultrasound - very small fluid pocket which is not amenable for any pigtail placement -However given uncomplicated nature of fluid-I expect antibiotics should help and so recommended to continue broad-spectrum antibiotic coverage (vancomycin/Zosyn/Levaquin) and and monitor clinically for signs of sepsis as well as WBC counts-and then de-escalate antibiotics depending on culture results -Unfortunately I will not be available for next 4 days-so informed hospitalist taking care of the patient to monitor clinically for next 24 to 48 hours on if patient does not improve clinically-repeat imaging and if there is evidence of worsening pleural effusion-consider thoracic surgery for chest tube placement/VATS for decortication -Recommended swallow evaluation during hospitalization #Patient has chronic diastolic heart failure-appears compensated #UA leukoesterase positive, but nitrate negative-patient does self-catheterization weekly once-he is at risk of UTI-currently covered with antibiotics for parapneumonic [id number] cultures Medical condition, labs, investigations, and plan of care-everything explained in detail to the patient and his . They verbalized understanding and agreed with the plan. Recommendations conveyed to hospitalist, RN taking care of the patient This documentation was created by [employer] sales representative leather goods software (known for inherent sales representative leather goods error). Every effort was made to assure accuracy of sales representative leather goods. Any obvious errors or omissions should be clarified with the author of the document. Consult Attestations Medical Necessity Statement: At least need anywhere from 48 to 72 hours for clinical monitoring Time Spent in Patient Care: Greater than 35 minutes (>than 50% of time spent in counselling and/or direct pt care on unit). 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 [employer] Fwd Patient Type New History Comprehensive Exam Comprehensive Medical Decision Making Moderate Complexity Diagnoses Pleural effusion J90 Heart failure with preserved ejection fraction I50.32 Heart failure chronicity: chronic Lewy body dementia G31.83; F02.80 UTI (urinary tract infection) T83.511A; N39.0 Urinary tract infection type: catheter-associated UTI Indwelling urinary catheter type: unspecified Encounter type: initial encounter Other urethral stricture, male, overlapping sites N35.816 Hiatal hernia K44.9 At risk for aspiration Z91.89 Time Spent (min) 60 Comment Include bedside ultrasonography assessment of left pleural effusion postthoracentesis
[2022-03-18] MEDS: vancomycin 750 MG in sodium chloride 0.9% 250 ML 166 MG IV (21:44)
--- NOTE | 2022-03-18 22:55 | PC.NURSE ---
Spoke with Dr. Schwartz via telephone. Order received to move patient out of [facility] bed to [facility] with Telemetry.
--- NOTE | 2022-03-18 23:16 | PC.NURSE ---
Patient being transferred to room 256-1 to open up a bed for a cardiac admission to [facility]. Report called to BO Lees.
[2022-03-18] MEDS: trazodone 100 mg Tablet 25 MG PO (23:28)
[2022-03-19] VITALS (10 sets, daily range): BP systolic 95–130; BP diastolic 61–86; PULSE 70–128; RESP 16–20; TEMP 36.3–37.2; O2SAT 95–99
[2022-03-19] MEDS: piperacillin-tazobactam 3.375 GM in sodium chloride 0.9% (plus) 50 ML IV ×3 (00:54→18:08)
[2022-03-19] MEDS: dilTIAZem 30 mg Tablet PO (03:55)
[2022-03-19 04:16] LABS: Basophils # 0.1 10^3/uL (0.0-0.1); Basophils % 0.3 %; Eosinophils % 0.1 %; Hematocrit 29.7 % (42.0-52.0); Hemoglobin 10.1 g/dL (11.7-16.6); Lymphocytes % 4.2 %; Mean Corpuscular Hemoglobin 33.1 pg (28.0-34.0); Mean Corpuscular Volume 97.4 fl (80-94); Mean Platelet Volume 9.7 fL (7.4-10.4); Monocytes # 0.9 10^3/uL (0.2-0.9); Monocytes % 3.6 %; Neutrophils # 21.82 10^3/uL (1.8-7.7); Neutrophils % 89.6 %; Nucleated Red Blood Cells % 0 %; Platelet Count 258 10^3/cmm (130-400); Red Blood Count 3.05 10^6/uL (4.1-5.3); Red Cell Distribution Width 14.2 % (12.1-15.1); White Blood Count 24.3 10^3/uL (4.0-10.0)
[2022-03-19 04:45] LABS: Anion Gap 17.8 (5-19); Blood Urea Nitrogen 40 mg/dL (8-23); Calcium 7.9 mg/dL (8.5-10.5); Carbon Dioxide 19 mmol/L (22-29); Chloride 94 mmol/L (98-107); Glucose 97 mg/dL (65-115); Magnesium 1.9 mg/dL (1.7-2.3); Osmolality Calculated 274 mOsm/kg (285-295); Potassium 3.8 mmol/L (3.5-5.1); Sodium 127 mmol/L (136-145)
[2022-03-19] MEDS: heparin 5,000 unit/mL INJ 1 mL 5000 UNIT SUBCUT ×2 (06:00→19:19)
[2022-03-19] MEDS: polyethylene glycol 3350 Pkt 17 gm PO (06:00)
[2022-03-19] MEDS: carbidopa-levodopa 25-100mg Tablet 1 EACH PO ×3 (06:01→16:35)
[2022-03-19] MEDS: aspirin 81 mg EC Tablet PO (06:01)
[2022-03-19 06:35] LABS: Lactate Dehydrogenase 241 U/L (135-225); Total Protein 5.1 g/dL (6.6-8.7)
[2022-03-19] MEDS: citalopram 20 mg Tablet 10 MG PO (09:27)
[2022-03-19] MEDS: sennosides-docusate Tablet 1 TAB PO (09:27)
[2022-03-19] MEDS: lactobacillus 1 Tablet 1 TAB PO ×2 (09:27→18:10)
[2022-03-19] MEDS: pantoprazole DR 40 mg Tablet PO (09:27)
--- NOTE | 2022-03-19 11:10 | PM.PN ---
Subjective Subjective: -Vitals noted to be stable-no more fever spikes or tachycardia -Patient is seen sitting out of bed to chair -Currently on 1 L supplemental oxygen -Complaining of headache -Appears clinically stable to slightly improved -Other labs and imaging reviewed Medications: Reviewed: Yes Vitals/I&O/Wt Last Vital Signs Temp 98.5 F 03/19/22 08:35 Pulse 99 03/19/22 08:35 Resp 16 03/19/22 08:35 BP 121/77 03/19/22 08:35 Pulse Ox 95 03/19/22 08:35 O2 Del Method 03/19/22 08:35 O2 Flow Rate 1 03/19/22 08:35 03/18/22 03/19/22 03/19/22 22:59 06:59 14:59 Intake Total 440 / 850 700 / 1550 Output Total 935 / 935 400 / 1335 Balance -495 / -85 300 / 215 Weight last 48 hrs Weight 154 lb 3 oz Weight 154 lb 4.8 oz Weight 151 lb 3.2 oz Physical Exam Narrative: General: alert, NAD, cachectic elderly male HEENT: conj clear, EOMI, PERRL, mmm, Neck: supple, no meningismus Heme: no cervical LAP Pulmonary: Slightly reduced breath sounds in left lower lung zone Cardiovascular: rrr, nl s1s2, no mrg Abdomen: soft, nt, nd, no r/g, bs+ Extremities: pulses +, no edema, no c/c : no CVA tenderness Skin: intact, no rash MSK: no back or neck pain Neurologic: grossly intact Urinary Catheter Management: Carlos: Cath Placed During This Visit: yes Reason for Continuing Indwelling Catheter: Acute Urinary Retention or Obstruction Urinary Catheter Date of Insertion: 03/17/22 Urinary Catheter Time of Insertion: 11:45 Data : 03/19/22 03:37 03/19/22 03:37 Other Labs: Radiology Impressions Chest CT 03/17/22 10:00 IMPRESSION: 1. There is a large hiatal hernia present, unchanged from 11/30/2021. Soft tissue structure within the hernia likely represents a compressed gastric fundus. 2. The esophagus is mildly dilated, demonstrates retained fluid throughout. This may be related to gastroesophageal reflux from the visualized hiatal hernia. This is unchanged from 11/30/2021. 3. Moderate-sized left pleural effusion. This is associated with compressive atelectasis of a large portion of the left lower lobe. This is unchanged from 11/30/2021. 4. Mild atelectasis in the posterior right lower lobe. No consolidative infiltrates in the right lung. Thoracentesis Ultrasound 03/18/22 10:43 IMPRESSION: Uncomplicated ultrasound-guided LEFT thoracentesis. Chest X-Ray 03/18/22 15:04 IMPRESSION: Improved now small volume left pleural effusion post thoracentesis. Laboratory Results WBC 24.3 10^3/uL (4.0-10.0) H 03/19/22 03:37 RBC 3.05 10^6/uL (4.1-5.3) L 03/19/22 03:37 Hgb 10.1 g/dL (11.7-16.6) L 03/19/22 03:37 Hct 29.7 % (42.0-52.0) L 03/19/22 03:37 MCV 97.4 fl (80-94) H 03/19/22 03:37 MCH 33.1 pg (28.0-34.0) 03/19/22 03:37 MCHC 34.0 g/dL (30.0-36.0) 03/19/22 03:37 RDW 14.2 % (12.1-15.1) 03/19/22 03:37 Plt Count 258 10^3/cmm (130-400) 03/19/22 03:37 MPV 9.7 fL (7.4-10.4) 03/19/22 03:37 Neut % (Auto) 89.6 % 03/19/22 03:37 Lymph % (Auto) 4.2 % 03/19/22 03:37 [place] % (Auto) 3.6 % 03/19/22 03:37 Eos % (Auto) 0.1 % 03/19/22 03:37 Baso % (Auto) 0.3 % 03/19/22 03:37 Neut # (Auto) 21.82 10^3/uL (1.8-7.7) H 03/19/22 03:37 Lymph # (Auto) 1.0 10^3/uL (0.8-4.8) 03/19/22 03:37 [place] # (Auto) 0.9 10^3/uL (0.2-0.9) 03/19/22 03:37 Eos # (Auto) 0.0 10^3/uL (0.0-0.8) 03/19/22 03:37 Baso # (Auto) 0.1 10^3/uL (0.0-0.1) 03/19/22 03:37 Nucleated RBC % (auto) 0 % 03/19/22 03:37 Total Counted Not Reportable 03/18/22 14:40 Nucleated RBCs # 0.0 /100WBC 03/19/22 03:37 Sodium 127 mmol/L (136-145) L 03/19/22 03:37 Potassium 3.8 mmol/L (3.5-5.1) 03/19/22 03:37 Chloride 94 mmol/L (98-107) L 03/19/22 03:37 Carbon Dioxide 19 mmol/L (22-29) L 03/19/22 03:37 Anion Gap 17.8 (5-19) 03/19/22 03:37 BUN 40 mg/dL (8-23) H 03/19/22 03:37 Creatinine 1.6 mg/dL (0.7-1.2) H 03/19/22 03:37 GFR Calculation Not Reportable 03/19/22 03:37 Glucose 97 mg/dL (65-115) 03/19/22 03:37 Calculated Osmolality 274 mOsm/kg (285-295) L 03/19/22 03:37 Uric Acid 4.6 mg/dL (3.4-7.0) 03/17/22 02:25 Calcium 7.9 mg/dL (8.5-10.5) L 03/19/22 03:37 Phosphorus 3.1 mg/dL (2.5-4.5) 03/17/22 02:25 Magnesium 1.9 mg/dL (1.7-2.3) 03/19/22 03:37 Iron 13 ug/dL (59-158) L 03/17/22 02:25 TIBC 108 mcg/dl 03/17/22 02:25 % Saturation 12.0 % (20-50) L 03/17/22 02:25 Unsat Iron Binding 95 ug/dL (112-347) L 03/17/22 02:25 Total Bilirubin 0.7 mg/dL (0.15-1.2) 03/18/22 15:49 AST 202 U/L (0-40) H 03/18/22 15:49 ALT 36 U/L (0-41) 03/18/22 15:49 Alkaline Phosphatase 142 U/L (40-130) H 03/18/22 15:49 Lactate Dehydrogenase 241 U/L (135-225) H 03/19/22 03:37 NT-Pro-B Natriuret Pep 8267 pg/mL (0-450) H 03/16/22 11:13 Total Protein 5.1 g/dL (6.6-8.7) L 03/19/22 03:37 Albumin 2.5 g/dL (3.5-5.2) L 03/18/22 15:49 Globulin 3.3 g/dL (1.3-4.6) 03/18/22 15:49 Procalcitonin 0.60 ng/mL (0-0.5) H 03/19/22 03:37 TSH 3.48 uIU/mL (0.27-4.20) 03/17/22 02:25 Urine Color Yellow (Yellow) 03/18/22 20:30 Urine Appearance Clear (CLEAR) 03/18/22 20:30 Urine pH 5 (5-7) 03/18/22 20:30 Ur Specific [place] 1.010 (1.005-1.030) 03/18/22 20:30 Urine Protein Neg (Negative) 03/18/22 20:30 Urine Glucose (UA) Norm (Normal) 03/18/22 20:30 Urine Ketones Negative (Negative) 03/18/22 20:30 Urine Blood Neg (Negative) 03/18/22 20:30 Urine Nitrate Negative (Negative) 03/18/22 20:30 Urine Bilirubin Neg (Negative) 03/18/22 20:30 Urine Urobilinogen Norm mg/dL (Negative) 03/18/22 20:30 Ur Leukocyte Esterase Negative (Negative) 03/18/22 20:30 Urine RBC 0-4 /hpf (0-2) H 03/16/22 12:50 Urine WBC Too numerous to cnt /hpf (0-5) H 03/16/22 12:50 Ur Squamous Epith Cells 0-4 /hpf (0-5) H 03/16/22 12:50 Amorphous Sediment Not Reportable 03/16/22 12:50 Urine Bacteria 4+ /hpf (NONE) H 03/16/22 12:50 Ur Random Sodium 15 mmol/L 03/18/22 20:30 Pleural Color Yellow (Pale Yellow) H 03/18/22 14:40 Pleural Appearance Cloudy (CLEAR) 03/18/22 14:40 Pleural pH 7.00 (6.5-7.5) 03/18/22 14:40 Pleural Spec [place] 1.005 03/18/22 14:40 Pleural WBC 7529.000 /uL (0-1000) H 03/18/22 14:40 Pleural RBC 2.000 10^3/uL 03/18/22 14:40 Pleural Mononuc # Auto 0.837 10^3/uL 03/18/22 14:40 Pleural Other Cells Not Reportable 03/18/22 14:40 Pleural Polynuclear % 89 % 03/18/22 14:40 Pleural Polynuclear # 6.692 10^3/uL 03/18/22 14:40 Pleural Mononuclear % 11 % 03/18/22 14:40 Pleural Other Cells Lt Left lung 03/18/22 14:40 Pleural Total Protein 2.5 g/dL 03/18/22 14:40 Pleural Albumin 1.2 g/dL 03/18/22 14:40 Pleural LDH 488 U/L 03/18/22 14:40 Pleural Glucose 118.0 mg/dL 03/18/22 14:40 Pleural Triglycerides 11 mg/dL 03/18/22 14:40 Path Cons w/Slide Yes 03/18/22 14:40 Micro: Microbiology 03/16/22 12:50 Urine Culture - Final Urine,Clean Catch A&P Assessment and plan (1) Pleural effusion: (2) Heart failure with preserved ejection fraction: Qualifiers: Heart failure chronicity: chronic Qualified Code(s): I50.32 - Chronic diastolic (congestive) heart failure (3) Lewy body dementia: (4) UTI (urinary tract infection): Qualifiers: Urinary tract infection type: catheter-associated UTI Indwelling urinary catheter type: unspecified Encounter type: initial encounter Qualified Code(s): T83.511A - Infection and inflammatory reaction due to indwelling urethral catheter, initial encounter; N39.0 - Urinary tract infection, site not specified (5) Other urethral stricture, male, overlapping sites: (6) Hiatal hernia: (7) At risk for aspiration: Plan #Recurrent left pleural effusion patient with chronic diastolic heart failure- uncomplicated parapneumonic effusion at this time #Hiatal hernia-high risk for aspiration and aspiration pneumonia -S/p thoracentesis 12/01/2021-drained 850 cc serosanguineous fluid aspirated-exudative in nature -Again this admission patient has moderate left pleural effusion on CT chest 03/17/2022-today morning underwent thoracentesis by IR-drained 800 cc slightly cloudy, straw-colored fluid with some sediments. Postprocedure chest x-ray showed significantly improved left pleural effusion. Fluid analysis showed 7000 WBC with 89% neutrophils, LDH 488, pleural protein 2.5, pleural glucose 118, pH 7. -Based on color of the fluid and the pleural fluid analysis-looks like uncomplicated parapneumonic effusion (pleural fluid glucose is > 40 so less likely empyema as pH can be falsely low due to lidocaine); fluid is neutrophilic predominant. Cultures are pending -Given esophageal dilation with fluid as well as hiatal hernia-patient is at high risk for aspiration -Postthoracentesis by IR-chest x-ray did not show any significant effusion and I also confirmed with bedside ultrasound - very small fluid pocket which is not amenable for any pigtail placement -However given uncomplicated nature of fluid-I expect antibiotics should help and so recommended to continue broad-spectrum antibiotic coverage (vancomycin/Zosyn/Levaquin) and and monitor clinically for signs of sepsis as well as WBC counts-and then de-escalate antibiotics depending on culture results -Unfortunately I will not be available for next 4 days-so informed hospitalist taking care of the patient to monitor clinically for next 24 to 48 hours on if patient does not improve clinically-repeat imaging and if there is evidence of worsening pleural effusion-consider thoracic surgery for chest tube placement/VATS for decortication -Recommended swallow evaluation during hospitalization #Patient has chronic diastolic heart failure-appears compensated #UA leukoesterase positive, but nitrate negative-patient does self-catheterization weekly once-he is at risk of UTI-currently covered with antibiotics for parapneumonic iugoleul-epqzet-br cultures Medical condition, labs, investigations, and plan of care-everything explained in detail to the patient and his . They verbalized understanding and agreed with the plan. Recommendations conveyed to hospitalist, RN taking care of the patient This documentation was created by [employer] batch mixing truck driver software (known for inherent batch mixing truck driver error). Every effort was made to assure accuracy of batch mixing truck driver. Any obvious errors or omissions should be clarified with the author of the document. Attestations Medical Necessity Statement*: needs continued hospital stay for management of uti, maria d, pleural effusion, pneumonia. expect 48-72 hour stay pending clinical course Time Spent in Patient Care: Greater than 35 minutes (>than 50% of time spent in counselling and/or direct pt care on unit). Coding Level of Care Code Established Pt Acute Online Tutor for Lannyg Janey Patient Type Established History Comprehensive Exam Comprehensive Medical Decision Making Moderate Complexity Diagnoses Pleural effusion J90 Heart failure with preserved ejection fraction I50.32 Heart failure chronicity: chronic Lewy body dementia G31.83; F02.80 UTI (urinary tract infection) T83.511A; N39.0 Urinary tract infection type: catheter-associated UTI Indwelling urinary catheter type: unspecified Encounter type: initial encounter Other urethral stricture, male, overlapping sites N35.816 Hiatal hernia K44.9 At risk for aspiration Z91.89 Time Spent (min) 45
[2022-03-19] MEDS: acetaminophen 325 mg Tablet 650 MG PO (11:36)
--- NOTE | 2022-03-19 11:48 | PC.SOCIAL ---
IMM update IMM updated with patient. Verbalized an understanding. Copy Pg 2 provided. Initialled, dated, timed, and placed in chart.
--- NOTE | 2022-03-19 12:38 | PM.PN ---
Subjective Subjective: Seen this morning. Patient is alert and oriented to self. He thought he was not there. He said it was the year 2019. present at bedside. Patient had a bowel movement this morning. Thoracentesis done yesterday, 800 cc removed. He is on 1 L nasal cannula at this time. Did experience a little bit of delirium. states he also has confusion episodes at home as well and she has been taking care of him. She would like for him to go to a senior living. Vitals/I&O/Wt Last Vital Signs Temp 98.0 F 03/19/22 11:45 Pulse 96 03/19/22 11:45 Resp 16 03/19/22 11:45 BP 95/61 03/19/22 11:45 Pulse Ox 99 03/19/22 11:45 O2 Del Method 03/19/22 11:45 O2 Flow Rate 1 03/19/22 11:45 03/18/22 03/19/22 03/19/22 22:59 06:59 14:59 Intake Total 440 / 850 700 / 1550 Output Total 935 / 935 400 / 1335 Balance -495 / -85 300 / 215 Weight last 48 hrs Weight 69.938 kg Weight 69.989 kg Weight 68.583 kg Physical Exam Narrative: general: elderly male sitting up in chair, alert oriented to self nc/at, eomi lungs cta b/l with reduced sounds at left base abdomen soft,nontender, no guarding extremities: no LE edema. has scds in place neuro: non focal, moves all 4 extremities Urinary Catheter Management: Carlos: Cath Placed During This Visit: yes Reason for Continuing Indwelling Catheter: Acute Urinary Retention or Obstruction Urinary Catheter Date of Insertion: 03/17/22 Urinary Catheter Time of Insertion: 11:45 Data : 03/19/22 03:37 03/19/22 03:37 Micro: Microbiology 03/16/22 12:50 Urine Culture - Final Urine,Clean Catch A&P Assessment and plan (1) Atrial fibrillation: (2) Dyslipidemia: (3) Obstructive sleep apnea: (4) Benign essential HTN: (5) Parkinson disease: (6) Chronic anemia: (7) Postural hypotension: (8) Frequent falls: (9) Pleural effusion: (10) Lung cancer: (11) Heart failure with preserved ejection fraction: Qualifiers: Heart failure chronicity: chronic Qualified Code(s): I50.32 - Chronic diastolic (congestive) heart failure (12) Lewy body dementia: (13) UTI (urinary tract infection): Qualifiers: Urinary tract infection type: catheter-associated UTI Indwelling urinary catheter type: unspecified Encounter type: initial encounter Qualified Code(s): T83.511A - Infection and inflammatory reaction due to indwelling urethral catheter, initial encounter; N39.0 - Urinary tract infection, site not specified (14) Atrial fibrillation with RVR: (15) TINO (acute kidney injury): Plan #Pneumonia #Left pleural effusion #Failure to thrive, loss of appetite #Large hiatal hernia with retained fluid in esophagus. Unchanged from prior studies #Parkinson's disease #UTI #Anxiety/Depression #HFpEF #Lewy Body Dementia #A.fib #DLD #HTN #OA #Chronic constipation #Iron deficiency anemia #Protein calorie malnutrition #Chronic hyponatremia #Hypokalemia #High aspiration risk - Last echo: Echocardiogram in October of this year showed ejection fraction 55 to 60% with indeterminate diastolic function secondary to atrial fibrillation.? Biatrial enlargement was noted with moderate mitral regurgitation, mild to moderate aortic regurgitation, moderate tricuspid regurgitation, mild to moderate pulmonary hypertension.? Pulmonary hypertension at that time appeared new. - COntinue on vancomycin, zosyn and Levaquin. -Urine culture positive for mixed superficial siva greater than 100,000 colonies. I will repeat urine culture at this time. -Discontinue Cardizem. -We will start Lopressor 25 twice daily once blood pressure permits. If he does go back into A. fib with RVR we may resort to amiodarone. - Does have postural hypotension - Sinemet dose adjusted at admission - Continue to encourage oral intake - Trazodone at night -Start ferrous sulfate orally - folate 12.9, b12 687 - PT/OT - Order nutrition consult - check -Stop IV fluids. ? Discussed with pulmonology. Thoracentesis performed yesterday. 800 cc removed. Exudative fluid. Most likely parapneumonic effusion.. Check fluid for cytology and culture. If patient does not continue to improve in next 24 to 48 hours may have to consider CT surgery consult for VATS procedure. Patient however is appearing better today. We will continue to monitor in the hospital. Check speech evaluation. Family interested in senior living. Case management working on placement PT/OT ordered. Pt is a max assist at this time He also has large hiatal hernia. DIscussed with patient. He would like me to talk to his regarding it Check swallow evaluation. Full Code DVT PPX: heparin Attestations Medical Necessity Statement*: needs continued hospital stay for management of uti, tino, pleural effusion, pneumonia. expect 48-72 hour stay pending clinical course Time Spent in Patient Care: Greater than 35 minutes (>than 50% of time spent in counselling and/or direct pt care on unit). Coding Level of Care Code Acute Doggy Daycare Activities Director for Chg Fwd Diagnoses Atrial fibrillation I48.91 Dyslipidemia E78.5 Obstructive sleep apnea G47.33 Benign essential HTN I10 Parkinson disease G20 Chronic anemia D64.9 Postural hypotension I95.1 Frequent falls R29.6 Pleural effusion J90 Lung cancer C34.90 Heart failure with preserved ejection fraction I50.32 Heart failure chronicity: chronic Lewy body dementia G31.83; F02.80 UTI (urinary tract infection) T83.511A; N39.0 Urinary tract infection type: catheter-associated UTI Indwelling urinary catheter type: unspecified Encounter type: initial encounter Atrial fibrillation with RVR I48.91 TINO (acute kidney injury) N17.9
[2022-03-19] MEDS: levofloxacin-dextrose 5 % 750 MG/150 ML PREMIX 100 MG IV (16:33)
[2022-03-19 21:00] LABS: Vancomycin Trough 8.1 ug/mL (10-15)
[2022-03-19] MEDS: vancomycin 750 MG in sodium chloride 0.9% 250 ML 166 MG IV (21:41)
[2022-03-20] VITALS (7 sets, daily range): BP systolic 104–128; BP diastolic 58–86; PULSE 77–110; RESP 15–17; TEMP 36.4–36.8; O2SAT 92–100
[2022-03-20] MEDS: piperacillin-tazobactam 3.375 GM in sodium chloride 0.9% (plus) 50 ML IV ×3 (01:58→19:42)
[2022-03-20 05:35] LABS: Basophils # 0.1 10^3/uL (0.0-0.1); Basophils % 0.4 %; Eosinophils % 0.1 %; Hematocrit 29.7 % (42.0-52.0); Hemoglobin 10.3 g/dL (11.7-16.6); Lymphocytes # 0.8 10^3/uL (0.8-4.8); Lymphocytes % 3.4 %; Mean Corpuscular HGB Conc 34.7 g/dL (30.0-36.0); Mean Corpuscular Hemoglobin 33.2 pg (28.0-34.0); Mean Corpuscular Volume 95.8 fl (80-94); Mean Platelet Volume 9.6 fL (7.4-10.4); Monocytes # 0.9 10^3/uL (0.2-0.9); Monocytes % 3.5 %; Neutrophils # 22.02 10^3/uL (1.8-7.7); Nucleated Red Blood Cells % 0 %; Platelet Count 320 10^3/cmm (130-400); White Blood Count 24.5 10^3/uL (4.0-10.0)
[2022-03-20 06:10] LABS: Anion Gap 14.5 (5-19); Blood Urea Nitrogen 41 mg/dL (8-23); Calcium 8.1 mg/dL (8.5-10.5); Carbon Dioxide 18 mmol/L (22-29); Creatinine Clr Calc Pharmacy 35.1236; Glucose 91 mg/dL (65-115); Magnesium 1.8 mg/dL (1.7-2.3); Osmolality Calculated 254 mOsm/kg (285-295); Phosphorus 2.8 mg/dL (2.5-4.5); Potassium 3.5 mmol/L (3.5-5.1)
[2022-03-20 06:11] LABS: Procalcitonin 0.46 ng/mL (0-0.5)
[2022-03-20] MEDS: aspirin 81 mg EC Tablet PO (06:19)
[2022-03-20] MEDS: polyethylene glycol 3350 Pkt 17 gm PO (06:20)
[2022-03-20] MEDS: carbidopa-levodopa 25-100mg Tablet 1 EACH PO ×3 (06:20→17:01)
[2022-03-20] MEDS: heparin 5,000 unit/mL INJ 1 mL 5000 UNIT SUBCUT ×2 (06:20→18:06)
[2022-03-20 06:21] LABS: Chloride 95 mmol/L (98-107); Sodium 125 mmol/L (136-145)
[2022-03-20] MEDS: citalopram 20 mg Tablet 10 MG PO (09:01)
[2022-03-20] MEDS: sennosides-docusate Tablet 1 TAB PO (09:01)
[2022-03-20] MEDS: pantoprazole DR 40 mg Tablet PO (09:01)
[2022-03-20] MEDS: lactobacillus 1 Tablet 1 TAB PO ×2 (09:03→17:00)
--- NOTE | 2022-03-20 13:40 | P.PN_ITS ---
Subjective Subjective: Seen this morning. Patient feeling a lot better. Nurse stated that he was restless overnight. Trazodone was ordered as as needed and therefore patient did not get it. Vitals/I&O/Wt Last Vital Signs Temp 97.6 F 03/20/22 11:55 Pulse 78 03/20/22 11:55 Resp 16 03/20/22 11:55 BP 127/80 03/20/22 11:55 Pulse Ox 100 03/20/22 11:55 O2 Del Method 03/20/22 11:55 O2 Flow Rate 2 03/20/22 07:42 03/19/22 03/20/22 03/20/22 22:59 06:59 14:59 Intake Total 840 / 1010 350 / 1360 650 / 650 Output Total 550 / 550 Balance 290 / 460 350 / 810 650 / 650 Weight last 48 hrs Weight 96.434 kg Weight 69.938 kg Weight 69.989 kg Physical Exam Narrative: general: elderly male sitting up in chair, alert oriented to self and place but not time. nc/at, eomi lungs cta b/l with reduced sounds at left base abdomen soft,nontender, no guarding extremities: no LE edema. has scds in place neuro: non focal, moves all 4 extremities Urinary Catheter Management: Carlos: Cath Placed During This Visit: yes Reason for Continuing Indwelling Catheter: Acute Urinary Retention or Obstruction Urinary Catheter Date of Insertion: 03/17/22 Urinary Catheter Time of Insertion: 11:45 Data : 03/20/22 04:50 03/20/22 04:50 A&P Assessment and plan (1) Atrial fibrillation: (2) Dyslipidemia: (3) Obstructive sleep apnea: (4) Benign essential HTN: (5) Parkinson disease: (6) Chronic anemia: (7) Postural hypotension: (8) Frequent falls: (9) Pleural effusion: (10) Lung cancer: (11) Heart failure with preserved ejection fraction: Qualifiers: Heart failure chronicity: chronic Qualified Code(s): I50.32 - Chronic diastolic (congestive) heart failure (12) Lewy body dementia: (13) UTI (urinary tract infection): Qualifiers: Urinary tract infection type: catheter-associated UTI Indwelling urinary catheter type: unspecified Encounter type: initial encounter Qualified Code(s): T83.511A - Infection and inflammatory reaction due to indwelling urethral catheter, initial encounter; N39.0 - Urinary tract infection, site not specified (14) Atrial fibrillation with RVR: (15) TINO (acute kidney injury): Plan #Pneumonia #Left pleural effusion #Failure to thrive, loss of appetite #Large hiatal hernia with retained fluid in esophagus. Unchanged from prior studies #Parkinson's disease #UTI #Anxiety/Depression #HFpEF #Lewy Body Dementia #A.fib #DLD #HTN #OA #Chronic constipation #Iron deficiency anemia #Protein calorie malnutrition #Chronic hyponatremia #Hypokalemia #High aspiration risk - Last echo: Echocardiogram in October of this year showed ejection fraction 55 to 60% with indeterminate diastolic function secondary to atrial fibrillation.? Biatrial enlargement was noted with moderate mitral regurgitation, mild to moderate aortic regurgitation, moderate tricuspid regurgitation, mild to moderate pulmonary hypertension.? Pulmonary hypertension at that time appeared new. - COntinue on vancomycin, zosyn and Levaquin. -Urine culture positive for mixed superficial siva greater than 100,000 coloni es. I will repeat urine culture at this time. -Discontinue Cardizem. -We will start Lopressor 25 twice daily once blood pressure permits. If he does go back into A. fib with RVR we may resort to amiodarone. - Does have postural hypotension - Sinemet dose adjusted at admission - Continue to encourage oral intake - Trazodone at night -Start ferrous sulfate orally - folate 12.9, b12 687 - PT/OT -Stop IV fluids. ? Discussed with pulmonology. Thoracentesis performed yesterday. 800 cc removed. Exudative fluid. Most likely parapneumonic effusion.. Check fluid for cytology and culture. If patient does not continue to improve in next 24 to 48 hours may have to consider CT surgery consult for VATS procedure. Patient however is appearing better today. We will continue to monitor in the hospital. Check speech evaluation. Family interested in detention. Case management working on placement PT/OT ordered. Pt is a max assist at this time He also has large hiatal hernia. Patient not interested in interventions at this time Swallow evaluation complete. Placed on a diet. Check chest x-ray in a.m. for reevaluation place on ns 50 cc/hr WBC count still 24,000. procalcitonin negative at this point Full Code DVT PPX: heparin Attestations Medical Necessity Statement*: needs continued hospital stay for management of uti, tino, pleural effusion, pneumonia. expect 48-72 hour stay pending clinical course Time Spent in Patient Care: Greater than 35 minutes (>than 50% of time spent in counselling and/or direct pt care on unit) . Coding Level of Care Code Acute Geospatial Information Technologist for Chg Fwd Diagnoses Atrial fibrillation I48.91 Dyslipidemia E78.5 Obstructive sleep apnea G47.33 Benign essential HTN I10 Parkinson disease G20 Chronic anemia D64.9 Postural hypotension I95.1 Frequent falls R29.6 Pleural effusion J90 Lung cancer C34.90 Heart failure with preserved ejection fraction I50.32 Heart failure chronicity: chronic Lewy body dementia G31.83; F02.80 UTI (urinary tract infection) T83.511A; N39.0 Urinary tract infection type: catheter-associated UTI Indwelling urinary catheter type: unspecified Encounter type: initial encounter Atrial fibrillation with RVR I48.91 TINO (acute kidney injury) N17.9
--- NOTE | 2022-03-20 14:15 | PM.MISC ---
Miscellaneous Note Purpose of Documentation: response to CDI query Note: Acute on Chronic heart failure with preserved ejection fraction. HFpEF.
[2022-03-20] MEDS: vancomycin 1,000 MG in sodium chloride 0.9% 250 ML 250 MG IV (17:00)
[2022-03-20] MEDS: FUROsemide 10 mg/mL SDV 2mL 20 MG IVP (17:01)
[2022-03-20] MEDS: sodium chloride 0.9% 1,000 ML 50 ML IV (17:01)
[2022-03-20 20:43] LABS: Urine Random Sodium 40 mmol/L
[2022-03-20] MEDS: sodium chloride 1 gm Tablet 0.5 GM PO (21:07)
[2022-03-20] MEDS: trazodone 50 mg Tablet 25 MG PO (21:09)
[2022-03-21] VITALS (7 sets, daily range): BP systolic 112–131; BP diastolic 71–85; PULSE 79–106; RESP 16–18; TEMP 36.4–36.8; O2SAT 91–98
[2022-03-21] MEDS: piperacillin-tazobactam 3.375 GM in sodium chloride 0.9% (plus) 50 ML IV ×3 (04:58→19:50)
[2022-03-21 06:08] LABS: Basophils # 0.1 10^3/uL (0.0-0.1); Basophils % 0.3 %; Eosinophils % 0.2 %; Hematocrit 30.1 % (42.0-52.0); Hemoglobin 10.2 g/dL (11.7-16.6); Lymphocytes % 5.5 %; Mean Corpuscular HGB Conc 33.9 g/dL (30.0-36.0); Mean Corpuscular Hemoglobin 32.9 pg (28.0-34.0); Mean Corpuscular Volume 97.1 fl (80-94); Mean Platelet Volume 9.5 fL (7.4-10.4); Monocytes # 0.7 10^3/uL (0.2-0.9); Monocytes % 3.9 %; Neutrophils # 16.04 10^3/uL (1.8-7.7); Neutrophils % 88.6 %; Nucleated Red Blood Cells % 0 %; Platelet Count 319 10^3/cmm (130-400); Red Cell Distribution Width 14.2 % (12.1-15.1); White Blood Count 18.1 10^3/uL (4.0-10.0)
[2022-03-21] MEDS: polyethylene glycol 3350 Pkt 17 gm PO (06:41)
[2022-03-21] MEDS: aspirin 81 mg EC Tablet PO (06:41)
[2022-03-21] MEDS: carbidopa-levodopa 25-100mg Tablet 1 EACH PO ×3 (06:41→15:38)
[2022-03-21] MEDS: heparin 5,000 unit/mL INJ 1 mL 5000 UNIT SUBCUT ×2 (06:41→18:17)
[2022-03-21 06:50] LABS: Anion Gap 15.8 (5-19); Blood Urea Nitrogen 37 mg/dL (8-23); Calcium 7.8 mg/dL (8.5-10.5); Carbon Dioxide 19 mmol/L (22-29); Chloride 96 mmol/L (98-107); Glucose 99 mg/dL (65-115); Osmolality Calculated 273 mOsm/kg (285-295); Potassium 3.8 mmol/L (3.5-5.1); Sodium 127 mmol/L (136-145)
--- NOTE | 2022-03-21 08:00 | XRR_ITS ---
PROCEDURE INFORMATION: Exam: XR Chest Exam date and time: 03/21/2022 8:34 AM Age: 86 years old Clinical indication: Shortness of breath; Additional info: Assess pleural effusion TECHNIQUE: Imaging protocol: Radiologic exam of the chest. Views: 1 view. COMPARISON: CR XR chest 1V portable [id number] 03/18/2022 3:17 PM FINDINGS: Lungs: Left lung infiltrate is increased. Pleural spaces: Left pleural effusion is stable. Heart/Mediastinum: Stable cardiomegaly. Bones/joints: Unremarkable. XR/XR chest 1V portable [id number] IMPRESSION: Stable left pleural effusion with increasing left lung infiltrate.
[2022-03-21] MEDS: lactobacillus 1 Tablet 1 TAB PO ×2 (09:35→17:38)
[2022-03-21] MEDS: sodium chloride 1 gm Tablet 0.5 GM PO (09:35)
[2022-03-21] MEDS: pantoprazole DR 40 mg Tablet PO (09:35)
[2022-03-21] MEDS: sennosides-docusate Tablet 1 TAB PO (09:35)
[2022-03-21] MEDS: citalopram 20 mg Tablet 10 MG PO (09:35)
--- NOTE | 2022-03-21 10:11 | PC.SOCIAL ---
IMM Updated Updated pt on IMM. No questions voiced. Provided pt a copy. Initialed, dated, & timed copy in chart.
--- NOTE | 2022-03-21 10:22 | PM.PN ---
Subjective Subjective: Seen this morning. Patient has been transitioned to soft bite-size diet from liquid diet at this point. He was seen by speech this morning. He says he overall feels a lot better. WBC count has also come down to 18.1. Procalcitonin is negative at this point. Chest x-ray shows stable left pleural effusion with increasing infiltrate. Afebrile overnight. Clinically appears better. Patient now on room air. Vitals/I&O/Wt Last Vital Signs Temp 98.2 F 03/21/22 07:47 Pulse 105 H 03/21/22 08:07 Resp 18 03/21/22 08:07 BP 131/74 03/21/22 07:47 Pulse Ox 91 03/21/22 08:07 O2 Del Method 03/21/22 08:07 O2 Flow Rate 2 03/20/22 08:00 03/20/22 03/21/22 03/21/22 22:59 06:59 14:59 Intake Total 250 / 900 50 / 950 410 / 410 Output Total 1000 / 1000 600 / 1600 Balance -750 / -100 -550 / -650 410 / 410 Weight last 48 hrs Weight 71.305 kg Weight 96.434 kg Physical Exam Narrative: general: elderly male sitting up in bed appearing comfortable at this time. Patient is now on room air. nc/at, eomi lungs cta b/l with reduced sounds at left base abdomen soft,nontender, no guarding extremities: no LE edema. has scds in place neuro: non focal, moves all 4 extremities Urinary Catheter Management: Carlos: Cath Placed During This Visit: yes Reason for Continuing Indwelling Catheter: Acute Urinary Retention or Obstruction Urinary Catheter Date of Insertion: 03/17/22 Urinary Catheter Time of Insertion: 11:45 Data : 03/21/22 05:25 03/21/22 05:25 Micro: Microbiology 03/18/22 20:30 Urine Culture - Final Urine Catheterized A&P Assessment and plan (1) Atrial fibrillation: (2) Dyslipidemia: (3) Obstructive sleep apnea: (4) Benign essential HTN: (5) Parkinson disease: (6) Chronic anemia: (7) Postural hypotension: (8) Frequent falls: (9) Pleural effusion: (10) Lung cancer: (11) Heart failure with preserved ejection fraction: Qualifiers: Heart failure chronicity: chronic Qualified Code(s): I50.32 - Chronic diastolic (congestive) heart failure (12) Lewy body dementia: (13) UTI (urinary tract infection): Qualifiers: Urinary tract infection type: catheter-associated UTI Indwelling urinary catheter type: unspecified Encounter type: initial encounter Qualified Code(s): T83.511A - Infection and inflammatory reaction due to indwelling urethral catheter, initial encounter; N39.0 - Urinary tract infection, site not specified (14) Atrial fibrillation with RVR: (15) TINO (acute kidney injury): Plan #Pneumonia #Left pleural effusion #Failure to thrive, loss of appetite #Large hiatal hernia with retained fluid in esophagus. Unchanged from prior studies #Parkinson's disease #UTI #Anxiety/Depression #HFpEF #Lewy Body Dementia #A.fib #DLD #HTN #OA #Chronic constipation #Iron deficiency anemia #Protein calorie malnutrition #Chronic hyponatremia #Hypokalemia #High aspiration risk - Last echo: Echocardiogram in October of this year showed ejection fraction 55 to 60% with indeterminate diastolic function secondary to atrial fibrillation.? Biatrial enlargement was noted with moderate mitral regurgitation, mild to moderate aortic regurgitation, moderate tricuspid regurgitation, mild to moderate pulmonary hypertension.? Pulmonary hypertension at that time appeared new. - COntinue on vancomycin, zosyn and Levaquin. -Urine culture positive for mixed superficial siva greater than 100,000 colonies. I will repeat urine culture at this time. -Discontinue Cardizem. -We will start Lopressor 25 twice daily once blood pressure permits. If he does go back into A. fib with RVR we may resort to amiodarone. - Does have postural hypotension - Sinemet dose adjusted at admission - Continue to encourage oral intake - Trazodone at night -Start ferrous sulfate orally - folate 12.9, b12 687 - PT/OT -Stop IV fluids. ? Discussed with pulmonology. Thoracentesis performed yesterday. 800 cc removed. Exudative fluid. Most likely parapneumonic effusion.. Check fluid for cytology and culture. If patient does not continue to improve in next 24 to 48 hours may have to consider CT surgery consult for VATS procedure. Patient however is appearing better today. We will continue to monitor in the hospital. Check speech evaluation. Family interested in longterm. Case management working on placement PT/OT ordered. Pt is a max assist at this time He also has large hiatal hernia. Patient not interested in interventions at this time Swallow evaluation complete. Placed on a diet. Repeat chest x-ray shows stable left pleural effusion with increasing infiltrate. Discontinue IV fluids. WBC down to 18,000. Procalcitonin negative Patient afebrile now on room air. Clinically patient is appearing better. I will continue antibiotics at this point. Needs to stay in the hospital for continued monitoring. Patient may be able to discharge next 48 hours possibly pending clinical course. ? Advance diet. Full Code DVT PPX: heparin Attestations Medical Necessity Statement*: needs continued hospital stay for management of uti, tino, pleural effusion, pneumonia. expect 48-72 hour stay pending clinical course Time Spent in Patient Care: Greater than 35 minutes (>than 50% of time spent in counselling and/or direct pt care on unit). Coding Level of Care Code Acute Speech Pathology Teacher for g Fwd Diagnoses Atrial fibrillation I48.91 Dyslipidemia E78.5 Obstructive sleep apnea G47.33 Benign essential HTN I10 Parkinson disease G20 Chronic anemia D64.9 Postural hypotension I95.1 Frequent falls R29.6 Pleural effusion J90 Lung cancer C34.90 Heart failure with preserved ejection fraction I50.32 Heart failure chronicity: chronic Lewy body dementia G31.83; F02.80 UTI (urinary tract infection) T83.511A; N39.0 Urinary tract infection type: catheter-associated UTI Indwelling urinary catheter type: unspecified Encounter type: initial encounter Atrial fibrillation with RVR I48.91 TINO (acute kidney injury) N17.9
[2022-03-21] MEDS: levofloxacin-dextrose 5 % 750 MG/150 ML PREMIX 100 MG IV (15:39)
[2022-03-21] MEDS: vancomycin 1,000 MG in sodium chloride 0.9% 250 ML 250 MG IV (17:38)
[2022-03-21] MEDS: trazodone 50 mg Tablet 25 MG PO (19:50)
[2022-03-21] MEDS: metoprolol tartrate 25 mg Tablet 12.5 MG PO (19:51)
[2022-03-22] VITALS (7 sets, daily range): BP systolic 103–126; BP diastolic 67–84; PULSE 73–113; RESP 16–17; TEMP 36.3–36.7; O2SAT 93–99
[2022-03-22 04:55] LABS: Basophils # 0.1 10^3/uL (0.0-0.1); Basophils % 0.2 %; Eosinophils % 0.1 %; Hematocrit 31.1 % (42.0-52.0); Hemoglobin 10.6 g/dL (11.7-16.6); Lymphocytes # 0.8 10^3/uL (0.8-4.8); Mean Corpuscular HGB Conc 34.1 g/dL (30.0-36.0); Mean Corpuscular Hemoglobin 33.4 pg (28.0-34.0); Mean Corpuscular Volume 98.1 fl (80-94); Mean Platelet Volume 9.1 fL (7.4-10.4); Monocytes # 0.9 10^3/uL (0.2-0.9); Monocytes % 4.6 %; Neutrophils # 18.05 10^3/uL (1.8-7.7); Neutrophils % 89.5 %; Nucleated Red Blood Cells % 0 %; Platelet Count 377 10^3/cmm (130-400); Red Blood Count 3.17 10^6/uL (4.1-5.3); Red Cell Distribution Width 14.1 % (12.1-15.1); White Blood Count 20.2 10^3/uL (4.0-10.0)
[2022-03-22] MEDS: piperacillin-tazobactam 3.375 GM in sodium chloride 0.9% (plus) 50 ML IV ×3 (05:00→20:19)
[2022-03-22 05:23] LABS: Anion Gap 13.9 (5-19); Blood Urea Nitrogen 37 mg/dL (8-23); Calcium 7.9 mg/dL (8.5-10.5); Carbon Dioxide 20 mmol/L (22-29); Chloride 93 mmol/L (98-107); Glucose 95 mg/dL (65-115); Magnesium 1.9 mg/dL (1.7-2.3); Osmolality Calculated 264 mOsm/kg (285-295); Potassium 3.9 mmol/L (3.5-5.1); Sodium 123 mmol/L (136-145)
[2022-03-22] MEDS: polyethylene glycol 3350 Pkt 17 gm PO (06:30)
[2022-03-22] MEDS: carbidopa-levodopa 25-100mg Tablet 1 EACH PO ×3 (06:30→15:26)
[2022-03-22] MEDS: heparin 5,000 unit/mL INJ 1 mL 5000 UNIT SUBCUT (06:30)
[2022-03-22] MEDS: aspirin 81 mg EC Tablet PO (06:30)
--- NOTE | 2022-03-22 08:14 | XRR_ITS ---
PROCEDURE INFORMATION: Exam: XR Chest Exam date and time: 03/22/2022 8:22 AM Age: 86 years old Clinical indication: Condition or disease; Lung condition and disease; Pleural effusion; Other: Not specified; Additional info: Left pleural effusion TECHNIQUE: Imaging protocol: Radiologic exam of the chest. Views: 1 view. COMPARISON: CR (CHEST, ) 03/21/2022 8:34 AM FINDINGS: Lungs: Left basilar consolidation unchanged. Pleural spaces: There is a left pleural effusion which is probably unchanged allowing for differences in patient position. No pneumothorax. Heart/Mediastinum: Unremarkable. No cardiomegaly. Bones/joints: Unremarkable. XR/XR chest 1V portable [id number] IMPRESSION: Allowing for differences in patient position the left pleural effusion and left basilar consolidation have not significantly changed.
[2022-03-22] MEDS: lactobacillus 1 Tablet 1 TAB PO ×2 (08:28→17:52)
[2022-03-22] MEDS: sodium chloride 1 gm Tablet 0.5 GM PO (08:28)
[2022-03-22] MEDS: pantoprazole DR 40 mg Tablet PO (08:28)
[2022-03-22] MEDS: sennosides-docusate Tablet 1 TAB PO (08:29)
[2022-03-22] MEDS: metoprolol tartrate 25 mg Tablet 12.5 MG PO ×2 (08:29→20:19)
[2022-03-22 12:09] LABS: SARS Covid-2 Antigen negative (Negative)
[2022-03-22] MEDS: sodium chloride 0.9% 1,000 ML 50 ML IV (12:10)
--- NOTE | 2022-03-22 12:13 | PM.PN ---
Subjective Subjective: Patient was seen this morning, he is alert oriented x3, reports poor appetite, generalized weakness, family members are at bedside, 2 daughters at bedside, they are concerned for patient's gradual decline for the last few months, they are worried about his kidney function, his low sodium and his infection concerns Vitals/I&O/Wt Last Vital Signs Temp 98.1 F 03/22/22 08:00 Pulse 98 03/22/22 08:15 Resp 16 03/22/22 08:15 BP 126/83 03/22/22 08:00 Pulse Ox 96 03/22/22 08:15 O2 Del Method 03/22/22 08:15 O2 Flow Rate 2 03/22/22 08:15 03/21/22 03/22/22 03/22/22 22:59 06:59 14:59 Intake Total 810 / 2400 50 / 2450 170 / 170 Output Total 550 / 550 Balance 810 / 2400 -500 / 1900 170 / 170 Weight last 48 hrs Weight 74.571 kg Weight 71.305 kg Physical Exam Const: COMMON NORMALS: no acute distress and patient oriented x3 Resp: COMMON NORMALS: normal respiratory effort, No retractions and No use of accessory muscles OTHER: Decreased breath sounds left lower lung morales, rest the lungs, good air entry, lungs clear to auscultation Cardio: COMMON NORMALS: regular rate, regular rhythm, S1 normal heart sound present and S2 normal heart sound present RATE: regular rate RHYTHM: regular rhythm HEART SOUNDS: S1 normal heart sound present and S2 normal heart sound present GI: COMMON NORMALS: Normal to inspection, nondistended, normoactive bowel sounds present and non-tender Neuro: COMMON NORMALS: patient oriented x3 Psych: COMMON NORMALS: mental status grossly normal Urinary Catheter Management: Carlos: Cath Placed During This Visit: yes Reason for Continuing Indwelling Catheter: Acute Urinary Retention or Obstruction Urinary Catheter Date of Insertion: 03/17/22 Urinary Catheter Time of Insertion: 11:45 Data : 03/22/22 04:29 03/22/22 04:29 Micro: Microbiology 03/16/22 12:18 Blood Culture - Final Blood NO GROWTH AFTER 5 DAYS 03/16/22 12:25 Blood Culture - Final Blood NO GROWTH AFTER 5 DAYS 03/18/22 20:30 Urine Culture - Final Urine Catheterized A&P Assessment and plan (1) Atrial fibrillation: (2) Dyslipidemia: (3) Obstructive sleep apnea: (4) Benign essential HTN: (5) Parkinson disease: (6) Chronic anemia: (7) Postural hypotension: (8) Frequent falls: (9) Pleural effusion: (10) Lung cancer: (11) Heart failure with preserved ejection fraction: Qualifiers: Heart failure chronicity: chronic Qualified Code(s): I50.32 - Chronic diastolic (congestive) heart failure (12) Lewy body dementia: (13) UTI (urinary tract infection): Qualifiers: Urinary tract infection type: catheter-associated UTI Indwelling urinary catheter type: unspecified Encounter type: initial encounter Qualified Code(s): T83.511A - Infection and inflammatory reaction due to indwelling urethral catheter, initial encounter; N39.0 - Urinary tract infection, site not specified (14) Atrial fibrillation with RVR: (15) TINO (acute kidney injury): (16) Hyponatremia: Plan #Pneumonia #Left pleural effusion #Failure to thrive, loss of appetite #Large hiatal hernia with retained fluid in esophagus. Unchanged from prior studies #Parkinson's disease #UTI #Anxiety/Depression #HFpEF #Lewy Body Dementia #A.fib #DLD #HTN #OA #Chronic constipation #Iron deficiency anemia #Protein calorie malnutrition #Chronic hyponatremia #Hypokalemia #High aspiration risk - Last echo: Echocardiogram in October of this year showed ejection fraction 55 to 60% with indeterminate diastolic function secondary to atrial fibrillation.? Biatrial enlargement was noted with moderate mitral regurgitation, mild to moderate aortic regurgitation, moderate tricuspid regurgitation, mild to moderate pulmonary hypertension.? Pulmonary hypertension at that time appeared new. - COntinue on vancomycin, zosyn and Levaquin. -Urine culture positive for mixed superficial siva greater than 100,000 colonies. I will repeat urine culture at this time. -Continue Lopressor 25 twice daily once blood pressure permits. If he does go back into A. fib with RVR we may resort to amiodarone. - Does have postural hypotension - Sinemet dose adjusted at admission - Continue to encourage oral intake - Trazodone at night -Start ferrous sulfate orally - folate 12.9, b12 687 - PT/OT ?Has a history of recurrent left-sided pleural effusion, had a thoracocentesis in November of this year, Dr. Horan consulted, had thoracocentesis cultures were negative so, it was exudative, likely from rib fracture, during this hospitalization to Dr. Rodriguez seeing thoracentesis performed, 800 cc removed, exudative, most likely parapneumonic effusion. Culture and gram stain pending. Continue vancomycin, Zosyn, Levaquin, White blood cell count is up to 20.2, remains afebrile, patient's family is not inclined about chest tube or VATS procedure, i continue antibiotics, repeat chest x-ray, will discuss with pulmonary would back on service tomorrow Speech therapy consulted Family interested in skilled nursing. Case management working on placement PT/OT ordered. Pt is a max assist at this time He also has large hiatal hernia. Patient not interested in interventions at this time Swallow evaluation complete. Placed on a diet. TINO on CKD creatinine 1.7, has a history of urinary retention, will bladder scan, gentle IV hydration Acute on chronic hyponatremia, with history of recurrent falls, etiology unclear stop Celexa gentle IV hydration monitor serum sodium Clinically patient is appearing better. Needs to stay in the hospital for continued monitoring. Patient may be able to discharge next 48 hours possibly pending clinical course. ? Advance diet. Full Code DVT PPX: heparin Attestations Medical Necessity Statement*: Patient requires hospitalization for concerns for parapneumonic effusion Coding Level of Care Code Acute Defensive Line Coach for Chg Fwd Diagnoses Atrial fibrillation I48.91 Dyslipidemia E78.5 Obstructive sleep apnea G47.33 Benign essential HTN I10 Parkinson disease G20 Chronic anemia D64.9 Postural hypotension I95.1 Frequent falls R29.6 Pleural effusion J90 Lung cancer C34.90 Heart failure with preserved ejection fraction I50.32 Heart failure chronicity: chronic Lewy body dementia G31.83; F02.80 UTI (urinary tract infection) T83.511A; N39.0 Urinary tract infection type: catheter-associated UTI Indwelling urinary catheter type: unspecified Encounter type: initial encounter Atrial fibrillation with RVR I48.91 TINO (acute kidney injury) N17.9 Hyponatremia E87.1
--- NOTE | 2022-03-22 14:07 | US_ITS ---
WS: [id number] ULTRASOUND RENAL TECHNIQUE: Ultrasound examination of both kidneys. CLINICAL INFORMATION: maria d COMPARISON: CT November 30, 2021 FINDINGS: RIGHT: Simple RIGHT lower pole renal cyst measuring 7.5 x 8.0 x 6.9 cm Right kidney is normal in size and appearance. Echogenicity: Normal. Hydronephrosis: None. Perinephric fluid: None. Right kidney measures: 10.1 cm x 4.9 cm x 5.0 cm. LEFT: Simple LEFT upper pole renal cyst measuring 8.0 x 6.0 x 5.5 cm. Suspected possibly loculated fl uid in the LEFT retroperitoneum and about the kidney and spleen partially visualized on the prior [facility] CT . This can be further evaluated CT abdomen pelvis Left kidney is normal in size and appearance. Echogenicity: Normal. Hydronephrosis: None. Perinephric fluid: None. Left kidney measures: 11.6 cm x 6.3 cm x 4.5 cm. Normal visualized aorta. US/US renal BI* [id number] IMPRESSION: 1. No hydronephrosis in either kidney. 2. Large bilateral renal cysts unchanged since the recent CT. 3. Suspected possibly loculated fluid in the LEFT retroperitoneum partially vi sualized on the prior chest CT . This can be further evaluated CT abdo men pelvis. Notified Jason Granados MD at 03/22/2022 4:58 PM.
[2022-03-22 15:06] LABS: Creatine Phosphokinase 47 U/L (39-308)
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
[2022-03-22 16:58] LABS: Osmolality Urine 534 mOsm/kg (50-1200)
[2022-03-22 16:58] LABS: Osmolality Serum 273 mOsm/kg (278-305)
--- NOTE | 2022-03-22 17:01 | CTR_ITS ---
PROCEDURE INFORMATION: Exam: CT Abdomen And Pelvis Without Contrast Exam date and time: 03/22/2022 6:11 PM Age: 86 years old Clinical indication: Condition or disease; Other: Loculation left upper quadrant TECHNIQUE: Imaging protocol: Computed tomography of the abdomen and pelvis without contrast. Radiation optimization: All CT scans at this facility use at least one of these dose optimization techniques: automated exposure control; mA and/or kV adjustment per patient size (includes targeted exams where dose is matched to clinical indication); or iterative reconstruction. COMPARISON: CT abdomen pelvis wo con [id number] 11/30/2021 5:00 AM RADIATION DOSE METRICS: Total DLP (mGy-cm): 739.24 FINDINGS: Lungs: There is partial compressive atelectasis of both lower lobes. Pleural spaces: Moderate left and small right pleural effusions. Left pleural effusion is decreased since 11/30/2021. Right pleural effusion is increased. Diaphragm: There is a small sliding-type hiatal hernia. Liver: The liver is normal. Gallbladder and bile ducts: The gallbladder is decompressed, preventing meaningful evaluation of wall thickness. There is no intrahepatic or extrahepatic bile duct dilation. Pancreas: The pancreas is unremarkable. Spleen: The spleen is unremarkable. Adrenal glands: The adrenal glands are unremarkable. Kidneys and ureters: There are simple cysts in both kidneys. There is no hydronephrosis or ureteral dilation on the right. Moderate left hydronephrosis without hydroureter. No visible stones. Mixed density fluid collection filling the perirenal space posterior to the left kidney measures approximately 14 x 13 x 7 cm. The lesion involves the mid to distal portion of the left psoas muscle. There is asymmetric enlargement of the left psoas muscle. There is anterior displacement of the left kidney. Stomach and bowel: The stomach is decompressed, preventing meaningful evaluation of wall thickness. The small bowel is nondilated. There is mild sigmoid colonic diverticulosis without evidence of diverticulitis. Appendix: The appendix is normal. Intraperitoneal space: Trace pelvic free fluid. There is no intraperitoneal free air. Vasculature: There is severe aortic atherosclerotic disease. Lymph nodes: There is no lymphadenopathy in the retroperitoneum, mesentery, pelvis or inguinal regions. Urinary bladder: The Carlos catheter is appropriately positioned with the bulb and tip within the bladder lumen. The urinary bladder is decompressed, preventing meaningful evaluation of wall thickness. Reproductive: There is a penile prosthesis. Scrotal reservoir appears intact. The prostate and seminal vesicles are unremarkable. Bones/joints: There are chronic bilateral pars defects at L4 with grade 1 anterolisthesis of L4 on L5. Intact posterolateral fusion hardware at L4-L5. There is moderate lumbar degenerative disc disease. The right hip prosthesis is intact and well aligned. There is moderate degenerative disease at the left hip. There are chronic ununited fractures multiple left lower ribs. Soft tissues: The abdominal wall is intact. CT/CT abdomen pelvis wo con [id number] IMPRESSION: 1. Left hydronephrosis is new since 11/30/2021. The cause of hydronephrosis is not apparent although at least partial obstruction at the ureteropelvic junction is suggested. No stones are visible. 2. Large left perirenal fluid collection. This finding is new since 11/30/2021. Possible perirenal abscess or urinoma. Subacute retroperitoneal hematoma is also possibility. Consider follow-up CT urography to evaluate the integrity of the collecting system. 3. Decreased left and increased right pleural effusion since 11/30/2021. 4. Incidental findings above. COMMENTS: Consistent with the [employer]'s Incidental Findings Committee white paper (J Am Yadira Radiol 2018): Any incidental renal lesion less than 1 cm or classified as too small to characterize, or any incidental cystic renal lesion characterized as simple-appearing, is likely benign. No follow-up imaging is recommended for these lesions per consensus recommendations based on imaging criteria.
[2022-03-22] MEDS: sodium chloride 1 gm Tablet PO (17:52)
[2022-03-22] MEDS: vancomycin 1,000 MG in sodium chloride 0.9% 250 ML 250 MG IV (17:52)
[2022-03-22 18:57] LABS: Anion Gap 11.2 (5-19); Blood Urea Nitrogen 38 mg/dL (8-23); Calcium 8.7 mg/dL (8.5-10.5); Carbon Dioxide 33 mmol/L (22-29); Chloride 96 mmol/L (98-107); Glucose 211 mg/dL (65-115); Osmolality Calculated 297 mOsm/kg (285-295); Potassium 4.2 mmol/L (3.5-5.1); Sodium 136 mmol/L (136-145)
--- NOTE | 2022-03-22 20:04 | PM.CONSULT ---
Providers/Reason For Consult Consulting Physician/Specialty*: Urology/[place] Reason for Consult*: Left perirenal fluid collection, hydronephrosis Requesting Physician: Dr. Granados Attending Physician: Jason Granados MD Primary Care Provider: Nika Parekh MD History of Present Illness History of Present Illness Yossi Vargas is a 86 year old male [facility] of [facility]ral stricture disease status post catastrophic injury to the penis when he was in the many years ago and ultimately underwent reconstructive surgery with urethral creation and implantation of penile prosthesis. Has had problems over the years with recurrent stricture disease and when I first saw him he was postop and required dilation with catheter placement. In general he has utilized [facility] for stricture patency maintenance effectively. In November of this year after becoming ill he had stopped doing self-catheterization unfortunately became obstructed and required intraoperative dilation under anesthesia. His last follow-up with me was as an inpatient in November 2021. On 03/16/2022 he presented to the emergency department with loss of appetite and progressive weakness. This is been going on for about a week. He also complained of increasing urgency and frequency and had been treated with at least 2 rounds of antibiotics on an outpatient basis for UTI symptoms. Work-up in the emergency department: Leukocytosis with a white count of around 28,000 Left-sided pleural effusion possibility of pneumonia Interventions this hospital stay include a thoracentesis with 800 cc of cloudy straw-colored fluid with some sediment. It was felt clinically that this represented a parapneumonic effusion. Was continued on broad-spectrum antibiotics. Over the course of his hospital stay his creatinine has increased. Renal ultrasound was ordered and demonstrated large bilateral renal cysts, no clear hydronephrosis, loculated fluid in the left retroperitoneum into the kidney extending up toward the spleen. A follow-up CT scan confirmed these findings and did show some evidence of renal pelvic dilation on the left. The fluid volume was extensive and loculated appearance with some evidence of acute hemorrhage. This did not appear to be typical for forniceal rupture with perirenal urinoma. Has had more features consistent with perirenal abscess. Given his persistently elevated leukocytosis I would be concerned about an infectious etiology primarily over obstruction related extravasation. Urine cultures have been no growth. He had been on antibiotics prior to admission for least a couple rounds apparently. He does have chronically contaminated urine due to intermittent catheterization for stricture patency maintenance. I recommended consideration transfer for interventional radiology for drain or drains initially. Reviewed with Dr. Granados. Review of Systems Narrative: Complaining of left-sided back pain, buttock pain. Denies chest pain Denies shortness of breath Reports memory loss No abdominal pain No abnormal bleeding or bruising Decreased appetite Did have chills but those are not ongoing now Generalized weakness Medications/Allergies Home Medications Medication Instructions Recorded Confirmed Last Taken Type multivitamin 1 tab PO DAILY #90 tabs 06/23/20 03/16/22 11/29/21 Rx fluticasone propionate 50 2 spray intranasal DAILY PRN 10/28/20 03/16/22 02/24/21 History mcg/actuation nasal Allergy Symptoms spray,suspension pantoprazole 40 mg tablet,delayed 40 mg PO DAILY 11/30/21 03/16/22 11/29/21 History release melatonin 5 mg capsule 10 mg PO BEDTIME PRN Sleep 01/26/22 03/16/22 Unknown History mupirocin 2 % topical ointment 1 applic topical BID PRN unknown 01/26/22 03/16/22 Unknown History amoxicillin 500 mg tablet 500 mg PO DAILY 03/16/22 03/16/22 03/15/22 History aspirin 81 mg tablet,delayed 81 mg PO QAM 03/16/22 03/16/22 03/16/22 History release carbidopa ER 50 mg-levodopa 200 mg 1 tab PO TID@07,11,16 03/16/22 03/16/22 03/16/22 History tablet,extended release citalopram 10 mg tablet 10 mg PO DAILY PRN Anxiety 03/16/22 03/16/22 Unknown History docusate sodium 100 mg capsule 100 mg PO BID PRN Constipation 03/16/22 03/16/22 Unknown History ferrous fumarate-vitamin C 200 mg 1 tab PO DAILY 03/16/22 03/16/22 Unknown History (66 mg iron)-125 mg tablet food supplemt, lactose-reduced 1 ea PO DAILY 03/16/22 03/16/22 Unknown History peg 400-propylene glycol 0.4 %-0.3 1 drp ophthalmic (eye) DAILY PRN 03/16/22 03/16/22 Unknown History % eye drops (Systane (propylene Dry Eye(S) glycol)) polyethylene glycol 3350 17 gram 17 g PO QAM 03/16/22 03/16/22 03/15/22 History oral powder packet (Miralax) sennosides 8.6 mg-docusate sodium 1 tab-cap PO DAILY 03/16/22 03/16/22 Unknown History 50 mg tablet (Senna-S) trazodone 100 mg tablet 100 mg PO BEDTIME PRN Sleep 03/16/22 03/16/22 Unknown History Allergies Allergy/AdvReac Type Severity Reaction Status Date / Time No Known Allergies Allergy Verified 03/16/22 11:31 Current Medications Generic Name Dose Route Start Last Admin Trade Name Freq PRN Reason Stop Dose Admin Acetaminophen 650 mg 03/16/22 18:01 03/19/22 11:36 Acetaminophen 325 Mg Tablet PO 650 mg Q6H PRN Administration Mild/Mod Pain Or Temp >/= 101 Albuterol/Ipratropium 3 ml 03/16/22 20:07 03/17/22 16:24 Ipratropium-Albuterol 3 Ml Neb INHALATION 3 ml Q6H PRN Administration SHORTNESS OF BREATH Aspirin 81 mg 03/17/22 06:00 03/22/22 06:30 Aspirin 81 Mg Ec Tablet PO 81 mg QAM EVARISTO Administration Carbidopa/Levodopa 1 each 03/17/22 07:00 03/22/22 15:26 Carbidopa-Levodopa 25-100mg Tablet PO 1 each TID@,,16 EVARISTO Administration Citalopram Hydrobromide 10 mg 03/17/22 09:00 03/21/22 09:35 Citalopram 20 Mg Tablet PO 10 mg DAILY EVARISTO Administration Heparin Sodium (Porcine) 5,000 unit 03/16/22 19:00 03/22/22 06:30 Heparin 5,000 Unit/Ml Inj 1 Ml SUBCUT 5,000 unit Q12H EVARISTO Administration Piperacillin Sod/Tazobactam 50 mls @ 12.5 mls/hr 03/17/22 09:00 03/22/22 15:28 Sod 3.375 gm/ Sodium Chloride IV Infused Q8H EVARISTO Infusion Protocol As Directed Vancomycin HCl 1,000 mg/ 250 mls @ 250 mls/hr 03/20/22 17:00 03/22/22 19:38 Sodium Chloride IV Infused Q24H EVARISTO Infusion Sodium Chloride 1,000 mls @ 50 mls/hr 03/22/22 12:00 03/22/22 12:10 Sodium Chloride 0.9% IV 50 mls/hr .Q20H EVARISTO Administration Lactobacillus Acidophilus 1 tab 03/16/22 18:01 03/22/22 17:52 Lactobacillus 1 Tablet PO 1 tab BID EVARISTO Administration Metoprolol Tartrate 12.5 mg 03/21/22 21:00 03/22/22 08:29 Metoprolol Tartrate 25 Mg Tablet PO 12.5 mg BID@0900,2100 EVARISTO Administration Pantoprazole Sodium 40 mg 03/17/22 09:00 03/22/22 08:[address] 40 Mg Tablet PO 40 mg DAILY EVARISTO Administration Polyethylene Glycol 17 gm 03/17/22 06:00 03/22/22 06:30 Polyethylene Glycol 3350 Pkt 17 Gm PO 17 gm QAM EVARISTO Administration Senna/Docusate Sodium 1 tab 03/17/22 09:00 03/22/22 08:29 Sennosides-Docusate Tablet PO 1 tab DAILY EVARISTO Administration Sodium Chloride 1 gm 03/22/22 18:00 03/22/22 17:52 Sodium Chloride 1 Gm Tablet PO 1 gm BID EVARISTO Administration Trazodone HCl 25 mg 03/20/22 21:00 03/21/22 19:50 Trazodone 50 Mg Tablet PO 25 mg BEDTIME EVARISTO Administration PFSH Acute PFSH: Medical History Anxiety and depression ASVD (arteriosclerotic vascular disease) Carotid stenosis Chronic constipation Chronic GERD Chronic low back pain DDD (degenerative disc disease) Diverticulosis Drug intolerance flecainide Dyslipidemia Essential hypertension Heart failure with preserved ejection fraction Hiatal hernia Hyponatremia Insomnia Lewy body dementia Neuropathy Normochromic normocytic anemia Obstructive sleep apnea Has difficulty in using the CPAP Osteoarthritis of both knees Other urethral stricture, male, 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 Complete urethral reconstruction with subsequent urethral stricture disease. As required multiple dilations over the years. Overflow incontinence Parkinson disease Paroxysmal atrial fibrillation Polymyalgia rheumatica Prostatism Rib fracture History of multiple left sided fractures 11/2021 after fall with associated left sided exudative effusion; also with right 6th rib fracture Small vessel disease, cerebrovascular Spondylolisthesis Squamous cell carcinoma Vitamin D deficiency Surgical History History of back surgery History of circumcision History of dilation of urethra History of hemiarthroplasty of right hip History of hernia repair History of penile implant Inflatable penile prosthesis History of sinus surgery History of total knee replacement Status post cystourethroscopy with dilation of urethral stricture Status post right inguinal hernia repair (02/25/21) Family History Grandmother CAD (coronary artery disease) Stroke Brother Suicide Mother Lung disease Father , age 94, only took Tylenol Old age Denies family history of Diabetes Clotting disorder Dementia Chronic kidney disease (CKD) Anesthesia complication Bleeding disorder Cancer Social History Smoking and tobacco status: never smoked Second hand smoke exposure: No Alcohol intake: never Caregiver/support person: Yes Lives independently: Yes Household members: spouse Marital status: service: Yes Current occupational status: retired History of recent travel: No Current gender identity: Male Special massimo needs: No Agree to transfusion: Yes Vitals/I&O/Wt Last Vital Signs Temp 97.6 F 03/22/22 16:00 Pulse 97 03/22/22 16:00 Resp 16 03/22/22 16:00 BP 107/74 03/22/22 16:00 Pulse Ox 93 03/22/22 16:00 O2 Del Method 03/22/22 16:00 O2 Flow Rate 2 03/22/22 08:15 03/22/22 03/22/22 03/22/22 06:59 14:59 22:59 Intake Total 50 / 2450 410 / 410 540 / 950 Output Total 550 / 550 625 / 625 Balance -500 / 1900 410 / 410 -85 / 325 Weight last 48 hrs Weight 164 lb 6.4 oz Weight 157 lb 3.2 oz Physical Exam Const: COMMON NORMALS: no acute distress and average body habitus; negative for patient oriented x3 and negative for healthy appearing HENMT: COMMON NORMALS: normocephalic HEAD & SCALP: normocephalic Eye: COMMON NORMALS: no scleral icterus Neck/C-Spine: OTHER: Good range of motion Resp: OTHER: No audible wheezes or labored respiration. No tachypnea GI: OTHER: Soft, nontender, no palpable organomegaly masses appreciated. Extremity: NARRATIVE EXTREMITY EXAM: No severe edema Neuro: COMMON NORMALS: negative for patient oriented x3 Urinary Catheter Management: Carlos: Cath Placed During This Visit: yes Reason for Continuing Indwelling Catheter: Acute Urinary Retention or Obstruction Urinary Catheter Date of Insertion: 03/17/22 Urinary Catheter Time of Insertion: 11:45 Data : 03/22/22 21:45 03/22/22 18:14 A&P Assessment and plan (1) Perirenal abscess: Suspected perirenal abscess. Recommended consideration for interventional radiology drain/drains placement (2) Other urethral stricture, male, overlapping sites: Chronic urethral stricture. Has Carlos catheter in place now. Has done well with [facility] for stricture patency maintenance historically but quickly recurs to the point of inability to get a catheter and if does not perform it. (3) Self-catheterizes urinary bladder: (4) UTI (urinary tract infection): Qualifiers: Encounter type: initial encounter Indwelling urinary catheter type: unspecified Urinary tract infection type: catheter-associated UTI Qualified Code(s): T83.511A - Infection and inflammatory reaction due to indwelling urethral catheter, initial encounter; N39.0 - Urinary tract infection, site not specified (5) Lewy body dementia: Plan 1. This left perirenal fluid collection is very suspicious for perirenal abscess. Cannot see any evidence of stone in the ureter. Could not rule out urinary extravasation but does not have the characteristic picture of that. In addition he has had a persistently elevated white count with an actual bump up today while on broad-spectrum antibiotics. He is at risk for recurrent UTIs given his longstanding panurethral stricture disease and chronic self-catheterization for stricture patency maintenance. 2. Recommend consideration for transfer to higher level of care with interventional radiology for drain/drains of the perirenal space. Hold aspirin 3. Continue Carlos catheter Consult Attestations Medical Necessity Statement: See attending Coding Level of Care Code Acute Control And Recovery Special Tactics for Chg Fwd Diagnoses Perirenal abscess N15.1 Other urethral stricture, male, overlapping sites N35.816 Self-catheterizes urinary bladder Z78.9 UTI (urinary tract infection) T83.511A; N39.0 Encounter type: initial encounter Indwelling urinary catheter type: unspecified Urinary tract infection type: catheter-associated UTI Lewy body dementia G31.83; F02.80
[2022-03-22] MEDS: trazodone 50 mg Tablet 25 MG PO (20:19)
[2022-03-22 22:11] LABS: Basophils # 0.1 10^3/uL (0.0-0.1); Basophils % 0.3 %; Eosinophils # 0.1 10^3/uL (0.0-0.8); Eosinophils % 0.3 %; Hematocrit 31.7 % (42.0-52.0); Hemoglobin 10.3 g/dL (11.7-16.6); Lymphocytes # 1.1 10^3/uL (0.8-4.8); Lymphocytes % 5.7 %; Mean Corpuscular HGB Conc 32.5 g/dL (30.0-36.0); Mean Corpuscular Hemoglobin 33.3 pg (28.0-34.0); Mean Corpuscular Volume 102.6 fl (80-94); Mean Platelet Volume 9.1 fL (7.4-10.4); Monocytes % 5.2 %; Neutrophils # 17.32 10^3/uL (1.8-7.7); Neutrophils % 87.3 %; Nucleated Red Blood Cells % 0 %; Platelet Count 349 10^3/cmm (130-400); Red Blood Count 3.09 10^6/uL (4.1-5.3); Red Cell Distribution Width 14.3 % (12.1-15.1); White Blood Count 19.9 10^3/uL (4.0-10.0)
[2022-03-23] VITALS (7 sets, daily range): BP systolic 107–126; BP diastolic 71–85; PULSE 62–112; RESP 14–17; TEMP 36.3–36.5; O2SAT 91–96
[2022-03-23] MEDS: piperacillin-tazobactam 3.375 GM in sodium chloride 0.9% (plus) 50 ML IV ×3 (04:07→21:02)
[2022-03-23] MEDS: polyethylene glycol 3350 Pkt 17 gm PO (06:29)
[2022-03-23] MEDS: carbidopa-levodopa 25-100mg Tablet 1 EACH PO ×3 (06:29→17:45)
[2022-03-23] MEDS: aspirin 81 mg EC Tablet PO (06:29)
[2022-03-23 08:15] LABS: Basophils # 0.1 10^3/uL (0.0-0.1); Basophils % 0.3 %; Eosinophils % 0.1 %; Hematocrit 31.3 % (42.0-52.0); Hemoglobin 10.4 g/dL (11.7-16.6); Lymphocytes # 0.9 10^3/uL (0.8-4.8); Lymphocytes % 4.2 %; Mean Corpuscular HGB Conc 33.2 g/dL (30.0-36.0); Mean Corpuscular Hemoglobin 32.9 pg (28.0-34.0); Mean Corpuscular Volume 99.1 fl (80-94); Monocytes # 0.9 10^3/uL (0.2-0.9); Monocytes % 4.5 %; Neutrophils # 18.04 10^3/uL (1.8-7.7); Neutrophils % 89.4 %; Nucleated Red Blood Cells % 0 %; Platelet Count 376 10^3/cmm (130-400); Red Blood Count 3.16 10^6/uL (4.1-5.3); Red Cell Distribution Width 14.1 % (12.1-15.1); White Blood Count 20.2 10^3/uL (4.0-10.0)
[2022-03-23 08:39] LABS: Anion Gap 14.3 (5-19); Blood Urea Nitrogen 33 mg/dL (8-23); Calcium 8.1 mg/dL (8.5-10.5); Carbon Dioxide 20 mmol/L (22-29); Chloride 97 mmol/L (98-107); Glucose 89 mg/dL (65-115); Magnesium 1.8 mg/dL (1.7-2.3); Osmolality Calculated 271 mOsm/kg (285-295); Phosphorus 3.1 mg/dL (2.5-4.5); Potassium 4.3 mmol/L (3.5-5.1); Sodium 127 mmol/L (136-145)
--- NOTE | 2022-03-23 09:02 | PC.SOCIAL ---
IMM update IMM updated with patient at bedside. Copy of page 2 provided. Patient verbalized understanding. Copy in chart initialed, dated and timed.
[2022-03-23] MEDS: sodium chloride 0.9% 1,000 ML 50 ML IV (09:25)
[2022-03-23] MEDS: lactobacillus 1 Tablet 1 TAB PO ×2 (09:27→17:45)
[2022-03-23] MEDS: metoprolol tartrate 25 mg Tablet 12.5 MG PO ×2 (09:27→21:01)
[2022-03-23] MEDS: sennosides-docusate Tablet 1 TAB PO (09:27)
[2022-03-23] MEDS: sodium chloride 1 gm Tablet PO ×2 (09:27→17:45)
[2022-03-23] MEDS: pantoprazole DR 40 mg Tablet PO (09:28)
[2022-03-23] MEDS: levofloxacin-dextrose 5 % 750 MG/150 ML PREMIX 100 MG IV (12:12)
--- NOTE | 2022-03-23 12:34 | P.PN_ITS ---
Subjective Subjective: Patient was seen this morning, he remains alert to person, to place, not to time, he follows commands, afebrile overnight, normotensive, patient's family members are at bedside including patient's and 2 daughters from [place] -I in detail discussed patient's clinical progress -I discussed CT scan findings yesterday, and urology consultation -Patient was found to have a left perirenal fluid collection very suspicious for perirenal abscess, was found to have left hydronephrosis, but cannot see any evidence of stone in the ureter, -Discussed with family members the patient is going to require multiple drains in the perirenal abscess, this is the likely reason why he remains to have leukocytosis, and has weakness, however his urine cultures and blood cultures have remained unremarkable he is on broad-spectrum antibiotic therapy -In addition he might in the future require a cystoscopy with ureteroscopy to evaluate for possible obstruction -After discussion with our radiology team, and urology, it was felt the patient would be best served at a tertiary level center given the complexity of his diagnosis, medical problem, and it was out of their scope of expertise -Patient's family voiced understanding, all questions answered, opportunity answer questions, agreed to proceed for transfer -For now history of sodium improved to 127, creatinine 1.6, he is hemodynamically stable, afebrile, remains on broad-spectrum antibiotic therapy -I so far have called [facility], [facility], [facility], however the smaller hospitals do not have the scope of expertise to appropriately manage patient's medical problem -I have called [facility], [facility]' they are at capacity and not taking transfers -I have called [facility], they are also full, not excepting transfers -I will again call in the afternoon, to see if any of them are willing to take the transfer -Patient's family boisterously, all questions answered, I advised family that my concern is is that if these abscesses are not appropriate urine, he will continue of leukocytosis,'s have poor clinical long-term, increased risk of morbidity and mortality, high risk of sepsis, septic shock, the boisterously, all questions answered, agreed to proceed -In terms of his left pleural effusion, the size of pleural effusion on the CT scan has decreased, but it persists, it is also contiguous with his left perirenal abscess, no organisms were seen, gram stain, Vitals/I&O/Wt Last Vital Signs Temp 97.6 F 03/23/22 08:00 Pulse 94 03/23/22 08:00 Resp 16 03/23/22 08:00 BP 123/84 03/23/22 08:00 Pulse Ox 94 03/23/22 08:00 O2 Del Method 03/23/22 08:00 O2 Flow Rate 2 03/22/22 08:15 03/22/22 03/23/22 03/23/22 22:59 06:59 14:59 Intake Total 540 / 950 50 / 1000 1290 / 1290 Output Total 625 / 625 450 / 1075 Balance -85 / 325 -400 / -75 1290 / 1290 Weight last 48 hrs Weight 70.579 kg Weight 74.571 kg Physical Exam Const: COMMON NORMALS: no acute distress OTHER: Alert to person, to place, not to time Resp: COMMON NORMALS: normal respiratory effort, No retractions, No use of accessory muscles and clear to auscultation bilaterally AUSCULTATION: clear to auscultation bilaterally Cardio: COMMON NORMALS: regular rate, regular rhythm, S1 normal heart sound present and S2 normal heart sound present RATE: regular rate RHYTHM: regular rhythm HEART SOUNDS: S1 normal heart sound present and S2 normal heart sound present GI: COMMON NORMALS: Normal to inspection, nondistended, normoactive bowel sounds present, Soft to palpation, non-tender, No hepatosplenomegaly present, no masses and no bruits PALPATION: Yes Soft to palpation and Yes No hepatospleno megaly present Extremity: COMMON NORMALS: no pedal edema Psych: COMMON NORMALS: mental status grossly normal Urinary Catheter Management: Carlos: Cath Placed During This Visit: yes Reason for Continuing Indwelling Catheter: Acute Urinary Retention or Obstruction Urinary Catheter Date of Insertion: 03/17/22 Urinary Catheter Time of Insertion: 11:45 Data : 03/23/22 07:42 03/23/22 07:42 Micro: Microbiology 03/23/22 02:55 Gram Stain - Final Sputum - Expectorated Sputum 03/18/22 14:40 Gram Stain - Final Pleural Fluid A&P Assessment and plan (1) Atrial fibrillation: (2) Dyslipidemia: (3) Obstructive sleep apnea: (4) Benign essential HTN: (5) Parkinson disease: (6) Chronic anemia: (7) Postural hypotension: (8) Frequent falls: (9) Pleural effusion: (10) Lung cancer: (11) Heart failure with preserved ejection fraction: Qualifiers: Heart failure chronicity: chronic Qualified Code(s): I50.32 - Chronic diastolic (congestive) heart failure (12) Lewy body dementia: (13) UTI (urinary tract infection): Qualifiers: Urinary tract infection type: catheter-associated UTI Indwelling urinary catheter type: unspecified Encounter type: initial encounter Qualified Code(s): T83.511A - Infection and inflammatory reaction due to indwelling urethral catheter, initial encounter; N39.0 - Urinary tract infection, site not specified (14) Atrial fibrillation with RVR: (15) TINO (acute kidney injury): (16) Hyponatremia: (17) Perirenal abscess: (18) Hydronephrosis, left: Plan #Pneumonia #Left pleural effusion #Failure to thrive, loss of appetite #Large hiatal hernia with retained fluid in esophagus. Unchanged from prior studies #Parkinson's disease #UTI #Anxiety/Depression #HFpEF #Lewy Body Dementia #A.fib #DLD #HTN #OA #Chronic constipation #Iron deficiency anemia #Protein calorie malnutrition #Chronic hyponatremia #Hypokalemia #High aspiration risk - Last echo: Echocardiogram in October of this year showed ejection fraction 55 to 60% with indeterminate diastolic function secondary to atrial fibrillation.? Biatrial enlargement was noted with moderate mitral regurgitation, mild to moderate aortic regurgitation, moderate tricuspid regurgitation, mild to moderate pulmonary hypertension.? Pulmonary hypertension at that time appeared new. - COntinue on vancomycin, zosyn and Levaquin. -Urine culture positive for mixed superficial siva greater than 100,000 colonies. Repeat cultures so far negative -Continue Lopressor 25 twice daily once blood pressure permits. If he does go back into A. fib with RVR we may resort to amiodarone. Hold off on anticoagulation as there is possibility of IR drain procedures or further ED urology procedures -Continue to monitor orthostatic vitals - Sinemet dose adjusted at admission - Continue to encourage oral intake - Trazodone at night -Start ferrous sulfate orally - folate 12.9, b12 687 - PT/OT ?Has a history of recurrent left-sided pleural effusion, had a thoracocentesis in November of this year, Dr. Horan consulted, had thoracocentesis cultures were negative so, it was exudative, likely from rib fracture, during this hospitalization to Dr. Rodriguez seeing thoracentesis performed, 800 cc removed, exudative, most likely parapneumonic effusion. Culture and gram stain pending. Continue vancomycin, Zosyn, Levaquin, White blood cell count is up to 20.2, remains afebrile, patient's family is not inclined about chest tube or VATS proc edure, i continue antibiotics repeat CT of the abdomen shows bilateral pleural effusions, with a 1 on the left has decreased in size, Gram stain shows WBCs, cultures pending, repeat ultrasound today, Dr. Rodriguez to see Speech therapy consulted Family interested in residential. Case management working on placement PT/OT ordered. Pt is a max assist at this time He also has large hiatal hernia. Patient not interested in interventions at this time Swallow evaluation complete. Placed on a diet. TINO on CKD creatinine 1.6, has a history of urinary retention Acute on chronic hyponatremia, with history of recurrent falls, etiology unclear stop Celexa, nephrology consulted Needs to stay in the hospital for continued monitoring. Patient may be able to discharge next 48 hours possibly pending clinical course. -I discussed CT scan findings yesterday, and urology consultation -Left hydronephrosis, with perirenal abscess, with TINO -Patient was found to have a left perirenal fluid collection very suspicious for perirenal abscess, was found to have left hydronephrosis, but cannot see any evidence of stone in the ureter, -Discussed with family members the patient is going to require multiple drains in the perirenal abscess, this is the likely reason why he remains to have leukocytosis, and has weakness, however his urine cultures and blood cultures have remained unremarkable he is on broad-spectrum antibiotic therapy -In addition he might in the future require a cystoscopy with ureteroscopy to evaluate for possible obstruction -After discussion with our radiology team, and urology, it was felt the patient would be best served at a tertiary level center given the complexity of his diagnosis, medical problem, and it was out of their scope of expertise -Patient's family voiced understanding, all questions answered, opportunity answer questions, agreed to proceed for transfer -For now history of sodium improved to 127, creatinine 1.6, he is hemodynamically stable, afebrile, remains on broad-spectrum antibiotic therapy -I so far have called [facility], [facility], [facility], however the smaller hospitals do not have the scope of expertise to appropriately manage patient's medical problem -I have called [facility], [facility]'s they are at capacity and not taking transfers -I have called [facility], they are also full, not excepting transfers -I will again call in the afternoon, to see if any of them are willing to take the transfer -Patient's family boisterously, all questions answered, I advised family that my concern is is that if these abscesses are not appropriate urine, he will continue of leukocytosis,'s have poor clinical long-term, increased risk of morbidity and mortality, high risk of sepsis, septic shock, the boisterously, all questions answered, agreed to proceed -In terms of his left pleural effusion, the size of pleural effusion on the CT scan has decreased, but it persists, it is also contiguous with his left perirenal abscess, no organisms were seen, gram stain, ? Advance diet. Full Code DVT PPX: heparin Attestations Medical Necessity Statement*: Patient requires hospitalization for left perirenal abscess, left hydronephrosis Coding Level of Care Code Acute Professor Of Rhetoric for Chg Fwd Diagnoses Atrial fibrillation I48.91 Dyslipidemia E78.5 Obstructive sleep apnea G47.33 Benign essential HTN I10 Parkinson disease G20 Chronic anemia D64.9 Postural hypotension I95.1 Frequent falls R29.6 Pleural effusion J90 Lung cancer C34.90 Heart failure with preserved ejection fraction I50.32 Heart failure chronicity: chronic Lewy body dementia G31.83; F02.80 UTI (urinary tract infection) T83.511A; N39.0 Urinary tract infection type: catheter-associated UTI Indwelling urinary catheter type: unspecified Encounter type: initial encounter Atrial fibrillation with RVR I48.91 TINO (acute kidney injury) N17.9 Hyponatremia E87.1 Perirenal abscess N15.1 Hydronephrosis, left N13.30
--- NOTE | 2022-03-23 17:00 | PM.PN ---
Subjective Subjective: he has no new complaints Vitals/I&O/Wt Last Vital Signs Temp 97.7 F 03/23/22 15:12 Pulse 66 03/23/22 15:12 Resp 14 03/23/22 15:12 BP 107/71 03/23/22 15:12 Pulse Ox 95 03/23/22 15:12 O2 Del Method 03/23/22 15:12 O2 Flow Rate 2 03/22/22 08:15 03/23/22 03/23/22 03/23/22 06:59 14:59 22:59 Intake Total 50 / 1000 1680 / 1680 Output Total 450 / 1075 Balance -400 / -75 1680 / 1680 Weight last 48 hrs Weight 70.579 kg Weight 74.571 kg Physical Exam Const: OTHER: weak, ill appearing Urinary Catheter Management: Carlos: Cath Placed During This Visit: yes Reason for Continuing Indwelling Catheter: Acute Urinary Retention or Obstruction Urinary Catheter Date of Insertion: 03/17/22 Urinary Catheter Time of Insertion: 11:45 Data : 03/23/22 07:42 03/23/22 07:42 Micro: Microbiology 03/18/22 14:40 Gram Stain - Final Pleural Fluid Body Fluid Culture - Preliminary 03/23/22 02:55 Gram Stain - Final Sputum - Expectorated Sputum CT Abd/Pel: Radiologist's impression: 1. Left hydronephrosis is new since 11/30/2021. The cause of hydronephrosis is not apparent although at least partial obstruction at the ureteropelvic junction is suggested. No stones are visible. 2. Large left perirenal fluid collection. This finding is new since 11/30/2021. Possible perirenal abscess or urinoma. Subacute retroperitoneal hematoma is also possibility. US: Radiologist's impression: 1.? No hydronephrosis in either kidney. 2.? Large bilateral renal cysts unchanged since the recent CT. 3.? Suspected possibly loculated fluid in the LEFT retroperitoneum partially visualized on the prior chest CT . This can be further evaluated CT abdomen pelvis. A&P Assessment and plan (1) Hyponatremia: seen via telemedicine with assistance of RN at bedside Plan 1. Acute kidney injury. Renal function stable. Left hydronephrosis with surrounding fluid collection. Possible abscess 2. Chronic hyponatremia, suspect SIADH. Serum sodium stable. 3. Poor nutrition, pneumonia Recommend: continue oral NaCL, broad spectrum antibiotics, maintenance IVF. When bed is available, patient will be transferred to hospital that can drain, treat hydronephrosis, possible abscess. Attestations Medical Necessity Statement*: see above Time Spent in Patient Care: 16 - 35 minutes Coding Level of Care Code Acute Reduction Furnace Operator Helper for Chg Fwd Diagnoses Hyponatremia E87.1
[2022-03-23 17:19] LABS: Vancomycin Trough 17.4 ug/mL (10-15)
--- NOTE | 2022-03-23 17:35 | P.PN_ITS ---
Subjective Subjective: -Seen patient at bedside -Appears clinically unchanged -No fever spikes but has still persistent leukocytosis around 20,000 -Patient had abdominal CT which showed left hydronephrosis and large left perirenal fluid collection--suspicious for perirenal abscess -Other labs and imaging reviewed- -Patient is currently on vancomycin and Zosyn and Levaquin-Urine cultures are pending -Plan is to transfer patient to higher facility for cystoscopy with ureteroscopy as well as multiple drains of perirenal abscess-unfortunately there is no bed availability-meanwhile being treated with antibiotics Medications: Reviewed: Yes Vitals/I&O/Wt Last Vital Signs Temp 97.7 F 03/23/22 15:12 Pulse 66 03/23/22 15:12 Resp 14 03/23/22 15:12 BP 107/71 03/23/22 15:12 Pulse Ox 95 03/23/22 15:12 O2 Del Method 03/23/22 15:12 O2 Flow Rate 2 03/22/22 08:15 03/23/22 03/23/22 03/23/22 06:59 14:59 22:59 Intake Total 50 / 1000 1680 / 1680 Output Total 450 / 1075 Balance -400 / -75 1680 / 1680 Weight last 48 hrs Weight 155 lb 9.6 oz Weight 164 lb 6.4 oz Physical Exam Narrative: General: alert, NAD, cachectic elderly male HEENT: conj clear, EOMI, PERRL, mmm, Neck: supple, no meningismus Heme: no cervical LAP Pulmonary: Slightly reduced breath sounds in right lower lung zone Cardiovascular: rrr, nl s1s2, no mrg Abdomen: soft, nt, nd, no r/g, bs+ Extremities: pulses +, no edema, no c/c : no CVA tenderness Skin: intact, no rash MSK: no back or neck pain Neurologic: grossly intact Urinary Catheter Management: Carlos: Cath Placed During This Visit: yes Reason for Continuing Indwelling Catheter: Acute Urinary Retention or Obstruction Urinary Catheter Date of Insertion: 03/17/22 Urinary Catheter Time of Insertion: 11:45 Data : 03/23/22 07:42 03/23/22 07:42 Other Labs: Radiology Impressions Chest CT 03/17/22 10:00 IMPRESSION: 1. There is a large hiatal hernia present, unchanged from 11/30/2021. Soft tissue structure within the hernia likely represents a compressed gastric fundus. 2. The esophagus is mildly dilated, demonstrates retained fluid throughout. This may be related to gastroesophageal reflux from the visualized hiatal hernia. This is unchanged from 11/30/2021. 3. Moderate-sized left pleural effusion. This is associated with compressive atelectasis of a large portion of the left lower lobe. This is unchanged from 11/30/2021. 4. Mild atelectasis in the posterior right lower lobe. No consolidative infiltrates in the right lung. Thoracentesis Ultrasound 03/18/22 10:43 IMPRESSION: Uncomplicated ultrasound-guided LEFT thoracentesis. Chest X-Ray 03/22/22 08:14 IMPRESSION: Allowing for differences in patient position the left pleural effusion and left basilar consolidation have not significantly changed. Renal Ultrasound 03/22/22 14:07 IMPRESSION: 1. No hydronephrosis in either kidney. 2. Large bilateral renal cysts unchanged since the recent CT. 3. Suspected possibly loculated fluid in the LEFT retroperitoneum partially visualized on the prior chest CT . This can be further evaluated CT abdomen pelvis. Notified Jason Granados MD at 03/22/2022 4:58 PM. Abdomen/Pelvis CT 03/22/22 17:01 IMPRESSION: 1. Left hydronephrosis is new since 11/30/2021. The cause of hydronephrosis is not apparent although at least partial obstruction at the ureteropelvic junction is suggested. No stones are visible. 2. Large left perirenal fluid collection. This finding is new since 11/30/2021. Possible perirenal abscess or urinoma. Subacute retroperitoneal hematoma is also possibility. Consider follow-up CT urography to evaluate the integrity of the collecting system. 3. Decreased left and increased right pleural effusion since 11/30/2021. 4. Incidental findings above. COMMENTS: Consistent with the [employer] [place] [employer]'s Incidental Findings Committee white paper (J Am Yadira Radiol 2018): Any incidental renal lesion less than 1 cm or classified as too small to characterize, or any incidental cystic renal lesion characterized as simple-appearing, is likely benign. No follow-up imaging is recommended for these lesions per consensus recommendations based on imaging criteria. ADDENDUM: 03/22/221910 THIS REPORT CONTAINS FINDINGS THAT MAY BE CRITICAL TO PATIENT CARE. The findings were verbally communicated via telephone conference with Dr Martínez at 7:10 PM CDT on 03/22/2022. The findings were acknowledged and understood. Laboratory Results WBC 20.2 10^3/uL (4.0-10.0) H 03/23/22 07:42 RBC 3.16 10^6/uL (4.1-5.3) L 03/23/22 07:42 Hgb 10.4 g/dL (11.7-16.6) L 03/23/22 07:42 Hct 31.3 % (42.0-52.0) L 03/23/22 07:42 MCV 99.1 fl (80-94) H 03/23/22 07:42 MCH 32.9 pg (28.0-34.0) 03/23/22 07:42 MCHC 33.2 g/dL (30.0-36.0) 03/23/22 07:42 RDW 14.1 % (12.1-15.1) 03/23/22 07:42 Plt Count 376 10^3/cmm (130-400) 03/23/22 07:42 MPV 9.0 fL (7.4-10.4) 03/23/22 07:42 Neut % (Auto) 89.4 % 03/23/22 07:42 Lymph % (Auto) 4.2 % 03/23/22 07:42 Brown % (Auto) 4.5 % 03/23/22 07:42 Eos % (Auto) 0.1 % 03/23/22 07:42 Baso % (Auto) 0.3 % 03/23/22 07:42 Neut # (Auto) 18.04 10^3/uL (1.8-7.7) H 03/23/22 07:42 Lymph # (Auto) 0.9 10^3/uL (0.8-4.8) 03/23/22 07:42 Brown # (Auto) 0.9 10^3/uL (0.2-0.9) 03/23/22 07:42 Eos # (Auto) 0.0 10^3/uL (0.0-0.8) 03/23/22 07:42 Baso # (Auto) 0.1 10^3/uL (0.0-0.1) 03/23/22 07:42 Nucleated RBC % (auto) 0 % 03/23/22 07:42 Total Counted Not Reportable 03/18/22 14:40 Nucleated RBCs # 0.0 /100WBC 03/23/22 07:42 Sodium 127 mmol/L (136-145) L 03/23/22 07:42 Potassium 4.3 mmol/L (3.5-5.1) 03/23/22 07:42 Chloride 97 mmol/L (98-107) L 03/23/22 07:42 Carbon Dioxide 20 mmol/L (22-29) L 03/23/22 07:42 Anion Gap 14.3 (5-19) 03/23/22 07:42 BUN 33 mg/dL (8-23) H 03/23/22 07:42 Creatinine 1.7 mg/dL (0.7-1.2) H 03/23/22 07:42 GFR Calculation Not Reportable 03/23/22 07:42 Glucose 89 mg/dL (65-115) 03/23/22 07:42 Serum Osmolality 273 mOsm/kg (278-305) L 03/18/22 16:55 Calculated Osmolality 271 mOsm/kg (285-295) L 03/23/22 07:42 Uric Acid 4.6 mg/dL (3.4-7.0) 03/17/22 02:25 Calcium 8.1 mg/dL (8.5-10.5) L 03/23/22 07:42 Phosphorus 3.1 mg/dL (2.5-4.5) 03/23/22 07:42 Magnesium 1.8 mg/dL (1.7-2.3) 03/23/22 07:42 Iron 13 ug/dL (59-158) L 03/17/22 02:25 TIBC 108 mcg/dl 03/17/22 02:25 % Saturation 12.0 % (20-50) L 03/17/22 02:25 Unsat Iron Binding 95 ug/dL (112-347) L 03/17/22 02:25 Total Bilirubin 0.7 mg/dL (0.15-1.2) 03/18/22 15:49 AST 202 U/L (0-40) H 03/18/22 15:49 ALT 36 U/L (0-41) 03/18/22 15:49 Alkaline Phosphatase 142 U/L (40-130) H 03/18/22 15:49 Lactate Dehydrogenase 241 U/L (135-225) H 03/19/22 03:37 Creatine Kinase 47 U/L (39-308) 03/22/22 04:29 NT-Pro-B Natriuret Pep 8267 pg/mL (0-450) H 03/16/22 11:13 Total Protein 5.1 g/dL (6.6-8.7) L 03/19/22 03:37 Albumin 2.5 g/dL (3.5-5.2) L 03/18/22 15:49 Globulin 3.3 g/dL (1.3-4.6) 03/18/22 15:49 Procalcitonin 0.46 ng/mL (0-0.5) 03/20/22 04:50 TSH 3.48 uIU/mL (0.27-4.20) 03/17/22 02:25 Urine Color Yellow (Yellow) 03/18/22 20:30 Urine Appearance Clear (CLEAR) 03/18/22 20:30 Urine pH 5 (5-7) 03/18/22 20:30 Ur Specific [place] 1.010 (1.005-1.030) 03/18/22 20:30 Urine Protein Neg (Negative) 03/18/22 20:30 Urine Glucose (UA) Norm (Normal) 03/18/22 20:30 Urine Ketones Negative (Negative) 03/18/22 20:30 Urine Blood Neg (Negative) 03/18/22 20:30 Urine Nitrate Negative (Negative) 03/18/22 20:30 Urine Bilirubin Neg (Negative) 03/18/22 20:30 Urine Urobilinogen Norm mg/dL (Negative) 03/18/22 20:30 Ur Leukocyte Esterase Negative (Negative) 03/18/22 20:30 Urine RBC 0-4 /hpf (0-2) H 03/16/22 12:50 Urine WBC Too numerous to cnt /hpf (0-5) H 03/16/22 12:50 Ur Squamous Epith Cells 0-4 /hpf (0-5) H 03/16/22 12:50 Amorphous Sediment Not Reportable 03/16/22 12:50 Urine Bacteria 4+ /hpf (NONE) H 03/16/22 12:50 Urine Osmolality 534 mOsm/kg (50-1200) 03/18/22 20:30 Ur Random Sodium 40 mmol/L 03/20/22 19:25 Pleural Color Yellow (Pale Yellow) H 03/18/22 14:40 Pleural Appearance Cloudy (CLEAR) 03/18/22 14:40 Pleural pH 7.00 (6.5-7.5) 03/18/22 14:40 Pleural Spec [place] 1.005 03/18/22 14:40 Pleural WBC 7529.000 /uL (0-1000) H 03/18/22 14:40 Pleural RBC 2.000 10^3/uL 03/18/22 14:40 Pleural Mononuc # Auto 0.837 10^3/uL 03/18/22 14:40 Pleural Other Cells Not Reportable 03/18/22 14:40 Pleural Polynuclear % 89 % 03/18/22 14:40 Pleural Polynuclear # 6.692 10^3/uL 03/18/22 14:40 Pleural Mononuclear % 11 % 03/18/22 14:40 Pleural Other Cells Lt Left lung 03/18/22 14:40 Pleural Total Protein 2.5 g/dL 03/18/22 14:40 Pleural Albumin 1.2 g/dL 03/18/22 14:40 Pleural LDH 488 U/L 03/18/22 14:40 Pleural Glucose 118.0 mg/dL 03/18/22 14:40 Pleural Triglycerides 11 mg/dL 03/18/22 14:40 Vancomycin Trough 17.4 ug/mL (10-15) H 03/23/22 16:45 SARS-CoV-2 Ag (Rapid) negative (Negative) 03/22/22 11:34 Path Cons w/Slide Yes 03/18/22 14:40 Micro: Microbiology 03/18/22 14:40 Gram Stain - Final Pleural Fluid Body Fluid Culture - Preliminary 03/23/22 02:55 Gram Stain - Final Sputum - Expectorated Sputum A&P Assessment and plan (1) Pleural effusion: (2) Heart failure with preserved ejection fraction: Qualifiers: Heart failure chronicity: chronic Qualified Code(s): I50.32 - Chronic diastolic (congestive) heart failure (3) Lewy body dementia: (4) UTI (urinary tract infection): Qualifiers: Urinary tract infection type: catheter-associated UTI Indwelling urinary catheter type: unspecified Encounter type: initial encounter Qualified Code(s): T83.511A - Infection and inflammatory reaction due to indwelling urethral catheter, initial encounter; N39.0 - Urinary tract infection, site not specified (5) Other urethral stricture, male, overlapping sites: (6) Hiatal hernia: (7) At risk for aspiration: Plan #Recurrent left pleural effusion patient with chronic diastolic heart failure- uncomplicated parapneumonic effusion at this time #Hiatal hernia-high risk for aspiration and aspiration pneumonia #Persistent leukocytosis secondary to perirenal abscess -S/p thoracentesis 12/01/2021-drained 850 cc serosanguineous fluid aspirated- exudative in nature -Again this admission patient has moderate left pleural effusion on CT chest 03/17/2022-today morning underwent thoracentesis by IR-drained 800 cc slightly cloudy, straw-colored fluid with some sediments. Postprocedure chest x-ray showed significantly improved left pleural effusion. Fluid analysis showed 7000 WBC with 89% neutrophils, LDH 488, pleural protein 2.5, pleural glucose 118, pH 7. -Based on color of the fluid and the pleural fluid analysis-looks like uncomplicated parapneumonic effusion (pleural fluid glucose is > 40 so less likely empyema as pH can be falsely low due to lidocaine); fluid is neutrophilic predominant. Cultures are pending -Given esophageal dilation with fluid as well as hiatal hernia-patient is at high risk for aspiration -However given uncomplicated nature of fluid-I expect antibiotics should help and so recommended to continue broad-spectrum antibiotic coverage (vancomycin/Zosyn/Levaquin) and and monitor clinically for signs of sepsis as well as WBC counts-and then de-escalate antibiotics depending on culture results -patient's family is not inclined about chest tube or VATS procedure -On most recent abdominal CT yesterday 03/22/2022-there is improvement in left pleural effusion-however right pleural effusion is worse which can be attributed to diastolic heart failure-recommended to DC fluid and give Lasix 40 Mg daily -However patient with large perirenal collection has suspicion for perirenal abscess which might explain his persistent leukocytosis-he may need intervention and is in the process of transfer to outside hospital pending bed availability -Until then recommended to continue antibiotics -Recommended swallow evaluation during hospitalization #Patient has chronic diastolic heart failure -Yesterday CT abdomen pelvis showed bilateral pleural effusions-with reducing left pleural effusion and increasing right -Again with bedside ultrasonography-effusion appears simple and mild to moderate with no good pocket to tap -Patient appeared clinically edematous at dependent areas of abdominal wall as well as thighs -Recommended to DC IV fluids and give Lasix 40 Mg 1 dose Medical condition, labs, investigations, and plan of care-everything explained in detail to the patient and his . They verbalized understanding and agreed with the plan. Recommendations conveyed to hospitalist, RN taking care of the patient This documentation was created by [employer] rehabilitation tech software (known for inherent rehabilitation tech error). Every effort was made to assure accuracy of rehabilitation tech. Any obvious errors or omissions should be clarified with the author of the document. Attestations Medical Necessity Statement*: Patient requires hospitalization for left perirenal abscess, left hydronephrosis Coding Level of Care Code Established Pt Acute Babysitter for Chg Fwd Patient Type Established History Comprehensive Exam Comprehensive Medical Decision Making Moderate Complexity Diagnoses Pleural effusion J90 Heart failure with preserved ejection fraction I50.32 Heart failure chronicity: chronic Lewy body dementia G31.83; F02.80 UTI (urinary tract infection) T83.511A; N39.0 Urinary tract infection type: catheter-associated UTI Indwelling urinary catheter type: unspecified Encounter type: initial encounter Other urethral stricture, male, overlapping sites N35.816 Hiatal hernia K44.9 At risk for aspiration Z91.89 Time Spent (min) 15
[2022-03-23] MEDS: vancomycin 1,000 MG in sodium chloride 0.9% 250 ML 250 MG IV (17:44)
[2022-03-23] MEDS: acetaminophen 325 mg Tablet 650 MG PO (17:45)
--- NOTE | 2022-03-23 19:10 | PM.TDS ---
Transfer Summary Providers Date of Admission: 03/16/22 18:01 Date of Discharge/Transfer: 03/23/22 Attending Provider at Admission: Marian Giron MD Attending Provider at Transfer: Jason Granados MD Primary Care Provider: Nika Parekh MD Transfer Plans: Anticipated date of transfer: 03/23/22. Diagnoses at Discharge Discharge Diagnosis (1) Pleural effusion: Status: Acute Permanent problem details: left, exudative by thoracentesis in 11/2021 (2) Heart failure with preserved ejection fraction: Status: Chronic Qualifiers: Heart failure chronicity: chronic Qualified Code(s): I50.32 - Chronic diastolic (congestive) heart failure (3) Lewy body dementia: Status: Chronic (4) UTI (urinary tract infection): Status: Acute Qualifiers: Urinary tract infection type: catheter-associated UTI Indwelling urinary catheter type: unspecified Encounter type: initial encounter Qualified Code(s): T83.511A - Infection and inflammatory reaction due to indwelling urethral catheter, initial encounter; N39.0 - Urinary tract infection, site not specified (5) Other urethral stricture, male, overlapping sites: Status: Chronic Permanent problem details: 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 Complete urethral reconstruction with subsequent urethral stricture disease. As required multiple dilations over the years. (6) Hiatal hernia: Status: Acute (7) At risk for aspiration: Status: Acute Reason for Visit Reason for Visit Can't walk, had a UTI recently Hospital Course Hospital Course This is a 86-year-old male with a past medical history of urethral stricture, self caths, Parkinson's disease, anxiety, depression, heart failure preserved ejection fraction, left-sided traumatic pleural effusion, bilateral pleural effusions secondary to CHF, chronic hyponatremia, who presents to [facility] for weakness, loss of appetite Patient was admitted to [facility] for left lower lobe pneumonia, with associated pleural effusion concerning for parapneumonic effusion, received broad-spectrum antibiotic therapy, had a thoracocentesis 800 cc yellow-colored fluid removed, gram stain negative, elevated WBC count, patient was clinically monitored. Overall patient remained afebrile, normotensive, remained on room air, pulmonary was consulted, some component of the pleural effusion was felt to be CHF related, patient received diuresis. Patient also developed A. fib with RVR during his hospitalization, currently back to normal sinus rhythm, currently rate controlled with metoprolol, anticoagulation currently on hold as there are plans on surgical invention. Overall patient's clinical status improved however continues to have some degree of persistent left pleural effusion, however family of wanting to avoid aggressive invention, avoid VATS procedure, avoid chest tube. So patient's family elected for conservative medical management. Discussed risks and benefits, including recurrent infection, they voiced understanding all questions answered, agreed to proceed. However patient continued to have persistent leukocytosis, and TINO creatinine 1.7, CT chest of the abdomen pelvis revealed a 14 x 13 cm perirenal abscess with associated left hydronephrosis, no significant obstructive uropathy seen on CT scan. After discussion with our urology service and radiology service, decision was made to transfer patient to higher level center for drain placement, and due to complexity of patient's clinical scenario. Patient was assessed at [facility], transferred to [facility], blood pressure 1 was 7/71, pulse 66, respiratory 14, temperature 97.7, 95% room air #Pneumonia #Left pleural effusion #Failure to thrive, loss of appetite #Large hiatal hernia with retained fluid in esophagus.? Unchanged from prior studies #Parkinson's disease #UTI #Anxiety/Depression #HFpEF #Lewy Body Dementia #A.fib #DLD #HTN #OA #Chronic constipation #Iron deficiency anemia #Protein calorie malnutrition #Chronic hyponatremia #Hypokalemia #High aspiration risk - Last echo: Echocardiogram in October of this year showed ejection fraction 55 to 60% with indeterminate diastolic function secondary to atrial fibrillation.? Biatrial enlargement was noted with moderate mitral regurgitation, mild to moderate aortic regurgitation, moderate tricuspid regurgitation, mild to moderate pulmonary hypertension.? Pulmonary hypertension at that time appeared new. - COntinue on vancomycin, zosyn and Levaquin. -Urine culture positive for mixed superficial siva greater than 100,000 colonies.? Repeat cultures so far negative -Continue Lopressor 25 twice daily once blood pressure permits.? If he does go back into A. fib with RVR we may resort to amiodarone.? Hold off on anticoagulation as there is possibility of IR drain procedures or further ED urology procedures -Continue to monitor orthostatic vitals - Sinemet dose adjusted at admission - Continue to encourage oral intake - Trazodone at night -Start ferrous sulfate orally - folate 12.9, b12 687 - PT/OT ?Has a history of recurrent left-sided pleural effusion, had a thoracocentesis in November of this year, Dr. Horan consulted, had thoracocentesis cultures were negative so, it was exudative, likely from rib fracture, during this hospitalization to Dr. Rodriguez seeing thoracentesis performed, 800 cc removed, exudative, most likely parapneumonic effusion.? Culture and gram stain pending.? Continue vancomycin, Zosyn, Levaquin, White blood cell count is up to 20.2, remains afebrile, patient's family is not inclined about chest tube or VATS procedure, i continue antibiotics repeat CT of the abdomen shows bilateral pleural effusions, with a 1 on the left has decreased in size, Gram stain shows WBCs, cultures pending, repeat ultrasound today, Dr. Rodriguez to see Speech therapy consulted Family interested in long-term. Case management working on placement PT/OT ordered. Pt is a max assist at this time He also has large hiatal hernia.? Patient not interested in interventions at this time Swallow evaluation complete.? Placed on a diet. TINO on CKD creatinine 1.6, has a history of urinary retention Acute on chronic hyponatremia, with history of recurrent falls, etiology unclear stop Celexa, nephrology consulted Needs to stay in the hospital for continued monitoring.? Patient may be able to discharge next 48 hours possibly pending clinical course. -I discussed CT scan findings yesterday, and urology consultation -Left hydronephrosis, with perirenal abscess, with TINO -Patient was found to have a left perirenal fluid collection very suspicious for perirenal abscess, was found to have left hydronephrosis, but cannot see any evidence of stone in the ureter, -Discussed with family members the patient is going to require multiple drains in the perirenal abscess, this is the likely reason why he remains to have leukocytosis, and has weakness, however his urine cultures and blood cultures have remained unremarkable he is on broad-spectrum antibiotic therapy -In addition he might in the future require a cystoscopy with ureteroscopy to evaluate for possible obstruction -After discussion with our radiology team, and urology, it was felt the patient would be best served at a tertiary level center given the complexity of his diagnosis, medical problem, and it was out of their scope of expertise -Patient's family voiced understanding, all questions answered, opportunity answer questions, agreed to proceed for transfer -For now history of sodium improved to 127, creatinine 1.6, he is hemodynamically stable, afebrile, remains on broad-spectrum antibiotic therapy -I so far have called [facility], [facility], [facility], however the smaller hospitals do not have the scope of expertise to appropriately manage patient's medical problem -I have called [facility], [facility]'s they are at capacity and not taking transfers -I have called [facility], they are also full, not excepting transfers -I will again call in the afternoon, to see if any of them are willing to take the transfer -Patient's family boisterously, all questions answered, I advised family that my concern is is that if these abscesses are not appropriate urine, he will continue of leukocytosis,'s have poor clinical long-term, increased risk of morbidity and mortality, high risk of sepsis, septic shock, the boisterously, all questions answered, agreed to proceed -In terms of his left pleural effusion, the size of pleural effusion on the CT scan has decreased, but it persists, it is also contiguous with his left perirenal abscess, no organisms were seen, gram stain, Physical Exam Const: COMMON NORMALS: no acute distress and patient oriented x3 Resp: COMMON NORMALS: normal respiratory effort, No retractions, No use of accessory muscles and clear to auscultation bilaterally AUSCULTATION: clear to auscultation bilaterally Cardio: COMMON NORMALS: regular rate, regular rhythm, S1 normal heart sound present and S2 normal heart sound present RATE: regular rate RHYTHM: regular rhythm HEART SOUNDS: S1 normal heart sound present and S2 normal heart sound present GI: COMMON NORMALS: Normal to inspection, nondistended, normoactive bowel sounds present and non-tender Extremity: COMMON NORMALS: no pedal edema Neuro: COMMON NORMALS: patient oriented x3 Psych: COMMON NORMALS: mental status grossly normal Urinary Catheter Management: Carlos: Cath Placed During This Visit: yes Reason for Continuing Indwelling Catheter: Acute Urinary Retention or Obstruction Urinary Catheter Date of Insertion: 03/17/22 Urinary Catheter Time of Insertion: 11:45 TS Data Studies Completed and Pending Pending at discharge Category Date Time Status Basic Metabolic Panel AM LABS Lab 03/24/22 04:00 Ordered Basic Metabolic Panel AM LABS Lab 03/25/22 04:00 Ordered Body Fluid Culture & GS Routine Lab 03/22/22 08:19 Results Complete Blood Count w/Auto AM LABS Lab 03/24/22 04:00 Ordered Complete Blood Count w/Auto AM LABS Lab 03/25/22 04:00 Ordered Magnesium AM LABS Lab 03/24/22 04:00 Ordered Magnesium AM LABS Lab 03/25/22 04:00 Ordered Phosphorus AM LABS Lab 03/24/22 04:00 Ordered Phosphorus AM LABS Lab 03/25/22 04:00 Ordered Sputum Culture and Gram Stain Stat Lab 03/23/22 02:55 Results Urine Random Sodium Routine Lab 03/22/22 16:10 Uncollected Labs from last 24 hours 03/23/22 03/23/22 03/23/22 16:45 07:42 07:42 WBC 20.2 H RBC 3.16 L Hgb 10.4 L Hct 31.3 L MCV 99.1 H MCH 32.9 MCHC 33.2 RDW 14.1 Plt Count 376 MPV 9.0 Neut % (Auto) 89.4 Lymph % (Auto) 4.2 Crockett % (Auto) 4.5 Eos % (Auto) 0.1 Baso % (Auto) 0.3 Neut # (Auto) 18.04 H Lymph # (Auto) 0.9 Crockett # (Auto) 0.9 Eos # (Auto) 0.0 Baso # (Auto) 0.1 Nucleated RBC % (auto) 0 Nucleated RBCs # 0.0 Sodium 127 L Potassium 4.3 Chloride 97 L Carbon Dioxide 20 L Anion Gap 14.3 BUN 33 H Creatinine 1.7 H GFR Calculation Not Reportable Glucose 89 Calculated Osmolality 271 L Calcium 8.1 L Phosphorus 3.1 Magnesium 1.8 Vancomycin Trough 17.4 H 03/22/22 21:45 WBC 19.9 H RBC 3.09 L Hgb 10.3 L Hct 31.7 L MCV 102.6 H MCH 33.3 MCHC 32.5 RDW 14.3 Plt Count 349 MPV 9.1 Neut % (Auto) 87.3 Lymph % (Auto) 5.7 Crockett % (Auto) 5.2 Eos % (Auto) 0.3 Baso % (Auto) 0.3 Neut # (Auto) 17.32 H Lymph # (Auto) 1.1 Crockett # (Auto) 1.0 H Eos # (Auto) 0.1 Baso # (Auto) 0.1 Nucleated RBC % (auto) 0 Nucleated RBCs # 0.0 Sodium Potassium Chloride Carbon Dioxide Anion Gap BUN Creatinine GFR Calculation Glucose Calculated Osmolality Calcium Phosphorus Magnesium Vancomycin Trough Completed Studies During Hospitalization Category Date Time Status CT abdomen pelvis wo con [id number] Routine Cat Scan 03/22/22 17:[address] chest wo con [id number] Routine Cat Scan 03/17/22 10:00 Completed XR chest 1V portable [id number] AM LABS Exams 03/18/22 04:00 Completed XR chest 1V portable [id number] Routine Exams 03/18/22 15:04 Completed XR chest 1V portable [id number] Routine Exams 03/21/22 08:00 Completed XR chest 1V portable [id number] Routine Exams 03/22/22 08:14 Completed XR chest 1V portable [id number] Stat Exams 03/16/22 11:31 Completed US renal BI* [id number] Routine Ultrasound 03/22/22 14:07 Completed US thoracentesis [id number] Routine Ultrasound 03/18/22 10:43 Completed Laboratory Last Values WBC 20.2 10^3/uL (4.0-10.0) H 03/23/22 07:42 RBC 3.16 10^6/uL (4.1-5.3) L 03/23/22 07:42 Hgb 10.4 g/dL (11.7-16.6) L 03/23/22 07:42 Hct 31.3 % (42.0-52.0) L 03/23/22 07:42 MCV 99.1 fl (80-94) H 03/23/22 07:42 MCH 32.9 pg (28.0-34.0) 03/23/22 07:42 MCHC 33.2 g/dL (30.0-36.0) 03/23/22 07:42 RDW 14.1 % (12.1-15.1) 03/23/22 07:42 Plt Count 376 10^3/cmm (130-400) 03/23/22 07:42 MPV 9.0 fL (7.4-10.4) 03/23/22 07:42 Neut % (Auto) 89.4 % 03/23/22 07:42 Lymph % (Auto) 4.2 % 03/23/22 07:42 Crockett % (Auto) 4.5 % 03/23/22 07:42 Eos % (Auto) 0.1 % 03/23/22 07:42 Baso % (Auto) 0.3 % 03/23/22 07:42 Neut # (Auto) 18.04 10^3/uL (1.8-7.7) H 03/23/22 07:42 Lymph # (Auto) 0.9 10^3/uL (0.8-4.8) 03/23/22 07:42 Crockett # (Auto) 0.9 10^3/uL (0.2-0.9) 03/23/22 07:42 Eos # (Auto) 0.0 10^3/uL (0.0-0.8) 03/23/22 07:42 Baso # (Auto) 0.1 10^3/uL (0.0-0.1) 03/23/22 07:42 Nucleated RBC % (auto) 0 % 03/23/22 07:42 Total Counted Not Reportable 03/18/22 14:40 Nucleated RBCs # 0.0 /100WBC 03/23/22 07:42 Sodium 127 mmol/L (136-145) L 03/23/22 07:42 Potassium 4.3 mmol/L (3.5-5.1) 03/23/22 07:42 Chloride 97 mmol/L (98-107) L 03/23/22 07:42 Carbon Dioxide 20 mmol/L (22-29) L 03/23/22 07:42 Anion Gap 14.3 (5-19) 03/23/22 07:42 BUN 33 mg/dL (8-23) H 03/23/22 07:42 Creatinine 1.7 mg/dL (0.7-1.2) H 03/23/22 07:42 GFR Calculation Not Reportable 03/23/22 07:42 Glucose 89 mg/dL (65-115) 03/23/22 07:42 Serum Osmolality 273 mOsm/kg (278-305) L 03/18/22 16:55 Calculated Osmolality 271 mOsm/kg (285-295) L 03/23/22 07:42 Uric Acid 4.6 mg/dL (3.4-7.0) 03/17/22 02:25 Calcium 8.1 mg/dL (8.5-10.5) L 03/23/22 07:42 Phosphorus 3.1 mg/dL (2.5-4.5) 03/23/22 07:42 Magnesium 1.8 mg/dL (1.7-2.3) 03/23/22 07:42 Iron 13 ug/dL (59-158) L 03/17/22 02:25 TIBC 108 mcg/dl 03/17/22 02:25 % Saturation 12.0 % (20-50) L 03/17/22 02:25 Unsat Iron Binding 95 ug/dL (112-347) L 03/17/22 02:25 Total Bilirubin 0.7 mg/dL (0.15-1.2) 03/18/22 15:49 AST 202 U/L (0-40) H 03/18/22 15:49 ALT 36 U/L (0-41) 03/18/22 15:49 Alkaline Phosphatase 142 U/L (40-130) H 03/18/22 15:49 Lactate Dehydrogenase 241 U/L (135-225) H 03/19/22 03:37 Creatine Kinase 47 U/L (39-308) 03/22/22 04:29 NT-Pro-B Natriuret Pep 8267 pg/mL (0-450) H 03/16/22 11:13 Total Protein 5.1 g/dL (6.6-8.7) L 03/19/22 03:37 Albumin 2.5 g/dL (3.5-5.2) L 03/18/22 15:49 Globulin 3.3 g/dL (1.3-4.6) 03/18/22 15:49 Procalcitonin 0.46 ng/mL (0-0.5) 03/20/22 04:50 TSH 3.48 uIU/mL (0.27-4.20) 03/17/22 02:25 Urine Color Yellow (Yellow) 03/18/22 20:30 Urine Appearance Clear (CLEAR) 03/18/22 20:30 Urine pH 5 (5-7) 03/18/22 20:30 Ur Specific Powell 1.010 (1.005-1.030) 03/18/22 20:30 Urine Protein Neg (Negative) 03/18/22 20:30 Urine Glucose (UA) Norm (Normal) 03/18/22 20:30 Urine Ketones Negative (Negative) 03/18/22 20:30 Urine Blood Neg (Negative) 03/18/22 20:30 Urine Nitrate Negative (Negative) 03/18/22 20:30 Urine Bilirubin Neg (Negative) 03/18/22 20:30 Urine Urobilinogen Norm mg/dL (Negative) 03/18/22 20:30 Ur Leukocyte Esterase Negative (Negative) 03/18/22 20:30 Urine RBC 0-4 /hpf (0-2) H 03/16/22 12:50 Urine WBC Too numerous to cnt /hpf (0-5) H 03/16/22 12:50 Ur Squamous Epith Cells 0-4 /hpf (0-5) H 03/16/22 12:50 Amorphous Sediment Not Reportable 03/16/22 12:50 Urine Bacteria 4+ /hpf (NONE) H 03/16/22 12:50 Urine Osmolality 534 mOsm/kg (50-1200) 03/18/22 20:30 Ur Random Sodium 40 mmol/L 03/20/22 19:25 Pleural Color Yellow (Pale Yellow) H 03/18/22 14:40 Pleural Appearance Cloudy (CLEAR) 03/18/22 14:40 Pleural pH 7.00 (6.5-7.5) 03/18/22 14:40 Pleural Spec Powell 1.005 03/18/22 14:40 Pleural WBC 7529.000 /uL (0-1000) H 03/18/22 14:40 Pleural RBC 2.000 10^3/uL 03/18/22 14:40 Pleural Mononuc # Auto 0.837 10^3/uL 03/18/22 14:40 Pleural Other Cells Not Reportable 03/18/22 14:40 Pleural Polynuclear % 89 % 03/18/22 14:40 Pleural Polynuclear # 6.692 10^3/uL 03/18/22 14:40 Pleural Mononuclear % 11 % 03/18/22 14:40 Pleural Other Cells Lt Left lung 03/18/22 14:40 Pleural Total Protein 2.5 g/dL 03/18/22 14:40 Pleural Albumin 1.2 g/dL 03/18/22 14:40 Pleural LDH 488 U/L 03/18/22 14:40 Pleural Glucose 118.0 mg/dL 03/18/22 14:40 Pleural Triglycerides 11 mg/dL 03/18/22 14:40 Vancomycin Trough 17.4 ug/mL (10-15) H 03/23/22 16:45 SARS-CoV-2 Ag (Rapid) negative (Negative) 03/22/22 11:34 Path Cons w/Slide Yes 03/18/22 14:[address] 03/17/22 10:00 IMPRESSION: 1. There is a large hiatal hernia present, unchanged from 11/30/2021. Soft tissue structure within the hernia likely represents a compressed gastric fundus. 2. The esophagus is mildly dilated, demonstrates retained fluid throughout. This may be related to gastroesophageal reflux from the visualized hiatal hernia. This is unchanged from 11/30/2021. 3. Moderate-sized left pleural effusion. This is associated with compressive atelectasis of a large portion of the left lower lobe. This is unchanged from 11/30/2021. 4. Mild atelectasis in the posterior right lower lobe. No consolidative infiltrates in the right lung. Thoracentesis Ultrasound 03/18/22 10:43 IMPRESSION: Uncomplicated ultrasound-guided LEFT thoracentesis. Chest X-Ray 03/22/22 08:14 IMPRESSION: Allowing for differences in patient position the left pleural effusion and left basilar consolidation have not significantly changed. Renal Ultrasound 03/22/22 14:07 IMPRESSION: 1. No hydronephrosis in either kidney. 2. Large bilateral renal cysts unchanged since the recent CT. 3. Suspected possibly loculated fluid in the LEFT retroperitoneum partially visualized on the prior chest CT 10 . This can be further evaluated CT abdomen pelvis. Notified Jason Granados MD at 03/22/2022 4:58 PM. Abdomen/Pelvis CT 03/22/22 17:01 IMPRESSION: 1. Left hydronephrosis is new since 11/30/2021. The cause of hydronephrosis is not apparent although at least partial obstruction at the ureteropelvic junction is suggested. No stones are visible. 2. Large left perirenal fluid collection. This finding is new since 11/30/2021. Possible perirenal abscess or urinoma. Subacute retroperitoneal hematoma is also possibility. Consider follow-up CT urography to evaluate the integrity of the collecting system. 3. Decreased left and increased right pleural effusion since 11/30/2021. 4. Incidental findings above. COMMENTS: Consistent with the [employer]'s Incidental Findings Committee white paper (J Am Yadira Radiol 2018): Any incidental renal lesion less than 1 cm or classified as too small to characterize, or any incidental cystic renal lesion characterized as simple-appearing, is likely benign. No follow-up imaging is recommended for these lesions per consensus recommendations based on imaging criteria. ADDENDUM: 03/22/221910 THIS REPORT CONTAINS FINDINGS THAT MAY BE CRITICAL TO PATIENT CARE. The findings were verbally communicated via telephone conference with Dr Martínez at 7:10 PM CDT on 03/22/2022. The findings were acknowledged and understood. Recent Clincial Data Last Vital Signs Temp 97.7 F 03/23/22 15:12 Pulse 66 03/23/22 15:12 Resp 14 03/23/22 15:12 BP 107/71 03/23/22 15:12 Pulse Ox 95 03/23/22 15:12 O2 Del Method 03/23/22 15:12 O2 Flow Rate 2 03/22/22 08:15 Vital Signs Temp Pulse Resp BP Pulse Ox O2 Del Method 03/23/22 14:33 85 16 94 Room Air 03/23/22 08:00 94 16 94 Room Air 03/23/22 15:12 97.7 F 66 14 107/71 95 Room Air 03/23/22 08:00 97.6 F 62 14 123/84 91 Room Air Intake & Output/Weight 03/21/22 03/22/22 03/23/22 03/24/22 06:59 06:59 06:59 06:59 Intake Total 950 / 950 2450 / 2450 1000 / 1000 1850 / 1850 Output Total 1600 / 1600 550 / 550 1075 / 1075 Balance -650 / -650 1900 / 1900 -75 / -75 1850 / 1850 Weight 71.305 kg 74.571 kg 70.579 kg Vitals Last Vital Signs Temp 97.7 F 03/23/22 15:12 Pulse 66 03/23/22 15:12 Resp 14 03/23/22 15:12 BP 107/71 03/23/22 15:12 Pulse Ox 95 03/23/22 15:12 O2 Del Method 03/23/22 15:12 O2 Flow Rate 2 03/22/22 08:15 TS Medications Medications Acetaminophen (Acetaminophen 325 Mg Tablet) 650 mg PO Q6H PRN PRN Reason: Mild/Mod Pain Or Temp >/= 101 Last Admin: 03/23/22 17:45 Dose: 650 mg Albuterol/Ipratropium (Ipratropium-Albuterol 3 Ml Neb) 3 ml INHALATION Q6H PRN PRN Reason: SHORTNESS OF BREATH Last Admin: 03/17/22 16:24 Dose: 3 ml Artificial Tears (Artificial Tears Op Soln 15 Ml Btl) 1 drop EYE-BOTH Q4H PRN PRN Reason: DRY EYE(S) Aspirin (Aspirin 81 Mg Ec Tablet) 81 mg PO QAM [facility] Last Admin: 03/23/22 06:29 Dose: 81 mg Calcium Carbonate (Calcium Carbonate 500 Mg Chew Tablet) 1,000 mg PO Q4H PRN PRN Reason: DYSPEPSI Carbidopa/Levodopa (Carbidopa-Levodopa 25-100mg Tablet) 1 each PO TID@07,11,16 [facility] Last Admin: 03/23/22 17:45 Dose: 1 each Citalopram Hydrobromide (Citalopram 20 Mg Tablet) 10 mg PO DAILY [facility] Last Admin: 03/21/22 09:35 Dose: 10 mg Docusate Sodium (Docusate Sodium 100 Mg Capsule) 100 mg PO BID PRN PRN Reason: CONSTIPATION Fluticasone Propionate (Fluticasone Nasal Jackson 16gm Btl) 2 spray INTRANASAL DAILY PRN PRN Reason: Allergy Symptoms Furosemide (Furosemide 10 Mg/Ml Sdv 2ml) 20 mg IVP ONCE ONE Stop: 03/23/22 19:08 Heparin Sodium (Porcine) (Heparin 5,000 Unit/Ml Inj 1 Ml) 5,000 unit SUBCUT Q12H [facility] Last Admin: 03/22/22 06:30 Dose: 5,000 unit Piperacillin Sod/Tazobactam (Sod 3.375 gm/ Sodium Chloride) 50 mls @ 12.5 mls/hr IV Q8H [facility]; Protocol Last Infusion: 03/23/22 19:08 Dose: Infused Vancomycin HCl 1,000 mg/ (Sodium Chloride) 250 mls @ 250 mls/hr IV Q24H [facility] Last Admin: 03/23/22 17:44 Dose: 250 mls/hr Levofloxacin/Dextrose (Levaquin-D5w) 750 mg in 150 mls @ 100 mls/hr IV Q48H [facility]; Protocol Last Infusion: 03/23/22 14:10 Dose: Infused Lactobacillus Acidophilus (Lactobacillus 1 Tablet) 1 tab PO BID [facility] Last Admin: 03/23/22 17:45 Dose: 1 tab Metoprolol Tartrate (Metoprolol Tartrate 25 Mg Tablet) 12.5 mg PO BID@0900,2100 [facility] Last Admin: 03/23/22 09:27 Dose: 12.5 mg (Melatonin 5 Mg (Capsule)) 10 mg PO BEDTIME PRN PRN Reason: Sleep Ondansetron HCl (Ondansetron 2 Mg/Ml Sdv 2 Ml) 4 mg IVP Q8H PRN PRN Reason: vomiting, or N/V if npo Pantoprazole Sodium (Pantoprazole Dr 40 Mg Tablet) 40 mg PO DAILY [facility] Last Admin: 03/23/22 09:28 Dose: 40 mg Polyethylene Glycol (Polyethylene Glycol 3350 Pkt 17 Gm) 17 gm PO QAM [facility] Last Admin: 03/23/22 06:29 Dose: 17 gm Senna/Docusate Sodium (Sennosides-Docusate Tablet) 1 tab PO DAILY [facility] Last Admin: 03/23/22 09:27 Dose: 1 tab Sodium Chloride (Sodium Chloride 1 Gm Tablet) 1 gm PO BID [facility] Last Admin: 03/23/22 17:45 Dose: 1 gm Trazodone HCl (Trazodone 50 Mg Tablet) 25 mg PO BEDTIME [facility] Last Admin: 03/22/22 20:19 Dose: 25 mg Discontinued Medications Carbidopa/Levodopa (Carbidopa-Levodopa 25-100mg Tablet) 1 each PO ONCE ONE Stop: 03/16/22 18:31 Last Admin: 03/16/22 18:40 Dose: 1 each Diltiazem HCl (Diltiazem 5 Mg/Ml Sdv 5 Ml) 10 mg IVP ONCE ONE Stop: 03/16/22 11:08 Last Admin: 03/16/22 11:43 Dose: 10 mg Diltiazem HCl (Diltiazem 30 Mg Tablet) 30 mg PO ONCE ONE Stop: 03/16/22 16:05 Last Admin: 03/16/22 16:29 Dose: 30 mg Diltiazem HCl (Diltiazem 30 Mg Tablet) 30 mg PO Q6H PRN PRN Reason: HR > 100 if SBP > 120 Last Admin: 03/17/22 10:07 Dose: 30 mg Diltiazem HCl (Diltiazem 30 Mg Tablet) 30 mg PO TID PRN PRN Reason: HR > 100 if SBP > 120 Last Admin: 03/19/22 03:55 Dose: 30 mg Furosemide (Furosemide 10 Mg/Ml Sdv 2ml) 20 mg IVP ONCE ONE Stop: 03/18/22 12:22 Last Admin: 03/18/22 19:16 Dose: Not Given Furosemide (Furosemide 10 Mg/Ml Sdv 2ml) 20 mg IVP ONCE ONE Stop: 03/20/22 13:36 Last Admin: 03/20/22 16:59 Dose: Not Given Furosemide (Furosemide 10 Mg/Ml Sdv 2ml) 20 mg IVP ONCE ONE Stop: 03/20/22 16:35 Last Admin: 03/20/22 17:01 Dose: 20 mg Sodium Chloride (Sodium Chloride 0.9%) 500 mls @ 999 mls/hr IV .Q31M ONE Stop: 03/16/22 11:22 Last Infusion: 03/16/22 12:18 Dose: Infused Diltiazem HCl 50 mg/ Sodium (Chloride) 50 mls @ 0 mls/hr IV .Q0M EVARISTO; Protocol Last Titration: 03/16/22 15:30 Dose: Infused Levofloxacin/Dextrose (Levaquin-D5w) 750 mg in 150 mls @ 100 mls/hr IV ONCE ONE; Protocol Stop: 03/16/22 13:22 Last Infusion: 03/16/22 16:29 Dose: Infused Piperacillin Sod/Tazobactam (Sod 3.375 gm/ Sodium Chloride) 50 mls @ 100 mls/hr IV ONCE ONE; Protocol Stop: 03/16/22 12:22 Last Infusion: 03/16/22 13:18 Dose: Infused Sodium Chloride (Sodium Chloride 0.9%) 1,000 mls @ 75 mls/hr IV .[id number] EVARISTO Stop: 03/17/22 20:40 Last Infusion: 03/17/22 20:39 Dose: Infused Piperacillin Sod/Tazobactam (Sod 2.25 gm/ Sodium Chloride) 50 mls @ 12.5 mls/hr IV Q12H EVARISTO; Protocol Last Infusion: 03/17/22 02:30 Dose: Infused Levofloxacin/Dextrose (Levaquin-D5w) 750 mg in 150 mls @ 100 mls/hr IV Q48H EVARISTO; Protocol Last Admin: 03/18/22 19:15 Dose: Not Given Vancomycin HCl 1,000 mg/ (Sodium Chloride) 250 mls @ 250 mls/hr IV ONCE ONE Stop: 03/16/22 21:29 Last Infusion: 03/16/22 22:27 Dose: Infused Vancomycin HCl 500 mg/ Sodium (Chloride) 100 mls @ 200 mls/hr IV Q48H EVARISTO Vancomycin HCl 750 mg/ Sodium (Chloride) 250 mls @ 250 mls/hr IV Q24H EVARISTO Last Infusion: 03/19/22 23:59 Dose: Infused Levofloxacin/Dextrose (Levaquin-D5w) 750 mg in 150 mls @ 100 mls/hr IV Q24H EVARISTO; Protocol Last Infusion: 03/19/22 18:15 Dose: Infused Levofloxacin/Dextrose (Levaquin-D5w) 750 mg in 150 mls @ 100 mls/hr IV Q24H EVARISTO; Protocol Last Infusion: 03/21/22 17:56 Dose: Infused Sodium Chloride (Sodium Chloride 0.9%) 1,000 mls @ 50 mls/hr IV .Q20H EVARISTO Last Infusion: 03/21/22 13:35 Dose: Infused Sodium Chloride (Sodium Chloride 0.9%) 1,000 mls @ 50 mls/hr IV .Q20H EVARISTO Last Admin: 03/23/22 09:25 Dose: 50 mls/hr Sodium Chloride (Sodium Chloride 1 Gm Tablet) 0.5 gm PO DAILY EVARISTO Last Admin: 03/22/22 08:28 Dose: 0.5 gm Trazodone HCl (Trazodone 100 Mg Tablet) 25 mg PO BEDTIME PRN PRN Reason: Sleep Last Admin: 03/18/22 23:28 Dose: 25 mg Allergies No Known Allergies Allergy (Verified 03/16/22 11:31) Home Medications multivitamin 1 tab PO DAILY #90 tabs 06/23/20 [Rx Confirmed 03/16/22] fluticasone propionate 50 mcg/actuation nasal spray,suspension 2 spray intranasal DAILY PRN Allergy Symptoms 10/28/20 [History Confirmed 03/16/22] pantoprazole 40 mg tablet,delayed release 40 mg PO DAILY 11/30/21 [History Confirmed 03/16/22] melatonin 5 mg capsule 10 mg PO BEDTIME PRN Sleep 01/26/22 [History Confirmed 03/16/22] mupirocin 2 % topical ointment 1 applic topical BID PRN unknown 01/26/22 [History Confirmed 03/16/22] amoxicillin 500 mg tablet 500 mg PO DAILY 03/16/22 [History Confirmed 03/16/22] aspirin 81 mg tablet,delayed release 81 mg PO QAM 03/16/22 [History Confirmed 03/16/22] carbidopa ER 50 mg-levodopa 200 mg tablet,extended release 1 tab PO TID@07,11,16 03/16/22 [History Confirmed 03/16/22] citalopram 10 mg tablet 10 mg PO DAILY PRN Anxiety 03/16/22 [History Confirmed 03/16/22] docusate sodium 100 mg capsule 100 mg PO BID PRN Constipation 03/16/22 [History Confirmed 03/16/22] ferrous fumarate-vitamin C 200 mg (66 mg iron)-125 mg tablet 1 tab PO DAILY 03/16/22 [History Confirmed 03/16/22] food supplemt, lactose-reduced 1 ea PO DAILY 03/16/22 [History Confirmed 03/16/22] peg 400-propylene glycol 0.4 %-0.3 % eye drops (Systane (propylene glycol)) 1 drp ophthalmic (eye) DAILY PRN Dry Eye(S) 03/16/22 [History Confirmed 03/16/22] polyethylene glycol 3350 17 gram oral powder packet (Miralax) 17 g PO QAM 03/16/22 [History Confirmed 03/16/22] sennosides 8.6 mg-docusate sodium 50 mg tablet (Senna-S) 1 tab-cap PO DAILY 03/16/22 [History Confirmed 03/16/22] trazodone 100 mg tablet 100 mg PO BEDTIME PRN Sleep 03/16/22 [History Confirmed 03/16/22] Discharge Plan Discharge Patient Disposition: Xfer SNF Condition: Stable Prescriptions: No Action melatonin 5 mg capsule 10 mg PO BEDTIME PRN (Reason: Sleep) mupirocin 2 % ointment 1 applic topical BID PRN (Reason: unknown) multivitamin Tablet 1 tab PO DAILY Qty: 90 1RF fluticasone propionate 50 mcg/actuation spray,suspension 2 spray intranasal DAILY PRN (Reason: Allergy Symptoms) pantoprazole 40 mg tablet,delayed release (DR/EC) 40 mg PO DAILY Senna-S 8.6-50 mg Tablet 1 tab-cap PO DAILY Aspir-81 81 mg Tablet,Delayed Release (Dr/Ec) 81 mg PO QAM Iron with C 200 mg (66 mg iron)-125 mg Tablet 1 tab PO DAILY Boost Plus Liquid 1 ea PO DAILY Systane (propylene glycol) 0.4-0.3 % Drops 1 drp OPHTHALMIC (EYE) DAILY PRN (Reason: Dry Eye(S)) Miralax 17 gram powder in packet 17 g PO QAM citalopram 10 mg tablet 10 mg PO DAILY PRN (Reason: Anxiety) carbidopa-levodopa 50-200 mg tablet extended release 1 tab PO TID@,,16 amoxicillin 500 mg tablet 500 mg PO DAILY trazodone 100 mg tablet 100 mg PO BEDTIME PRN (Reason: Sleep) docusate sodium 100 mg capsule 100 mg PO BID PRN (Reason: Constipation) Discharge Orders: Transfer Out of Facility (Order); Ordered 03/23/22 Ordered By: Jason Granados Referrals: [facility] [Outside] Nika Parekh MD [Primary Care Provider] - Patient Instructions: Opioid Safety Transfer Attestations Time Spent in Transfer Care: less than 30 min Quality Metrics Clinical Quality Measures [ No reported AMI, CVA or VTE this stay] Coding Level of Care Code Acute Manager [facility] for [facility] Fwd Diagnoses Pleural effusion J90 Heart failure with preserved ejection fraction I50.32 Heart failure chronicity: chronic Lewy body dementia G31.83; F02.80 UTI (urinary tract infection) T83.511A; N39.0 Urinary tract infection type: catheter-associated UTI Indwelling urinary catheter type: unspecified Encounter type: initial encounter Other urethral stricture, male, overlapping sites N35.816 Hiatal hernia K44.9 At risk for aspiration Z91.89
[2022-03-23] MEDS: FUROsemide 10 mg/mL SDV 2mL 20 MG IVP (19:32)
[2022-03-23] MEDS: trazodone 50 mg Tablet 25 MG PO (21:02)
--- NOTE | 2022-03-23 22:53 | PC.NURSE ---
Report called to RN at [facility] for transfer. [facility] team at bedside to transfer patient. Updated daughters x2 with room number at [facility] and transfer status. Patient transferred in stable condition with [facility] team.
[2022-03-24 00:37] VITALS: BP 108/74; PULSE 89; RESP 15; TEMP 36.4; O2SAT 96
== END 2022-03-23 23:00 | disposition short-term general hospital (02) | DRG 193 ==
LOC: ER 12:36 → MEDSURG 21:47
PROVIDERS: Internal Medicine; Internal Medicine Pulmonary Disease; Admitting Provider Hospitalist; Emergency Provider Family Medicine; PCP Family Medicine; Visit Provider Family Medicine
DX: J18.9 Pneumonia, unspecified organism (principal); I50.33 Acute on chronic diastolic (congestive) heart failure; N15.1 Renal and perinephric abscess; T83.511A Infection and inflammatory reaction due to indwelling urethral catheter, initial encounter; E46 Unspecified protein-calorie malnutrition; J91.8 Pleural effusion in other conditions classified elsewhere; E87.1 Hypo-osmolality and hyponatremia; N17.9 Acute kidney failure, unspecified; F02.84 Dementia in other diseases classified elsewhere, unspecified severity, with anxiety; N13.30 Unspecified hydronephrosis; N39.0 Urinary tract infection, site not specified; N35.816 Other urethral stricture, male, overlapping sites; Y73.1 Therapeutic (nonsurgical) and rehabilitative gastroenterology and urology devices associated with adverse incidents; I11.0 Hypertensive heart disease with heart failure; K44.9 Diaphragmatic hernia without obstruction or gangrene; K22.89 Other specified disease of esophagus; R62.7 Adult failure to thrive; Z68.23 Body mass index [BMI] 23.0-23.9, adult; G20 Parkinson's disease; G31.83 Neurocognitive disorder with Lewy bodies; D50.9 Iron deficiency anemia, unspecified; K59.09 Other constipation; E87.6 Hypokalemia; K21.9 Gastro-esophageal reflux disease without esophagitis; E78.5 Hyperlipidemia, unspecified; G47.33 Obstructive sleep apnea (adult) (pediatric); I48.0 Paroxysmal atrial fibrillation; I95.1 Orthostatic hypotension; E88.09 Other disorders of plasma-protein metabolism, not elsewhere classified; F32.A Depression, unspecified; E87.8 Other disorders of electrolyte and fluid balance, not elsewhere classified; I35.1 Nonrheumatic aortic (valve) insufficiency; I34.0 Nonrheumatic mitral (valve) insufficiency; I07.1 Rheumatic tricuspid insufficiency; M17.0 Bilateral primary osteoarthritis of knee; Z87.81 Personal history of (healed) traumatic fracture; Z91.81 History of falling; Z96.0 Presence of urogenital implants
CPT/HCPCS: 32555; 36415; 51702; 51798; 71045; 71250; 74176; 76770; 80048; 80053; 80202; 80503; 81001; 81003; 82042; 82550; 82945; 83540; 83550; 83615; 83735; 83880; 83930; 83935; 83986; 84100; 84145; 84155; 84157; 84300; 84315; 84443; 84478; 84550; 85025; 87040; 87070; 87075; 87086; 87106; 87205; 87426; 88108; 89050; 92523; 92524; 92526; 92610; 93005; 94640; 96365; 96366; 96367; 96372; 96375; 97110; 97161; 97530; 99285; J1644; J1940; J1956; J2543; J3370; J3490; J7030; J7040; J7050; Q3014

== ENCOUNTER → 2022-05-11 11:08 | Outpatient (BNVA) | payer MEDICARE, OTHER, SELFPAY | PROVIDERS: PCP Family Medicine; Visit Provider Podiatrist Foot & Ankle Surgery | DX: L84 Corns and callosities (principal); I73.9 Peripheral vascular disease, unspecified; L60.3 Nail dystrophy | CPT/HCPCS: 11055; 11721 ==

== ENCOUNTER → 2022-05-21 10:34 | Outpatient (BNVA) | payer MEDICARE, OTHER, SELFPAY | PROVIDERS: PCP Family Medicine; Visit Provider Nurse Practitioner Family | DX: N39.0 Urinary tract infection, site not specified (principal); R05.9 Cough, unspecified | CPT/HCPCS: 71046; 81003; 87086 ==

== ENCOUNTER → 2022-06-21 16:20 | Outpatient (BNVA) | payer MEDICARE, OTHER, SELFPAY | PROVIDERS: PCP Family Medicine; Visit Provider Internal Medicine Pulmonary Disease | DX: J90 Pleural effusion, not elsewhere classified (principal); I50.32 Chronic diastolic (congestive) heart failure; Z87.81 Personal history of (healed) traumatic fracture; Z91.81 History of falling; I51.7 Cardiomegaly; I34.0 Nonrheumatic mitral (valve) insufficiency | CPT/HCPCS: 71046; 99214 ==

== ENCOUNTER 2022-08-02 14:53 | Outpatient (CLI) | payer MEDICARE, OTHER, SELFPAY ==
--- NOTE | 2022-08-02 15:15 | USCV_ITS ---
Yossi Vargas Age: 86 Gender: M : 1935 Exam Date: 08/02/2022 15:42 Ordering Phys: Jose Reza MD ([email or web address]) Technologist: CT Exam Location: [facility] [place] Indication: carotid stenosis Risk Factors: Previous Vascular Surgery: Right Brachial BP: / Left Brachial BP: / Right Left Velocity (cm/s) Spectral Plaque Velocity (cm/s) Spectral Plaque Syst/Diast Broadening Syst/Diast Broadening 54.40/ 13.00 Prox CCA 59.90 / 15.40 52.40/ 13.50 Mid CCA 57.40 / 13.60 63.00/ 16.90 Distal CCA 52.00 / 12.40 51.50/ 17.60 Prox ICA 61.80 / 15.30 52.80/ 14.90 Mid ICA 59.20 / 12.70 48.20/ 14.80 Distal ICA 59.80 / 18.60 74.50 ECA 57.50 0.84 ICA/CCA 1.03 Antegrade Vertebral Antegrade 29.50/ 8.50 cm/s 29.00/ 11.00 cm/s Bi Subclavian Bi 66.30 92.70 FINDINGS Comparison:. 09/30/21 Diffuse bilateral scattered calcified plaque and intimal thickening throughout the common carotid arteries and extending through the bifurcation. No significant stenosis with only mild increase in plaque. Antegrade vertebral arteries. CONCLUSIONS Bilateral ICA stenosis less than 50%. Diffuse carotid atherosclerosis. Dr. Yoana Beauchamp DO (Electronically Signed) Final Date: 03 August 2022 08:08 S
== END 2022-08-02 14:54 | disposition home or self-care (01) ==
LOC: RAD 14:58
PROVIDERS: PCP Family Medicine; Visit Provider Internal Medicine Cardiovascular Disease
DX: I65.22 Occlusion and stenosis of left carotid artery (principal); I77.9 Disorder of arteries and arterioles, unspecified
CPT/HCPCS: 93880; 99214

== ENCOUNTER 2022-08-17 14:43 | Outpatient (CLI) | payer MEDICARE, OTHER, SELFPAY ==
--- NOTE | 2022-08-17 | MR_ITS ---
WS: [id number] MRI HEAD AND ORBITS WITHOUT AND WITH GADOLINIUM ENHANCEMENT. TECHNIQUE: Sagittal T1, T2 axial, T2 axial FLAIR, axial susceptibility weighted imaging, axial diffus ion weighted images, and coronal T2 images were obtained. Pre and post-T1 axial and post T1 coronal i mages. ADC and FSPGR images. High-resolution imaging of the orbits. Post gadolinium imaging with fat saturation technique. CLINICAL INFORMATION: diplopia. History of eye surgery not otherwise specified. COMPARISON: MRI 2016 FINDINGS: No evidence of restricted diffusion to suggest acute ischemia. Ventricular system and basal cisterns are patent. Moderate small vessel changes with moderate to advanced parenchymal volume loss worse in the parietal and temporal lobes. Small vessel changes and atrophy progressed since 2016. Advanced atr ophy involving the temporal lobes and hippocampal formations. Normal posterior fossa. Normal vascular flow voids at the skull base. No extra-axial fluid collection s. Mild mucosal thickening in the paranasal sinuses. Normal posterior nasopharynx. Mild mucosal thick ening in the mastoid tips. No hemosiderin on the susceptibility weighted images. Pneumatized RIGHT anterior clinoid. Normal optic chiasm and pituitary infundibulum. Normal cavernous sinuses and Meckel's cave. Proximal 7th and 8th cranial nerves appear normal. Optic nerves are normal in appearance. No optic nerve edema or optic neuritis. Normal visualized rectus muscles. Evidence of prior paranasal sinus surgery. No abnormal intracranial enhancement. Normal dural venous sinuses. 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 This drains into the common fac ial vein in the buccal space MR/MR head orbits wo/w* 96884/[id number] IMPRESSION: 1. No evidence of restricted diffusion to suggest acute ischemia. 2. Moderate small vessel changes significantly progressed compared to 2016 wit h moderate to advanced parenchymal volume loss worse in the parietal lobes and anterior temporal lobes. 3. No hemosiderin on the susceptibly weighted images. 4. Optic nerves are normal in appearance. Normal optic chiasm. No evidence of optic nerve edema or optic neuritis. 5. Normal extraocular muscles. 6. Enhancing vascular lesion in the inferior LEFT lateral orbit likely venous varix appears to drain into the common facial vein. This is likely incidental m easuring 5 x 5 mm. 7. No other suspicious findings.
[2022-08-17] MEDS: gadobenate dimeglumine 20 mL vial IV (16:05)
== END 2022-08-17 14:44 | disposition home or self-care (01) ==
LOC: RAD 14:47
PROVIDERS: PCP Family Medicine; Visit Provider Ophthalmology
DX: H53.2 Diplopia (principal); N35.816 Other urethral stricture, male, overlapping sites; Z96.0 Presence of urogenital implants
CPT/HCPCS: 51741; 51798; 70543; 70553; 81003; 99213; A9577

== ENCOUNTER → 2022-09-07 13:00 | Outpatient (BNVA) | payer MEDICARE, OTHER, SELFPAY | PROVIDERS: PCP Family Medicine; Visit Provider Podiatrist Foot & Ankle Surgery | DX: I73.9 Peripheral vascular disease, unspecified (principal); L60.8 Other nail disorders; L84 Corns and callosities; L60.3 Nail dystrophy | CPT/HCPCS: 11056; 11721 ==

== ENCOUNTER → 2022-11-03 10:53 | Outpatient (BNVA) | payer MEDICARE, OTHER, SELFPAY | PROVIDERS: PCP Family Medicine; Visit Provider Nurse Practitioner Family | DX: R39.9 Unspecified symptoms and signs involving the genitourinary system (principal) | CPT/HCPCS: 81003; 87086 ==

== ENCOUNTER → 2022-12-17 14:56 | Outpatient (BNVA) | payer MEDICARE, OTHER, SELFPAY | PROVIDERS: PCP Family Medicine; Visit Provider Nurse Practitioner Family | DX: R39.9 Unspecified symptoms and signs involving the genitourinary system (principal) | CPT/HCPCS: 81003 ==

== ENCOUNTER → 2022-12-20 10:23 | Outpatient (BNVA) | payer MEDICARE, OTHER, SELFPAY | PROVIDERS: PCP Family Medicine; Visit Provider Podiatrist Foot & Ankle Surgery | DX: I73.9 Peripheral vascular disease, unspecified (principal); B35.1 Tinea unguium; L84 Corns and callosities; I50.32 Chronic diastolic (congestive) heart failure; I34.0 Nonrheumatic mitral (valve) insufficiency; R42 Dizziness and giddiness; R55 Syncope and collapse; G20 Parkinson's disease; I48.91 Unspecified atrial fibrillation | CPT/HCPCS: 11056; 11721; 99214 ==

== ENCOUNTER → 2022-12-21 14:38 | Outpatient (BNVA) | payer MEDICARE, OTHER, SELFPAY | PROVIDERS: PCP Family Medicine; Visit Provider Specialist | DX: G20 Parkinson's disease (principal); F02.80 Dementia in other diseases classified elsewhere, unspecified severity, without behavioral disturbance, psychotic disturbance, mood disturbance, and anxiety; T65.891S Toxic effect of other specified substances, accidental (unintentional), sequela | CPT/HCPCS: 99213 ==

== ENCOUNTER → 2022-12-22 12:19 | Outpatient (BNVA) | payer MEDICARE, OTHER, SELFPAY | PROVIDERS: PCP Family Medicine; Visit Provider Family Medicine | DX: N39.0 Urinary tract infection, site not specified (principal); T83.511A Infection and inflammatory reaction due to indwelling urethral catheter, initial encounter; Y99.9 Unspecified external cause status | CPT/HCPCS: 81003; 87077; 87086; 87184 ==

== ENCOUNTER → 2023-01-06 10:48 | Outpatient (BNVA) | payer MEDICARE, OTHER, SELFPAY | PROVIDERS: PCP Family Medicine; Visit Provider Family Medicine | DX: N39.0 Urinary tract infection, site not specified (principal) | CPT/HCPCS: 81003; 87077; 87086; 87184 ==

== ENCOUNTER → 2023-03-23 11:13 | Outpatient (BNVA) | payer MEDICARE, OTHER, SELFPAY | PROVIDERS: PCP Family Medicine; Visit Provider Nurse Practitioner Family | DX: R30.0 Dysuria (principal); E03.9 Hypothyroidism, unspecified; I10 Essential (primary) hypertension; Z12.5 Encounter for screening for malignant neoplasm of prostate; E78.5 Hyperlipidemia, unspecified; R42 Dizziness and giddiness; E55.9 Vitamin D deficiency, unspecified | CPT/HCPCS: 80053; 80061; 81003; 82306; 82607; 83735; 84443; 85025; 87077; 87086; 87184; G0103 ==